=== PATIENT | female | born 1935 | race Caucasian/White ===

== ENCOUNTER 2016-02-24 13:27 | Inpatient (IN) | payer OTHER, MEDICARE ==
[~2016-02-24] VITALS: Ht 162.6 cm; Wt 91.6 kg
[~2016-02-24 13:27] MED LIST: METOPROLOL SUCC50 M1 PO; SIMVASTATIN20 MG PO
--- NOTE | 2016-02-24 13:32 | NUR ---
INFORMED WAITING PERFORMED. PT STATING IF I KNEW I HAD TO WAIT THIS LONG I WOULD HAVE NEVER CAME.
--- NOTE | 2016-02-24 13:33 | NUR ---
PT'S DAUGHTER STATING SHE WANTS IT WRITTEN DOWN THAT SHE IS ABLE TO BE NOTIFIED OF ALL HER MOTHER'S CONDITION.
--- NOTE | 2016-02-24 13:42 | NUR ---
PT C/O STOMACH, LEGS AND BREASTS "ARE HARD" PT C/O SORES ON LEGS. PT IS NOT A GOOD HISTORIAN.PT STATES SHE FEELS BLOATED AND DISTENDED
--- NOTE | 2016-02-24 15:13 | NUR ---
INFORMED WAITING PERFORMED.
--- NOTE | 2016-02-24 16:06 | ED GENERAL ADULT ---
History of Present Illness General Chief Complaint: General Adult Stated Complaint: SENT BY MD "LEGS,ABD,BREASTS HARD" SORES ON LEGS Source: patient Exam Limitations: no limitations Vital Signs & Intake/Output Vital Signs & Intake/Output Vital Signs Date Time Temp Pulse Resp B/P Pulse O2 O2 Flow FiO2 Ox Delivery Rate 02/23 1852 97.8 94 20 150/77 96 Room Air 02/23 1741 Room Air 02/23 1713 97.9 90 22 167/79 98 Room Air 02/23 1339 97.9 105 20 127/77 96 Room Air Allergies Coded Allergies: Penicillins (PER PT WAS A KID 02/24/16) alcohol (ANY KIND OF ALCOHOL MAKES LOOPY PER PT 02/24/16) ibuprofen (MD SAID DO NOT TAKE PER PT 02/24/16) Reconcile Medications Aspirin (Ecotrin*) 81 MG TABLET.DR 1 TAB PO DAILY HEART/BLOOD (Reported) Cholecalciferol (Vitamin D3) (Vitamin D) (Unknown Strength) CAPSULE (Unknown Dose) PO DAILY SUPPLEMENT (Reported) Metoprolol Tartrate 25 MG TABLET 1 TAB PO DAILY BP (Reported) Simvastatin (Simvastatin*) 20 MG TABLET 1 TAB PO QPM CHOLESTEROL (Reported) Triage Note: PT C/O STOMACH, LEGS AND BREASTS "ARE HARD" PT C/O SORES ON LEGS. PT IS NOT A GOOD HISTORIAN.PT STATES SHE FEELS BLOATED AND DISTENDED Triage Nurses Notes Reviewed? yes Onset: Gradual Duration: day(s): Timing: recent history HPI: 02/24/16 7 PM 80-year-old female who presents to the emergency department complaining of lower extremity edema and inability to walk. According to the patient and the family she has been unable to walk and now has redness and pustular lesions on the left lower extremity. The onset of the symptoms have been gradual, the duration has been days, the severity is significant; as her symptoms required her to come to the emergency department for care. She denies chest pain or shortness of breath. Past History Travel History Traveled to [place] past 21 day No Medical History Any Pertinent Medical History? see below for history Cardiovascular: hypertension, hyperlipidemia, irregular heart beat Surgical History Surgical History: PARTIAL HYSTERECTOMY Psychosocial History Who do you live with Daughter Services at Home None What is your primary language Polish Tobacco Use: Current Daily Use Daily Tobacco Use Amount/Type: => 5 Cigarettes daily ETOH Use: denies use Illicit Drug Use: denies illicit drug use Family History Hx Contributory? No Review of Systems Review of Systems Constitutional: Denies: fever. EENTM: Denies: visual changes. Respiratory: Reports: see HPI. Denies: short of breath. Cardiovascular: Denies: chest pain. GI: Reports: no symptoms, vomiting. Genitourinary: Reports: no symptoms. Musculoskeletal: Reports: see HPI. Skin: Reports: rash. Neurological/Psychological: Denies: headache. Hematologic/Endocrine: Denies: bruising, bleeding. Physical Exam Physical Exam General Appearance: alert, awake, anxious, moderate distress Head: atraumatic, normal appearance Eyes: Bilateral: normal appearance, PERRL, EOMI. Ears, Nose, Throat: normal pharynx, normal ENT inspection Neck: normal inspection, supple Respiratory: decreased breath sounds Cardiovascular: regular rate/rhythm Peripheral Pulses: 4+ radial (R), 4+ radial (L) Gastrointestinal: non-tender Back: decreased range of motion Extremities: pedal edema, swelling, tenderness Neurologic/Psych: no motor/sensory deficits, awake, alert, oriented x 3 Skin: rash Comments: She has massive lower extremity edema with pustular discharge from the left lower extremity Core Measures ACS in differential dx? No CVA/TIA Diagnosis: No Severe Sepsis Present: No Septic Shock Present: No Progress Differential Diagnoses I considered the following diagnoses in my evaluation of the patient: [CHF, DVT, cellulitis, deep tendon edema, Plan of Care: Orders Procedure Date/time Status Heart Healthy Diet 02/24 B Active EKG 02/23 2026 Active Patient Data 02/23 2022 Active Admit to inpatient 02/23 1950 Active Vital Signs 02/23 1950 Active Code Status 02/23 1950 Active TROPONIN LEVEL 02/23 1626 Complete COMPREHENSIVE METABOLIC PANEL 02/23 1626 Complete CBC WITHOUT DIFFERENTIAL 02/23 1626 Complete B-TYPE NATRIURETIC PEP (BNP) 02/23 1626 Complete EKG 02/23 162 Active Laboratory Tests 02/24/16 1715: Anion Gap 12, Estimated GFR > 60, BUN/Creatinine Ratio 28.3 H, Glucose 115 H, Calcium 9.4, Total Bilirubin 1.4 H, AST 25, ALT 44, Alkaline Phosphatase 101, Troponin I < 0.01, Eyh-D-Mvjojtadmww Pept 1380 H, Total Protein 6.6, Albumin 3.9, Globulin 2.7, Albumin/Globulin Ratio 1.4, CBC w Diff NO MAN DIFF REQ, RBC 4.90, MCV 83.4, MCH 26.5 L, RDW 17.6 H, MPV 8.4, Gran % 74.4, Lymphocytes % 14.5 L, Monocytes % 9.9 H, Eosinophils % 0.7, Basophils % 0.5, Absolute Granulocytes 8.4 H, Absolute Lymphocytes 1.6, Absolute Monocytes 1.1 H, Absolute Eosinophils 0.1, Absolute Basophils 0.1, PUBS MCHC 31.7 L Initial ED EKG: motion artifact , A. fib Prior EKG: changed Comments: 02/24/16 The patient is being upgraded to telemetry as her EKG shows atrial fibrillation. I spoke with her director of sports performance Dr. Nascimento' who does not recall a definitive diagnosis of prior A. fib. He will see the patient in consult in the a.m. Departure Departure Disposition: STILL A PATIENT Condition: Stable Clinical Impression Primary Impression: Anasarca Secondary Impressions: Afib, Right-sided heart failure Referrals: LOLIS PRICE MD (PCP/Family) Departure Forms: Customer Survey General Discharge Information Admission Note Spoke With: LOLIS PRICE MD Documentation of Exam: Documentation of any treatments & extenuating circumstances including Concerns Regarding Discharge (functional status, medication knowledge or non-compliance, living conditions, etc.) that warrant an admission rather than observation: [The patient needs admission for IV diuresis, IV antibiotics, PT consultation, consider short-term rehabilitation placement. The patient is unable to manage at home due to her massive anasarca] Critical Care Note Critical Care Note Critical Care Time: non-applicable
--- NOTE | 2016-02-24 16:15 | NUR ---
PT TO DERRELL Guy
--- NOTE | 2016-02-24 16:20 | NUR ---
DR SALAZAR EVALUATING
--- NOTE | 2016-02-24 16:30 | NUR ---
PT TO ULTRASOUND
--- NOTE | 2016-02-24 17:03 | NUR ---
PT RETURNED FROM ULTRASOUND
--- NOTE | 2016-02-24 17:19 | ULTRASOUND REPORT ---
EXAMINATION: US TRIPLEX LOWER EXTREMITY, BILATERAL CLINICAL INFORMATION: Bilateral lower extremity edema and swelling. COMPARISON: None. TECHNIQUE: Color-flow triplex imaging with spectral analysis and compression Doppler were performed on the bilateral lower extremities. FINDINGS: Respiratory variation, normal compression and augmented flow are noted throughout the bilateral lower extremities. The visualized common femoral vein, proximal greater saphenous vein, femoral vein, profunda femoral vein, popliteal vein and visualized mid calf venous segments show no evidence of deep venous thrombosis. There is no Lucio's cyst. IMPRESSION: Normal triplex scan without evidence of deep venous thrombosis involving the bilateral lower extremities.
[2016-02-24] MEDS ORDERED: ASPIRIN EC81 M1 PO (17:32)
[2016-02-24] MEDS ORDERED: VITAMIN D31000 UNI2 PO (17:32)
[2016-02-24 17:33] LABS: ABSOLUTE BASOPHIL COUNT 0.1 /CUMM (0.0-0.2); ABSOLUTE EOSINOPHIL COUNT 0.1 /CUMM (0.0-0.7); ABSOLUTE GRANULOCYTE CT 8.4 /CUMM (1.4-6.5); ABSOLUTE LYMPH COUNT 1.6 /CUMM (1.2-3.4); ABSOLUTE MONOCYTE COUNT 1.1 /CUMM (0.10-0.60); BASOPHIL % 0.5 % (0.0-2.0); EOSINOPHIL % 0.7 % (0-5); GRANULOCYTE % 74.4 % (42.2-75.2); HEMATOCRIT 40.9 % (37-47); MEAN CORPUSCULAR HGB 26.5 PG (27.0-31.0); MEAN CORPUSCULAR HGB CONC 31.7 G/DL (33.0-37.0); MEAN CORPUSCULAR VOLUME 83.4 FL (81.0-99.0); MEAN PLATELET VOLUME 8.4 FL (7.4-10.4); PLATELET COUNT 271 /CUMM (130-400); RBC DISTRIBUTION WIDTH 17.6 % (11.5-14.5); WHITE BLOOD CELL COUNT 11.3 /CUMM (4.8-10.8)
[2016-02-24] MEDS ORDERED: SIMVASTATIN20 M2 PO (17:35)
[2016-02-24] MEDS ORDERED: METOPROLOL TART25 M1 PO (17:35)
--- NOTE | 2016-02-24 17:40 | NUR ---
PT REFUSED ATORVASTATIN BECAUSE IT WAS NOT WHAT SHE TAKES AT HOME. THIS NURSE AND NELLI, PAY AGENT EDUCATED PT ON REPLACEMENT MED. PT STILL REFUSED MED
--- NOTE | 2016-02-24 18:38 | RADIOLOGY REPORT ---
EXAMINATION: XR PORTABLE CHEST CLINICAL INFORMATION: Edema. Evaluate for congestive heart failure. COMPARISON: Chest x-ray 08/11/2015. TECHNIQUE: Portable view of the chest was obtained. FINDINGS: The lungs are hypoinflated, but otherwise clear without focal airspace consolidation. No pleural effusions or pneumothoraces are identified. Cardiomediastinal contours are stable and there is stable prominence of the cardiac silhouette with mild central venous congestion. No overt pulmonary edema. Soft tissues are unremarkable. No acute osseous abnormality is identified. IMPRESSION: Stable prominence of the cardiac silhouette, without overt pulmonary edema. No findings indicative of congestive heart failure.
--- NOTE | 2016-02-24 20:25 | NUR ---
PT SITTING IN CHAIR WITH FAMILY PRESENT. ALERT AND ORIENTED.
--- NOTE | 2016-02-24 20:36 | Admission Certification ---
Admission Certification Certification Statement - As attending physician, I certify that at the time of - admission, based on clinical presentation, severity of - symptoms, need for further diagnostic testing and - therapeutic interventions, and risk of adverse outcomes - without in-hospital treatment, in my clinical assessment, - this patient requires an acute hospital stay for a minimum - of two nights or longer. I have also considered psychsocial - factors such as support system, advanced age, financial - issues, cognitive issues, and failed out-patient treatments, - past re-admission history, safety of patient, and lack of - compliance as applicable. Specific rationale supporting this admission is: ACUTE CORPULMONALE WITH ANASARCA
--- NOTE | 2016-02-24 20:50 | PN- Att Addend ---
See Addendum Attending Addendum Attending Brief Note 80-year-old female who presents to the emergency department complaining of lower extremity edema and inability to walk. According to the patient and the family she has been unable to walk and now has redness and pustular lesions on the left lower extremity. The onset of the symptoms have been gradual, the duration has been days, the severity is significant; as her symptoms required her to come to the emergency department for care. She denies chest pain or shortness of breath. In the emergency room she was noted to have significant anasarca with significant swelling in her leg. Patient also has had increasing abdominal distention and subcutaneous edema noted. She does have morbid obesity and she probably does have significant sleep apnea as well. Unfortunately she has not been compliant with her medications. Her past history significant for hypertension hyperlipidemia. She is also had a previous presyncopal episode, benign positional vertigo, recurrent bronchitis, previous ankle fracture, mobility dysfunction with morbid obesity hypertension hyperlipidemia. She does see Dr. Nascimento for cardiology follow-up but she has not been on any other medications other than her cholesterol medication and blood pressure medicines. In the recent past she has been little more depressed and she has been slowly increasing in her weight. Unfortunately she continues to smoke. She continues to smoke unfortunately. She has had partial hysterectomy. Past History Travel History Traveled to [place] past 21 day No Medical History Any Pertinent Medical History? see below for history Cardiovascular: hypertension, hyperlipidemia Surgical History Surgical History: PARTIAL HYSTERECTOMY Psychosocial History Who do you live with Daughter Services at Home None What is your primary language Ivorian Tobacco Use: Current Daily Use Daily Tobacco Use Amount/Type: => 5 Cigarettes daily ETOH Use: denies use Illicit Drug Use: denies illicit drug use Family History Hx Contributory? No Review of Systems Review of Systems Constitutional: Denies: fever. EENTM: Denies: visual changes. Respiratory: Reports: see HPI. Denies: short of breath. Cardiovascular: Denies: chest pain. GI: Reports: no symptoms, vomiting. Genitourinary: Reports: no symptoms. Musculoskeletal: Reports: see HPI. Skin: Reports: rash. Neurological/Psychological: Denies: headache. Hematologic/Endocrine: Denies: bruising, bleeding. Physical Exam Physical Exam General Appearance: alert, awake, anxious, moderate distress Head: atraumatic, normal appearance Eyes: Bilateral: normal appearance, PERRL, EOMI. Ears, Nose, Throat: normal pharynx, normal ENT inspection Neck: normal inspection, supple Respiratory: decreased breath sounds Cardiovascular: regular rate/rhythm Peripheral Pulses: 4+ radial (R), 4+ radial (L) Gastrointestinal: non-tender Back: decreased range of motion Extremities: pedal edema, swelling, tenderness Neurologic/Psych: no motor/sensory deficits, awake, alert, oriented x 3 Skin: rash SIGNIFICANT DATA Previous echocardiogram showed normal ejection fraction with tricuspid valve dysfunction and moderate aortic sclerosis with dilated dilatation of the proximal ascending aorta. Chest x-ray showed cardiomegaly no pulmonary edema Lower extremity Doppler showed normal DVT Blood work showed normal BUN and creatinine Baseline bicarbonate is 31 suggesting hypercarbia The bilirubin is slightly elevated at 1.4 ProBNP 1380 White count 11.3 hemoglobin 13 no significant left shift Urine analysis pending Previous echocardiogram had shown RV pressure of 32 IMPRESSION This is an 80-year-old lady with history of ongoing smoking, hypertension, hyperlipidemia, diastolic heart disease, previous aortic sclerosis, tricuspid valvular disease, morbid obesity with signs and symptoms suggestive of obstructive sleep apnea, chronic hypercarbic respiratory dysfunction with baseline high bicarbonate, now comes in with * Significant pedal edema generalized anasarca with increase in weight highly suggestive of acute on chronic cor pulmonale with right heart failure with fluid overload * Diastolic heart disease with no evidence of left ventricular failure * Morbid obesity with upper airway resistance syndrome versus obstructive sleep apnea * Glucose intolerance with hemoglobin A1c of 6.2 in the past * No clinical evidence suggestive of nephrotic syndrome but however proteinuria needs to be ruled out * No clinical evidence suggestive of hypothyroidism last TSH was normal this needs to be repeated * Probable worsening depression and anxiety * Significant chronic venostasis changes in the lower extremity with no evidence suggestive of active infection * Probable mild depression * Hypertension hyperlipidemia * Vitamin D deficiency RECOMMENDATION * Admitted to the hospital * Intravenous Lasix 40 mg every 12 * Potassium 40 mEq by mouth twice a day * Watch urine output and renal function * Send urine analysis and urine spot protein and if this is elevated she would need 24-hour urine to rule out nephrotic syndrome * Check TSH, hemoglobin A1c * Serial EKG * ABG to assess baseline hypercarbia if patient allows she is not too keen on it now * Echocardiogram * Please call Maulik Nascimento MD to see the patient tomorrow * Will consider low dose antidepressant in the future * Continue her outpatient medications which includes low-dose metoprolol and Zocor * When necessary nebulizer therapy for wheezing * We will get bedside spirometry tomorrow by respiratory therapist to see what her FEV1 is * Keep the leg elevated * Check hemoglobin A1c
--- NOTE | 2016-02-24 21:49 | History & Physical ---
[facility] 02/24/16 2789: General Information and HPI MD Statement: I have seen and personally examined DONNA CASTELLON and documented this H&P. The patient is a 80 year old F who presented with a patient stated chief complaint of [leg swelling]. Source of Information: patient Exam Limitations: pt agitated and irritable History of Present Illness: 80-year-old female with PMH of HTN, HLD, BPPV, morbid obesity, ROMERO?, chronic hypercarbic respiratory dysfunction, presented with increased leg and abdominal swelling, along with new sores on both lower extremities. The patient was irritable at the time of examination, and refused to turn down the TV, saying "hurry up with the questions, I have already answered everything and have been diagnosed, just look at what is written". She reported the swelling on both lower extremities have gotten worse over the past weeks. She also pointed to the new sores on the right lower extremity. During examination, she also has some wet areas on both her legs consistent with ruptured blisters, that she is not aware about, because she "cannot see down there". Her abdominal swelling has also worsened over the past few weeks. She denies orthopnea, and sleeps flat without any pillows without increased shortness of breath. She denies any pain anywhere. She denies fever, chills, increased weakness, visual changes, chest pain, palpitations, shortness of breath, cough, abdominal pain, nausea, vomiting, diarrhea, constipation, blood in stool. EKG showed atrial fibrillation, rate controlled. I did the stool guaiac and it was negative. Heparin started, as discussed with Dr. Nascimento. Pt is a long-time smoker, refused to quantify how much she smokes, and also reported smoking for about 70 years. She is allergic to penicillin and ibuprofen. Meds include metoprolol, simvastatin, vit d and baby aspirin. Allergies/Medications Allergies: Coded Allergies: Penicillins (PER PT WAS A KID 02/24/16) alcohol (ANY KIND OF ALCOHOL MAKES LOOPY PER PT 02/24/16) ibuprofen (MD SAID DO NOT TAKE PER PT 02/24/16) Home Med list Aspirin (Ecotrin*) 81 MG TABLET.DR 1 TAB PO DAILY HEART/BLOOD (Reported) Cholecalciferol (Vitamin D3) (Vitamin D) (Unknown Strength) CAPSULE (Unknown Dose) PO DAILY SUPPLEMENT (Reported) Metoprolol Tartrate 25 MG TABLET 1 TAB PO DAILY BP (Reported) Simvastatin (Simvastatin*) 20 MG TABLET 1 TAB PO QPM CHOLESTEROL (Reported) Past History Travel History Traveled to [place] past 21 day No Medical History Cardiovascular: hypertension, hyperlipidemia, irregular heart beat Surgical History Surgical History: PARTIAL HYSTERECTOMY Past Family/Social History Psychosocial History Where do you live? Home Who Do You Live With? child Services at Home: None Primary Language: Belarusian Smoking Status: Current Everyday Smoker ETOH Use: denies use Illicit Drug Use: denies illicit drug use Functional Ability Ambulation: walker Review of Systems Review of Systems Constitutional: Denies: chills, fever, malaise. EENTM: Denies: visual changes. Cardiovascular: Denies: chest pain, edema, palpitations. Respiratory: Denies: cough, short of breath. GI: Denies: abdominal pain, bloating, constipation, diarrhea, nausea, bloody stool, changes in stool, vomiting. Exam & Diagnostic Data Last 24 Hrs of Vital Signs/I&O Vital Signs Date Time Temp Pulse Resp B/P Pulse O2 O2 Flow FiO2 Ox Delivery Rate 02/23 2225 95 16 130/65 02/23 2104 98.0 90 18 149/79 96 Room Air 02/23 1852 97.8 94 20 150/77 96 Room Air 02/23 1741 Room Air 02/23 1713 97.9 90 22 167/79 98 Room Air 02/23 1339 97.9 105 20 127/77 96 Room Air Intake & Output 02/24 0800 02/24 0000 02/23 1600 Intake Total 250 Output Total 200 550 Balance -200 -300 Intake, Oral 250 Output, Urine 200 550 Physical Exam General Appearance Alert, Oriented X3, Cooperative, No Acute Distress, irritable Skin redness over the legs up to mid calf bilaterally, not warm to touch HEENT Atraumatic, PERRLA Cardiovascular Regular Rate, Normal S1, Normal S2, No Murmurs, Gallops, Rubs Lungs Clear to Auscultation, Normal Air Movement Abdomen Normal Bowel Sounds, Soft, No Tenderness Extremities noticable swelling of both lower extremities. non pitting edema bilaterally. some ruptured blisters on both legs. Vascular pulse on both lower extremities difficult to assess due to the edema Last 24 Hrs of Labs/Ehsan: Laboratory Tests 02/24/16 2343: Troponin I < 0.01, PT 12.5, INR 1.19, APTT 31 02/24/16 1715: Hemoglobin A1c Pending 02/24/16 1715: Anion Gap 12, Estimated GFR > 60, BUN/Creatinine Ratio 28.3 H, Glucose 115 H, Calcium 9.4, Total Bilirubin 1.4 H, Direct Bilirubin Pending, AST 25, ALT 44, Alkaline Phosphatase 101, Troponin I < 0.01, Obg-B-Niiryiibnsb Pept 1380 H, Total Protein 6.6, Albumin 3.9, Globulin 2.7, Albumin/Globulin Ratio 1.4, TSH 3.670, CBC w Diff NO MAN DIFF REQ, RBC 4.90, MCV 83.4, MCH 26.5 L, RDW 17.6 H, MPV 8.4, Gran % 74.4, Lymphocytes % 14.5 L, Monocytes % 9.9 H, Eosinophils % 0.7, Basophils % 0.5, Absolute Granulocytes 8.4 H, Absolute Lymphocytes 1.6, Absolute Monocytes 1.1 H, Absolute Eosinophils 0.1, Absolute Basophils 0.1, PUBS MCHC 31.7 L Assessment/Plan Assessment: 80-year-old female with PMH of HTN, HLD, BPPV, morbid obesity, ROMERO?, chronic hypercarbic respiratory dysfunction, presented with increased leg and abdominal swelling, along with new sores on both lower extremities. # New atrial fibrillation, rate controlled - Pt reports she was started on metoprolol a long time ago by Dr. Keane for abnormal heart rhythm * Admit to tele * IV heparin started (stool guaiac negative) * Cardio consult with Dr Nascimento * Echo * Lasix IV 40 bid * Kdur 40 bid * TSH, hba1c * Serial EKG and troponin * continue baby aspirin * Get recs from Dr. Keane regarding abnormal heart rhythm * Continue metoprolol # Bilateral lower extremity edema and abdominal swelling. LE does not look infected. - probnp 1380 * UA and spot protein # HTN * continue metoprolol # HLD * Continue statin # Anxiety, depression, irritability * Consider starting antidepressant # ROMERO? vs upper airway disease * Bedside spirometry to measure FEV1 * ABG # Nicotine dependence * Nicotine patch Diet: heart healthy DVT ppx: IV heparin FULL CODE As Ranked By This Provider Problem List: 1. Afib 2. Anasarca Core Measures/Miscellaneous Acute Coronary Syndrome ACS Diagnosis: No Cerebrovascular Accident CVA/TIA Diagnosis: No Congestive Heart Failure CHF Diagnosis: Yes Venous Thromboembolism VTE Risk Factors: Acute medical illness, Age > 40, Obesity, Smoking VTE Prophylaxis Ordered Inpt: Pharm- [facility]arin [facility] prophylaxis d/t: No contraindications No VTE Pharm Prophylaxis d/t: No contraindications VTE Diagnosis: No VTE Type: NONE VTE Confirmed by (Test): DUPLEX SCAN LOWER EXT Severe Sepsis Severe Sepsis Present: No Septic Shock Septic Shock Present: No Miscellaneous Documentation Attending Case Discussed With: LOLIS PRICE MD Primary Care Physician: LOLIS PRICE MD Patient sees these Specialists Dr Nascimento cardiology Level of Patient Care: Telemetry DOROTEO SOTOMAYOR 02/25/16 0403: Resident Review Statement Resident Statement: examined this patient, discussed with internet marketing strategist, agreed with internet marketing strategist, reviewed EMR data (avail), reviewed images, amended to note Other Findings: This is 80-year-old female with PMH of HTN, HLD, BPPV, morbid obesity, ROMERO?, chronic hypercarbic respiratory dysfunction, presented with increased leg and abdominal swelling, along with new sores on both lower extremities. Presented to the emergency department due to lower extremity swelling. she also has some wet areas on both her legs consistent with ruptured blister. She denies any pain anywhere. She denies fever, chills, increased weakness, visual changes, chest pain, palpitations, shortness of breath, cough, abdominal pain, nausea, vomiting , diarrhea, constipation, blood in stool. Patient stated that she was started on metoprolol by her primary care doctor controlled her heart rate, patient doesn't know if she had atrial fibrillation and what was the reason to not start her anticoagulation EKG showed atrial fibrillation, rate controlled. stool guaiac was negative, so heparin started, we discussed that with Dr. Nascimento the second time worker who will see the patient tomorrow morning. Physical examination, lab and imaging as above Problem list: -Lower extremity edema -Bilateral lower extremity lesion -Atrial fibrillation with controlled rate -Elevated bilirubin Plan: -Admit patient to telemetry floor -Vitals every shift, strict HARRY's -Start the patient on heparin drip -Start the patient on IV Lasix 40 mg twice a day -We'll hold off antibiotic for now. -ABG, TRC nebs as needed -Serial troponin and EKG -Echocardiogram, check TSH, hemoglobin A1c -Continue the patient metoprolol and statin -Cardiology consultation in a.m. -Physical therapy consultation -Wound care consultation -Heart healthy diet with 2 g sodium -Pain pathway -DVT prophylaxis on heparin drip -Full code
--- NOTE | 2016-02-24 22:00 | NUR ---
HOUSE STAFF AT BEDSIDE FOR EVAL
--- NOTE | 2016-02-24 22:30 | NUR ---
PT MEDICATED WITH K-DUR AND METOPROLOL PER APR.
--- NOTE | 2016-02-24 22:54 | NUR ---
PT MEDICATED WITH LASIX 40MG IV
[2016-02-25 00:10] LABS: PT 12.5 SEC (9.4-12.5); PTT 31 SEC (25-37)
--- NOTE | 2016-02-25 00:18 | NUR ---
HEPARIN BOLUS 4000 UNITS FOLLWOED BY HEPARI DRIP 25,000 UNITS IN 500 NL 0.45 N/S AT 26ML/HR
--- NOTE | 2016-02-25 00:19 | NUR ---
PT DIURESISING AFTER LASIX
[2016-02-25 02:42] VITALS: BP 134/78
--- NOTE | 2016-02-25 02:42 | NUR ---
RESPIRATORY THERAPY NOTE: PATIENT REFUSED ABG @ 6443
[2016-02-25 06:27] LABS: ABSOLUTE BASOPHIL COUNT 0.1 /CUMM (0.0-0.2); ABSOLUTE EOSINOPHIL COUNT 0.1 /CUMM (0.0-0.7); ABSOLUTE GRANULOCYTE CT 7.7 /CUMM (1.4-6.5); ABSOLUTE LYMPH COUNT 2.2 /CUMM (1.2-3.4); ABSOLUTE MONOCYTE COUNT 1.5 /CUMM (0.10-0.60); BASOPHIL % 0.6 % (0.0-2.0); EOSINOPHIL % 1.2 % (0-5); GRANULOCYTE % 66.3 % (42.2-75.2); HEMATOCRIT 38.3 % (37-47); MEAN CORPUSCULAR HGB CONC 32.5 G/DL (33.0-37.0); MEAN PLATELET VOLUME 8.4 FL (7.4-10.4); PLATELET COUNT 264 /CUMM (130-400); RBC DISTRIBUTION WIDTH 17.2 % (11.5-14.5); RED BLOOD CELL CT 4.62 /CUMM (4.20-5.40); WHITE BLOOD CELL COUNT 11.5 /CUMM (4.8-10.8)
[2016-02-25 07:00] LABS: PTT > 120 SEC (25-37)
[2016-02-25 08:29] VITALS: BP 138/81
--- NOTE | 2016-02-25 10:23 | PN- Pulmonary ---
Subjective HPI/Critical Care Issues: Ongoing diuresis Feels better Wants to go home Fatigued Objective Current Medications: Current Medications Sig/Neeraj Start time Last Medication Dose Route Stop Time Status Admin Acetaminophen 650 MG Q6P PRN 02/23 2229 AC PO Acetaminophen/ 1 TAB Q6P PRN 02/23 223 AC Hydrocodone Bitart PO Aspirin Buffered 81 MG DAILY 02/24 1000 AC 02/24 PO 0919 Atorvastatin Calcium 10 MG 1700 02/24 1700 AC PO Atorvastatin Calcium 20 MG ONCE ONE 02/23 1630 DC PO 02/23 163 Furosemide 40 MG 7:30 AM, & 4:30 PM 02/24 0730 AC 02/24 IV 0800 Furosemide 0 .STK-MED ONE 02/23 2145 DC IV Furosemide 40 MG ONCE ONE 02/23 2029 DC 02/23 IV PUSH 02/23 2030 225 Heparin Sodium 0 .STK-MED ONE 02/23 2345 DC (Porcine) .ROUTE Heparin Sodium 4,000 UNIT ONCE ONE 02/24 2244 DC 02/24 (Porcine) IV 02/23 2245 0015 Heparin Sodium 25,000 UNIT Q24H 02/24 2244 AC 02/24 (Porcine) IV 0015 Sodium Chloride 500 ML Metoprolol Tartrate 25 MG DAILY 02/24 1000 AC PO Metoprolol Tartrate 0 .STK-MED ONE 02/23 2145 DC PO Metoprolol Tartrate 25 MG ONCE ONE 02/23 2029 DC 02/23 PO 02/23 Nicotine 14 MG DAILY 02/24 1000 AC TOP Oxycodone/ 2 TAB Q6P PRN 02/23 2229 AC Acetaminophen PO Potassium Chloride 20 MEQ BID 02/23 2230 AC 02/24 PO 0919 Potassium Chloride 0 .STK-MED ONE 02/23 2145 DC PO Potassium Chloride 10 MEQ ONCE ONE 02/24 2044 DC 02/23 PO 02/23 2045 2225 Laboratory Tests 02/24 02/23 02/23 0615 2343 1715 Chemistry Sodium (137 - 145 mmol/L) 141 Potassium (3.5 - 5.1 mmol/L) 3.8 Chloride (98 - 107 mmol/L) 94 L Carbon Dioxide (22 - 30 mmol/L) 37 H Anion Gap (5 - 16) 11 BUN (7 - 17 mg/dL) 18 H Creatinine (0.5 - 1.0 mg/dL) 0.6 Estimated GFR (>60 ml/min) > 60 BUN/Creatinine Ratio (7 - 25 %) 30.0 H Hemoglobin A1c Pending Troponin I (< 0.11 ng/ml) < 0.01 Coagulation PT (9.4 - 12.5 SEC) 12.5 INR (0.90 - 1.19) 1.19 APTT (25 - 37 SEC) > 120 *H 31 Hematology CBC w Diff NO MAN DIFF REQ WBC (4.8 - 10.8 /CUMM) 11.5 H RBC (4.20 - 5.40 /CUMM) 4.62 Hgb (12.0 - 16.0 G/DL) 12.5 Hct (37 - 47 %) 38.3 MCV (81.0 - 99.0 FL) 83.0 MCH (27.0 - 31.0 PG) 27.0 RDW (11.5 - 14.5 %) 17.2 H Plt Count (130 - 400 /CUMM) 264 MPV (7.4 - 10.4 FL) 8.4 Gran % (42.2 - 75.2 %) 66.3 Lymphocytes % (20.5 - 51.1 %) 19.3 L Monocytes % (1.7 - 9.3 %) 12.6 H Eosinophils % (0 - 5 %) 1.2 Basophils % (0.0 - 2.0 %) 0.6 Absolute Granulocytes (1.4 - 6.5 /CUMM) 7.7 H Absolute Lymphocytes (1.2 - 3.4 /CUMM) 2.2 Absolute Monocytes (0.10 - 0.60 /CUMM) 1.5 H Absolute Eosinophils (0.0 - 0.7 /CUMM) 0.1 Absolute Basophils (0.0 - 0.2 /CUMM) 0.1 PUBS MCHC (33.0 - 37.0 G/DL) 32.5 L 02/23 1715 Chemistry Sodium (137 - 145 mmol/L) 139 Potassium (3.5 - 5.1 mmol/L) 3.9 Chloride (98 - 107 mmol/L) 96 L Carbon Dioxide (22 - 30 mmol/L) 31 H Anion Gap (5 - 16) 12 BUN (7 - 17 mg/dL) 17 Creatinine (0.5 - 1.0 mg/dL) 0.6 Estimated GFR (>60 ml/min) > 60 BUN/Creatinine Ratio (7 - 25 %) 28.3 H Glucose (65 - 99 mg/dL) 115 H Calcium (8.4 - 10.2 mg/dL) 9.4 Total Bilirubin (0.2 - 1.3 mg/dL) 1.4 H Direct Bilirubin (< 0.4 mg/dL) 0.5 H AST (14 - 36 U/L) 25 ALT (9 - 52 U/L) 44 Alkaline Phosphatase (<127 U/L) 101 Troponin I (< 0.11 ng/ml) < 0.01 Eac-K-Mzlthipyonf Pept (<125 pg/mL) 1380 H Total Protein (6.3 - 8.2 g/dL) 6.6 Albumin (3.5 - 5.0 g/dL) 3.9 Globulin (1.9 - 4.2 gm/dL) 2.7 Albumin/Globulin Ratio (1.1 - 2.2 %) 1.4 TSH (0.270 - 4.200 uIU/mL) 3.670 Hematology CBC w Diff NO MAN DIFF REQ WBC (4.8 - 10.8 /CUMM) 11.3 H RBC (4.20 - 5.40 /CUMM) 4.90 Hgb (12.0 - 16.0 G/DL) 13.0 Hct (37 - 47 %) 40.9 MCV (81.0 - 99.0 FL) 83.4 MCH (27.0 - 31.0 PG) 26.5 L RDW (11.5 - 14.5 %) 17.6 H Plt Count (130 - 400 /CUMM) 271 MPV (7.4 - 10.4 FL) 8.4 Gran % (42.2 - 75.2 %) 74.4 Lymphocytes % (20.5 - 51.1 %) 14.5 L Monocytes % (1.7 - 9.3 %) 9.9 H Eosinophils % (0 - 5 %) 0.7 Basophils % (0.0 - 2.0 %) 0.5 Absolute Granulocytes (1.4 - 6.5 /CUMM) 8.4 H Absolute Lymphocytes (1.2 - 3.4 /CUMM) 1.6 Absolute Monocytes (0.10 - 0.60 /CUMM) 1.1 H Absolute Eosinophils (0.0 - 0.7 /CUMM) 0.1 Absolute Basophils (0.0 - 0.2 /CUMM) 0.1 PUBS MCHC (33.0 - 37.0 G/DL) 31.7 L Vital Signs & I&O Last 24 Hrs of Vitals and I&O: Vital Signs Date Time Temp Pulse Resp B/P Pulse O2 O2 Flow FiO2 Ox Delivery Rate 02/24 0919 96.0 87 138/81 02/24 0829 96.0 87 20 138/81 95 Room Air 02/24 0303 Room Air 02/24 0242 97.9 78 26 134/78 98 Room Air 02/23 2225 95 16 130/65 02/23 2104 98.0 90 18 149/79 96 Room Air 02/23 1852 97.8 94 20 150/77 96 Room Air 02/23 1741 Room Air 02/23 1713 97.9 90 22 167/79 98 Room Air 02/23 1339 97.9 105 20 127/77 96 Room Air Intake & Output 02/24 1600 02/24 0800 02/24 0000 Intake Total 240 250 Output Total 550 550 Balance -310 -300 Intake, IV 0 Intake, Oral 240 250 Number 0 Bowel Movements Output, Urine 550 550 Patient 300 lb Weight Laboratory Tests 02/24 02/23 02/23 0615 2343 1715 Chemistry Sodium (137 - 145 mmol/L) 141 Potassium (3.5 - 5.1 mmol/L) 3.8 Chloride (98 - 107 mmol/L) 94 L Carbon Dioxide (22 - 30 mmol/L) 37 H Anion Gap (5 - 16) 11 BUN (7 - 17 mg/dL) 18 H Creatinine (0.5 - 1.0 mg/dL) 0.6 Estimated GFR (>60 ml/min) > 60 BUN/Creatinine Ratio (7 - 25 %) 30.0 H Hemoglobin A1c Pending Troponin I (< 0.11 ng/ml) < 0.01 Coagulation PT (9.4 - 12.5 SEC) 12.5 INR (0.90 - 1.19) 1.19 APTT (25 - 37 SEC) > 120 *H 31 Hematology CBC w Diff NO MAN DIFF REQ WBC (4.8 - 10.8 /CUMM) 11.5 H RBC (4.20 - 5.40 /CUMM) 4.62 Hgb (12.0 - 16.0 G/DL) 12.5 Hct (37 - 47 %) 38.3 MCV (81.0 - 99.0 FL) 83.0 MCH (27.0 - 31.0 PG) 27.0 RDW (11.5 - 14.5 %) 17.2 H Plt Count (130 - 400 /CUMM) 264 MPV (7.4 - 10.4 FL) 8.4 Gran % (42.2 - 75.2 %) 66.3 Lymphocytes % (20.5 - 51.1 %) 19.3 L Monocytes % (1.7 - 9.3 %) 12.6 H Eosinophils % (0 - 5 %) 1.2 Basophils % (0.0 - 2.0 %) 0.6 Absolute Granulocytes (1.4 - 6.5 /CUMM) 7.7 H Absolute Lymphocytes (1.2 - 3.4 /CUMM) 2.2 Absolute Monocytes (0.10 - 0.60 /CUMM) 1.5 H Absolute Eosinophils (0.0 - 0.7 /CUMM) 0.1 Absolute Basophils (0.0 - 0.2 /CUMM) 0.1 PUBS MCHC (33.0 - 37.0 G/DL) 32.5 L 02/23 1715 Chemistry Sodium (137 - 145 mmol/L) 139 Potassium (3.5 - 5.1 mmol/L) 3.9 Chloride (98 - 107 mmol/L) 96 L Carbon Dioxide (22 - 30 mmol/L) 31 H Anion Gap (5 - 16) 12 BUN (7 - 17 mg/dL) 17 Creatinine (0.5 - 1.0 mg/dL) 0.6 Estimated GFR (>60 ml/min) > 60 BUN/Creatinine Ratio (7 - 25 %) 28.3 H Glucose (65 - 99 mg/dL) 115 H Calcium (8.4 - 10.2 mg/dL) 9.4 Total Bilirubin (0.2 - 1.3 mg/dL) 1.4 H Direct Bilirubin (< 0.4 mg/dL) 0.5 H AST (14 - 36 U/L) 25 ALT (9 - 52 U/L) 44 Alkaline Phosphatase (<127 U/L) 101 Troponin I (< 0.11 ng/ml) < 0.01 Ylt-P-Nejobehncli Pept (<125 pg/mL) 1380 H Total Protein (6.3 - 8.2 g/dL) 6.6 Albumin (3.5 - 5.0 g/dL) 3.9 Globulin (1.9 - 4.2 gm/dL) 2.7 Albumin/Globulin Ratio (1.1 - 2.2 %) 1.4 TSH (0.270 - 4.200 uIU/mL) 3.670 Hematology CBC w Diff NO MAN DIFF REQ WBC (4.8 - 10.8 /CUMM) 11.3 H RBC (4.20 - 5.40 /CUMM) 4.90 Hgb (12.0 - 16.0 G/DL) 13.0 Hct (37 - 47 %) 40.9 MCV (81.0 - 99.0 FL) 83.4 MCH (27.0 - 31.0 PG) 26.5 L RDW (11.5 - 14.5 %) 17.6 H Plt Count (130 - 400 /CUMM) 271 MPV (7.4 - 10.4 FL) 8.4 Gran % (42.2 - 75.2 %) 74.4 Lymphocytes % (20.5 - 51.1 %) 14.5 L Monocytes % (1.7 - 9.3 %) 9.9 H Eosinophils % (0 - 5 %) 0.7 Basophils % (0.0 - 2.0 %) 0.5 Absolute Granulocytes (1.4 - 6.5 /CUMM) 8.4 H Absolute Lymphocytes (1.2 - 3.4 /CUMM) 1.6 Absolute Monocytes (0.10 - 0.60 /CUMM) 1.1 H Absolute Eosinophils (0.0 - 0.7 /CUMM) 0.1 Absolute Basophils (0.0 - 0.2 /CUMM) 0.1 PUBS MCHC (33.0 - 37.0 G/DL) 31.7 L IMPRESSION This is an 80-year-old lady with history of ongoing smoking, hypertension, hyperlipidemia, diastolic heart disease, previous aortic sclerosis, tricuspid valvular disease, morbid obesity with signs and symptoms suggestive of obstructive sleep apnea, chronic hypercarbic respiratory dysfunction with baseline high bicarbonate, now comes in with * Significant pedal edema generalized anasarca with increase in weight highly suggestive of acute on chronic cor pulmonale with right heart failure with fluid overload * Atrial fib prob chronic but new onset for her * Diastolic heart disease with no evidence of left ventricular failure * Morbid obesity with upper airway resistance syndrome versus obstructive sleep apnea * Glucose intolerance with hemoglobin A1c of 6.2 in the past * No clinical evidence suggestive of nephrotic syndrome but however proteinuria needs to be ruled out * No clinical evidence suggestive of hypothyroidism TSH is normal * Probable worsening depression and anxiety * Significant chronic venostasis changes in the lower extremity with no evidence suggestive of active infection and no dvt * Hypertension hyperlipidemia * Vitamin D deficiency RECOMMENDATION * Tele monitoring * Intravenous Lasix 40 mg every 12, give diamox 500 instead of lasix this pm * Potassium 40 mEq by mouth twice a day to keep potassium more than 4 * Watch urine output and renal function * Send urine analysis and urine spot protein and if this is elevated she would need 24-hour urine to rule out nephrotic syndrome * Check Hemoglobin A1c, and rpt lfts in am * Serial EKG * ABG to assess baseline hypercarbia if patient allows this pm * Echocardiogram * Please call Maulik Nascimento MD to see the patient * Will consider low dose antidepressant in the future * Continue her outpatient medications which includes low-dose metoprolol and Zocor * When necessary nebulizer therapy for wheezing * We will get bedside spirometry by respiratory therapist to see what her FEV1 is * Keep the leg elevated * Smoking cessation counsellin done Impression/Plan Impression/Plan Impression/Plan: Physical Exam General Appearance: alert, awake, anxious, moderate distress Head: atraumatic, normal appearance Eyes: Bilateral: normal appearance, PERRL, EOMI. Ears, Nose, Throat: normal pharynx, normal ENT inspection Neck: normal inspection, supple Respiratory: decreased breath sounds Cardiovascular: regular rate/rhythm Peripheral Pulses: 4+ radial (R), 4+ radial (L) Gastrointestinal: non-tender Back: decreased range of motion Extremities: pedal edema, swelling, tenderness Neurologic/Psych: no motor/sensory deficits, awake, alert, oriented x 3 Skin: rash with chronic venostasis changes
--- NOTE | 2016-02-25 12:21 | NUR ---
PHYSICAL THERAPY: Recieved consult orders, reviewed chart, and spoke to RN. Per RN, patient is completing stand pivot transfer chair<>commode w/supervision. Patient and family state that patient ambulates w/ RW at baseline. Patient is refusing P.T. evaluation at this time as she requests only to ambulate w/ shoes and refusing to ambulate w/ non-slip socks. Patient educated on the benefits of physical therapy and the role of PT and PT assessment. Patient continues to refuse;Family to bring in shoes tomorrow. P.T. to f/u as appropriate tomorrow.
--- NOTE | 2016-02-25 12:48 | NUR ---
PT SLEEPING AT THIS TIME, STATES SHE SLEEPS DURING THE DAY AND IS ANNOYED WITH STAFF FOR CONSTANTLY BOTHERING HER. PT GIVEN FOOD TRAY, NOTED TO ALREADY HAVE EATEN MCDONALDS AND DRINKING SODA. PT EXPRESSES IRRITATION THAT MORE SODA NOT PROVIDED AT THIS TIME. PT EDUCATED ON IMPORTANCE OF HEALTHY DIET COMPLIANCE REGARDING ADMITTING DIAGNOSIS
--- NOTE | 2016-02-25 15:57 | Cons- Cardiology ---
General Information and HPI Consulting Request Date of Consult: 02/25/16 Requested By: DEE GARCIA,LOLIS Hall Reason for Consult: new-onset atrial fibrillation Source of Information: patient, family, old records History of Present Illness: the patient is an 80-year-old female well-known to me. She has a past history of hypertension, hyperlipidemia, obesity, sleep apnea, chronic hypercapnic respiratory failure. The patient presents to the emergency room with increasing leg edema and abdominal girth. The symptoms worsened over the last several weeks. Lower extremity weeping is noted.some dyspnea also present. In the emergency room she was noted to be in atrial fibrillation unclear duration. She has no prior history of atrial fibrillation but does have known atrial and ventricular ectopy Allergies/Medications Allergies: Coded Allergies: Penicillins (PER PT WAS A KID 02/24/16) alcohol (ANY KIND OF ALCOHOL MAKES LOOPY PER PT 02/24/16) ibuprofen (MD SAID DO NOT TAKE PER PT 02/24/16) Home Med List: Aspirin (Ecotrin*) 81 MG TABLET.DR 1 TAB PO DAILY HEART/BLOOD (Reported) Cholecalciferol (Vitamin D3) (Vitamin D) (Unknown Strength) CAPSULE (Unknown Dose) PO DAILY SUPPLEMENT (Reported) Metoprolol Tartrate 25 MG TABLET 1 TAB PO DAILY BP (Reported) Simvastatin (Simvastatin*) 20 MG TABLET 1 TAB PO QPM CHOLESTEROL (Reported) Current Medications: Current Medications Sig/Neeraj Start time Last Medication Dose Route Stop Time Status Admin Acetaminophen 650 MG Q6P PRN 02/23 2230 AC PO Acetaminophen/ 1 TAB Q6P PRN 02/23 2230 AC Hydrocodone Bitart PO Acetazolamide 500 MG 16:30 02/24 1630 AC 02/24 PO 02/24 1631 1530 Albuterol Sulfate 3 ML Q4P PRN 02/24 1530 AC INH Aspirin Buffered 81 MG DAILY 02/24 1000 AC 02/24 PO 0919 Atorvastatin Calcium 10 MG 1700 02/24 1700 AC PO Atorvastatin Calcium 20 MG ONCE ONE 02/23 1630 DC PO 02/23 1631 Furosemide 40 MG 7:30 AM, & 4:30 PM 02/25 0730 AC IV Furosemide 40 MG 7:30 AM, & 4:30 PM 02/24 0730 DC 02/24 IV 0800 Furosemide 0 .STK-MED ONE 02/23 2146 DC IV Furosemide 40 MG ONCE ONE 02/23 2029 DC 02/23 IV PUSH 02/23 2030 225 Heparin Sodium 0 .STK-MED ONE 02/23 2346 DC (Porcine) .ROUTE Heparin Sodium 4,000 UNIT ONCE ONE 02/24 2244 DC 02/24 (Porcine) IV 02/23 Heparin Sodium 25,000 UNIT Q24H 02/24 2244 AC 02/24 (Porcine) IV 0015 Sodium Chloride 500 ML Metoprolol Tartrate 25 MG DAILY 02/24 1000 AC PO Metoprolol Tartrate 0 .STK-MED ONE 02/23 2145 DC PO Metoprolol Tartrate 25 MG ONCE ONE 02/23 2029 DC 02/23 PO 02/23 2030 222 Nicotine 14 MG DAILY 02/24 1000 AC TOP Oxycodone/ 2 TAB Q6P PRN 02/23 223 AC Acetaminophen PO Potassium Chloride 40 MEQ BID 02/24 1240 AC 02/24 PO 1530 Potassium Chloride 20 MEQ BID 02/23 223 DC 02/24 PO 0919 Potassium Chloride 0 .STK-MED ONE 02/23 2145 DC PO Potassium Chloride 10 MEQ ONCE ONE 02/24 2044 DC 02/23 PO 02/23 Past History Travel History Traveled to [place] past 21 day No Medical History Blood Transfusion Hx: No Neurological: NONE EENT: NONE Cardiovascular: hypertension, hyperlipidemia, irregular heart beat Respiratory: NONE Gastrointestinal: NONE Hepatic: NONE Renal: NONE Musculoskeletal: NONE Psychiatric: NONE Endocrine: NONE Blood Disorders: NONE Cancer(s): NONE TEMPLE MARKER/Reproductive: NONE Surgical History Surgical History: PARTIAL HYSTERECTOMY Psychosocial History Where Do You Live? Home Who Do You Live With? child Services at Home: None Primary Language: Emirati Smoking Status: Current Everyday Smoker ETOH Use: denies use Illicit Drug Use: denies illicit drug use Functional Ability Ambulation: walker Exam & Diagnostic Data Vital Signs and I&O Vital Signs Date Time Temp Pulse Resp B/P Pulse O2 O2 Flow FiO2 Ox Delivery Rate 02/24 1500 Room Air 02/24 1500 95 Room Air 02/24 1128 94 133/64 02/24 0919 96.0 87 138/81 02/24 0829 96.0 87 20 138/81 95 Room Air 02/24 0303 Room Air 02/24 0242 97.9 78 26 134/78 98 Room Air 02/23 2225 95 16 130/65 02/23 2104 98.0 90 18 149/79 96 Room Air 02/23 1852 97.8 94 20 150/77 96 Room Air 02/23 1741 Room Air 02/23 1713 97.9 90 22 167/79 98 Room Air Intake & Output 02/24 0800 02/24 0000 02/23 1600 02/23 0802/23 0000 Intake Total 240 250 Output Total 550 550 Balance -310 -300 Intake, IV 0 Intake, Oral 240 250 Number 0 Bowel Movements Output, Urine 550 550 Patient 300 lb Weight Physical Exam: General Appearance Alert, Oriented X3, Cooperative, No Acute Distress, irritable , obese Skin redness over the legs up to mid calf bilaterally, not warm to touch HEENT Atraumatic, PERRLA Cardiovascular irregular rate, Normal S1, Normal S2, 1 to 2/6 systolic murmur Lungs Clear to Auscultationand percussion bilaterally Abdomen Normal Bowel Sounds, Soft, No Tenderness Extremities noticable swelling 2+of both lower extremities. non pitting edema bilaterally. some ruptured blisters on both legs. Vascular pulse on both lower extremities difficult to assess due to the edema Labs/Ehsan Results: Laboratory Tests 02/24 02/24 1500 0615 Blood Gas pH (7.35 - 7.45 PH) 7.46 H pCO2 (35 - 45 TORR) 46 H pO2 (80 - 100 TORR) 76 L HCO3 (21 - 28 MEQ/L) 31 H ABG O2 Sat (Measured) (>96.0 %) 94.0 L Carboxyhemoglobin (1.5 - 5.0 %) 1.1 L O2 Concentration % RA Chemistry Sodium (137 - 145 mmol/L) 141 Potassium (3.5 - 5.1 mmol/L) 3.8 Chloride (98 - 107 mmol/L) 94 L Carbon Dioxide (22 - 30 mmol/L) 37 H Anion Gap (5 - 16) 11 BUN (7 - 17 mg/dL) 18 H Creatinine (0.5 - 1.0 mg/dL) 0.6 Estimated GFR (>60 ml/min) > 60 BUN/Creatinine Ratio (7 - 25 %) 30.0 H Coagulation APTT (25 - 37 SEC) > 120 *H Hematology CBC w Diff NO MAN DIFF REQ WBC (4.8 - 10.8 /CUMM) 11.5 H RBC (4.20 - 5.40 /CUMM) 4.62 Hgb (12.0 - 16.0 G/DL) 12.5 Hct (37 - 47 %) 38.3 MCV (81.0 - 99.0 FL) 83.0 MCH (27.0 - 31.0 PG) 27.0 RDW (11.5 - 14.5 %) 17.2 H Plt Count (130 - 400 /CUMM) 264 MPV (7.4 - 10.4 FL) 8.4 Gran % (42.2 - 75.2 %) 66.3 Lymphocytes % (20.5 - 51.1 %) 19.3 L Monocytes % (1.7 - 9.3 %) 12.6 H Eosinophils % (0 - 5 %) 1.2 Basophils % (0.0 - 2.0 %) 0.6 Absolute Granulocytes (1.4 - 6.5 /CUMM) 7.7 H Absolute Lymphocytes (1.2 - 3.4 /CUMM) 2.2 Absolute Monocytes (0.10 - 0.60 /CUMM) 1.5 H Absolute Eosinophils (0.0 - 0.7 /CUMM) 0.1 Absolute Basophils (0.0 - 0.2 /CUMM) 0.1 PUBS MCHC (33.0 - 37.0 G/DL) 32.5 L Miscellaneous Phlebotomy Draw Site LEFT RADIAL 02/24 02/23 02/23 02/23 0600 2343 6218 1717 Chemistry Hemoglobin A1c Cancelled Pending Troponin I (< 0.11 ng/ml) < 0.01 Coagulation PT (9.4 - 12.5 SEC) 12.5 INR (0.90 - 1.19) 1.19 APTT (25 - 37 SEC) 31 Urines Urine Color Cancelled Urine Clarity Cancelled Urine pH Cancelled Ur Specific [place] Cancelled Urine Protein Cancelled Urine Ketones Cancelled Urine Nitrite Cancelled Urine Bilirubin Cancelled Urine Urobilinogen Cancelled Ur Leukocyte Esterase Cancelled Ur Microscopic Cancelled Urine Hemoglobin Cancelled Urine Glucose Cancelled 02/23 1715 Chemistry Sodium (137 - 145 mmol/L) 139 Potassium (3.5 - 5.1 mmol/L) 3.9 Chloride (98 - 107 mmol/L) 96 L Carbon Dioxide (22 - 30 mmol/L) 31 H Anion Gap (5 - 16) 12 BUN (7 - 17 mg/dL) 17 Creatinine (0.5 - 1.0 mg/dL) 0.6 Estimated GFR (>60 ml/min) > 60 BUN/Creatinine Ratio (7 - 25 %) 28.3 H Glucose (65 - 99 mg/dL) 115 H Calcium (8.4 - 10.2 mg/dL) 9.4 Total Bilirubin (0.2 - 1.3 mg/dL) 1.4 H Direct Bilirubin (< 0.4 mg/dL) 0.5 H AST (14 - 36 U/L) 25 ALT (9 - 52 U/L) 44 Alkaline Phosphatase (<127 U/L) 101 Troponin I (< 0.11 ng/ml) < 0.01 Gly-H-Lkgllevbbmm Pept (<125 pg/mL) 1380 H Total Protein (6.3 - 8.2 g/dL) 6.6 Albumin (3.5 - 5.0 g/dL) 3.9 Globulin (1.9 - 4.2 gm/dL) 2.7 Albumin/Globulin Ratio (1.1 - 2.2 %) 1.4 TSH (0.270 - 4.200 uIU/mL) 3.670 Hematology CBC w Diff NO MAN DIFF REQ WBC (4.8 - 10.8 /CUMM) 11.3 H RBC (4.20 - 5.40 /CUMM) 4.90 Hgb (12.0 - 16.0 G/DL) 13.0 Hct (37 - 47 %) 40.9 MCV (81.0 - 99.0 FL) 83.4 MCH (27.0 - 31.0 PG) 26.5 L RDW (11.5 - 14.5 %) 17.6 H Plt Count (130 - 400 /CUMM) 271 MPV (7.4 - 10.4 FL) 8.4 Gran % (42.2 - 75.2 %) 74.4 Lymphocytes % (20.5 - 51.1 %) 14.5 L Monocytes % (1.7 - 9.3 %) 9.9 H Eosinophils % (0 - 5 %) 0.7 Basophils % (0.0 - 2.0 %) 0.5 Absolute Granulocytes (1.4 - 6.5 /CUMM) 8.4 H Absolute Lymphocytes (1.2 - 3.4 /CUMM) 1.6 Absolute Monocytes (0.10 - 0.60 /CUMM) 1.1 H Absolute Eosinophils (0.0 - 0.7 /CUMM) 0.1 Absolute Basophils (0.0 - 0.2 /CUMM) 0.1 PUBS MCHC (33.0 - 37.0 G/DL) 31.7 L Assessment/Plan Assessment/Plan Assessment: 1. Atrial fibrillation of unclear duration 2. Lower extremity edema with stasis changes 3. Hypertension 4. Hyperlipidemia 5. Obesity 6. Probable sleep apnea 7. Chronic hypercapnic respiratory failure 8. Elevated proBNP 9. Known ascending thoracic aortic aneurysm Recommendations: [facility] -Check serial troponins -Echocardiogram to reassess left ventricular function, right ventricular systolic pressure, size ascending aorta. -Depending on echo findings, consider follow-up CTA chest to better assess thoracic aortic anatomy -IV Lasix twice a day for lower extremity edema -Conservative management approach for leg edema with sodium restriction, leg elevation, eventual support stockings, etc. -follow-up labs in 24 hours -IV heparin for protection against cardioembolism and eventual transition to oral anticoagulation long-term for stroke prevention -further plans After the above Consult Acknowledgment - Thank you for your consult request.
--- NOTE | 2016-02-25 18:06 | NUR ---
PT WILL GO TO ROOM 189-2
--- NOTE | 2016-02-25 18:40 | NUR ---
NURSING NOTE PTT DRAWN; AWAITING RESULTS FOR HEP GTT. PT HAD ONE EPISODE OF URGE INCONTINENCE TODAY. PT COUGHED AND COULDNT HOLD HER URINE IN. SHE HAS VOIDED FINE INDEPENDANTLY TO THE BSC BESIDES THAT.
[2016-02-25 18:53] LABS: PTT 83 SEC (25-37)
--- NOTE | 2016-02-25 19:52 | NUR ---
PTT 83, RATE MAINTAINED PER PROTOCOL AND REPEAT PTT ORDERED FOR 0745 TOMORROW AM. PER DEPUTY PROSECUTING ATTORNEY ON TELE, ROOM IS READY.
--- NOTE | 2016-02-25 20:05 | NUR ---
TRANSPORT HERE FOR PT
--- NOTE | 2016-02-25 20:17 | NUR ---
PT TRANSPORTED TO FLOOR
[2016-02-25 22:00] VITALS: BP 108/72
--- NOTE | 2016-02-25 22:17 | NUR ---
PT ARRIVED TO THE FLOOR VIA STRETCHER APPROX 1999. ASSIST X2 OOB TO BSC. PT A/OX3. CLEAR SPEECH. CHILKOOT. LUNG SOUNDS DIMINISHED THROUGHOUT. EX SOB, TRIPOD POSITION WHILE SITTING IN RECLINER BUT NAD SAT 97% ON RA. ABD HARD/DISTENDED, GENERALIZED EDEMA +2. +BS. BLE +4 EDEMA, RED AND HARD. PT REFUSING TO ELEVATE LEGS IN RECLINER DESPITE EDUCATION. OPEN SORES NOTED TO BLE KACI, NO EXUDATE. AFIB 80S 0N THE MONITOR. BP 108/72. DENIES CP. HEPARIN GTT @ 18.8ML/HR. NEXT PTT DRAW DUE AT 0600. 24 HOUR URINE STARTED AT 2030 WITH FIRST URINE DUMPED IN TOILET AT THIS TIME. PT RESTING COMFORTABLY IN RECLINER. REFUSED 2200 DOSE OF POTASSIUM 20MEQ. STATES SHE WOULD RATHER EAT A POTATO SALAD INSTEAD. MD JALIL CLIFTON INFORMED. POTASSIUM FROM 0600 LABS 3.8 WILL CTM. CALL [place] WITHIN REACH.
--- NOTE | 2016-02-26 02:09 | Event Note ---
Event Note Event Note: Situation: * Bradycardia * Recurrent pauses * Desaturation Brief: * The patient was noted to have progressive bradycardia late into the night followed by multiple pauses on telemetry monitoring * Bradycardia: 30-41bpm around 0100hrs * Pauses: 3.5 sec @ 0104, 4.4 sec @ 0106hrs, 8 sec @ 0204hrs, 7.8 sec @ 0259hrs * Continuous pulse ox monitoring did show intermittent episodes of desaturation into the 80s on room air * Pt did receive metoprolol titrate 25 mg at approximately 6 PM but records indicate this is her normal home dosage Assessment and plan: * DDX: Bradycardia in the setting of possible undiagnosed ROMERO, medication side effects, or NSTEMI * Electrolytes WNL * Repeat EKG had no new changes * Metoprolol tartrate 25mg daily dose discontinued. Follow up with cardiology in the a.m. for recomendations on dosage decrease * Patient will likely benefit from sleep study to assess AHI * Continue with continuous pulse oximetry monitoring * Atropine, pacer pads at bedside * Patient's daughter has been notified * Dr Nascimento, Dr Laurent and Dr Van are aware of her current clinical condition * Pt will be kept NPO pending possible pacemaker implantation
[2016-02-26 02:15] VITALS: BP 140/69
[2016-02-26 02:52] LABS: ABSOLUTE BASOPHIL COUNT 0.1 /CUMM (0.0-0.2); ABSOLUTE EOSINOPHIL COUNT 0.2 /CUMM (0.0-0.7); ABSOLUTE GRANULOCYTE CT 6.4 /CUMM (1.4-6.5); ABSOLUTE LYMPH COUNT 2.2 /CUMM (1.2-3.4); ABSOLUTE MONOCYTE COUNT 1.3 /CUMM (0.10-0.60); BASOPHIL % 0.8 % (0.0-2.0); EOSINOPHIL % 1.6 % (0-5); GRANULOCYTE % 63.2 % (42.2-75.2); HEMATOCRIT 39.2 % (37-47); MEAN CORPUSCULAR HGB 26.5 PG (27.0-31.0); MEAN CORPUSCULAR HGB CONC 31.8 G/DL (33.0-37.0); MEAN CORPUSCULAR VOLUME 83.1 FL (81.0-99.0); MEAN PLATELET VOLUME 8.3 FL (7.4-10.4); PLATELET COUNT 267 /CUMM (130-400); RBC DISTRIBUTION WIDTH 17.5 % (11.5-14.5); RED BLOOD CELL CT 4.72 /CUMM (4.20-5.40); WHITE BLOOD CELL COUNT 10.1 /CUMM (4.8-10.8)
[2016-02-26 02:56] LABS: PT 13.4 SEC (9.4-12.5)
--- NOTE | 2016-02-26 03:19 | NUR ---
AT 0059, PT PURNIMA DOWN TO 40 AND IMMMEDIATELY RETURNED TO AFIB 90S. AT 0104, PT PURNIMA DOWN TO 30S WITH A 3.4 SEC PAUSE AND ANOTHER 4.4 SECOND PAUSE. VITALS STABLE. PARKING LOT CHAUFFEUR JALIL OLIVIAR IN TO SEE PATIENT. RESIDENT ABHINAV ZAYAS WAS INFORMED OF PT BRADYCARDIA AND FREQUENT PAUSES. ATROPINE AT BEDSIDE AND PACER PADS. AT 0204, TELE MONITOR SHOWED ASYSTOLE WITH 8 SECOND PAUSE, WHEN IN TO SEE PATIENT, SHE WAS AWAKE SCRATCHING HER HEAD. VITALS 140/69 AUTO CUFF, HR 93 AFIB WITH PVCS, 97.6 ORAL TEMP, RR 22 SAT 96% ON RA. LUNGS CLEAR. DENIES CP. BLOOD SUGAR 98. DR ZAYAS ORDERED STAT CBC, LYTES, INR AND TROPONIN WITH EKG. PT ANXIOUS AND IRRITATED AT STAFF FOR BOTHERING HER FROM SLEEPING. AT 0259, PT HAD ANOTHER EPISODE OF ASYSTOLE 7.[address] ZAYAS CALLING CARDIOLOGY ATTENDING SENSOR OPERATOR. AWAITING FURTHER ORDERS. PT PLACED ON CONTINUNOUS O2 MONITORING AT 0300. REMAINS ON RA. WILL CTM.
--- NOTE | 2016-02-26 03:56 | NUR ---
0341- 4.8 SECOND PAUSE 0342- 4.6 SECOND PAUSE 0347* 4.6 SECOND PAUSE, DESAT 88% REFUSING ABGS WITH RT WALTER 0356- DESAT 82-86% ON RA, AFIB 66 WITH PVCS. NO INTERVENTIONS ORDERED.
[2016-02-26 06:00] VITALS: BP 110/70
[2016-02-26 06:36] LABS: PTT 86 SEC (25-37)
--- NOTE | 2016-02-26 06:50 | NUR ---
AT 0400, ORDERS PLACED TO TRANSSFER PT TO [facility]. ATTEMPTED TO PLACE O2 NC ON PATIENT AND SHE REFUSED. SAT 86-92% ON O2 MONITOR. PT TRANSFERRED TO [facility] ROOM 102 AT ABOUT 0430. REPORT GIVEN TO LYDIA HER AT BEDSIDE. ONE BELONGINGS BAG TRANSFERRED WITH PT.
[2016-02-26 08:00] VITALS: BP 102/50
--- NOTE | 2016-02-26 08:26 | PN- Housestaff ---
Subjective Follow-up For: 1. Atrial fibrillation of unclear duration with episodes of prolonged pauses of up to 8.5 seconds 2. Lower extremity edema with stasis changes 3. Hypertension 4. Hyperlipidemia 5. Obesity 6. Probable sleep apnea 7. Chronic hypercapnic respiratory failure 8. Elevated proBNP 9. Known ascending thoracic aortic aneurysm; significantly increased in size on current echocardiogram (63 mm) Complaints: no complaints Tele-Events Since Last Visit: Atrial fibrillation with Signficant pauses - around 3 whole night. Each around 2sec, 3sec and then 7sec pause. transfered to ICU overnight as she is bradycardic at risk for cardiac arrest although remained asymptomatic. Subjective: I saw the patient today morning. She is lying comfortably on her recliner chair , don't want to talk to anyone. She is really frustrated to stay in the hospital. Want to go home. She is advised not to come to the hospital unless she feels that she needs some treatment. Review of Systems Constitutional: Reports: no symptoms, see HPI. EENTM: Reports: no symptoms, see HPI. Comments: ROS cannot be appreciated as per the patient's clinical situation. Objective Last 24 Hrs of Vital Signs/I&O Vital Signs Date Time Temp Pulse Resp B/P Pulse O2 O2 Flow FiO2 Ox Delivery Rate 02/25 1600 98.1 97 20 124/76 98 02/25 0600 98 Room Air 02/25 0600 96.4 88 16 110/70 98 Room Air 02/25 0215 97.6 93 22 140/69 96 Room Air 02/25 0000 93 Room Air 02/24 2200 97.6 84 22 108/72 96 Room Air 02/24 2058 96 Room Air 02/24 1817 96.0 87 138/81 Intake & Output 02/25 1600 06 0800 02/25 0000 Intake Total 350 516 Output Total 125 250 Balance 225 266 Intake, IV 150 36 Intake, Oral 200 480 Number 0 Bowel Movements Output, Urine 125 250 Physical Exam General Appearance: Alert, Oriented X3, Severe Distress, uncooperative Skin: venous stasis changes in both lower extremities HEENT: Atraumatic, PERRLA Neck: Supple, No JVD Cardiovascular: Normal S1, Normal S2 Extremities: No Clubbing, No Cyanosis, 4+ edema both extremities Current Medications: Current Medications Sig/Neeraj Start time Last Medication Dose Route Stop Time Status Admin Acetaminophen 650 MG Q6P PRN 02/23 2230 AC PO Acetaminophen/ 1 TAB Q6P PRN 02/23 2230 DC Hydrocodone Bitart PO Albuterol Sulfate 3 ML Q4P PRN 02/24 1530 AC INH Aspirin Buffered 81 MG DAILY 02/24 1000 AC 02/25 PO 1151 Atorvastatin Calcium 10 MG 1700 02/24 1700 AC 02/24 PO 1800 Atropine Sulfate 1 MG .STK-MED ONE 02/25 0113 DC IM 02/25 0114 Cefazolin Sodium 3 GM 0900 02/26 0900 UNir IV 02/27 0859 Cefazolin Sodium 3,000 MG ONCE ONE 02/25 1500 CAN Sodium Chloride 100 ML IV 02/25 1529 Furosemide 40 MG 7:30 AM, & 4:30 PM 02/25 0730 AC 02/25 IV 1037 Heparin Sodium 25,000 UNIT Q24H 02/23 2245 AC 02/25 (Porcine) IV 0228 Sodium Chloride 500 ML Metoprolol Tartrate 25 MG DAILY 02/24 1000 DC 02/24 PO 1817 Nicotine 14 MG DAILY 02/24 1000 AC TOP Oxycodone/ 2 TAB Q6P PRN 02/23 2230 DC Acetaminophen PO Potassium Chloride 40 MEQ BID 02/25 2200 CAN PO Potassium Chloride 40 MEQ .STK-MED ONE 02/25 0847 DC PO 02/25 0848 Potassium Chloride 40 MEQ ONCE ONE 02/25 0600 DC 02/25 PO 02/25 0601 0600 Potassium Chloride 40 MEQ BID 02/24 1240 AC 02/25 PO 1037 Last 24 Hrs of Lab/Ehsan Results Last 24 Hrs of Labs/Mics: Laboratory Tests 02/26/16 0900: Miscellaneous Test Cancelled, Ur Random Creatinine 87.3, U Random Total Protein 10.1, Protein/Creatinin Ratio 0.1 02/26/16 0745: APTT Cancelled 02/26/16 0635: CBC w Diff Cancelled, WBC Cancelled, RBC Cancelled, Hgb Cancelled, Hct Cancelled , MCV Cancelled, MCH Cancelled, RDW Cancelled, Plt Count Cancelled, MPV Cancelled, PUBS MCHC Cancelled 02/26/16 0605: APTT 86 H 02/26/16 0225: Troponin I Cancelled 02/26/16 0220: Anion Gap 11, Estimated GFR > 60, BUN/Creatinine Ratio 20.0, Phosphorus 3.8, Magnesium 2.1, Alkaline Phosphatase 95, Troponin I < 0.01, PT 13.4 H, INR 1.28 H, CBC w Diff NO MAN DIFF REQ, RBC 4.72, MCV 83.1, MCH 26.5 L, RDW 17.5 H, MPV 8.3, Gran % 63.2, Lymphocytes % 21.9, Monocytes % 12.5 H, Eosinophils % 1.6, Basophils % 0.8, Absolute Granulocytes 6.4, Absolute Lymphocytes 2.2, Absolute Monocytes 1.3 H, Absolute Eosinophils 0.2, Absolute Basophils 0.1, PUBS MCHC 31.8 L 02/26/16 0208: Hemoglobin A1c Pending 02/25/16 1820: APTT 83 H Orders ECHO Findings: CONCLUSIONS 1. This was a technically difficult examination. 2. Significant aneurysmal dilatation of the ascending aorta is present with a maximum dimension of 63 mm in the mid portion of the ascending aorta. The transverse arch and proximal descending aorta were not well visualized. 3. Mild to moderate aortic sclerosis is present with mild aortic insufficiency. 4. Mitral leaflet thickening is present with mild anular calcification and mild to moderate mitral insufficiency. 5. A small pericardial effusion is present. 6. The left ventricular chamber size is normal with mild concentric hypertrophy and a normal ejection fraction with no obvious resting wall motion abnormalities. 7. The right heart structures were not optimally assessed anatomically. Moderate tricuspid insufficiency is present with an stimated RV systolic pressure of at least 44 mmHg. Radiology Findings: Chest x-ray Stable prominence of the cardiac silhouette, without overt pulmonary edema. No findings indicative of congestive heart failure. Assessment/Plan Assessment: Patient is a 80-year-old female with significant history of HTN, HLD, obesity, ? ? ROMERO, chronic hypercarbic respiratory failure. She is known to have AAA in the past which appears to be dilated upto 6 cm now. She is admitted due to anasarca with chronic venous stasis changes in both her lower extremities. During this admission she was found to have new onset atrial fibrillation during this admission and was on a small dose of beta alli. Last night she was found to have significant pauses for around 3 times with the longest being 8 seconds. Most of these occurred during sleep. Plan New-onset atrial fibrillation with occasional pauses * Suspected secondary to obesity hypoventilation/sleep apnea/sick sinus syndrome. * Metoprolol (25 mg once daily) was held last night and kept nothing by mouth for pacemaker basement * However today the prosthesis cannot be scheduled and she is rescheduled for pacemaker placement in the morning tomorrow * IV heparin is on hold for the procedure and also 24-hour was postprocedure to avoid pocket hematoma * We will start metoprolol as soon as the procedure is done * She started regular diet now and kept nothing by mouth starting midnight * In view of her AAA, close monitoring is required. * Atropine and defibrillator at bedside with pads placed on her chest Right-sided heart failure with fluid overload * On aspirin 81 mg, atorvastatin 10 mg, furosemide 40 mg * Acute on chronic right-sided heart failure - in the light of atrial fibrillation and pauses * History of diastolic heart failure without any evidence of left ventricular failure * Diuresis with IV furosemide 40 mg twice a day * Potassium 40 mg twice a day Suspected cellulitis of lower extremities * Bilateral lower extremities had significant venous stasis changes in the skin * Upon examination there warm and mildly tender * She remained afebrile from admission, no significant changes in white count. * However as the procedure involves placement through the skin and infectious disease consult is placed * The recommended to give a 3 g of cefazolin IV/2 g of vancomycin prior to procedure. * We made a call to Dr. Church and found that her allergy to penicillin is not significant and insulin/cephalosporins are safe to administer. Glucose intolerance * HbA1c of 6.4 Chronic hypercarbic respiratory failure * Suspected secondary to smoking/obesity hypoventilation syndrome * TRC/nebs Depression/anxiety * Patient is very frustrated to stay in the hospital * Spiritual/psych consult DVT prophylaxis * On IV heparin drip CODE STATUS * Full code Problem List: 1. Afib 2. Right-sided heart failure 3. Anasarca 4. Dyslipidemia 5. Obesity 6. Benign paroxysmal positional vertigo Pain Ratin Pain Location: n/a Pain Goal: Remain pain free Pain Plan: Tylenol when necessary Tomorrow's Labs & Rationales: ICU bundle CBC
--- NOTE | 2016-02-26 08:50 | NUR ---
0450 ALERT, ORIENTED X3 DISGRUNTLED PATIENT RECEIVED FROM [facility] [place] [facility], PATIENT DECLINING TO RESPOND TO DIRECT QUESTIONS, REFUSING TO USE BED- WANTS TO GO HOME, REASONS FOR TRANSFER TO [facility] EXPLAINED, STEPS ARE BEING TAKEN TO PROTECT HER HEALTH, DR MARTE MADE AWARE OF PATIENT'S MANY REFUSALS- IN TO SPEAK WITH PATIENT 0500 PATIENT ALLOWED TO REMAIN IN [place] [facility] PER MD BUT HAS ALLOWED FOOT REST TO BE ELEVATED TO RAISE LEGS, BREATHE SOUNDS DIMINISHED AT BASES BUT NO AUDIBLE CRACKLES/WHEEZES, HEALTH INFORMATION TECH ATRIAL FIB WITH HEART RATE 80'S TO MID 90'S/MIN, INFREQUENT PVC'S NOTED, HEPARIN DRIP INFUSING AT 5.22 UNITS/KG/HR- NEXT PTT DUE AT 0600, BLE EDEMATOUS, REDDENED AND WARM TO TOUCH, VISIBLE BLISTERS AND OPEN BLISTERS NOTED AND WEEPING- WOUND CARE CONSULT HAS BEEN ORDERED
--- NOTE | 2016-02-26 09:01 | NUR ---
0545 VT X 3 BEATS NOTED- WITH ENCOURAGEMENT OF DR MARTE, PATIENT HAS TAKEN PO POTASSIUM DOSE ORDERED 0630 PATIENT NOW NPO PER ORDER, ONCE PATIENT STARTED FALLING ASLEEP HAS INTERMITTENTLY DECREASED O2 SAT TO MID-80'S FOR 5-10 SECONDS BEFORE RETURNING TO MID-90'S O2 SAT- ?ROMERO, NOW BEGINING TO HAVE MULTIPLE 2 TO 3+ SECOND CARDIAC PAUSES- SEE STRIPS- DR MARTE NOTIFIED AND PATIENT PLACED ON PACER PADS AND MONITOR 0700 PATIENT RESTING QUIETLY IN CHAIR, AWAITING AM MD ROUNDS
--- NOTE | 2016-02-26 10:23 | NUR ---
0700 LAST LABS DRAWN AT [address] CRUZ IF ANY ADDITIONAL BLOODS NEED TO BE DRAWN, NONE REPORTED NEEDED; PER DR. Gloria CRUZ HOLD LASIX UNTIL FURTHER NOTICE (DR VERBALLY REPORT TO ME OK TO ADM LASIX AT THIS TIME)
--- NOTE | 2016-02-26 10:31 | PN- Pulmonary ---
Subjective HPI/Critical Care Issues: Doing better today Events data reviewed afebrile vss Sig camilo noted Pt noted to have sig aneurysm by echo of the thorax Frustrated as she is not too keen on multiple interventions Objective Current Medications: Current Medications Sig/Neeraj Start time Last Medication Dose Route Stop Time Status Admin Acetaminophen 650 MG Q6P PRN 02/23 2230 AC PO Acetaminophen/ 1 TAB Q6P PRN 02/23 2230 DC Hydrocodone Bitart PO Acetazolamide 500 MG 16:30 02/24 1630 DC 02/24 PO 02/24 1631 1530 Albuterol Sulfate 3 ML Q4P PRN 02/24 1530 AC INH Aspirin Buffered 81 MG DAILY 02/24 1000 AC 02/24 PO 0919 Atorvastatin Calcium 10 MG 1700 02/24 1700 AC 02/24 PO 1800 Atropine Sulfate 1 MG .STK-MED ONE 02/25 0113 DC IM 02/25 0114 Furosemide 40 MG 7:30 AM, & 4:30 PM 02/25 0730 AC IV Furosemide 40 MG 7:30 AM, & 4:30 PM 02/24 0730 DC 02/24 IV 0800 Heparin Sodium 25,000 UNIT Q24H 02/23 2245 AC 02/25 (Porcine) IV 0228 Sodium Chloride 500 ML Metoprolol Tartrate 25 MG DAILY 02/24 1000 DC 02/24 PO 1817 Nicotine 14 MG DAILY 02/24 1000 AC TOP Oxycodone/ 2 TAB Q6P PRN 02/23 2230 DC Acetaminophen PO Potassium Chloride 40 MEQ .STK-MED ONE 02/25 0847 DC PO 02/25 0848 Potassium Chloride 40 MEQ ONCE ONE 02/25 06 DC 02/25 PO 02/25 0601 0600 Potassium Chloride 40 MEQ BID 02/24 1240 AC 02/24 PO 1530 Potassium Chloride 20 MEQ BID 02/23 2231 DC 02/24 PO 0919 Vital Signs & I&O Last 24 Hrs of Vitals and I&O: Vital Signs Date Time Temp Pulse Resp B/P Pulse O2 O2 Flow FiO2 Ox Delivery Rate 02/25 599 98 Room Air 02/25 599 96.4 88 16 110/70 98 Room Air 02/25 0215 97.6 93 22 140/69 96 Room Air 02/25 0000 93 Room Air 02/24 2199 97.6 84 22 108/72 96 Room Air 01/05 2058 96 Room Air 02/24 1817 96.0 87 138/81 02/24 1500 Room Air 02/24 1500 95 Room Air 02/24 1128 94 133/64 Intake & Output 02/25 1600 02/25 0800 02/25 0000 Intake Total 350 516 Output Total 125 250 Balance 225 266 Intake, IV 150 36 Intake, Oral 200 480 Number 0 Bowel Movements Output, Urine 125 250 Laboratory Tests 02/25 02/25 02/25 02/25 02/25 0900 0745 0635 0605 0225 Chemistry Troponin I Cancelled Coagulation APTT (25 - 37 SEC) Cancelled 86 H Hematology CBC w Diff Pending WBC Pending RBC Pending Hgb Pending Hct Pending MCV Pending MCH Pending RDW Pending Plt Count Pending MPV Pending PUBS MCHC Pending Miscellaneous Miscellaneous Test Cancelled Urines Ur Random Creatinine Pending U Random Total Protein Pending 02/25 02/24 02/24 0220 1820 1500 Blood Gas pH (7.35 - 7.45 PH) 7.46 H pCO2 (35 - 45 TORR) 46 H pO2 (80 - 100 TORR) 76 L HCO3 (21 - 28 MEQ/L) 31 H ABG O2 Sat (Measured) (>96.0 %) 94.0 L Carboxyhemoglobin (1.5 - 5.0 %) 1.1 L O2 Concentration % RA Chemistry Sodium (137 - 145 mmol/L) 139 Potassium (3.5 - 5.1 mmol/L) 3.7 Chloride (98 - 107 mmol/L) 94 L Carbon Dioxide (22 - 30 mmol/L) 34 H Anion Gap (5 - 16) 11 BUN (7 - 17 mg/dL) 14 Creatinine (0.5 - 1.0 mg/dL) 0.7 Estimated GFR (>60 ml/min) > 60 BUN/Creatinine Ratio (7 - 25 %) 20.0 Phosphorus (2.5 - 4.5 mg/dL) 3.8 Magnesium (1.6 - 2.3 mg/dL) 2.1 Alkaline Phosphatase (<127 U/L) 95 Troponin I (< 0.11 ng/ml) < 0.01 Coagulation PT (9.4 - 12.5 SEC) 13.4 H INR (0.90 - 1.19) 1.28 H APTT (25 - 37 SEC) 83 H Hematology CBC w Diff NO MAN DIFF REQ WBC (4.8 - 10.8 /CUMM) 10.1 RBC (4.20 - 5.40 /CUMM) 4.72 Hgb (12.0 - 16.0 G/DL) 12.5 Hct (37 - 47 %) 39.2 MCV (81.0 - 99.0 FL) 83.1 MCH (27.0 - 31.0 PG) 26.5 L RDW (11.5 - 14.5 %) 17.5 H Plt Count (130 - 400 /CUMM) 267 MPV (7.4 - 10.4 FL) 8.3 Gran % (42.2 - 75.2 %) 63.2 Lymphocytes % (20.5 - 51.1 %) 21.9 Monocytes % (1.7 - 9.3 %) 12.5 H Eosinophils % (0 - 5 %) 1.6 Basophils % (0.0 - 2.0 %) 0.8 Absolute Granulocytes (1.4 - 6.5 /CUMM) 6.4 Absolute Lymphocytes (1.2 - 3.4 /CUMM) 2.2 Absolute Monocytes (0.10 - 0.60 /CUMM) 1.3 H Absolute Eosinophils (0.0 - 0.7 /CUMM) 0.2 Absolute Basophils (0.0 - 0.2 /CUMM) 0.1 PUBS MCHC (33.0 - 37.0 G/DL) 31.8 L Miscellaneous Phlebotomy Draw Site LEFT RADIAL 02/24 02/24 02/24 1244 0900 0615 Chemistry Sodium (137 - 145 mmol/L) 141 Potassium (3.5 - 5.1 mmol/L) 3.8 Chloride (98 - 107 mmol/L) 94 L Carbon Dioxide (22 - 30 mmol/L) 37 H Anion Gap (5 - 16) 11 BUN (7 - 17 mg/dL) 18 H Creatinine (0.5 - 1.0 mg/dL) 0.6 Estimated GFR (>60 ml/min) > 60 BUN/Creatinine Ratio (7 - 25 %) 30.0 H Coagulation APTT (25 - 37 SEC) > 120 *H Hematology CBC w Diff NO MAN DIFF REQ WBC (4.8 - 10.8 /CUMM) 11.5 H RBC (4.20 - 5.40 /CUMM) 4.62 Hgb (12.0 - 16.0 G/DL) 12.5 Hct (37 - 47 %) 38.3 MCV (81.0 - 99.0 FL) 83.0 MCH (27.0 - 31.0 PG) 27.0 RDW (11.5 - 14.5 %) 17.2 H Plt Count (130 - 400 /CUMM) 264 MPV (7.4 - 10.4 FL) 8.4 Gran % (42.2 - 75.2 %) 66.3 Lymphocytes % (20.5 - 51.1 %) 19.3 L Monocytes % (1.7 - 9.3 %) 12.6 H Eosinophils % (0 - 5 %) 1.2 Basophils % (0.0 - 2.0 %) 0.6 Absolute Granulocytes (1.4 - 6.5 /CUMM) 7.7 H Absolute Lymphocytes (1.2 - 3.4 /CUMM) 2.2 Absolute Monocytes (0.10 - 0.60 /CUMM) 1.5 H Absolute Eosinophils (0.0 - 0.7 /CUMM) 0.1 Absolute Basophils (0.0 - 0.2 /CUMM) 0.1 PUBS MCHC (33.0 - 37.0 G/DL) 32.5 L Urines Ur Random Creatinine Cancelled U Random Total Protein Cancelled Urine Total Volume Cancelled Ur Total Protein 24 Hr Cancelled 02/24 02/23 02/23 02/23 02/23 0600 2343 2147 2147 1715 Chemistry Hemoglobin A1c (<5.7) Cancelled 6.4 H Troponin I (< 0.11 ng/ml) < 0.01 Coagulation PT (9.4 - 12.5 SEC) 12.5 INR (0.90 - 1.19) 1.19 APTT (25 - 37 SEC) 31 Urines Urine Color Cancelled Urine Clarity Cancelled Urine pH Cancelled Ur Specific Brandon Cancelled Urine Protein Cancelled Urine Ketones Cancelled Urine Nitrite Cancelled Urine Bilirubin Cancelled Urine Urobilinogen Cancelled Ur Leukocyte Esterase Cancelled Ur Microscopic Cancelled Urine Hemoglobin Cancelled Urine Total Volume Cancelled Ur Total Protein 24 Hr Cancelled Urine Glucose Cancelled 02/23 1715 Chemistry Sodium (137 - 145 mmol/L) 139 Potassium (3.5 - 5.1 mmol/L) 3.9 Chloride (98 - 107 mmol/L) 96 L Carbon Dioxide (22 - 30 mmol/L) 31 H Anion Gap (5 - 16) 12 BUN (7 - 17 mg/dL) 17 Creatinine (0.5 - 1.0 mg/dL) 0.6 Estimated GFR (>60 ml/min) > 60 BUN/Creatinine Ratio (7 - 25 %) 28.3 H Glucose (65 - 99 mg/dL) 115 H Calcium (8.4 - 10.2 mg/dL) 9.4 Total Bilirubin (0.2 - 1.3 mg/dL) 1.4 H Direct Bilirubin (< 0.4 mg/dL) 0.5 H AST (14 - 36 U/L) 25 ALT (9 - 52 U/L) 44 Alkaline Phosphatase (<127 U/L) 101 Troponin I (< 0.11 ng/ml) < 0.01 [id number] Pept (<125 pg/mL) 1380 H Total Protein (6.3 - 8.2 g/dL) 6.6 Albumin (3.5 - 5.0 g/dL) 3.9 Globulin (1.9 - 4.2 gm/dL) 2.7 Albumin/Globulin Ratio (1.1 - 2.2 %) 1.4 TSH (0.270 - 4.200 uIU/mL) 3.670 Hematology CBC w Diff NO MAN DIFF REQ WBC (4.8 - 10.8 /CUMM) 11.3 H RBC (4.20 - 5.40 /CUMM) 4.90 Hgb (12.0 - 16.0 G/DL) 13.0 Hct (37 - 47 %) 40.9 MCV (81.0 - 99.0 FL) 83.4 MCH (27.0 - 31.0 PG) 26.5 L RDW (11.5 - 14.5 %) 17.6 H Plt Count (130 - 400 /CUMM) 271 MPV (7.4 - 10.4 FL) 8.4 Gran % (42.2 - 75.2 %) 74.4 Lymphocytes % (20.5 - 51.1 %) 14.5 L Monocytes % (1.7 - 9.3 %) 9.9 H Eosinophils % (0 - 5 %) 0.7 Basophils % (0.0 - 2.0 %) 0.5 Absolute Granulocytes (1.4 - 6.5 /CUMM) 8.4 H Absolute Lymphocytes (1.2 - 3.4 /CUMM) 1.6 Absolute Monocytes (0.10 - 0.60 /CUMM) 1.1 H Absolute Eosinophils (0.0 - 0.7 /CUMM) 0.1 Absolute Basophils (0.0 - 0.2 /CUMM) 0.1 PUBS MCHC (33.0 - 37.0 G/DL) 31.7 L Impression/Plan Impression/Plan Impression/Plan: Physical Exam General Appearance: alert, awake, anxious, moderate distress Head: atraumatic, normal appearance Eyes: Bilateral: normal appearance, PERRL, EOMI. Ears, Nose, Throat: normal pharynx, normal ENT inspection Neck: normal inspection, supple Respiratory: decreased breath sounds Cardiovascular: regular rate/rhythm Peripheral Pulses: 4+ radial (R), 4+ radial (L) Gastrointestinal: non-tender Back: decreased range of motion Extremities: pedal edema, swelling, tenderness Neurologic/Psych: no motor/sensory deficits, awake, alert, oriented x 3 Skin: rash with chronic venostasis changes SIG Data ABG reviewed Pco2 46 IMPRESSION This is an 80-year-old lady with history of ongoing smoking, hypertension, hyperlipidemia, diastolic heart disease, previous aortic sclerosis, tricuspid valvular disease, morbid obesity with signs and symptoms suggestive of obstructive sleep apnea, chronic hypercarbic respiratory dysfunction with baseline high bicarbonate, now comes in with * Improving Significant pedal edema generalized anasarca with increase in weight highly suggestive of acute on chronic cor pulmonale with right heart failure with fluid overload * Atrial fib prob chronic but new onset for her and pt was noted to have sig pauses last night due to prob ohv with romero/central apnea with sick sinus syndrome * Sig aortic aneurysm by echo needs to be on beta blockers to reduce intra thoracic pressure and can be started if she gets a pacer * ROMERO/OHV with chronic hypercarbia clinically (tsh normal) * Diastolic heart disease with no evidence of left ventricular failure * Morbid obesity * Glucose intolerance with hemoglobin A1c of 6.2 in the past * No clinical evidence suggestive of nephrotic syndrome but however proteinuria needs to be ruled out * No clinical evidence suggestive of hypothyroidism TSH is normal * Probable worsening depression and anxiety * Significant chronic venostasis changes in the lower extremity with no evidence suggestive of active infection and no dvt but pt has sig pain and chronic edema and would need a pacer and rule out infection and ID consult will be asked * Hypertension hyperlipidemia * Vitamin D deficiency RECOMMENDATION * ICU monitoring and needs a pacer and cardio on board * Intravenous Lasix per cardio * Potassium 40 mEq by mouth twice a day to keep potassium more than 4 * Watch urine output and renal function * Rule out protenuria * Check Hemoglobin A1c * When necessary nebulizer therapy for wheezing * Keep the leg elevated * Smoking cessation counsellin done * ID jovita to rule out infection if she is going to have a pacer
--- NOTE | 2016-02-26 11:14 | NUR ---
3 EPISODES OF 6 PLUS SECONDS PAUSES ON TELE MONITOR FROM 0740 TO 0809 DURING ALL EVENTS PATIENT WAS SLEEPING UPON WAKING DENIES DIZZINES, CP, NO SOB, NO NAUSEA, ALERT & ORIENTED; DR. PRICE, DR. GIBSON, DR. ARAUJO AWARE OF THE EVENTS; PER DR. Stephanie ARAUJO STOP HEPARIN GTT AT 1200, TO OR FOR PACER MAKER PLACEMENT AFTER 1600 TODAY AFIB 80-105, BP 102/50;40 PO POT GIVEN AM K 3.7; RA EXP WHEEZING; REFUSING NICOTINE PATCH AT THIS TIME, WILL REASSESS NEEED; 24 HOUR URINE STARTED AT 0700, 40 IV LASIX GIVEN PER EMAR, VOIDS ON COMMODE ASSIST X2 W/ WALKER; ABD DIST OBESE POSITIVE B.S. DENIES NAUSEA/PAIN HEPARIN GTT INFUSING AT 18.8 MLS/HR OR 5.22 U/KG/HR VIA PATENT RH #[id number]; B/L LE SWELLING RED BLISTERS ( SEEN BY DR. MCCLELLAN TODAY) LE ELEVATED; PACER AT BEDSIDE ATTACHED TO PATIENT; WILL CONTINUE TO MONITOR
--- NOTE | 2016-02-26 11:56 | ECHOCARDIOGRAM REPORT ---
DONNA CASTELLON Age: 80 : 1935 Gender: F Exam Date: 02/25/2016 17:24 Exam Location: ER Ht (in): 64 Wt (lb): 300 BSA: 2.56 BP: 133 / 64 Ordering Physician: JAZMINE JAVIER MD Referring Physician: Maulik Nascimento MD Technologist: Isidra Jj [facility] Room Number: [id number] Indications: ARRHYTHMIAS Rhythm: Atrial fibrillation Technical Quality: Fair, Technically difficult study FINDINGS Left Ventricle Normal size left ventricle. No obvious regional wall motion abnormalities. Left ventricular wall thickness mildly increased. Normal left ventricular ejection fraction estimated at 55-60%. Right Ventricle Right ventricle not well visualized, grossly normal. Right Atrium Right atrium not well visualized, grossly normal. Left Atrium Left atrial size at the upper limits of normal. Mitral Valve Mitral valve thickened. Mild mitral annular calcification. Mild-to- moderate mitral regurgitation. Aortic Valve Trileaflet aortic valve. Diffuse thickening (sclerosis) of the aortic valve cusps without reduced excursion. No aortic stenosis. Mild aortic regurgitation. Tricuspid Valve Tricuspid valve not well visualized, grossly normal. Moderate tricuspid regurgitation. Pulmonic Valve Pulmonic valve not well visualized, grossly normal. Pericardium Small pericardial effusion. Great Vessels Ascending aorta aneurysm. Moderate aortic dilatation at the level of the sinotubular junction. Severely dilated proximal ascending aorta (tube). CONCLUSIONS 1. This was a technically difficult examination. 2. Significant aneurysmal dilatation of the ascending aorta is present with a maximum dimension of 63 mm in the mid portion of the ascending aorta. The transverse arch and proximal descending aorta were not well visualized. 3. Mild to moderate aortic sclerosis is present with mild aortic insufficiency. 4. Mitral leaflet thickening is present with mild anular calcification and mild to moderate mitral insufficiency. 5. A small pericardial effusion is present. 6. The left ventricular chamber size is normal with mild concentric hypertrophy and a normal ejection fraction with no obvious resting wall motion abnormalities. 7. The right heart structures were not optimally assessed anatomically. Moderate tricuspid insufficiency is present with an estimated RV systolic pressure of at least 44 mmHg. Maulik Nascimento M.D. (Electronically Signed) Final Date: 26 February 2016 11:56 MEASUREMENTS (Male / Female) Normal Values 2D ECHO LV Diastolic Diameter PLAX 3.4 cm 4.2 - 5.9 / 3.9 - 5.3 cm LV Systolic Diameter PLAX 2.2 cm 2.1 - 4.0 cm LV Fractional Shortening PLAX 35.3 % 25 - 46 % LV Ejection Fraction 2D Teich 65.8 % IVS Diastolic Thickness 1.3 cm LVPW Diastolic Thickness 1.4 cm LV Relative Wall Thickness 0.8 RV Internal Dim ED PLAX 2.9 cm 1.9 - 3.8 cm LVOT Diameter 2.0 cm Aortic Root Diameter 2.9 cm LA Systolic Diameter LX 3.4 cm 3.0 - 4.0 / 2.7 - 3.8 cm Ascending Aorta Diameter 6.3 cm DOPPLER AV Peak Velocity 123.0 cm/s AV Peak Gradient 6.1 mmHg AV Mean Velocity 69.6 cm/s AV Mean Gradient 3.0 mmHg AV Velocity Time Integral 20.6 cm LVOT Peak Velocity 96.1 cm/s LVOT Peak Gradient 3.7 mmHg LVOT Mean Velocity 65.8 cm/s LVOT Mean Gradient 2.0 mmHg LVOT Velocity Time Integral 18.4 cm LVOT Stroke Volume 57.8 cm AV Area Cont Eq vti 2.8 cm AV Area Cont Eq pk 2.5 cm MV Peak Velocity 119.0 cm/s MV Peak Gradient 5.7 mmHg MV Mean Velocity 54.7 cm/s MV Mean Gradient 2.0 mmHg Mitral E Point Velocity 118.0 cm/s MV PHT Velocity 124.0 cm/s MV Deceleration Esmeralda 801.0 cm/s MV Pressure Half Time 46.4 ms MV Area PHT 4.7 cm MV Deceleration Time 151.0 ms TR Peak Velocity 300.0 cm/s TR Peak Gradient 36.0 mmHg Right Atrial Pressure 5.0 mmHg Pulmonary Artery Systolic Pressu 41.0 mmHg Right Ventricular Systolic Press 41.0 mmHg PV Peak Velocity 86.9 cm/s PV Peak Gradient 3.0 mmHg PV Mean Velocity 57.0 cm/s PV Mean Gradient 2.0 mmHg PV Velocity Time Integral 15.2 cm LV E' Lateral Velocity 12.8 cm/s Mitral E to LV E' Lateral Ratio 9.2 LV E' Septal Velocity 7.0 cm/s Mitral E to LV E' Septal Ratio 17.0
--- NOTE | 2016-02-26 12:55 | Cons- Infect Disease ---
General Information and HPI Consulting Request Date of Consult: 02/26/16 Requested By: DEE GARCIA,LOLIS Hall Reason for Consult: Rule out cellulitis of the lower extremities Source of Information: patient History of Present Illness: This is an 80-year-old woman with a history of obesity, chronic hypercapnic respiratory failure and chronic lower extremity edema admitted on February 23 after presenting to the emergency room with increasing lower extremity and abdominal swelling and increasing erythema, with crusting lesions and pain of her lower extremities. On admission she was afebrile with evidence of atrial fibrillation. Laboratory data revealed a white blood cell count of 11,000, BUN/ creatinine 17 and 0.6, bilirubin 1.4, BNP 1380. Chest x-ray was negative. Dopplers of both lower extremities were negative. She was begun on Heparin and IV Lasix, with diuresis of about 2 L. Early this morning she was noted to have pauses up to 8 seconds, and she is scheduled for a pacemaker later today. She has been afebrile since admission and white blood cell count has been normal. She does report discomfort in both lower extremities. Allergies/Medications Allergies: Coded Allergies: Penicillins (PER PT WAS A KID 02/24/16) alcohol (ANY KIND OF ALCOHOL MAKES LOOPY PER PT 02/24/16) ibuprofen (MD SAID DO NOT TAKE PER PT 02/24/16) Home Med List: Aspirin (Ecotrin*) 81 MG TABLET.DR 1 TAB PO DAILY HEART/BLOOD (Reported) Cholecalciferol (Vitamin D3) (Vitamin D) (Unknown Strength) CAPSULE (Unknown Dose) PO DAILY SUPPLEMENT (Reported) Metoprolol Tartrate 25 MG TABLET 1 TAB PO DAILY BP (Reported) Simvastatin (Simvastatin*) 20 MG TABLET 1 TAB PO QPM CHOLESTEROL (Reported) Past History Travel History Traveled to [place] past 21 day No Medical History Blood Transfusion Hx: No Neurological: NONE EENT: benign positional vertigo Cardiovascular: hypertension, hyperlipidemia, irregular heart beat Respiratory: NONE Gastrointestinal: NONE Hepatic: NONE Renal: NONE Musculoskeletal: fracture (right ankle), left knee tendonitis Psychiatric: NONE Endocrine: NONE Blood Disorders: NONE Cancer(s): NONE 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 Home Who Do You Live With? child Services at Home: None Primary Language: Kosovan Smoking Status: Current Everyday Smoker ETOH Use: denies use Illicit Drug Use: denies illicit drug use Functional Ability Ambulation: walker Review of Systems Review of Systems All Other Systems: Reviewed and Negative Exam & Diagnostic Data Last 24 Hrs of Vital Signs/I&O Vital Signs Date Time Temp Pulse Resp B/P Pulse O2 O2 Flow FiO2 Ox Delivery Rate 02/25 599 98 Room Air 02/25 06 96.4 88 16 110/70 98 Room Air 02/25 0215 97.6 93 22 140/69 96 Room Air 02/25 0000 93 Room Air 02/24 2200 97.6 84 22 108/72 96 Room Air 02/24 2058 96 Room Air 02/24 1817 96.0 87 138/81 02/24 1500 Room Air 02/24 1500 95 Room Air Intake & Output 02/25 1600 02/25 0800 02/25 0000 Intake Total 350 516 Output Total 125 250 Balance 225 266 Intake, IV 150 36 Intake, Oral 200 480 Number 0 Bowel Movements Output, Urine 125 250 Physical Exam Other Physical Findings: She is awake and alert in no acute distress. She is afebrile. Skin reveals no rash. HEENT exam is negative. Neck is supple with no adenopathy. Lungs are clear. Heart irregular rhythm with no murmur appreciated. Abdomen is obese, distended, nontender with positive bowel sounds. Back no CVA tenderness. Extremities bilateral lower extremity edema, with erythema most pronounced below the knees but also involving the thighs, mildly tender to palpation, with venous stasis changes and crusted lesions, pulses decreased over both feet. Neuro is without focality. Last 24 Hours of Lab Results: Laboratory Tests 02/25 02/25 02/25 02/25 0900 0745 0635 0605 Coagulation APTT (25 - 37 SEC) Cancelled 86 H Hematology CBC w Diff Pending WBC Pending RBC Pending Hgb Pending Hct Pending MCV Pending MCH Pending RDW Pending Plt Count Pending MPV Pending PUBS MCHC Pending Miscellaneous Miscellaneous Test Cancelled Urines Ur Random Creatinine (mg/dL) 87.3 U Random Total Protein (0 - 12 mg/dL) 10.1 Protein/Creatinin Ratio (< 0.2) 0.1 02/25 02/25 02/25 0225 0220 0208 Chemistry Sodium (137 - 145 mmol/L) 139 Potassium (3.5 - 5.1 mmol/L) 3.7 Chloride (98 - 107 mmol/L) 94 L Carbon Dioxide (22 - 30 mmol/L) 34 H Anion Gap (5 - 16) 11 BUN (7 - 17 mg/dL) 14 Creatinine (0.5 - 1.0 mg/dL) 0.7 Estimated GFR (>60 ml/min) > 60 BUN/Creatinine Ratio (7 - 25 %) 20.0 Hemoglobin A1c Pending Phosphorus (2.5 - 4.5 mg/dL) 3.8 Magnesium (1.6 - 2.3 mg/dL) 2.1 Alkaline Phosphatase (<127 U/L) 95 Troponin I (< 0.11 ng/ml) Cancelled < 0.01 Coagulation PT (9.4 - 12.5 SEC) 13.4 H INR (0.90 - 1.19) 1.28 H Hematology CBC w Diff NO MAN DIFF REQ WBC (4.8 - 10.8 /CUMM) 10.1 RBC (4.20 - 5.40 /CUMM) 4.72 Hgb (12.0 - 16.0 G/DL) 12.5 Hct (37 - 47 %) 39.2 MCV (81.0 - 99.0 FL) 83.1 MCH (27.0 - 31.0 PG) 26.5 L RDW (11.5 - 14.5 %) 17.5 H Plt Count (130 - 400 /CUMM) 267 MPV (7.4 - 10.4 FL) 8.3 Gran % (42.2 - 75.2 %) 63.2 Lymphocytes % (20.5 - 51.1 %) 21.9 Monocytes % (1.7 - 9.3 %) 12.5 H Eosinophils % (0 - 5 %) 1.6 Basophils % (0.0 - 2.0 %) 0.8 Absolute Granulocytes (1.4 - 6.5 /CUMM) 6.4 Absolute Lymphocytes (1.2 - 3.4 /CUMM) 2.2 Absolute Monocytes (0.10 - 0.60 /CUMM) 1.3 H Absolute Eosinophils (0.0 - 0.7 /CUMM) 0.2 Absolute Basophils (0.0 - 0.2 /CUMM) 0.1 PUBS MCHC (33.0 - 37.0 G/DL) 31.8 L 02/24 02/24 02/24 1820 1500 1244 Blood Gas pH (7.35 - 7.45 PH) 7.46 H pCO2 (35 - 45 TORR) 46 H pO2 (80 - 100 TORR) 76 L HCO3 (21 - 28 MEQ/L) 31 H ABG O2 Sat (Measured) (>96.0 %) 94.0 L Carboxyhemoglobin (1.5 - 5.0 %) 1.1 L O2 Concentration % RA Coagulation APTT (25 - 37 SEC) 83 H Miscellaneous Phlebotomy Draw Site LEFT RADIAL Urines Ur Random Creatinine Cancelled U Random Total Protein Cancelled Last 24 Hours of Ehsan Results: No cultures obtained Diagnostic Data Recent Imaging Findings: Chest x-ray February 23 stable prominence of the cardiac silhouette with no overt pulmonary edema Dopplers of both lower extremities February 23 negative Assessment/Plan Assessment/Plan Impression: This is an 80-year-old woman with obesity, hypercarbic respiratory failure and chronic lower extremity edema admitted on February 23 with increasing lower extremity edema, with erythema and pain, and increasing abdominal girth, found to be in atrial fibrillation, with no fever or significant leukocytosis, found on telemetry to have significant pauses for which a pacemaker is to be placed later today. She does have bilateral lower extremity erythema, which is most likely secondary to the edema, which is presumably secondary to venous insufficiency, with evidence of venous stasis changes. She has remained afebrile with white blood cell count normal; therefore do not feel she has acute cellulitis and do not feel she requires antibiotics at this time. Suggestion: 1. Would weigh and follow daily weights with diuresis 2. Local wound care to both lower extremities 3. Elevation of both legs 4. Can proceed with pacemaker placement with 3 g of Cefazolin IV (if able to tolerate cephalosporins) or 2 grams of Vancomycin prior to the procedure Consult Acknowledgment - Thank you for your consult request.
--- NOTE | 2016-02-26 13:30 | PN- Cardiology ---
Subjective Subjective: The patient is doing somewhat better today. Respiratory status stable. Lower extremity edema improving. Erythema and stasis changes are present. Overnight, the patient was noted to remain in atrial fibrillation but had pauses of up to 8.5 seconds. Earlier today, while awake, the patient continued to have 4.5-5 second pauses. Objective Vital Signs and I&Os Vital Signs Date Time Temp Pulse Resp B/P Pulse O2 O2 Flow FiO2 Ox Delivery Rate 02/25 599 98 Room Air 02/25 06 96.4 88 16 110/70 98 Room Air 02/25 0215 97.6 93 22 140/69 96 Room Air 02/25 0000 93 Room Air 02/24 2200 97.6 84 22 108/72 96 Room Air 02/24 2058 96 Room Air 02/24 1817 96.0 87 138/81 02/24 1500 Room Air 02/24 1500 95 Room Air Intake & Output 02/25 1600 02/25 0800 02/25 0000 02/24 1600 02/24 0800 02/24 0000 Intake Total 350 516 960 240 250 Output Total 874 724 9057 550 550 Balance 225 266 -1440 -310 -300 Intake, IV 150 36 0 Intake, Oral 200 480 960 240 250 Number 0 0 0 Bowel Movements Output, Urine 526 421 8863 550 550 Patient 300 lb Weight Physical Exam: General Appearance Alert, Oriented X3, Cooperative, No Acute Distress, irritable , obese Skin redness over the legs up to mid calf bilaterally, not warm to touch HEENT Atraumatic, PERRLA Cardiovascular irregular rate, Normal S1, Normal S2, 1 to 2/6 systolic murmur Lungs Clear to Auscultationand percussion bilaterally Abdomen Normal Bowel Sounds, Soft, No Tenderness Extremities noticable swelling 2+of both lower extremities. non pitting edema bilaterally. some ruptured blisters on both legs. Vascular pulse on both lower extremities difficult to assess due to the edema Current Medications: Current Medications Sig/Neeraj Start time Last Medication Dose Route Stop Time Status Admin Acetaminophen 650 MG Q6P PRN 02/23 2229 AC PO Acetaminophen/ 1 TAB Q6P PRN 02/23 2229 DC Hydrocodone Bitart PO Acetazolamide 500 MG 16:30 02/24 1630 DC 02/24 PO 02/24 1631 1530 Albuterol Sulfate 3 ML Q4P PRN 02/24 1530 AC INH Aspirin Buffered 81 MG DAILY 02/24 1000 AC 02/25 PO 1151 Atorvastatin Calcium 10 MG 1700 02/24 1700 AC 02/24 PO 1800 Atropine Sulfate 1 MG .STK-MED ONE 02/25 0113 DC IM 02/25 0114 Furosemide 40 MG 7:30 AM, & 4:30 PM 02/25 0730 AC 02/25 IV 1037 Heparin Sodium 25,000 UNIT Q24H 02/23 2245 AC 02/25 (Porcine) IV 0228 Sodium Chloride 500 ML Metoprolol Tartrate 25 MG DAILY 02/24 1000 DC 02/24 PO 1817 Nicotine 14 MG DAILY 02/24 1000 AC TOP Oxycodone/ 2 TAB Q6P PRN 02/23 2230 DC Acetaminophen PO Potassium Chloride 40 MEQ BID 02/25 2200 CAN PO Potassium Chloride 40 MEQ .STK-MED ONE 02/25 0847 DC PO 02/25 0848 Potassium Chloride 40 MEQ ONCE ONE 02/25 0600 DC 02/25 PO 02/25 0601 0600 Potassium Chloride 40 MEQ BID 02/24 1240 AC 02/25 PO 1037 Potassium Chloride 20 MEQ BID 02/23 2231 DC 02/24 PO 0919 Results Last 48 Hrs of Labs/Mics: Laboratory Tests 02/26/16 0900: Miscellaneous Test Cancelled, Ur Random Creatinine 87.3, U Random Total Protein 10.1, Protein/Creatinin Ratio 0.1 02/26/16 0745: APTT Cancelled 02/26/16 0635: CBC w Diff Cancelled, WBC Cancelled, RBC Cancelled, Hgb Cancelled, Hct Cancelled , MCV Cancelled, MCH Cancelled, RDW Cancelled, Plt Count Cancelled, MPV Cancelled, PUBS MCHC Cancelled 02/26/16 0605: APTT 86 H 02/26/16 0225: Troponin I Cancelled 02/26/16 0220: Anion Gap 11, Estimated GFR > 60, BUN/Creatinine Ratio 20.0, Phosphorus 3.8, Magnesium 2.1, Alkaline Phosphatase 95, Troponin I < 0.01, PT 13.4 H, INR 1.28 H, CBC w Diff NO MAN DIFF REQ, RBC 4.72, MCV 83.1, MCH 26.5 L, RDW 17.5 H, MPV 8.3, Gran % 63.2, Lymphocytes % 21.9, Monocytes % 12.5 H, Eosinophils % 1.6, Basophils % 0.8, Absolute Granulocytes 6.4, Absolute Lymphocytes 2.2, Absolute Monocytes 1.3 H, Absolute Eosinophils 0.2, Absolute Basophils 0.1, PUBS MCHC 31.8 L 02/26/16 0208: Hemoglobin A1c Pending 02/25/16 1820: APTT 83 H 02/25/16 1500: pH 7.46 H, pCO2 46 H, pO2 76 L, HCO3 31 H, ABG O2 Sat (Measured) 94.0 L, Carboxyhemoglobin 1.1 L, O2 Concentration % RA, Phlebotomy Draw Site LEFT RADIAL 02/25/16 1244: Ur Random Creatinine Cancelled, U Random Total Protein Cancelled 02/25/16 0900: Urine Total Volume Cancelled, Ur Total Protein 24 Hr Cancelled 02/25/16 0615: Anion Gap 11, Estimated GFR > 60, BUN/Creatinine Ratio 30.0 H, APTT > 120 *H, CBC w Diff NO MAN DIFF REQ, RBC 4.62, MCV 83.0, MCH 27.0, RDW 17.2 H, MPV 8.4, Gran % 66.3, Lymphocytes % 19.3 L, Monocytes % 12.6 H, Eosinophils % 1.2, Basophils % 0.6, Absolute Granulocytes 7.7 H, Absolute Lymphocytes 2.2, Absolute Monocytes 1.5 H, Absolute Eosinophils 0.1, Absolute Basophils 0.1, PUBS MCHC 32.5 L 02/25/16 0600: Hemoglobin A1c Cancelled 02/24/16 2343: Troponin I < 0.01, PT 12.5, INR 1.19, APTT 31 02/24/16 2147: Urine Total Volume Cancelled, Ur Total Protein 24 Hr Cancelled 02/24/16 2147: Urine Color Cancelled, Urine Clarity Cancelled, Urine pH Cancelled, Ur Specific [place] Cancelled, Urine Protein Cancelled, Urine Ketones Cancelled, Urine Nitrite Cancelled, Urine Bilirubin Cancelled, Urine Urobilinogen Cancelled, Ur Leukocyte Esterase Cancelled, Ur Microscopic Cancelled, Urine Hemoglobin Cancelled, Urine Glucose Cancelled 02/24/16 1715: Hemoglobin A1c 6.4 H 02/24/16 1715: Anion Gap 12, Estimated GFR > 60, BUN/Creatinine Ratio 28.3 H, Glucose 115 H, Calcium 9.4, Total Bilirubin 1.4 H, Direct Bilirubin 0.5 H, AST 25, ALT 44, Alkaline Phosphatase 101, Troponin I < 0.01, Krz-N-Kyljxqyxmjz Pept 1380 H, Total Protein 6.6, Albumin 3.9, Globulin 2.7, Albumin/Globulin Ratio 1.4, TSH 3.670, CBC w Diff NO MAN DIFF REQ, RBC 4.90, MCV 83.4, MCH 26.5 L, RDW 17.6 H, MPV 8.4, Gran % 74.4, Lymphocytes % 14.5 L, Monocytes % 9.9 H, Eosinophils % 0.7, Basophils % 0.5, Absolute Granulocytes 8.4 H, Absolute Lymphocytes 1.6, Absolute Monocytes 1.1 H, Absolute Eosinophils 0.1, Absolute Basophils 0.1, PUBS MCHC 31.7 L Assessment/Plan Assessment/Plan Assessment: 1. Atrial fibrillation of unclear duration with episodes of prolonged pauses of up to 8.5 seconds 2. Lower extremity edema with stasis changes 3. Hypertension 4. Hyperlipidemia 5. Obesity 6. Probable sleep apnea 7. Chronic hypercapnic respiratory failure 8. Elevated proBNP 9. Known ascending thoracic aortic aneurysm; significantly increased in size on current echocardiogram (63 mm) Recommendations: -Continue to hold metoprolol pending pacemaker placement -As soon as permanent pacemaker is placed, restart metoprolol for heart rate control. -Continue Lasix as per present regimen -Baseline CTA of the chest to better assess the anatomy of the thoracic aorta -Continue pulmonary management as per Dr. Van. -IV heparin to be restarted post-permanent pacemaker when OK with Dr. Riggins. Continue telemetry? Yes
[2016-02-26 16:00] VITALS: BP 124/76
--- NOTE | 2016-02-26 16:32 | Cons- Cardiology ---
General Information and HPI Consulting Request Date of Consult: 02/26/16 Requested By: DEE GARCIA,LOLIS Hall Reason for Consult: Atrial fibrillation with bradycardia and long pauses, need for pacemaker backup. Source of Information: patient, old records Exam Limitations: no limitations History of Present Illness: Ms. Rooney is an 80-year-old female with history of hypertension, dyslipidemia , obesity, sleep apnea and chronic hypercapnic respiratory failure. She also has known ascending thoracic aortic aneurysm which is over 6 cm by echo at this time. She was admitted 2 days ago with increasing leg edema and abdominal girth and was found to have anasarca. She has chronic lower extremity edema, but has been seen by infectious disease who does not feel there is any infectious component and she is not currently being treated with antibiotics. She also was noted on current admission to have atrial fibrillation of unknown duration. She was on a small dose of beta alli. Last night and this morning she developed significant pauses of up to 8 seconds in duration. Some of these occurred while she was asleep but other episodes were while she was awake. She was not specifically symptomatic with these. Allergies/Medications Allergies: Coded Allergies: Penicillins (PER PT WAS A KID 02/24/16) alcohol (ANY KIND OF ALCOHOL MAKES LOOPY PER PT 02/24/16) ibuprofen (MD SAID DO NOT TAKE PER PT 02/24/16) Home Med List: Aspirin (Ecotrin*) 81 MG TABLET.DR 1 TAB PO DAILY HEART/BLOOD (Reported) Cholecalciferol (Vitamin D3) (Vitamin D) (Unknown Strength) CAPSULE (Unknown Dose) PO DAILY SUPPLEMENT (Reported) Metoprolol Tartrate 25 MG TABLET 1 TAB PO DAILY BP (Reported) Simvastatin (Simvastatin*) 20 MG TABLET 1 TAB PO QPM CHOLESTEROL (Reported) Review of Systems Review of Systems: She has chronic shortness of breath and increasing edema Past History Travel History Traveled to [place] past 21 day No Medical History Blood Transfusion Hx: No Neurological: NONE EENT: benign positional vertigo Cardiovascular: NONE (aortic aneurysm), hypertension, hyperlipidemia, irregular heart beat Respiratory: NONE Gastrointestinal: NONE Hepatic: NONE Renal: NONE Musculoskeletal: fracture (right ankle), left knee tendonitis Psychiatric: NONE Endocrine: NONE Blood Disorders: NONE Cancer(s): NONE CONDUCTOR ORCHESTRA/Reproductive: NONE Surgical History Surgical History: appendectomy, cholecystectomy, hysterectomy Psychosocial History Where Do You Live? Home Who Do You Live With? child Services at Home: None Primary Language: Lao Smoking Status: Current Everyday Smoker ETOH Use: denies use Illicit Drug Use: denies illicit drug use Functional Ability Ambulation: walker Exam & Diagnostic Data Vital Signs and I&O Vital Signs Date Time Temp Pulse Resp B/P Pulse O2 O2 Flow FiO2 Ox Delivery Rate 02/25 599 98 Room Air 02/25 599 96.4 88 16 110/70 98 Room Air 02/25 0215 97.6 93 22 140/69 96 Room Air 02/25 0000 93 Room Air 02/24 2200 97.6 84 22 108/72 96 Room Air 02/24 2057 96 Room Air 02/24 181 96.0 87 138/81 Intake & Output 02/25 0000 02/24 0000 Intake Total 350 516 960 240 250 Output Total 668 217 4772 550 550 Balance 225 266 -1440 -310 -300 Intake, IV 150 36 0 Intake, Oral 200 480 960 240 250 Number 0 0 0 Bowel Movements Output, Urine 718 110 4580 550 550 Patient 300 lb Weight Physical Exam: She is an obese female who is comfortable lying in bed. HEENT exam is normal Chest is clear to limited exam Heart reveals irregular rhythm and no murmurs Extremities reveal chronic edema and chronic venous stasis changes Labs/Ehsan Results: Laboratory Tests 02/25 02/25 02/25 02/25 0900 0745 0635 0605 Coagulation APTT (25 - 37 SEC) Cancelled 86 H Hematology CBC w Diff Cancelled WBC Cancelled RBC Cancelled Hgb Cancelled Hct Cancelled MCV Cancelled MCH Cancelled RDW Cancelled Plt Count Cancelled MPV Cancelled PUBS MCHC Cancelled Miscellaneous Miscellaneous Test Cancelled Urines Ur Random Creatinine (mg/dL) 87.3 U Random Total Protein (0 - 12 mg/dL) 10.1 Protein/Creatinin Ratio (< 0.2) 0.1 02/25 02/25 02/25 0225 0220 0208 Chemistry Sodium (137 - 145 mmol/L) 139 Potassium (3.5 - 5.1 mmol/L) 3.7 Chloride (98 - 107 mmol/L) 94 L Carbon Dioxide (22 - 30 mmol/L) 34 H Anion Gap (5 - 16) 11 BUN (7 - 17 mg/dL) 14 Creatinine (0.5 - 1.0 mg/dL) 0.7 Estimated GFR (>60 ml/min) > 60 BUN/Creatinine Ratio (7 - 25 %) 20.0 Hemoglobin A1c Pending Phosphorus (2.5 - 4.5 mg/dL) 3.8 Magnesium (1.6 - 2.3 mg/dL) 2.1 Alkaline Phosphatase (<127 U/L) 95 Troponin I (< 0.11 ng/ml) Cancelled < 0.01 Coagulation PT (9.4 - 12.5 SEC) 13.4 H INR (0.90 - 1.19) 1.28 H Hematology CBC w Diff NO MAN DIFF REQ WBC (4.8 - 10.8 /CUMM) 10.1 RBC (4.20 - 5.40 /CUMM) 4.72 Hgb (12.0 - 16.0 G/DL) 12.5 Hct (37 - 47 %) 39.2 MCV (81.0 - 99.0 FL) 83.1 MCH (27.0 - 31.0 PG) 26.5 L RDW (11.5 - 14.5 %) 17.5 H Plt Count (130 - 400 /CUMM) 267 MPV (7.4 - 10.4 FL) 8.3 Gran % (42.2 - 75.2 %) 63.2 Lymphocytes % (20.5 - 51.1 %) 21.9 Monocytes % (1.7 - 9.3 %) 12.5 H Eosinophils % (0 - 5 %) 1.6 Basophils % (0.0 - 2.0 %) 0.8 Absolute Granulocytes (1.4 - 6.5 /CUMM) 6.4 Absolute Lymphocytes (1.2 - 3.4 /CUMM) 2.2 Absolute Monocytes (0.10 - 0.60 /CUMM) 1.3 H Absolute Eosinophils (0.0 - 0.7 /CUMM) 0.2 Absolute Basophils (0.0 - 0.2 /CUMM) 0.1 PUBS MCHC (33.0 - 37.0 G/DL) 31.8 L 02/24 02/24 02/24 02/24 1820 1500 1244 0900 Blood Gas pH (7.35 - 7.45 PH) 7.46 H pCO2 (35 - 45 TORR) 46 H pO2 (80 - 100 TORR) 76 L HCO3 (21 - 28 MEQ/L) 31 H ABG O2 Sat (Measured) (>96.0 %) 94.0 L Carboxyhemoglobin (1.5 - 5.0 %) 1.1 L O2 Concentration % RA Coagulation APTT (25 - 37 SEC) 83 H Miscellaneous Phlebotomy Draw Site LEFT RADIAL Urines Ur Random Creatinine Cancelled U Random Total Protein Cancelled Urine Total Volume Cancelled Ur Total Protein 24 Hr Cancelled 02/24 02/24 02/23 0615 0600 2343 Chemistry Sodium (137 - 145 mmol/L) 141 Potassium (3.5 - 5.1 mmol/L) 3.8 Chloride (98 - 107 mmol/L) 94 L Carbon Dioxide (22 - 30 mmol/L) 37 H Anion Gap (5 - 16) 11 BUN (7 - 17 mg/dL) 18 H Creatinine (0.5 - 1.0 mg/dL) 0.6 Estimated GFR (>60 ml/min) > 60 BUN/Creatinine Ratio (7 - 25 %) 30.0 H Hemoglobin A1c Cancelled Troponin I (< 0.11 ng/ml) < 0.01 Coagulation PT (9.4 - 12.5 SEC) 12.5 INR (0.90 - 1.19) 1.19 APTT (25 - 37 SEC) > 120 *H 31 Hematology CBC w Diff NO MAN DIFF REQ WBC (4.8 - 10.8 /CUMM) 11.5 H RBC (4.20 - 5.40 /CUMM) 4.62 Hgb (12.0 - 16.0 G/DL) 12.5 Hct (37 - 47 %) 38.3 MCV (81.0 - 99.0 FL) 83.0 MCH (27.0 - 31.0 PG) 27.0 RDW (11.5 - 14.5 %) 17.2 H Plt Count (130 - 400 /CUMM) 264 MPV (7.4 - 10.4 FL) 8.4 Gran % (42.2 - 75.2 %) 66.3 Lymphocytes % (20.5 - 51.1 %) 19.3 L Monocytes % (1.7 - 9.3 %) 12.6 H Eosinophils % (0 - 5 %) 1.2 Basophils % (0.0 - 2.0 %) 0.6 Absolute Granulocytes (1.4 - 6.5 /CUMM) 7.7 H Absolute Lymphocytes (1.2 - 3.4 /CUMM) 2.2 Absolute Monocytes (0.10 - 0.60 /CUMM) 1.5 H Absolute Eosinophils (0.0 - 0.7 /CUMM) 0.1 Absolute Basophils (0.0 - 0.2 /CUMM) 0.1 PUBS MCHC (33.0 - 37.0 G/DL) 32.5 L 02/23 02/23 02/23 2147 2147 1715 Chemistry Hemoglobin A1c (<5.7) 6.4 H Urines Urine Color Cancelled Urine Clarity Cancelled Urine pH Cancelled Ur Specific [place] Cancelled Urine Protein Cancelled Urine Ketones Cancelled Urine Nitrite Cancelled Urine Bilirubin Cancelled Urine Urobilinogen Cancelled Ur Leukocyte Esterase Cancelled Ur Microscopic Cancelled Urine Hemoglobin Cancelled Urine Total Volume Cancelled Ur Total Protein 24 Hr Cancelled Urine Glucose Cancelled 02/23 1715 Chemistry Sodium (137 - 145 mmol/L) 139 Potassium (3.5 - 5.1 mmol/L) 3.9 Chloride (98 - 107 mmol/L) 96 L Carbon Dioxide (22 - 30 mmol/L) 31 H Anion Gap (5 - 16) 12 BUN (7 - 17 mg/dL) 17 Creatinine (0.5 - 1.0 mg/dL) 0.6 Estimated GFR (>60 ml/min) > 60 BUN/Creatinine Ratio (7 - 25 %) 28.3 H Glucose (65 - 99 mg/dL) 115 H Calcium (8.4 - 10.2 mg/dL) 9.4 Total Bilirubin (0.2 - 1.3 mg/dL) 1.4 H Direct Bilirubin (< 0.4 mg/dL) 0.5 H AST (14 - 36 U/L) 25 ALT (9 - 52 U/L) 44 Alkaline Phosphatase (<127 U/L) 101 Troponin I (< 0.11 ng/ml) < 0.01 Uct-J-Aqlzolrimtz Pept (<125 pg/mL) 1380 H Total Protein (6.3 - 8.2 g/dL) 6.6 Albumin (3.5 - 5.0 g/dL) 3.9 Globulin (1.9 - 4.2 gm/dL) 2.7 Albumin/Globulin Ratio (1.1 - 2.2 %) 1.4 TSH (0.270 - 4.200 uIU/mL) 3.670 Hematology CBC w Diff NO MAN DIFF REQ WBC (4.8 - 10.8 /CUMM) 11.3 H RBC (4.20 - 5.40 /CUMM) 4.90 Hgb (12.0 - 16.0 G/DL) 13.0 Hct (37 - 47 %) 40.9 MCV (81.0 - 99.0 FL) 83.4 MCH (27.0 - 31.0 PG) 26.5 L RDW (11.5 - 14.5 %) 17.6 H Plt Count (130 - 400 /CUMM) 271 MPV (7.4 - 10.4 FL) 8.4 Gran % (42.2 - 75.2 %) 74.4 Lymphocytes % (20.5 - 51.1 %) 14.5 L Monocytes % (1.7 - 9.3 %) 9.9 H Eosinophils % (0 - 5 %) 0.7 Basophils % (0.0 - 2.0 %) 0.5 Absolute Granulocytes (1.4 - 6.5 /CUMM) 8.4 H Absolute Lymphocytes (1.2 - 3.4 /CUMM) 1.6 Absolute Monocytes (0.10 - 0.60 /CUMM) 1.1 H Absolute Eosinophils (0.0 - 0.7 /CUMM) 0.1 Absolute Basophils (0.0 - 0.2 /CUMM) 0.1 PUBS MCHC (33.0 - 37.0 G/DL) 31.7 L Diagnostic Data EKG Results Multiple EKGs have shown atrial fibrillation with a normal average rate, diffuse low voltage, some PVCs seen. CXR Results PATIENT: DONNA ROONEY PRESENT AGE: 80 PATIENT ACCOUNT NO: [id number] : 34 LOCATION: [facility] ORDERING PHYSICIAN: RASHEED SALAZAR DO SERVICE DATE: 02/24/16 EXAM TYPE: RAD - XRY-PORTABLE CHEST XRAY EXAMINATION: XR PORTABLE CHEST CLINICAL INFORMATION: Edema. Evaluate for congestive heart failure. COMPARISON: Chest x-ray 08/11/2015. TECHNIQUE: Portable view of the chest was obtained. FINDINGS: The lungs are hypoinflated, but otherwise clear without focal airspace consolidation. No pleural effusions or pneumothoraces are identified. Cardiomediastinal contours are stable and there is stable prominence of the cardiac silhouette with mild central venous congestion. No overt pulmonary edema. Soft tissues are unremarkable. No acute osseous abnormality is identified. IMPRESSION: Stable prominence of the cardiac silhouette, without overt pulmonary edema. No findings indicative of congestive heart failure. DICTATED BY: ROBERT BECKWITH MD DATE/TIME DICTATED:02/24/161827 ENVIRONMENTAL TECHNICIAN:SUJEY DATE/TIME TRANSCRIBED:02/24/161827 CONFIDENTIAL, DO NOT COPY WITHOUT APPROPRIATE AUTHORIZATION. <Electronically signed in Other Vendor System> SIGNED BY: ROBERT BECKWITH MD 02/24/161837 Other Results CONCLUSIONS 1. This was a technically difficult examination. 2. Significant aneurysmal dilatation of the ascending aorta is present with a maximum dimension of 63 mm in the mid portion of the ascending aorta. The transverse arch and proximal descending aorta were not well visualized. 3. Mild to moderate aortic sclerosis is present with mild aortic insufficiency. 4. Mitral leaflet thickening is present with mild anular calcification and mild to moderate mitral insufficiency. 5. A small pericardial effusion is present. 6. The left ventricular chamber size is normal with mild concentric hypertrophy and a normal ejection fraction with no obvious resting wall motion abnormalities. 7. The right heart structures were not optimally assessed anatomically. Moderate tricuspid insufficiency is present with an estimated RV systolic pressure of at least 44 mmHg. Maulik Nascimento M.D. (Electronically Signed) Final Date: 26 February 2016 11:56 Assessment/Plan Assessment/Plan This patient presents with "new onset" atrial fibrillation associated with long pauses while at rest and also some noted while awake. She is on a small dose of beta alli which has been held. This is likely not totally responsible for the bradycardia and pauses. I agree that a backup ventricular pacemaker is indicated to prevent these pauses and also to allow the use of beta alli therapy to prevent tachycardia and also to help treat her ascending aortic aneurysm. I will arrange for the pacemaker as soon as practical. We will hold her IV heparin during the procedure. I would like to keep her off all anticoagulants for at least 24 hours postoperative to avoid pocket hematoma etc. We can possibly just start her on oral anticoagulants after that time. We will restart her beta blockers after the completion of the procedure. Copies To: MICHAEL GARCIA,BRIDGETTE Hall Consult Acknowledgment - Thank you for your consult request.
--- NOTE | 2016-02-26 18:45 | NUR ---
1600 PATIENT EXPERIENCED INCONTINET EPISODES, BURKS PLACED PER ORDER, 24 HOUR URINE RESTARTED AT 1700, PACER PLACEMENT CANCEL FOR TODAY WILL OCCUR 02/27/16 HEPARIN RESTARTED, DIET ORDERED, NPO MIDNIGHT FOR OR IN AM HEPARIN TO SHUT OFF AT 0600 0N 02/27/16
--- NOTE | 2016-02-26 20:53 | NUR ---
@1932 PT HAVING FREQUENT EPISODES OF BRADYCARDIA AND TACHYCARDIA, RATE DOWN LOW 32 AND HIGH 150'S. PT WAS SLEEPING DURING THESE EPISODES, AWAKENED PT AND NO COMPLAINTS AT THIS TIME. NOTIFIED MD DOLORES STYLES. PLAN REMAINS PACER IN AM. PACER PADS REMAIN IN PLACE. NO FURTHER INTERVENTIONS GIVEN AT THIS TIME.
[2016-02-26 23:12] LABS: PTT 37 SEC (25-37)
[2016-02-27] VITALS: BP 108/68
[2016-02-27 06:29] LABS: ABSOLUTE BASOPHIL COUNT 0.1 /CUMM (0.0-0.2); ABSOLUTE EOSINOPHIL COUNT 0.1 /CUMM (0.0-0.7); ABSOLUTE GRANULOCYTE CT 8.6 /CUMM (1.4-6.5); ABSOLUTE MONOCYTE COUNT 1.3 /CUMM (0.10-0.60); BASOPHIL % 0.4 % (0.0-2.0); EOSINOPHIL % 0.8 % (0-5); GRANULOCYTE % 71.6 % (42.2-75.2); MEAN CORPUSCULAR HGB 26.6 PG (27.0-31.0); MEAN CORPUSCULAR HGB CONC 32.2 G/DL (33.0-37.0); MEAN CORPUSCULAR VOLUME 82.8 FL (81.0-99.0); MEAN PLATELET VOLUME 8.7 FL (7.4-10.4); PLATELET COUNT 265 /CUMM (130-400); RBC DISTRIBUTION WIDTH 17.6 % (11.5-14.5); RED BLOOD CELL CT 4.72 /CUMM (4.20-5.40); WHITE BLOOD CELL COUNT 12.1 /CUMM (4.8-10.8)
--- NOTE | 2016-02-27 07:00 | PN- Att Addend ---
Attending Addendum Attending Brief Note Intake & Output 02/26 0802/26 0000 02/25 1600 Intake Total 216.9 504 149 Output Total 750 1700 1950 Balance -533.1 -1196 -1801 Intake, IV 216.9 194 99 Intake, Oral 0 310 50 Number 0 0 0 Bowel Movements Output, Urine 750 1700 1950 Current Medications Sig/Neeraj Start time Last Medication Dose Route Stop Time Status Admin Acetaminophen 650 MG Q6P PRN 02/23 2230 AC PO Albuterol Sulfate 3 ML Q4P PRN 02/24 1530 AC INH Aspirin Buffered 81 MG DAILY 02/24 1000 AC 02/25 PO 1151 Atorvastatin Calcium 10 MG 1700 02/24 1700 AC 02/25 PO 1728 Cefazolin Sodium 3,000 MG 0900 02/26 0900 AC IV 02/27 0859 Cefazolin Sodium 3,000 MG ONCE ONE 02/25 1500 CAN Sodium Chloride 100 ML IV 02/25 1529 Furosemide 40 MG 7:30 AM, & 4:30 PM 02/25 0730 AC 02/25 IV 1728 Heparin Sodium 5,000 UNIT ONCE ONE 02/25 2345 DC 02/25 (Porcine) IV 02/25 2346 2359 Heparin Sodium 25,000 UNIT Q24H 02/23 2245 DC 02/25 (Porcine) IV 02/26 0600 0228 Sodium Chloride 500 ML Nicotine 14 MG DAILY 02/24 1000 AC TOP Potassium Chloride 40 MEQ BID 02/25 2200 CAN PO Potassium Chloride 40 MEQ .STK-MED ONE 02/25 0847 DC PO 02/25 0848 Potassium Chloride 40 MEQ BID 02/24 1240 AC 02/25 PO 2200 Laboratory Tests 02/26 02/25 02/25 0513 2255 1800 Chemistry Sodium Pending Potassium Pending Chloride Pending Carbon Dioxide Pending Anion Gap Pending BUN Pending Creatinine Pending Glucose Pending Calcium Pending Phosphorus Pending Magnesium Pending Total Bilirubin Pending AST Pending ALT Pending Albumin Pending Coagulation APTT (25 - 37 SEC) Pending 37 Cancelled Hematology CBC w Diff NO MAN DIFF REQ WBC (4.8 - 10.8 /CUMM) 12.1 H RBC (4.20 - 5.40 /CUMM) 4.72 Hgb (12.0 - 16.0 G/DL) 12.6 Hct (37 - 47 %) 39.0 MCV (81.0 - 99.0 FL) 82.8 MCH (27.0 - 31.0 PG) 26.6 L RDW (11.5 - 14.5 %) 17.6 H Plt Count (130 - 400 /CUMM) 265 MPV (7.4 - 10.4 FL) 8.7 Gran % (42.2 - 75.2 %) 71.6 Lymphocytes % (20.5 - 51.1 %) 16.3 L Monocytes % (1.7 - 9.3 %) 10.9 H Eosinophils % (0 - 5 %) 0.8 Basophils % (0.0 - 2.0 %) 0.4 Absolute Granulocytes (1.4 - 6.5 /CUMM) 8.6 H Absolute Lymphocytes (1.2 - 3.4 /CUMM) 2.0 Absolute Monocytes (0.10 - 0.60 /CUMM) 1.3 H Absolute Eosinophils (0.0 - 0.7 /CUMM) 0.1 Absolute Basophils (0.0 - 0.2 /CUMM) 0.1 PUBS MCHC (33.0 - 37.0 G/DL) 32.2 L 02/25 02/25 0900 0745 Coagulation APTT Cancelled Miscellaneous Miscellaneous Test Cancelled Urines Ur Random Creatinine (mg/dL) 87.3 U Random Total Protein (0 - 12 mg/dL) 10.1 Protein/Creatinin Ratio (< 0.2) 0.1 Vital Signs Date Time Temp Pulse Resp B/P Pulse O2 O2 Flow FiO2 Ox Delivery Rate 02/26 0400 94 Room Air 02/26 0000 95 Room Air 02/26 0000 97.3 106 19 108/68 95 Room Air 02/25 2000 96 Room Air 02/25 1600 96 Room Air 02/25 1600 98.1 97 20 124/76 98 02/25 1200 98 Room Air 02/25 0800 96.0 80 25 102/50 97 Room Air 02/25 0800 97 Room Air Intake & Output 02/26 0000 02/25 1600 Intake Total 216.9 504 149 Output Total 750 1700 1950 Balance -533.1 -1196 -1801 Intake, IV 216.9 194 99 Intake, Oral 0 310 50 Number 0 0 0 Bowel Movements Output, Urine 750 1700 1950 Covering attending note. Patient is comfortable sitting out of bed to chair with the legs elevated without oxygen. Denies any complaints. I and O's negative balance of 533. Room air oxygen is 94 heart rate is in the 80s S1-S2 is normal Lungs shows diminished breath sounds both bases Abdomen is soft distended bowel sounds are present extremities bipedal edema with the chronic skin changes present. Assessment Atrial fibrillation with the associated sick sinus syndrome patient is scheduled to have a pacemaker today. Number to diastolic heart disease with chronic diastolic heart failure with less worsening of the edema of the legs.
[2016-02-27 07:04] LABS: PTT > 120 SEC (25-37)
[2016-02-27 08:00] VITALS: BP 130/76
--- NOTE | 2016-02-27 08:21 | NUR ---
PT'S HEART RATE 150'S DR ARAU[place]
--- NOTE | 2016-02-27 08:23 | PN- Resident CRCU ---
Subjective HPI/CRCU Issues: Patient is a 80 YO F with PMH significant for HTN, HLD, obesity, ?? ROMERO, chronic hypercarbic respiratory failure. She is known to have AAA in the past which appears to be dilated upto 6 cm now. She is admitted due to anasarca with chronic venous stasis changes in both her lower extremities. During this admission she was found to have new onset atrial fibrillation during this admission and was on a small dose of beta alli. 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 Most of these occurred during sleep. Yesterday she is planned to have pacemaker placement and metoprolol is on hold, unfortunately not done. Today she is scheduled for it at noon (NPO). She is tachycardic today morning, so received a single dose of metoprolol 25mg in the morning. Current CRCU issues 1. Intermitent Asystole - Scheduled for pacemaker placement today. 2. Atrial fibrillation of unclear duration - IV heparin on hold due to the procedure 3. Sleep apnea/OHS 4. Chronic venous stasis of lower extremities - IV furosemide 40mg bid 5. Throacic aortic aneurysm - CTA on monday 6. Glucose intolerance - HbA1C of 6.4 24 Hour Events: I saw the patient today morning. she is lying on the recliner, still angry. Objective Vital Signs & I&O Last 8 Hrs of Vitals and I&O: VS She remained afebrile HR in the am is in 140's BP - 120-130/50-70mmHg On room air. Exam General Appearance: alert, awake, comfortable, obese Head: atraumatic, normal appearance Ears, Nose, Throat: normal pharynx, normal ENT inspection, hearing grossly normal Neck: normal inspection Respiratory: normal breath sounds, chest non-tender, no respiratory distress Cardiovascular: regular rate/rhythm, edema, tachycardia Gastrointestinal: normal bowel sounds, soft, non-tender Extremities: normal capillary refill, limited range of motion, pedal edema, swelling, tenderness Cranial Nerves: normal hearing, normal speech, PERRL Skin: intact, chronic venous stasis changes on both the feet. Nutrition Nutrition: NPO Current Medications: Current Medications Sig/Neeraj Start time Last Medication Dose Route Stop Time Status Admin Acetaminophen 650 MG Q6P PRN 02/23 2230 AC PO Albuterol Sulfate 3 ML Q4P PRN 02/24 1530 AC INH Aspirin Buffered 81 MG DAILY 02/24 1000 AC 02/25 PO 1151 Atorvastatin Calcium 10 MG 1700 02/24 1700 AC 02/25 PO 1728 Cefazolin Sodium 3,000 MG 0900 02/26 0900 AC 02/26 IV 02/27 0859 0845 Cefazolin Sodium 3,000 MG ONCE ONE 02/25 1500 CAN Sodium Chloride 100 ML IV 02/25 1529 Furosemide 40 MG 7:30 AM, & 4:30 PM 02/25 0730 AC 02/26 IV 0733 Heparin Sodium 5,000 UNIT .STK-MED ONE 02/25 2349 DC (Porcine) IV 02/25 2350 Heparin Sodium 5,000 UNIT ONCE ONE 02/25 2345 DC 02/25 (Porcine) IV 02/25 2346 2359 Heparin Sodium 25,000 UNIT Q24H 02/23 2245 DC 02/25 (Porcine) IV 02/26 0600 0228 Sodium Chloride 500 ML Metoprolol Tartrate 25 MG ONCE ONE 02/26 0830 DC 02/26 PO 02/26 0831 0846 Nicotine 14 MG DAILY 02/24 1000 AC TOP Potassium Chloride 40 MEQ BID 02/25 2200 CAN PO Potassium Chloride 40 MEQ .STK-MED ONE 02/25 0847 DC PO 02/25 0848 Potassium Chloride 40 MEQ BID 02/24 1240 AC 02/26 PO 0845 Impression/Plan Impression/Problem List Impression: Patient is a 80-year-old female with significant history of HTN, HLD, obesity, ? ? ROMERO, chronic hypercarbic respiratory failure. She is known to have AAA in the past which appears to be dilated upto 6 cm now. She is admitted due to anasarca with chronic venous stasis changes in both her lower extremities. During this admission she was found to have new onset atrial fibrillation during this admission and was on a small dose of beta alli. Last night she was found to have significant pauses for around 3 times with the longest being 8 seconds. Most of these occurred during sleep. Problem List: 1. Benign essential hypertension 2. Benign paroxysmal positional vertigo 3. Dyslipidemia 4. Anasarca 5. Right-sided heart failure 6. Afib Pain Ratin Tomorrow's Labs & Rationales: ICU bundle cbc PT/PTT Plan Respiratory: Chronic hypercarbic respiratory failure * Suspected secondary to smoking/obesity hypoventilation syndrome * TRC/nebs Infectious Diseases: Suspected cellulitis of lower extremities * Bilateral lower extremities had significant venous stasis changes in the skin * Upon examination there warm and mildly tender * She remained afebrile from admission,White count today is 12.1. * However as the pacemaker procedure involves placement through the skin and infectious disease consult is placed * Received 3gm of cefazolin single dose yesterday. OF NOTE: We made a call to Dr. Church and found that her allergy to penicillin is not significant and pencillin/cephalosporins are safe to administer Cardiovascular: New-onset atrial fibrillation with occasional pauses * Suspected secondary to obesity hypoventilation/sleep apnea/sick sinus syndrome. * Metoprolol (25 mg once daily) was held last night and kept nothing by mouth for pacemaker basement * Underwent pacemaker placement today. * IV heparin is on hold for the procedure and also 24-hour was postprocedure to avoid pocket hematoma * We will start metoprolol as soon as the procedure is done * She started regular diet now and kept nothing by mouth starting midnight * In view of her thoracic arotic aneurysm, close monitoring is required. * Atropine and defibrillator at bedside with pads placed on her chest Right-sided heart failure with fluid overload * On aspirin 81 mg, atorvastatin 10 mg, furosemide 40 mg IV BID * Acute on chronic right-sided heart failure - in the light of atrial fibrillation and pauses * History of diastolic heart failure without any evidence of left ventricular failure * Diuresis with IV furosemide 40 mg twice a day * Potassium 40 mg twice a day Thoracic aortic aneurysm: * 6cm dilated with significant increse in size compared to prior size on ECHO. * Awaiting CT angio of chest for better assessment. * Need to be on bete blockers (on metoprolol) - will start soon after pacemaker placement. Hematology: white count elevated to 12.1 today. We will watch off antibiotics for now. Metabolic: stable Glucose intolerance * HbA1c of 6.4 Alimentary: NPO pending procedure Neurological: Depression/anxiety * Patient is very frustrated to stay in the hospital DVT/Prophylaxis: pharmacological, heparin drip Code Status: Full Code Metabolic: stable Alimentary: NPO pending procedure Neurological: Depression/anxiety * Patient is very frustrated to stay in the hospital DVT/Prophylaxis: pharmacological, heparin drip Code Status: Full Code
--- NOTE | 2016-02-27 08:36 | PN- Cardiology ---
Subjective Subjective: The patient has not had any more pauses. In fact this morning she is rather tachycardic with heart rates up into the 130s and 140s, still atrial fibrillation. She is sitting in bed and asymptomatic. She states she wants to go home. Heparin was continued overnight but now has been discontinued in anticipation of pacemaker implantation later today Objective Vital Signs and I&Os Vital Signs Date Time Temp Pulse Resp B/P Pulse O2 O2 Flow FiO2 Ox Delivery Rate 02/26 0400 94 Room Air 02/26 0000 95 Room Air 02/26 0000 97.3 106 19 108/68 95 Room Air 02/25 2000 96 Room Air 02/25 1600 96 Room Air 02/25 1600 98.1 97 20 124/76 98 02/25 1200 98 Room Air Intake & Output 02/26 1600 02/26 0802/26 0000 02/25 1600 02/25 0800 02/25 0000 Intake Total 216.9 504 149 350 516 Output Total 750 1700 1950 125 250 Balance -533.1 -1196 -1801 225 266 Intake, IV 216.9 194 99 150 36 Intake, Oral 0 310 50 200 480 Number 0 0 0 0 Bowel Movements Output, Urine 750 1700 1950 125 250 Physical Exam: She is in no distress but is tachycardic on the monitor Chest is clear Heart reveals irregular rhythm and no murmurs, tachycardia Extremities reveal similar chronic venous stasis changes as before Current Medications: Current Medications Sig/Neeraj Start time Last Medication Dose Route Stop Time Status Admin Acetaminophen 650 MG Q6P PRN 02/23 2230 AC PO Albuterol Sulfate 3 ML Q4P PRN 02/24 1530 AC INH Aspirin Buffered 81 MG DAILY 02/24 1000 AC 02/25 PO 1151 Atorvastatin Calcium 10 MG 1700 02/24 1700 AC 02/25 PO 1728 Cefazolin Sodium 3,000 MG 0900 02/26 0900 AC IV 02/27 0859 Cefazolin Sodium 3,000 MG ONCE ONE 02/25 1500 CAN Sodium Chloride 100 ML IV 02/25 1529 Furosemide 40 MG 7:30 AM, & 4:30 PM 02/25 0730 AC 02/26 IV 0733 Heparin Sodium 5,000 UNIT .STK-MED ONE 02/25 2349 DC (Porcine) IV 02/25 2350 Heparin Sodium 5,000 UNIT ONCE ONE 02/25 2345 DC 02/25 (Porcine) IV 02/25 2346 2359 Heparin Sodium 25,000 UNIT Q24H 02/23 2245 DC 02/25 (Porcine) IV 02/26 06 0228 Sodium Chloride 500 ML Metoprolol Tartrate 25 MG ONCE ONE 02/26 08 UNVr PO 02/26 08 Nicotine 14 MG DAILY 02/24 1000 AC TOP Potassium Chloride 40 MEQ BID 02/25 2200 CAN PO Potassium Chloride 40 MEQ .STK-MED ONE 02/25 0847 DC PO 02/25 0848 Potassium Chloride 40 MEQ BID 02/24 1240 AC 02/25 PO 2200 Results Last 48 Hrs of Labs/Mics: Laboratory Tests 02/27/16 0513: Anion Gap 13, Estimated GFR > 60, Glucose 101 H, Calcium 9.1, Phosphorus 3.2, Magnesium 2.2, Total Bilirubin 2.4 H, AST 22, ALT 37, Albumin 3.6, APTT > 120 * H, CBC w Diff NO MAN DIFF REQ, RBC 4.72, MCV 82.8, MCH 26.6 L, RDW 17.6 H, MPV 8.7, Gran % 71.6, Lymphocytes % 16.3 L, Monocytes % 10.9 H, Eosinophils % 0.8, Basophils % 0.4, Absolute Granulocytes 8.6 H, Absolute Lymphocytes 2.0, Absolute Monocytes 1.3 H, Absolute Eosinophils 0.1, Absolute Basophils 0.1, PUBS MCHC 32.2 L 02/26/16 2255: APTT 37 02/26/16 1800: APTT Cancelled 02/26/16 0900: Miscellaneous Test Cancelled, Ur Random Creatinine 87.3, U Random Total Protein 10.1, Protein/Creatinin Ratio 0.1 02/26/16 0745: APTT Cancelled 02/26/16 0635: CBC w Diff Cancelled, WBC Cancelled, RBC Cancelled, Hgb Cancelled, Hct Cancelled , MCV Cancelled, MCH Cancelled, RDW Cancelled, Plt Count Cancelled, MPV Cancelled, PUBS MCHC Cancelled 02/26/16 0605: APTT 86 H 02/26/16 0225: Troponin I Cancelled 02/26/16 0220: Anion Gap 11, Estimated GFR > 60, BUN/Creatinine Ratio 20.0, Phosphorus 3.8, Magnesium 2.1, Alkaline Phosphatase 95, Troponin I < 0.01, PT 13.4 H, INR 1.28 H, CBC w Diff NO MAN DIFF REQ, RBC 4.72, MCV 83.1, MCH 26.5 L, RDW 17.5 H, MPV 8.3, Gran % 63.2, Lymphocytes % 21.9, Monocytes % 12.5 H, Eosinophils % 1.6, Basophils % 0.8, Absolute Granulocytes 6.4, Absolute Lymphocytes 2.2, Absolute Monocytes 1.3 H, Absolute Eosinophils 0.2, Absolute Basophils 0.1, PUBS MCHC 31.8 L 02/26/16 0208: Hemoglobin A1c 6.4 H 02/25/16 1820: APTT 83 H 02/25/16 1500: pH 7.46 H, pCO2 46 H, pO2 76 L, HCO3 31 H, ABG O2 Sat (Measured) 94.0 L, Carboxyhemoglobin 1.1 L, O2 Concentration % RA, Phlebotomy Draw Site LEFT RADIAL 02/25/16 1244: Ur Random Creatinine Cancelled, U Random Total Protein Cancelled 02/25/16 0900: Urine Total Volume Cancelled, Ur Total Protein 24 Hr Cancelled Assessment/Plan Assessment/Plan The patient is now tachycardic. We'll give her a small dose of beta alli to try and control her rate. We will still plan to put in a pacemaker to prevent bradycardia and then add larger doses of beta blockers. Continue telemetry? Yes
--- NOTE | 2016-02-27 09:44 | PN- CRCU ---
Subjective HPI/Critical Care Issues: Pt seen and examined. tachycardic overnight no further bradycardia episodes seen by cardiology plan for pacemaker today small dose of bblocker given npo for pacer no dyspnea comfortable Objective Current Medications: Current Medications Sig/Neeraj Start time Last Medication Dose Route Stop Time Status Admin Acetaminophen 650 MG Q6P PRN 02/23 2230 AC PO Albuterol Sulfate 3 ML Q4P PRN 02/24 1530 AC INH Aspirin Buffered 81 MG DAILY 02/24 1000 AC 02/25 PO 1151 Atorvastatin Calcium 10 MG 1700 02/24 1700 AC 02/25 PO 1728 Cefazolin Sodium 3,000 MG 0900 02/26 0900 AC 02/26 IV 02/27 0859 0845 Cefazolin Sodium 3,000 MG ONCE ONE 02/25 1500 CAN Sodium Chloride 100 ML IV 02/25 1529 Furosemide 40 MG 7:30 AM, & 4:30 PM 02/25 0730 AC 02/26 IV 0733 Heparin Sodium 5,000 UNIT .STK-MED ONE 02/25 2349 DC (Porcine) IV 02/25 2350 Heparin Sodium 5,000 UNIT ONCE ONE 02/25 2345 DC 02/25 (Porcine) IV 02/25 2346 2359 Heparin Sodium 25,000 UNIT Q24H 02/23 2245 DC 02/25 (Porcine) IV 02/26 06 0228 Sodium Chloride 500 ML Metoprolol Tartrate 25 MG ONCE ONE 02/26 0830 DC 02/26 PO 02/26 0831 0846 Nicotine 14 MG DAILY 02/24 1000 AC TOP Potassium Chloride 40 MEQ BID 02/25 2200 CAN PO Potassium Chloride 40 MEQ BID 02/24 1240 AC 02/26 PO 0845 Potassium Phosphate 15 mMol ONE ONE 02/26 0900 AC Dextrose/Water 250 ML IV 02/26 1303 Vital Signs & I&O Last 24 Hrs of Vitals and I&O: Vital Signs Date Time Temp Pulse Resp B/P Pulse O2 O2 Flow FiO2 Ox Delivery Rate 02/26 0846 145 128/71 02/26 0800 Room Air 02/26 0800 97.9 157 22 130/76 95 Room Air 02/26 0400 94 Room Air 02/26 0000 95 Room Air 02/26 0000 97.3 106 19 108/68 95 Room Air 02/25 2000 96 Room Air 02/25 1600 96 Room Air 02/25 1600 98.1 97 20 124/76 98 02/25 1200 98 Room Air Intake & Output 02/26 1600 02/26 0800 02/26 0000 Intake Total 216.9 504 Output Total 750 1700 Balance -533.1 -1196 Intake, IV 216.9 194 Intake, Oral 0 310 Number 0 0 Bowel Movements Output, Urine 750 1700 Exam Other Physical Findings: gen - awake and alert heent - ncat cvs - s1, s2, tachycardic lungs - anterior chest clear abd - obese ext - chronic venous stasis Results Last 24 Hrs of Lab Results: Laboratory Tests 02/27/16 0513: Anion Gap 13, Estimated GFR > 60, Glucose 101 H, Calcium 9.1, Phosphorus 3.2, Magnesium 2.2, Total Bilirubin 2.4 H, AST 22, ALT 37, Albumin 3.6, APTT > 120 * H, CBC w Diff NO MAN DIFF REQ, RBC 4.72, MCV 82.8, MCH 26.6 L, RDW 17.6 H, MPV 8.7, Gran % 71.6, Lymphocytes % 16.3 L, Monocytes % 10.9 H, Eosinophils % 0.8, Basophils % 0.4, Absolute Granulocytes 8.6 H, Absolute Lymphocytes 2.0, Absolute Monocytes 1.3 H, Absolute Eosinophils 0.1, Absolute Basophils 0.1, PUBS MCHC 32.2 L 02/26/16 2255: APTT 37 02/26/16 1800: APTT Cancelled Impression/Plan Impression/Plan Impression/Plan: Impression 80 year old woman * Bradycardia, now tachycardic - likely sick sinus syndrome * possible ROMERO/OHS * , TV disease, obesity * Significant aneurysmal dilatation of the ascending aorta is present with a maximum dimension of 63 mm in the mid portion of the ascending aorta * A.fib on heparin for now anticipating procedure * Mildly elevated t.bili - isolated Plan * NPO for pacemaker today * beta blockade can be adjusted after pm insertion * CTA consideration per cardiology when necessary to evaluate aneurysm * continue heparin * can follow with Dr. Van as outpatient to evaluate for possible ROMERO * abx perioperatively per ID * repeat LFTs in am * smoking cessation counseling * TRC/Nebs as needed * Nicotine replacement * Aspirin * Diuresis/ins/outs DVT prophylaxis at all times - heparin gtt TTS 40 min
--- NOTE | 2016-02-27 12:44 | NUR ---
PT TO O.R AT THIS TIME.
--- NOTE | 2016-02-27 13:09 | NUR ---
Physical therapy: Patient NANCY for procedure. PT will follow up with patient as appropriate. Thank you.
--- NOTE | 2016-02-27 15:40 | RADIOLOGY REPORT ---
EXAMINATION: XR PORTABLE CHEST CLINICAL INFORMATION: Postop pacemaker COMPARISON: Chest x-ray 02/24/2016 TECHNIQUE: AP portable upright chest x-ray FINDINGS: There is cardiomegaly. There is a right subclavian pacemaker with lead tip at the right ventricular apex. No pneumothorax is seen. There is some probable subsegmental atelectasis at the left base. No dense consolidation is identified. No pulmonary edema is identified. IMPRESSION: Pacemaker tip is in the region of the right ventricular apex. No pneumothorax.
--- NOTE | 2016-02-27 15:49 | NUR ---
PT BACK FROM PACU AT THIS TIME. VSS. DRESSING INTACT TO [facility]W. VSS.
--- NOTE | 2016-02-27 15:58 | RADIOLOGY REPORT ---
EXAMINATION:\H\ \N\XR CHEST CLINICAL INFORMATION: Right pacemaker COMPARISON: 02/24/2016 TECHNIQUE: Single AP 70 degrees upright view of the chest was obtained. FINDINGS: New right unipolar pacemaker with lead terminating over right ventricle. No gross pneumothorax on lordotic portable radiograph. Lungs clear. Heart and mediastinum midline and stable. IMPRESSION: Right unipolar pacemaker placement.
[2016-02-27 16:00] VITALS: BP 124/76
--- NOTE | 2016-02-27 17:28 | NUR ---
24 HOUR URINE SENT DOWN AT THIS TIME. VSS. RCW DRESSING INTACT.
[2016-02-28] VITALS: BP 116/78
[2016-02-28 06:07] LABS: ABSOLUTE BASOPHIL COUNT 0 /CUMM (0.0-0.2); ABSOLUTE EOSINOPHIL COUNT 0 /CUMM (0.0-0.7); ABSOLUTE GRANULOCYTE CT 15.2 /CUMM (1.4-6.5); ABSOLUTE LYMPH COUNT 1.3 /CUMM (1.2-3.4); ABSOLUTE MONOCYTE COUNT 2.1 /CUMM (0.10-0.60); BASOPHIL % 0 % (0.0-2.0); EOSINOPHIL % 0 % (0-5); GRANULOCYTE % 81.8 % (42.2-75.2); HEMATOCRIT 40.4 % (37-47); MEAN CORPUSCULAR HGB 26.7 PG (27.0-31.0); MEAN CORPUSCULAR HGB CONC 32.2 G/DL (33.0-37.0); MEAN CORPUSCULAR VOLUME 82.8 FL (81.0-99.0); MEAN PLATELET VOLUME 8.6 FL (7.4-10.4); PLATELET COUNT 231 /CUMM (130-400); RED BLOOD CELL CT 4.88 /CUMM (4.20-5.40)
[2016-02-28 06:11] LABS: PT 13.9 SEC (9.4-12.5); PTT 29 SEC (25-37)
[2016-02-28 06:16] LABS: WHITE BLOOD CELL COUNT 18.6 /CUMM (4.8-10.8)
--- NOTE | 2016-02-28 07:33 | PN- Att Addend ---
Attending Addendum Attending Brief Note Covering attending. Status post pacemaker insertion patient is comfortable in bed no complaints. Heart rate is 120s Intake & Output 02/27 0800 02/27 0000 02/26 1600 Intake Total 50 960 420 Output Total 300 1200 1500 Balance -250 -240 -1080 Intake, IV 0 0 300 Intake, Oral 50 960 120 Number 0 1 0 Bowel Movements Output, Urine 300 1200 1500 Patient 300 lb Weight Current Medications Sig/Neeraj Start time Last Medication Dose Route Stop Time Status Admin Acetaminophen 650 MG Q6P PRN 02/23 2230 AC PO Albuterol Sulfate 3 ML Q4P PRN 02/24 1530 AC INH Aspirin Buffered 81 MG DAILY 02/24 1000 AC 02/25 PO 1151 Atorvastatin Calcium 10 MG 1700 02/24 1700 AC 02/26 PO 1613 Cefazolin Sodium 3,000 MG 0900 02/26 0900 DC 02/26 IV 02/27 0859 0845 Fentanyl Citrate 100 MCG .STK-MED ONE 02/26 1202 DC IM 02/26 1203 Furosemide 40 MG 7:30 AM, & 4:30 PM 02/25 0730 AC 02/26 IV 1614 Metoprolol Tartrate 50 MG BID 02/26 2200 AC 02/26 PO 2201 Metoprolol Tartrate 25 MG ONCE ONE 02/26 1430 DC 02/26 PO 02/26 1431 1615 Metoprolol Tartrate 25 MG ONCE ONE 02/26 0830 DC 02/26 PO 02/26 0831 0846 Nicotine 14 MG DAILY 02/24 1000 AC TOP Patient Medication 1 UNIT ONE NR 02/26 1745 DC 02/26 Teaching ED 02/26 1800 2202 Potassium Chloride 40 MEQ BID 02/24 1240 AC 02/26 PO 2201 Potassium Phosphate 15 mMol ONE ONE 02/26 0900 DC 02/26 Dextrose/Water 250 ML IV 02/26 1303 1026 Laboratory Tests 02/27 0441 Chemistry Sodium (137 - 145 mmol/L) 136 L Potassium (3.5 - 5.1 mmol/L) 4.3 Chloride (98 - 107 mmol/L) 90 L Carbon Dioxide (22 - 30 mmol/L) 32 H Anion Gap (5 - 16) 14 BUN (7 - 17 mg/dL) 24 H Creatinine (0.5 - 1.0 mg/dL) 0.8 Estimated GFR (>60 ml/min) > 60 Glucose (65 - 99 mg/dL) 115 H Calcium (8.4 - 10.2 mg/dL) 8.5 Phosphorus (2.5 - 4.5 mg/dL) 4.2 Magnesium (1.6 - 2.3 mg/dL) 2.0 Total Bilirubin (0.2 - 1.3 mg/dL) 3.1 H Direct Bilirubin (< 0.4 mg/dL) 1.0 H AST (14 - 36 U/L) 26 ALT (9 - 52 U/L) 36 Alkaline Phosphatase (<127 U/L) 107 Total Protein (6.3 - 8.2 g/dL) 6.1 L Albumin (3.5 - 5.0 g/dL) 3.6 Coagulation PT (9.4 - 12.5 SEC) 13.9 H INR (0.90 - 1.19) 1.33 H APTT (25 - 37 SEC) 29 Hematology CBC w Diff NO MAN DIFF REQ WBC (4.8 - 10.8 /CUMM) 18.6 H RBC (4.20 - 5.40 /CUMM) 4.88 Hgb (12.0 - 16.0 G/DL) 13.0 Hct (37 - 47 %) 40.4 MCV (81.0 - 99.0 FL) 82.8 MCH (27.0 - 31.0 PG) 26.7 L RDW (11.5 - 14.5 %) 17.0 H Plt Count (130 - 400 /CUMM) 231 MPV (7.4 - 10.4 FL) 8.6 Gran % (42.2 - 75.2 %) 81.8 H Lymphocytes % (20.5 - 51.1 %) 6.7 L Monocytes % (1.7 - 9.3 %) 11.5 H Eosinophils % (0 - 5 %) 0 Basophils % (0.0 - 2.0 %) 0 L Absolute Granulocytes (1.4 - 6.5 /CUMM) 15.2 H Absolute Lymphocytes (1.2 - 3.4 /CUMM) 1.3 Absolute Monocytes (0.10 - 0.60 /CUMM) 2.1 H Absolute Eosinophils (0.0 - 0.7 /CUMM) 0 Absolute Basophils (0.0 - 0.2 /CUMM) 0 PUBS MCHC (33.0 - 37.0 G/DL) 32.2 L Vital Signs Date Time Temp Pulse Resp B/P Pulse O2 O2 Flow FiO2 Ox Delivery Rate 02/27 0400 95 Nasal 1.0L Cannula 02/27 97.2 102 19 116/78 97 Nasal 1.0L Cannula 02/27 0000 97 Nasal 1.0L Cannula 02/26 2201 116 115/73 02/26 2000 96 Nasal 1.0L Cannula 02/26 1600 Nasal 3.0L Cannula 02/26 1600 98.3 108 20 124/76 100 Nasal 3.0L Cannula 02/26 1200 Room Air 02/26 0846 145 128/71 02/26 0800 Room Air 02/26 799 97.9 157 22 130/76 95 Room Air Intake & Output 02/27 0800 02/27 0000 02/26 1600 Intake Total 50 960 420 Output Total 300 1200 1500 Balance -250 -240 -1080 Intake, IV 0 0 300 Intake, Oral 50 960 120 Number 0 1 0 Bowel Movements Output, Urine 300 1200 1500 Patient 300 lb Weight Assessment 6 sinus syndrome status post pacemaker insertion on beta alli for tachycardia. Otherwise patient is stable Out of bed to chair physical therapy for ambulation. Continue management per cardiology.
[2016-02-28 08:00] VITALS: BP 120/74
--- NOTE | 2016-02-28 09:08 | PN- Infect Dx ---
Subjective Subjective: Afebrile without complaints Objective Last 24 Hrs of Vital Signs/I&O Vital Signs Date Time Temp Pulse Resp B/P Pulse O2 O2 Flow FiO2 Ox Delivery Rate 02/27 847 92 Nasal 1.0L Cannula 02/27 040 95 Nasal 1.0L Cannula 02/27 0000 97.2 102 19 116/78 97 Nasal 1.0L Cannula 02/27 0000 97 Nasal 1.0L Cannula 02/26 2201 116 115/73 02/26 2000 96 Nasal 1.0L Cannula 02/26 1599 Nasal 3.0L Cannula 02/26 1600 98.3 108 20 124/76 100 Nasal 3.0L Cannula 02/26 1200 Room Air Intake & Output 02/27 1600 02/27 0800 02/27 0000 Intake Total 50 960 Output Total 300 1200 Balance -250 -240 Intake, IV 0 0 Intake, Oral 50 960 Number 0 1 Bowel Movements Output, Urine 300 1200 Physical Exam Other Physical Findings: She appears comfortable in no acute distress Chest pacemaker in the right upper chest with dressing intact Lungs are clear Heart irregular rhythm with a 1/6 systolic ejection murmur Abdomen is obese, soft, nontender with positive bowel sounds Extremities bilateral lower extremity edema, decreased from previous exam, with mild erythema, minimally tender to palpation Hagen catheter remains in place Results Last 24 Hours of Lab Results: Laboratory Tests 02/28 440 Chemistry Sodium (137 - 145 mmol/L) 136 L Potassium (3.5 - 5.1 mmol/L) 4.3 Chloride (98 - 107 mmol/L) 90 L Carbon Dioxide (22 - 30 mmol/L) 32 H Anion Gap (5 - 16) 14 BUN (7 - 17 mg/dL) 24 H Creatinine (0.5 - 1.0 mg/dL) 0.8 Estimated GFR (>60 ml/min) > 60 Glucose (65 - 99 mg/dL) 115 H Calcium (8.4 - 10.2 mg/dL) 8.5 Phosphorus (2.5 - 4.5 mg/dL) 4.2 Magnesium (1.6 - 2.3 mg/dL) 2.0 Total Bilirubin (0.2 - 1.3 mg/dL) 3.1 H Direct Bilirubin (< 0.4 mg/dL) 1.0 H AST (14 - 36 U/L) 26 ALT (9 - 52 U/L) 36 Alkaline Phosphatase (<127 U/L) 107 Total Protein (6.3 - 8.2 g/dL) 6.1 L Albumin (3.5 - 5.0 g/dL) 3.6 Coagulation PT (9.4 - 12.5 SEC) 13.9 H INR (0.90 - 1.19) 1.33 H APTT (25 - 37 SEC) 29 Hematology CBC w Diff NO MAN DIFF REQ WBC (4.8 - 10.8 /CUMM) 18.6 H RBC (4.20 - 5.40 /CUMM) 4.88 Hgb (12.0 - 16.0 G/DL) 13.0 Hct (37 - 47 %) 40.4 MCV (81.0 - 99.0 FL) 82.8 MCH (27.0 - 31.0 PG) 26.7 L RDW (11.5 - 14.5 %) 17.0 H Plt Count (130 - 400 /CUMM) 231 MPV (7.4 - 10.4 FL) 8.6 Gran % (42.2 - 75.2 %) 81.8 H Lymphocytes % (20.5 - 51.1 %) 6.7 L Monocytes % (1.7 - 9.3 %) 11.5 H Eosinophils % (0 - 5 %) 0 Basophils % (0.0 - 2.0 %) 0 L Absolute Granulocytes (1.4 - 6.5 /CUMM) 15.2 H Absolute Lymphocytes (1.2 - 3.4 /CUMM) 1.3 Absolute Monocytes (0.10 - 0.60 /CUMM) 2.1 H Absolute Eosinophils (0.0 - 0.7 /CUMM) 0 Absolute Basophils (0.0 - 0.2 /CUMM) 0 PUBS MCHC (33.0 - 37.0 G/DL) 32.2 L Last 24 Hours of Ehsan Results: No recent cultures Recent Imaging Studies: Chest x-ray February 26, personally reviewed, reveals probable subsegmental atelectasis at the left base Assessment/Plan Impression: Clinically stable status post placement of pacemaker yesterday, but with marked leukocytosis today, of unclear significance, with temperatures remaining normal. She does have bilateral lower extremity erythema, but suspect this is chronic and it is not suggestive of an acute cellulitis. Her respiratory status is stable and recent chest x-ray is negative for pneumonia. She does have a Hagen catheter; therefore need to rule out a urinary tract infection. Suggestion: 1. Obtain blood cultures 2 2. Obtain urine culture 3. Remove Hagen catheter 4. Would weigh and follow daily weights with diuresis 5. Local wound care to both lower extremities 6. Elevation of both legs 7. Continue to follow off antibiotic pending above
--- NOTE | 2016-02-28 09:16 | PN- CRCU ---
Subjective HPI/Critical Care Issues: Patient seen and examined this morning. She is afebrile in no new complaints. She status post pacemaker placement. White blood cell count noted to be 18.6. Leg swelling remains and is chronic. No nausea no vomiting no diarrhea no constipation or headaches. Dyspnea is at baseline and comfortable at rest. Objective Current Medications: Current Medications Sig/Neeraj Start time Last Medication Dose Route Stop Time Status Admin Acetaminophen 650 MG Q6P PRN 02/23 2230 AC PO Albuterol Sulfate 3 ML Q4P PRN 02/24 1530 AC INH Aspirin Buffered 81 MG DAILY 02/24 1000 AC 02/25 PO 1151 Atorvastatin Calcium 10 MG 1700 02/24 1700 AC 02/26 PO 1613 Cefazolin Sodium 3,000 MG 0902/26 0900 DC 02/26 IV 02/27 0859 0845 Fentanyl Citrate 100 MCG .STK-MED ONE 02/26 1202 DC IM 02/26 1203 Furosemide 40 MG 7:30 AM, & 4:30 PM 02/25 0730 AC 02/27 IV 0804 Metoprolol Tartrate 50 MG BID 02/26 2200 AC 02/26 PO 2201 Metoprolol Tartrate 25 MG ONCE ONE 02/26 1430 DC 02/26 PO 02/26 1431 1615 Nicotine 14 MG DAILY 02/24 1000 AC TOP Patient Medication 1 UNIT ONE NR 02/26 1745 DC 02/26 Teaching ED 02/26 1800 2202 Potassium Chloride 40 MEQ BID 02/24 1240 AC 02/26 PO 2201 Potassium Phosphate 15 mMol ONE ONE 02/26 0900 DC 02/26 Dextrose/Water 250 ML IV 02/26 1303 1026 Vital Signs & I&O Last 24 Hrs of Vitals and I&O: Vital Signs Date Time Temp Pulse Resp B/P Pulse O2 O2 Flow FiO2 Ox Delivery Rate 02/27 0848 92 Nasal 1.0L Cannula 02/27 0400 95 Nasal 1.0L Cannula 02/27 0000 97.2 102 19 116/78 97 Nasal 1.0L Cannula 02/27 0000 97 Nasal 1.0L Cannula 02/26 2201 116 115/73 02/26 2000 96 Nasal 1.0L Cannula 02/26 1600 Nasal 3.0L Cannula 02/26 1600 98.3 108 20 124/76 100 Nasal 3.0L Cannula 02/26 1200 Room Air Intake & Output 02/27 1600 02/27 0800 01/08 0000 Intake Total 50 960 Output Total 300 1200 Balance -250 -240 Intake, IV 0 0 Intake, Oral 50 960 Number 0 1 Bowel Movements Output, Urine 300 1200 Exam Other Physical Findings: gen - awake and alert heent - ncat cvs - s1, s2, tachycardic, pacemaker lungs - anterior chest clear abd - obese ext - chronic venous stasis Results Last 24 Hrs of Lab Results: Laboratory Tests 02/28/16 0441: Anion Gap 14, Estimated GFR > 60, Glucose 115 H, Calcium 8.5, Phosphorus 4.2, Magnesium 2.0, Total Bilirubin 3.1 H, Direct Bilirubin 1.0 H, AST 26, ALT 36, Alkaline Phosphatase 107, Total Protein 6.1 L, Albumin 3.6, PT 13.9 H, INR 1.33 H, APTT 29, CBC w Diff NO MAN DIFF REQ, RBC 4.88, MCV 82.8, MCH 26.7 L, RDW 17.0 H, MPV 8.6, Gran % 81.8 H, Lymphocytes % 6.7 L, Monocytes % 11.5 H, Eosinophils % 0, Basophils % 0 L, Absolute Granulocytes 15.2 H, Absolute Lymphocytes 1.3, Absolute Monocytes 2.1 H, Absolute Eosinophils 0, Absolute Basophils 0, PUBS MCHC 32.2 L Impression/Plan Impression/Plan Impression/Plan: Impression 80 year old woman * sick sinus syndrome * possible ROMERO/OHS * , TV disease, obesity * Significant aneurysmal dilatation of the ascending aorta is present with a maximum dimension of 63 mm in the mid portion of the ascending aorta * A.fib on heparin for now anticipating procedure * Mildly elevated bilirubin Plan * Status post pacemaker * beta blockade per cardiology * CTA consideration per cardiology when necessary to evaluate aneurysm * continue heparin * can follow with Dr. Van as outpatient to evaluate for possible ROMERO * cultures per ID * Consider abdominal ultrasound imaging for evaluation of bilirubin elevation * smoking cessation counseling * TRC/Nebs as needed * Nicotine replacement * Aspirin * Diuresis/ins/outs DVT prophylaxis at all times - heparin gtt TTS 35 min Code Status: Full Code
--- NOTE | 2016-02-28 09:19 | NUR ---
PT HAD A 6 BEAT RUN OF MD JENSEN NEVAREZ AND ESTUARDO GUZMÁN.
--- NOTE | 2016-02-28 10:25 | Operative Report ---
Operative/Inv Procedure Report Surgery Date: 02/27/16 Name of Procedure: Implantation of single-chamber pacemaker and ventricular lead. Pre-Operative Diagnosis: Atrial fibrillation with long pauses Post-Operative Diagnosis: Atrial fibrillation with long pauses Estimated Blood Loss: scant Surgeon/Lofter: Ildefonso Riggins M.D. Anesthesia: local monitored anesthesi Implants: Medtronic Advisa pacemaker SR MRI [id number] serial number [id number] Medtronic right ventricular lead #[id number] serial number [id number] Complications: None Operative/Procedure Note Note: The patient is an 80-year-old female who presented with anasarca and atrial fibrillation. On 02/25/2015 she was noted to have long pauses up to 10 seconds in duration which were recurrent. Some of these were during sleep and some were while she was awake. She had previously been on low dose beta alli which was held. Subsequently she became somewhat tachycardic. However it was felt necessary to implant a backup pacemaker to prevent bradycardia. The patient agreed with this plan. The patient was brought to the operating suite in the fasting state. 1 Gm of Kefzol was given IV prior to the procedure. Timeout was taken and all agreed with the patient, procedure, equipment, and personnel. The patient was prepped and draped in the usual manner. Local anesthesia was instilled in the right subclavian area and an incision made in this area and carried down to the pre- muscular fascia, which was very deep. A suitable vein was not found. Therefore a needle was placed in the subclavian vein with no difficulty and a wire passed through the needle into central circulation. Over the wire a 7.5 Romansh introducer was passed. Through the introducer the ventricular lead was passed and manipulated into a region near the apex of the right ventricle and screwed into place. The lead is a active fixation screw-in lead. Threshold and impedance measurements were satisfactory and the introducer was then removed and the lead sewn into place to the pre-muscular fascia using the sleeve device around the lead. Next a suitable pocket was made in the inferior part of the incision and stuffed with a Kefzol soaked sponge. The pacemaker was attached to the lead and placed in the pocket after the sponge was removed and sewn into place using a nonabsorbable suture through the suture hole of the pacemaker. Next the wound was inspected for hemostasis and found to be dry. The wound was then closed with 3 layers of absorbable suture material including a final layer of subcuticular sutures with buried knots. The patient tolerated the procedure well. There were no complications. Postoperative EKG and chest x-ray documented good electrical and anatomic position and function of the system. Sponge, needle and instrument counts were correct at the end of the procedure. The patient was removed to the recovery room awake and alert. Discharge Disposition: PACU CC: ARTHUR GARCIA,Kun MITTAL; MICHAEL GARCIA,BRIDGETTE Hall
--- NOTE | 2016-02-28 10:26 | PN- Cardiology ---
Subjective Subjective: The patient is feeling well. She is eager to be discharged. She continues to diurese. She tolerated the pacemaker implantation well. She remains in atrial fibrillation. Her rate is about 100 at this time. She is on Lopressor 50 mg twice daily. Her anticoagulant has been held because of the pacemaker procedure. Objective Vital Signs and I&Os Vital Signs Date Time Temp Pulse Resp B/P Pulse O2 O2 Flow FiO2 Ox Delivery Rate 02/28 928 Nasal 1.0L Cannula 02/27 925 109 112/65 02/27 0748 92 Nasal 1.0L Cannula 02/27 0400 95 Nasal 1.0L Cannula 02/27 0000 97.2 102 19 116/78 97 Nasal 1.0L Cannula 02/27 0000 97 Nasal 1.0L Cannula 02/26 2201 116 115/73 02/26 2000 96 Nasal 1.0L Cannula 02/26 1600 Nasal 3.0L Cannula 02/26 1600 98.3 108 20 124/76 100 Nasal 3.0L Cannula 02/26 1200 Room Air Intake & Output 02/27 1600 02/27 0802/27 0000 02/26 1600 02/26 0800 02/26 0000 Intake Total 50 960 420 216.9 504 Output Total 300 1200 6537 341 1383 Balance -250 -240 -1080 -533.1 -1196 Intake, IV 0 0 300 216.9 194 Intake, Oral 50 960 120 0 310 Number 0 1 0 0 0 Bowel Movements Output, Urine 300 1200 5741 340 8809 Patient 300 lb Weight Physical Exam: She is in no distress HEENT exam is normal Chest is clear Heart reveals irregular rhythm and no murmurs. The pacemaker site is clean and dry and there is no hematoma. Extremities reveal chronic edema and chronic venous stasis changes Current Medications: Current Medications Sig/Neeraj Start time Last Medication Dose Route Stop Time Status Admin Acetaminophen 650 MG Q6P PRN 02/23 2230 AC PO Albuterol Sulfate 3 ML Q4P PRN 02/24 1530 AC INH Aspirin Buffered 81 MG DAILY 02/24 1000 AC 02/27 PO 0925 Atorvastatin Calcium 10 MG 1700 02/24 1700 AC 02/26 PO 1613 Cefazolin Sodium 3,000 MG 0902/26 09 DC 02/26 IV 02/27 08 0845 Fentanyl Citrate 100 MCG .STK-MED ONE 02/26 1202 DC IM 02/26 1203 Furosemide 40 MG 7:30 AM, & 4:30 PM 02/25 729 AC 02/27 IV 0804 Metoprolol Tartrate 50 MG BID 02/26 2199 AC 02/27 PO 09 Metoprolol Tartrate 25 MG ONCE ONE 02/26 1430 DC 02/26 PO 02/26 1431 1615 Nicotine 14 MG DAILY 02/24 1000 AC TOP Patient Medication 1 UNIT ONE NR 02/26 1745 DC 02/26 Teaching ED 02/26 1800 2202 Potassium Chloride 40 MEQ BID 02/24 1240 AC 02/27 PO 0925 Potassium Phosphate 15 mMol ONE ONE 02/26 0900 DC 02/26 Dextrose/Water 250 ML IV 02/26 1303 1026 Results Last 48 Hrs of Labs/Mics: Laboratory Tests 02/28/16 0441: Anion Gap 14, Estimated GFR > 60, Glucose 115 H, Calcium 8.5, Phosphorus 4.2, Magnesium 2.0, Total Bilirubin 3.1 H, Direct Bilirubin 1.0 H, AST 26, ALT 36, Alkaline Phosphatase 107, Total Protein 6.1 L, Albumin 3.6, PT 13.9 H, INR 1.33 H, APTT 29, CBC w Diff NO MAN DIFF REQ, RBC 4.88, MCV 82.8, MCH 26.7 L, RDW 17.0 H, MPV 8.6, Gran % 81.8 H, Lymphocytes % 6.7 L, Monocytes % 11.5 H, Eosinophils % 0, Basophils % 0 L, Absolute Granulocytes 15.2 H, Absolute Lymphocytes 1.3, Absolute Monocytes 2.1 H, Absolute Eosinophils 0, Absolute Basophils 0, PUBS MCHC 32.2 L 02/27/16 0513: Anion Gap 13, Estimated GFR > 60, Glucose 101 H, Calcium 9.1, Phosphorus 3.2, Magnesium 2.2, Total Bilirubin 2.4 H, AST 22, ALT 37, Albumin 3.6, APTT > 120 * H, CBC w Diff NO MAN DIFF REQ, RBC 4.72, MCV 82.8, MCH 26.6 L, RDW 17.6 H, MPV 8.7, Gran % 71.6, Lymphocytes % 16.3 L, Monocytes % 10.9 H, Eosinophils % 0.8, Basophils % 0.4, Absolute Granulocytes 8.6 H, Absolute Lymphocytes 2.0, Absolute Monocytes 1.3 H, Absolute Eosinophils 0.1, Absolute Basophils 0.1, PUBS MCHC 32.2 L 02/26/16 2255: APTT 37 02/26/16 1800: APTT Cancelled 02/26/16 1721: Ur Random Creatinine 19.3, Urine Total Volume 4600 H, Urine Creatinine 0.9 Recent Imaging Studies: PATIENT: DONNA CASTELLON PRESENT AGE: 80 PATIENT ACCOUNT NO: [id number] : 34 LOCATION: [place] ORDERING PHYSICIAN: LOLIS PRICE MD SERVICE DATE: 02/27/16 EXAM TYPE: RAD - XRY-PORTABLE CHEST XRAY EXAMINATION: XR PORTABLE CHEST CLINICAL INFORMATION: Postop pacemaker COMPARISON: Chest x-ray 02/24/2016 TECHNIQUE: AP portable upright chest x-ray FINDINGS: There is cardiomegaly. There is a right subclavian pacemaker with lead tip at the right ventricular apex. No pneumothorax is seen. There is some probable subsegmental atelectasis at the left base. No dense consolidation is identified. No pulmonary edema is identified. IMPRESSION: Pacemaker tip is in the region of the right ventricular apex. No pneumothorax. DICTATED BY: MIK CRENSHAW MD DATE/TIME DICTATED:02/27/161457 MINER:SUJEY DATE/TIME TRANSCRIBED:02/27/161457 CONFIDENTIAL, DO NOT COPY WITHOUT APPROPRIATE AUTHORIZATION. <Electronically signed in Other Vendor System> SIGNED BY: MIK CRENSHAW MD 02/26 1540 Assessment/Plan Assessment/Plan The patient's pacemaker implantation was uncomplicated. She is in atrial fibrillation with a rate around 100 on beta blockers. She continues to diurese. I recommend continuing to withhold anticoagulation for another 24 hours and then start her on oral anticoagulation. If her rate continues to be on the high side we can increase the beta blockers and she will be protected by the pacemaker. Continue telemetry? Yes
--- NOTE | 2016-02-28 11:06 | NUR ---
BLOOD CULTURES DRAWN BY [facility]. WILL REMOVE BURKS. URINE CULTURE TO BE SENT ONCE PT VOIDS ON HER OWN.
--- NOTE | 2016-02-28 11:15 | PN- Resident CRCU ---
Subjective HPI/CRCU Issues: Patient seen and examined. She is seen sitting upright in her chair at bedside. She appears to be in no acute distress. She reports minimal pain in her right shoulder with movement that she attributes to her recent pacemaker placement. Otherwise she feels fine and has no complaints. Additionally she denies any headache, fever, chills, chest pain other than stated above, palpitations, shortness of breath, cough, nausea, vomiting, diarrhea. No overnight events reported. Objective Vital Signs & I&O Last 8 Hrs of Vitals and I&O: Vitals: - Temperature: 97.2-97.4 - Heart Rate: 102-112 - Respiratory Rate: 16-20 - Systolic Blood pressure: 104-125 - Diastolic Blood pressure: 60-82 - Oxygen Saturation: 95-100% via nasal cannula at 1.0 L Exam General Appearance: well developed/nourished, no apparent distress, alert, awake , anxious, obese Other Physical Findings: General -well-developed, well-nourished obese anxious female in no acute distress HEENT - NCAT, PERRL, EOMI, anicteric sclera Cardio/chest - S1, S2 w/o murmurs/gallops/rubs, normal appearing surgical site without any obvious drainage Resp - CTA bilaterally w/o wheezing/rhochi/crackles, nasal cannula in place GI -soft, obese, nontender, nondistended, bowel sounds present Neuro - Awake and alert, CN II - XII grossly intact Current Medications: Current Medications Sig/Neeraj Start time Last Medication Dose Route Stop Time Status Admin Acetaminophen 650 MG Q6P PRN 02/23 2230 AC PO Albuterol Sulfate 3 ML Q4P PRN 02/24 1530 AC INH Aspirin Buffered 81 MG DAILY 02/24 1000 AC 02/27 PO 0925 Atorvastatin Calcium 10 MG 1700 02/24 1700 AC 02/26 PO 1613 Cefazolin Sodium 3,000 MG 0902/26 0900 DC 02/26 IV 02/27 0859 0845 Fentanyl Citrate 100 MCG .STK-MED ONE 02/26 1202 DC IM 02/26 1203 Furosemide 40 MG 7:30 AM, & 4:30 PM 02/25 0730 AC 02/27 IV 0804 Metoprolol Tartrate 50 MG BID 02/26 2200 AC 02/27 PO 09 Metoprolol Tartrate 25 MG ONCE ONE 02/26 1430 DC 02/26 PO 02/26 1431 1615 Nicotine 14 MG DAILY 02/24 1000 AC TOP Patient Medication 1 UNIT ONE NR 02/26 1745 DC 02/26 Teaching ED 02/26 1800 2202 Potassium Chloride 40 MEQ BID 02/24 1240 AC 02/27 PO 0925 Potassium Phosphate 15 mMol ONE ONE 02/26 0900 DC 02/26 Dextrose/Water 250 ML IV 02/26 1303 1026 Impression/Plan Impression/Problem List Impression: Patient appears to be recovering well from her pacemaker placement yesterday and reports only minimal pain in the ipsilateral shoulder that she attributes to the surgery. Per cardiology she is to be held off coagulation for another 24 hours before being started on oral anticoagulants with instruction to increase beta alli as needed should she remained tachycardic. Blood/urine cultures were obtained today and Hagen was discontinued. Problem list: -Tachycardia/bradycardia syndrome, status post pacemaker placement -New Onset Atrial fibrillation -Ascending thoracic aortic aneurysm -Chronic hypercapnic respiratory failure Cardiovascular: Patient an extensive cardiac history or to the ICU for findings of multiple reactive pauses on telemetry. Large thoracic aortic aneurysm as demonstrated by echocardiogram. - Maintain telemetry - S/P Pacemaker - Hold anticoagulation for 24 hours, restart oral anticoagulants tomorrow - Continue Metoprolol 50mg PO BID, increase as needed for persistent tachycardia - Continue Lasix, Atorvastatin, Aspirin - Possible CTA per cardiology Respiratory: Patient with history of chronic hypercarbic respiratory failure, obesity hypoventilation syndrome, smoking, and probable ROMERO. - Maintain supplemental oxygen as needed, goal pO2 > 92% - TRC nebs PRN - Continue Albuterol Infectious Disease: Physical examination demonstrates bilateral lower extremity erthema, edema, and tenderness. - TMAX: 98.1, WBC 18.6 - Lasix 40mg IV BID - Cefazolin discontinued, follow off antibiotics - ID consult following - F/U Blood/Urine cultures (02/28/16) Diet - heart healthy diet, NPO overnight for CTA monday morning DVT PPx - subcutaneous heparin Code Status - FULL CODE Problem List: 1. Afib Pain Ratin Tomorrow's Labs & Rationales: CBC ICU Bundle INR Plan DVT/Prophylaxis: pharmacological Code Status: Full Code Glucose intolerance HbA1c of 6.4 Alimentary: NPO pending procedure Neurological: Depression/anxiety Patient is very frustrated to stay in the hospital DVT/Prophylaxis: pharmacological, heparin drip Code Status: Full Code Plan DVT/Prophylaxis: pharmacological, heparin drip Code Status: Full Code
[2016-02-28 16:00] VITALS: BP 128/70
[2016-02-29] VITALS: BP 111/60
--- NOTE | 2016-02-29 07:38 | PN- Housestaff ---
Subjective Follow-up For: 1. Atrial fibrillation of unclear duration with episodes of prolonged pauses of up to 8.5 seconds 2. Lower extremity edema with stasis changes 3. Known ascending thoracic aortic aneurysm; significantly increased in size on current echocardiogram (63 mm) 4. ROMERO/OHV Complaints: no complaints Tele-Events Since Last Visit: HR 100-114 bpm without any significant events. Subjective: I saw the patient today morning. She is doing well. Denies any acute events during night. No chest pain. No palpitations. No diaphoresis. No nausea or vomiting. She continues to have lower extremity edema. Review of Systems Constitutional: Reports: no symptoms, see HPI. EENTM: Reports: no symptoms. Cardiovascular: Reports: no symptoms. Respiratory: Reports: no symptoms. Gastrointestinal: Reports: no symptoms. Comments: urinary incontinence present for which she is placed on baer catheter. Objective Last 24 Hrs of Vital Signs/I&O Vital Signs Date Time Temp Pulse Resp B/P Pulse O2 O2 Flow FiO2 Ox Delivery Rate 02/28 1300 92 Room Air Room Air 02/28 1132 109 96/60 02/28 0000 93 Room Air 02/28 0000 97.3 106 19 111/60 93 Room Air 02/27 2246 107 111/60 02/27 1644 93 Nasal 1.0L Cannula 02/27 1600 Nasal 1.0L Cannula 02/27 1600 99.8 99 30 128/70 93 Nasal 1.0L Cannula Intake & Output 02/28 1600 02/28 0800 02/28 0000 Intake Total 360 240 Output Total 200 1270 Balance 160 -1030 Intake, IV 0 Intake, Oral 360 240 Number 0 0 Bowel Movements Output, Urine 200 1270 Physical Exam General Appearance: Alert, Oriented X3, Cooperative, No Acute Distress Skin: No Rashes, No Breakdown HEENT: Atraumatic, PERRLA, EOMI Neck: Supple, No JVD Cardiovascular: Normal S1, Normal S2, on atrial fibrillation Lungs: Clear to Auscultation, Normal Air Movement Abdomen: Normal Bowel Sounds, Soft, No Tenderness Neurological: Normal Speech, Strength at 5/5 X4 Ext, Normal Tone Extremities: No Clubbing, No Cyanosis, 4+ pitting edema over both the feet. Vascular: Normal Pulses, Pulses Symmetrical Current Medications: Current Medications Sig/Neeraj Start time Last Medication Dose Route Stop Time Status Admin Acetaminophen 650 MG Q6P PRN 02/23 2230 AC PO Albuterol Sulfate 3 ML Q4P PRN 02/24 1530 AC INH Apixaban 5 MG BID 02/28 1034 AC 02/28 PO 1126 Aspirin Buffered 81 MG DAILY 02/24 1000 DC 02/27 PO 0925 Atorvastatin Calcium 10 MG 1700 02/24 1700 AC 02/27 PO 1724 Furosemide 40 MG 7:30 AM, & 4:30 PM 03/01 0730 AC IV Furosemide 40 MG 7:30 AM, & 4:30 PM 02/25 0730 DC 02/28 IV 0725 Heparin Sodium 5,000 UNIT Q8 02/27 1400 DC 02/28 (Porcine) SC 0700 Metoprolol Tartrate 50 MG BID 02/26 2200 AC 02/28 PO 1132 Nicotine 14 MG DAILY 02/24 1000 AC TOP Potassium Chloride 40 MEQ BID 02/24 1240 AC 02/28 PO 1132 Last 24 Hrs of Lab/Ehsan Results Last 24 Hrs of Labs/Mics: Laboratory Tests 02/29/16 0925: PT 14.3 H, INR 1.37 H, CBC w Diff NO MAN DIFF REQ, RBC 4.91, MCV 82.6, MCH 26.7 L, RDW 17.0 H, MPV 8.7, Gran % 71.2, Lymphocytes % 12.2 L, Monocytes % 14.8 H, Eosinophils % 1.6, Basophils % 0.2, Absolute Granulocytes 11.0 H, Absolute Lymphocytes 1.9, Absolute Monocytes 2.3 H, Absolute Eosinophils 0.2, Absolute Basophils 0, PUBS MCHC 32.4 L 02/29/16 0500: Hemoglobin A1c Pending 02/29/16 0420: Anion Gap 12, Estimated GFR > 60, Glucose 130 H, Calcium 8.6, Phosphorus 3.0, Magnesium 2.0, Total Bilirubin 2.3 H, AST 32, ALT 24, Albumin 3.4 L Microbiology 02/28 0345 URINE ROUT: Urine Culture - RECD Lines/Diet/Fluids Lines: peripheral lines Assessment/Plan Assessment: Patient is a 80-year-old female with significant history of HTN, HLD, obesity, ? ? ROMERO, chronic hypercarbic respiratory failure. She is known to have AAA in the past which appears to be dilated upto 6 cm now. She is admitted due to anasarca with chronic venous stasis changes in both her lower extremities. During this admission she was found to have new onset atrial fibrillation during this admission and was on a small dose of beta alli. Intially placed in telemetry where she was found to have significant pauses for around 3 times with the longest being 8 seconds. Most of these occurred during sleep. She was moved to ICU with pacer pads at bedside for closer monitoring. Plan New-onset atrial fibrillation with occasional pauses * Intially on IV heparin, however on 02/27/16 pacemaker is placed * She was placed on metoprolol 50mg BID (still tachycardic) and IV heparin is on hold. * Today started on apixaban BID after discontinuation of aspirin. * Still tachycardic but ok to monitor on floor. Right-sided heart failure with fluid overload * On atorvastatin 10 mg, furosemide 40 mg * Acute on chronic right-sided heart failure - in the light of atrial fibrillation and pauses * History of diastolic heart failure without any evidence of left ventricular failure * Diuresis with IV furosemide 40 mg twice a day - discontinued PM dose today after the CTA * Potassium 40 mg twice a day Suspected cellulitis of lower extremities * Bilateral lower extremities had significant venous stasis changes in the skin * Upon examination theya are warm and mildly tender * She remained afebrile from admission. * However her white count trended up with 12-->18, today it is 14 * After receiving a single dose of cefazoline IV before the procedure, she is off antibiotics. * We made a call to Dr. Church and found that her allergy to penicillin is not significant and insulin/cephalosporins are safe to administer. Glucose intolerance * HbA1c of 6.4 Chronic hypercarbic respiratory failure * Suspected secondary to smoking/obesity hypoventilation syndrome * Monitoring with Nocturnal pulse oximetry tonight to check her saturations. * TRC/nebs. Depression/anxiety * Patient is very frustrated to stay in the hospital * Eager to go home. DVT prophylaxis * On Apixaban BID CODE STATUS * Full code Problem List: 1. Dyslipidemia 2. Anasarca 3. Afib 4. Right-sided heart failure 5. Benign paroxysmal positional vertigo Pain Ratin Pain Location: n/a Pain Goal: Pain 4 or less Pain Plan: Tylenol pRN Tomorrow's Labs & Rationales: ICU bundle cbc
[2016-02-29 08:00] VITALS: BP 98/60
[2016-02-29 09:48] LABS: PT 14.3 SEC (9.4-12.5)
[2016-02-29 09:50] LABS: ABSOLUTE BASOPHIL COUNT 0 /CUMM (0.0-0.2); ABSOLUTE EOSINOPHIL COUNT 0.2 /CUMM (0.0-0.7); ABSOLUTE LYMPH COUNT 1.9 /CUMM (1.2-3.4); ABSOLUTE MONOCYTE COUNT 2.3 /CUMM (0.10-0.60); BASOPHIL % 0.2 % (0.0-2.0); EOSINOPHIL % 1.6 % (0-5); GRANULOCYTE % 71.2 % (42.2-75.2); HEMATOCRIT 40.5 % (37-47); MEAN CORPUSCULAR HGB 26.7 PG (27.0-31.0); MEAN CORPUSCULAR HGB CONC 32.4 G/DL (33.0-37.0); MEAN CORPUSCULAR VOLUME 82.6 FL (81.0-99.0); MEAN PLATELET VOLUME 8.7 FL (7.4-10.4); PLATELET COUNT 235 /CUMM (130-400); RED BLOOD CELL CT 4.91 /CUMM (4.20-5.40); WHITE BLOOD CELL COUNT 15.4 /CUMM (4.8-10.8)
--- NOTE | 2016-02-29 09:54 | PN- Pulmonary ---
Subjective HPI/Critical Care Issues: Doing well afebrile S/p pacer Will be getting ultrasound of the abd and cta today Objective Current Medications: Current Medications Sig/Neeraj Start time Last Medication Dose Route Stop Time Status Admin Acetaminophen 650 MG Q6P PRN 02/23 2230 AC PO Albuterol Sulfate 3 ML Q4P PRN 02/24 1530 AC INH Aspirin Buffered 81 MG DAILY 02/24 1000 AC 02/27 PO 0925 Atorvastatin Calcium 10 MG 1700 02/24 1700 AC 02/27 PO 1724 Furosemide 40 MG 7:30 AM, & 4:30 PM 02/25 0730 AC 02/28 IV 0725 Heparin Sodium 5,000 UNIT Q8 02/27 1400 AC 02/28 (Porcine) SC 0700 Metoprolol Tartrate 50 MG BID 02/26 2200 AC 02/27 PO 2246 Nicotine 14 MG DAILY 02/24 1000 AC TOP Potassium Chloride 40 MEQ BID 02/24 1240 AC 02/27 PO 2246 Laboratory Tests 02/28 02/28 02/27 0925 0420 0441 Chemistry Sodium (137 - 145 mmol/L) 135 L 136 L Potassium (3.5 - 5.1 mmol/L) 4.3 4.3 Chloride (98 - 107 mmol/L) 91 L 90 L Carbon Dioxide (22 - 30 mmol/L) 32 H 32 H Anion Gap (5 - 16) 12 14 BUN (7 - 17 mg/dL) 27 H 24 H Creatinine (0.5 - 1.0 mg/dL) 0.7 0.8 Estimated GFR (>60 ml/min) > 60 > 60 Glucose (65 - 99 mg/dL) 130 H 115 H Calcium (8.4 - 10.2 mg/dL) 8.6 8.5 Phosphorus (2.5 - 4.5 mg/dL) 3.0 4.2 Magnesium (1.6 - 2.3 mg/dL) 2.0 2.0 Total Bilirubin (0.2 - 1.3 mg/dL) 2.3 H 3.1 H Direct Bilirubin (< 0.4 mg/dL) 1.0 H AST (14 - 36 U/L) 32 26 ALT (9 - 52 U/L) 24 36 Alkaline Phosphatase (<127 U/L) 107 Total Protein (6.3 - 8.2 g/dL) 6.1 L Albumin (3.5 - 5.0 g/dL) 3.4 L 3.6 Coagulation PT (9.4 - 12.5 SEC) 14.3 H 13.9 H INR (0.90 - 1.19) 1.37 H 1.33 H APTT (25 - 37 SEC) 29 Hematology CBC w Diff Pending NO MAN DIFF REQ WBC (4.8 - 10.8 /CUMM) Pending 18.6 H RBC (4.20 - 5.40 /CUMM) Pending 4.88 Hgb (12.0 - 16.0 G/DL) Pending 13.0 Hct (37 - 47 %) Pending 40.4 MCV (81.0 - 99.0 FL) Pending 82.8 MCH (27.0 - 31.0 PG) Pending 26.7 L RDW (11.5 - 14.5 %) Pending 17.0 H Plt Count (130 - 400 /CUMM) Pending 231 MPV (7.4 - 10.4 FL) Pending 8.6 Gran % (42.2 - 75.2 %) 81.8 H Lymphocytes % (20.5 - 51.1 %) 6.7 L Monocytes % (1.7 - 9.3 %) 11.5 H Eosinophils % (0 - 5 %) 0 Basophils % (0.0 - 2.0 %) 0 L Absolute Granulocytes (1.4 - 6.5 /CUMM) 15.2 H Absolute Lymphocytes (1.2 - 3.4 /CUMM) 1.3 Absolute Monocytes (0.10 - 0.60 /CUMM) 2.1 H Absolute Eosinophils (0.0 - 0.7 /CUMM) 0 Absolute Basophils (0.0 - 0.2 /CUMM) 0 PUBS MCHC (33.0 - 37.0 G/DL) Pending 32.2 L Microbiology Date/Time Procedure - Status Source Growth 02/28 0345 Urine Culture - RECD URINE ROUT 02/27 1040 Blood Culture - RECD BLOOD 02/27 1025 Blood Culture - RECD BLOOD Vital Signs & I&O Last 24 Hrs of Vitals and I&O: Vital Signs Date Time Temp Pulse Resp B/P Pulse O2 O2 Flow FiO2 Ox Delivery Rate 02/28 0000 93 Room Air 02/28 0000 97.3 106 19 111/60 93 Room Air 02/27 2246 107 111/60 02/27 1644 93 Nasal 1.0L Cannula 02/27 1600 Nasal 1.0L Cannula 02/27 1600 99.8 99 30 128/70 93 Nasal 1.0L Cannula 02/27 1200 Nasal 1.0L Cannula Intake & Output 02/28 1600 02/28 0800 02/28 0000 Intake Total 360 240 Output Total 200 1270 Balance 160 -1030 Intake, IV 0 Intake, Oral 360 240 Number 0 0 Bowel Movements Output, Urine 200 1270 Impression/Plan Impression/Plan Impression/Plan: Physical Exam General Appearance: alert, awake, anxious, moderate distress Head: atraumatic, normal appearance Eyes: Bilateral: normal appearance, PERRL, EOMI. Ears, Nose, Throat: normal pharynx, normal ENT inspection Neck: normal inspection, supple Pacer pocket ok Respiratory: decreased breath sounds Cardiovascular: regular rate/rhythm Peripheral Pulses: 4+ radial (R), 4+ radial (L) Gastrointestinal: non-tender Back: decreased range of motion Extremities: pedal edema, swelling, tenderness Neurologic/Psych: no motor/sensory deficits, awake, alert, oriented x 3 Skin: rash with chronic venostasis changes SIG Data ABG reviewed Pco2 46 IMPRESSION This is an 80-year-old lady with history of ongoing smoking, hypertension, hyperlipidemia, diastolic heart disease, previous aortic sclerosis, tricuspid valvular disease, morbid obesity with signs and symptoms suggestive of obstructive sleep apnea, chronic hypercarbic respiratory dysfunction with baseline high bicarbonate, now comes in with * Improving Significant pedal edema generalized anasarca with increase in weight highly suggestive of acute on chronic cor pulmonale with right heart failure with fluid overload * Atrial fib prob chronic but new onset for her and pt was noted to have sig pauses to prob ohv with romero/central apnea with sick sinus syndrome, S/p S/p Pacer Now on beta alli with mildly elevated hr * Sig aortic aneurysm by echo on beta blockers to reduce intra thoracic pressure * ROMERO/OHV with chronic hypercarbia clinically (tsh normal) * Diastolic heart disease with no evidence of left ventricular failure * Morbid obesity * Glucose intolerance * No clinical evidence suggestive of nephrotic syndrome but however proteinuria needs to be ruled out * No clinical evidence suggestive of hypothyroidism TSH is normal * Probable worsening depression and anxiety * Significant chronic venostasis changes in the lower extremity * Hypertension hyperlipidemia * Vitamin D deficiency RECOMMENDATION * Can go to tele * Do not increase beta alli past 100 mg * Hold lasix this pm after cta * Keep k more than 4 * Check Hemoglobin A1c, add to this ams lab * When necessary nebulizer therapy for wheezing * Keep the leg elevated * Smoking cessation counselling done * Please ask resp to do nocturnal oxymetry tonight to assess nocturnal oxygen * needs to go to str in am if stable * Anticoag per Cardio when it is safe
--- NOTE | 2016-02-29 10:26 | PN- Cardiology ---
Subjective Subjective: The patient is doing well status post permanent pacemaker placement. She remains in atrial fibrillation. color television console monitor shows atrial fibrillation with particular rate mostly controlled. No chest pain. No palpitations. No diaphoresis. No nausea or vomiting. She continues to have lower extremity edema. She has chronic HFpEF which is stable, with persistent lower extremity edema. No further pauses are noted now that the pacemaker is in place. Hypertension is under control on her current medications. No lightheadedness or dizziness. No chest pain. No palpitations. No diaphoresis. No syncope. Objective Vital Signs and I&Os Vital Signs Date Time Temp Pulse Resp B/P Pulse O2 O2 Flow FiO2 Ox Delivery Rate 02/28 0000 93 Room Air 02/28 0000 97.3 106 19 111/60 93 Room Air 02/27 2246 107 111/60 02/27 1644 93 Nasal 1.0L Cannula 02/27 1600 Nasal 1.0L Cannula 02/27 1600 99.8 99 30 128/70 93 Nasal 1.0L Cannula 02/27 1200 Nasal 1.0L Cannula Intake & Output 02/28 1600 02/28 0800 02/28 0000 02/27 1600 02/27 0800 02/27 0000 Intake Total 524 919 9684 50 960 Output Total 200 1270 0487 943 4775 Balance 160 -1030 114 -250 -240 Intake, IV 0 14 0 0 Intake, Oral 324 621 3757 50 960 Number 0 0 0 0 1 Bowel Movements Output, Urine 200 1270 0287 482 5262 Physical Exam: Gen: The patient is in no acute distress HEENT: Normal nose, ears, and oropharynx. Pupils equal bilaterally. Conjunctiva normal. Neck: Supple with no JVD, no masses, and no thyromegaly Lungs: Clear to auscultation with normal respiratory effort Heart: Irregularly irregular, S1-S2, 1/6 systolic murmur. 2+ peripheral edema, 1+ pulses in the lower extremities bilaterally Abdomen: Soft, nontender, no masses. No hepatomegaly. No splenomegaly Extremities: No clubbing or cyanosis. Normal muscle strength in the upper and lower extremities Skin: Normal skin turgor with chronic venous stasis changes in the lower extremities Neuro: Cranial nerves intact. Sensation intact Psych: Alert and oriented 3 with appropriate affect Current Medications: Current Medications Sig/Neeraj Start time Last Medication Dose Route Stop Time Status Admin Acetaminophen 650 MG Q6P PRN 02/23 2230 AC PO Albuterol Sulfate 3 ML Q4P PRN 02/24 1530 AC INH Aspirin Buffered 81 MG DAILY 02/24 1000 AC 02/27 PO 0925 Atorvastatin Calcium 10 MG 1700 02/24 1700 AC 02/27 PO 1724 Furosemide 40 MG 7:30 AM, & 4:30 PM 02/25 0730 AC 02/28 IV 0725 Heparin Sodium 5,000 UNIT Q8 02/27 1400 AC 02/28 (Porcine) SC 0700 Metoprolol Tartrate 50 MG BID 02/26 2200 AC 02/27 PO 224 Nicotine 14 MG DAILY 02/24 1000 AC TOP Potassium Chloride 40 MEQ BID 02/24 1240 AC 02/27 PO 2246 Results Last 48 Hrs of Labs/Mics: Laboratory Tests 02/29/16 0925: PT 14.3 H, INR 1.37 H, CBC w Diff NO MAN DIFF REQ, RBC 4.91, MCV 82.6, MCH 26.7 L, RDW 17.0 H, MPV 8.7, Gran % 71.2, Lymphocytes % 12.2 L, Monocytes % 14.8 H, Eosinophils % 1.6, Basophils % 0.2, Absolute Granulocytes 11.0 H, Absolute Lymphocytes 1.9, Absolute Monocytes 2.3 H, Absolute Eosinophils 0.2, Absolute Basophils 0, PUBS MCHC 32.4 L 02/29/16 0420: Anion Gap 12, Estimated GFR > 60, Glucose 130 H, Calcium 8.6, Phosphorus 3.0, Magnesium 2.0, Total Bilirubin 2.3 H, AST 32, ALT 24, Albumin 3.4 L 02/28/16 0441: Anion Gap 14, Estimated GFR > 60, Glucose 115 H, Calcium 8.5, Phosphorus 4.2, Magnesium 2.0, Total Bilirubin 3.1 H, Direct Bilirubin 1.0 H, AST 26, ALT 36, Alkaline Phosphatase 107, Total Protein 6.1 L, Albumin 3.6, PT 13.9 H, INR 1.33 H, APTT 29, CBC w Diff NO MAN DIFF REQ, RBC 4.88, MCV 82.8, MCH 26.7 L, RDW 17.0 H, MPV 8.6, Gran % 81.8 H, Lymphocytes % 6.7 L, Monocytes % 11.5 H, Eosinophils % 0, Basophils % 0 L, Absolute Granulocytes 15.2 H, Absolute Lymphocytes 1.3, Absolute Monocytes 2.1 H, Absolute Eosinophils 0, Absolute Basophils 0, PUBS MCHC 32.2 L Recent Imaging Studies: Echocardiogram: 1. This was a technically difficult examination. 2. Significant aneurysmal dilatation of the ascending aorta is present with a maximum dimension of 63 mm in the mid portion of the ascending aorta. The transverse arch and proximal descending aorta were not well visualized. 3. Mild to moderate aortic sclerosis is present with mild aortic insufficiency. 4. Mitral leaflet thickening is present with mild anular calcification and mild to moderate mitral insufficiency. 5. A small pericardial effusion is present. 6. The left ventricular chamber size is normal with mild concentric hypertrophy and a normal ejection fraction with no obvious resting wall motion abnormalities. 7. The right heart structures were not optimally assessed anatomically. Moderate tricuspid insufficiency is present with an estimated RV systolic pressure of at least 44 mmHg. Chest x-ray: Pacemaker tip is in the region of the right ventricular apex. No pneumothorax. EKG tracing is independently reviewed, and reveals atrial fibrillation with response of 112, left axis deviation, low voltage, nonspecific T-wave abnormality, cannot rule out anterior infarct age undetermined Assessment/Plan Assessment/Plan Assessment: 1. History of fibrillation, ventricular rate MRSA controlled 2. Prolonged pauses, status post permanent pacemaker placement 3. Ascending thoracic aortic aneurysm, stable 4. Hypertension, controlled 5. Acute on chronic HFpEF, with lower extremity edema Plan: * Continue current dose of metoprolol for aortic aneurysm, and rate control * Continue IV furosemide * Monitor input and output with daily weights * Check basic metabolic profile daily * Start Eliquis 5 mg by mouth twice a day for stroke prevention given atrial fibrillation. * Discontinue subcutaneous heparin * Would discontinue aspirin when starting Eliquis to avoid the increased bleeding worse. Continue telemetry? Yes
--- NOTE | 2016-02-29 11:55 | ULTRASOUND REPORT ---
EXAMINATION: US ABDOMEN COMPLETE CLINICAL INFORMATION: Source of infection/bilirubin elevation. Status post cholecystectomy at age 17. Patient denies pain. COMPARISON: CTA of the chest dated 02/29/2016. TECHNIQUE: Real-time imaging of the abdominal viscera. FINDINGS: PANCREAS: The pancreatic body, head and portions of the tail were visualized with the remainder of the pancreas obscured by overlying bowel gas. ABDOMINAL AORTA: The proximal segment is normal in caliber. INFERIOR VENA CAVA: Visualized portions are normal. LIVER: Diffusely increased parenchymal echogenicity is seen, consistent with hepatic steatosis. The liver demonstrates normal size and contour. No focal lesion or intrahepatic biliary duct dilatation. GALLBLADDER: The patient is status post cholecystectomy. COMMON BILE DUCT: Normal in caliber measuring 0.3 cm in diameter. RIGHT KIDNEY: Normal. No hydronephrosis. No renal calculi or focal parenchymal lesions. The kidney measures 11.1 cm in maximum dimension. LEFT KIDNEY: Normal. No hydronephrosis. No renal calculi or focal parenchymal lesions. The kidney measures 11.3 cm in maximum dimension. SPLEEN: Normal. The spleen measures 11.1 cm in maximum dimension. FREE FLUID: None. IMPRESSION: 1. Incomplete view of the pancreatic tail. Visualized portions of pancreas unremarkable. 2. Diffusely increased echogenicity of the liver is seen, consistent with hepatic steatosis. 3. Status post cholecystectomy. No evidence of abnormal fluid collection in the gallbladder fossa or biliary obstruction.
--- NOTE | 2016-02-29 14:09 | CT SCAN REPORT ---
EXAMINATION: CT ANGIOGRAPHY OF THE CHEST CLINICAL INFORMATION: Enlarging thoracic aortic aneurysm. Rule out dissection. COMPARISON: Prior chest radiographs. TECHNIQUE: Pre and postcontrast CT of the chest was performed. The contrast-enhanced portion of the exam was performed during administration of 95 mL Optiray 320. Additional 2-D coronal and sagittal reformatted images and axial 3-D maximum intensity projection MIP images are generated on the CT workstation. In addition, images were also evaluated on an independent dedicated 3-D workstation and 3-D images were reconstructed with concurrent radiologist supervision and subsequently interpreted. Measurements of the aorta perpendicular to the center line were performed. DLP: 1407.18 mGy-cm FINDINGS: Vascular: There is aneurysmal dilatation of the ascending aorta with a maximal diameter perpendicular to the center line of 6.4 cm. No aortic dissection is seen. The descending thoracic aorta demonstrates some mild atherosclerotic changes. No aortic dissection is seen. There is a normal 3-vessel arch present and the great vessels are patent. The visualized pulmonary arteries are unremarkable. The pulmonary veins are unremarkable. A right-sided pacemaker is present with tips in the right ventricle. The SVC cannot be evaluated due to the density of the contrast media and the pacer wires. The IVC is not opacified. The small visualized portion of the abdominal aorta demonstrates atherosclerotic changes but no aneurysm. Nonvascular: No suspicious lung masses are seen. In the left mid lung posteriorly there is some pleural-based opacity seen, which could represent tiny area of scarring or infiltrate. There is some minimal nodular thickening on the major fissure on the left. There is a small area of patchy groundglass infiltrate at the right lung base that measures 1.2 cm (see CT series #5 slice 247). No pleural effusions are seen. No mediastinal or hilar masses are present. Visualization of the upper abdomen shows no abnormality in the visualized liver or spleen. The visualized pancreas is unremarkable. Nodular thickening of the left adrenal gland, which is nonspecific. 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 The origin of the SMA is patent. The renal arteries are not well visualized, but I suspect there may be disease on the right. IMPRESSION: 1. Ascending aortic aneurysm with maximal diameter of 6.6 cm. Dissection is not present. 2. Other incidental findings described above. This critical result was discussed with Dr. Duyen Fox at 1:45 PM on the day of the exam and it was ascertained that the content and urgency of the report was understood at the time of direct communication.
[2016-02-29 16:00] VITALS: BP 100/66
[2016-03-01] VITALS: BP 131/77
[2016-03-01 05:26] LABS: ABSOLUTE BASOPHIL COUNT 0 /CUMM (0.0-0.2); ABSOLUTE EOSINOPHIL COUNT 0.1 /CUMM (0.0-0.7); ABSOLUTE GRANULOCYTE CT 8.8 /CUMM (1.4-6.5); ABSOLUTE LYMPH COUNT 1.9 /CUMM (1.2-3.4); ABSOLUTE MONOCYTE COUNT 1.5 /CUMM (0.10-0.60); BASOPHIL % 0.4 % (0.0-2.0); GRANULOCYTE % 70.9 % (42.2-75.2); HEMATOCRIT 38.9 % (37-47); MEAN CORPUSCULAR HGB 26.8 PG (27.0-31.0); MEAN CORPUSCULAR HGB CONC 32.5 G/DL (33.0-37.0); MEAN CORPUSCULAR VOLUME 82.5 FL (81.0-99.0); MEAN PLATELET VOLUME 8.7 FL (7.4-10.4); PLATELET COUNT 250 /CUMM (130-400); RED BLOOD CELL CT 4.72 /CUMM (4.20-5.40); WHITE BLOOD CELL COUNT 12.4 /CUMM (4.8-10.8)
[2016-03-01 05:33] LABS: PT 17.5 SEC (9.4-12.5); PTT 29 SEC (25-37)
[2016-03-01 08:00] VITALS: BP 86/50
--- NOTE | 2016-03-01 10:12 | PN- Housestaff ---
Subjective Follow-up For: 1.Pauses S/P pacemaker placement 2.Lower extremity edema with stasis changes 3. Known ascending thoracic aortic aneurysm; significantly increased in size on current echocardiogram (63 mm) 4. ROMERO/OHV Complaints: wants to go home Tele-Events Since Last Visit: Atrial fibrillation, HR in 90-100. Subjective: I saw and examined the patient today morning. She is lying on the recliner, unable to sleep through out the night. Denies any shortness of breath, chest pain, pressure. Persistently asking for date of discharge. Review of Systems Constitutional: Reports: no symptoms, see HPI. EENTM: Reports: no symptoms. Cardiovascular: Reports: no symptoms. Respiratory: Reports: no symptoms. Gastrointestinal: Reports: no symptoms. Genitourinary: Reports: no symptoms. Musculoskeletal: Reports: no symptoms. Skin: Reports: no symptoms. Comments: ROS negative except the above. Objective Last 24 Hrs of Vital Signs/I&O Vital Signs Date Time Temp Pulse Resp B/P Pulse O2 O2 Flow FiO2 Ox Delivery Rate 03/01 1104 108 86/50 03/01 0800 Room Air 03/01 0800 97.1 101 26 86/50 96 Room Air 03/01 0000 95 Room Air 03/01 0000 96.7 98 27 131/77 95 Room Air 02/28 2309 97 131/77 02/28 1600 97.6 98 20 100/66 93 Room Air Intake & Output 03/01 1600 03/01 0800 03/01 0000 Intake Total 640 240 720 Output Total Balance 640 240 720 Intake, Oral 640 240 720 Number 0 0 Bowel Movements Physical Exam General Appearance: Alert, Oriented X3, Cooperative, Moderate Distress Skin: Signficant and chronic venous stasis changes present on bothe the legs. HEENT: Atraumatic, PERRLA, EOMI Neck: Supple, No JVD Cardiovascular: Normal S1, Normal S2 Lungs: Clear to Auscultation, Normal Air Movement Abdomen: Normal Bowel Sounds, Soft, No Tenderness Neurological: Normal Speech, Strength at 5/5 X4 Ext, Normal Tone Extremities: No Clubbing, No Cyanosis, 3+ pitting edema over both the feet. Vascular: Pulses Symmetrical Lines/Diet/Fluids Lines: peripheral lines Assessment/Plan Assessment: Patient is a 80-year-old female with significant history of HTN, HLD, obesity, ? ? ROMERO, chronic hypercarbic respiratory failure. She is known to have AAA in the past which appears to be dilated upto 6 cm now. She is admitted due to anasarca with chronic venous stasis changes in both her lower extremities. During this admission she was found to have new onset atrial fibrillation during this admission and was on a small dose of beta alli. Intially placed in telemetry where she was found to have significant pauses for around 3 times with the longest being 8 seconds. Most of these occurred during sleep. She was moved to ICU with pacer pads at bedside for closer monitoring. Today she is feeling much better after the pacemaker placement. Plan New-onset atrial fibrillation with occasional pauses * Intially on IV heparin, however on 02/27/16 pacemaker is placed because of asystole (several episodes of pauses max 8sec) * She was placed on metoprolol 50mg BID (still tachycardic). * On apixaban BID * Tachycardic with low blood pressure, so may decrease her metoprolol dose depending on her BP today. Right-sided heart failure with fluid overload * On atorvastatin 10 mg, furosemide 40 mg oral daily * Acute on chronic right-sided heart failure * History of diastolic heart failure without any evidence of left ventricular failure * Diuresis with oral furosemide 40 mg a day * Potassium 20 mg a day Suspected cellulitis of lower extremities * Bilateral lower extremities had significant venous stasis changes in the skin * Upon examination they are warm and mildly tender * She remained afebrile from admission. * Elevated white count after the pacemaker - gradually getting better. So porbably reactive at this point. * After receiving a single dose of cefazoline IV before the procedure, she is off antibiotics. Glucose intolerance * HbA1c of 6.4 Chronic hypercarbic respiratory failure * Suspected secondary to smoking/obesity hypoventilation syndrome * Monitoring with Nocturnal pulse oximetry yesterday - unfortunately she didnt sleep. * Discontinued Nicotine patch. * TRC/nebs. Depression/anxiety * Patient is very frustrated to stay in the hospital. * Started on lexapro 5mg at bedtime. * Eager to go home. DVT prophylaxis * On Apixaban BID CODE STATUS * Full code Problem List: 1. Benign essential hypertension 2. Benign paroxysmal positional vertigo 3. Dyslipidemia 4. Right-sided heart failure 5. Afib 6. Pacemaker Pain Ratin Pain Location: n/a Pain Goal: Pain 4 or less Pain Plan: Tylenol 650mg Q6 PRN Tomorrow's Labs & Rationales: ICU bundle and cbc DVT/Prophylaxis: pharmacological, on apixaban Pain Goal: Pain 4 or less Pain Plan: Tylenol 650mg Q6 PRN Tomorrow's Labs & Rationales: ICU bundle and cbc DVT/Prophylaxis: pharmacological, on apixaban
--- NOTE | 2016-03-01 10:45 | PN- Infect Dx ---
Subjective Subjective: Afebrile without complaints Objective Last 24 Hrs of Vital Signs/I&O Vital Signs Date Time Temp Pulse Resp B/P Pulse O2 O2 Flow FiO2 Ox Delivery Rate 03/01 0808 108 86/50 03/01 0800 97.1 101 26 86/50 96 Room Air 03/01 0000 95 Room Air 03/01 0000 96.7 98 27 131/77 95 Room Air 02/28 2309 97 131/77 02/28 1600 97.6 98 20 100/66 93 Room Air 02/28 1300 92 Room Air Room Air 02/28 1132 109 96/60 Intake & Output 03/01 1600 03/01 0800 03/01 0000 Intake Total 400 240 720 Output Total Balance 400 240 720 Intake, Oral 400 240 720 Number 0 0 Bowel Movements Physical Exam Other Physical Findings: She appears comfortable in no acute distress Chest pacemaker site in the right upper chest with no inflammation at the site Lungs are clear Heart irregular rhythm with no murmur Extremities decreased edema and erythema both lower extremities, with minimal tenderness on palpation on the left; chronic changes persist Results Last 24 Hours of Lab Results: Laboratory Tests 03/01 045 Chemistry Sodium (137 - 145 mmol/L) 135 L Potassium (3.5 - 5.1 mmol/L) 3.8 Chloride (98 - 107 mmol/L) 87 L Carbon Dioxide (22 - 30 mmol/L) 37 H Anion Gap (5 - 16) 10 BUN (7 - 17 mg/dL) 23 H Creatinine (0.5 - 1.0 mg/dL) 0.7 Estimated GFR (>60 ml/min) > 60 Glucose (65 - 99 mg/dL) 137 H Calcium (8.4 - 10.2 mg/dL) 8.9 Phosphorus (2.5 - 4.5 mg/dL) 2.6 Magnesium (1.6 - 2.3 mg/dL) 2.1 Total Bilirubin (0.2 - 1.3 mg/dL) 1.9 H AST (14 - 36 U/L) 24 ALT (9 - 52 U/L) 32 Albumin (3.5 - 5.0 g/dL) 3.2 L Coagulation PT (9.4 - 12.5 SEC) 17.5 H INR (0.90 - 1.19) 1.68 H APTT (25 - 37 SEC) 29 Hematology CBC w Diff NO MAN DIFF REQ WBC (4.8 - 10.8 /CUMM) 12.4 H RBC (4.20 - 5.40 /CUMM) 4.72 Hgb (12.0 - 16.0 G/DL) 12.6 Hct (37 - 47 %) 38.9 MCV (81.0 - 99.0 FL) 82.5 MCH (27.0 - 31.0 PG) 26.8 L RDW (11.5 - 14.5 %) 17.0 H Plt Count (130 - 400 /CUMM) 250 MPV (7.4 - 10.4 FL) 8.7 Gran % (42.2 - 75.2 %) 70.9 Lymphocytes % (20.5 - 51.1 %) 15.4 L Monocytes % (1.7 - 9.3 %) 12.3 H Eosinophils % (0 - 5 %) 1.0 Basophils % (0.0 - 2.0 %) 0.4 Absolute Granulocytes (1.4 - 6.5 /CUMM) 8.8 H Absolute Lymphocytes (1.2 - 3.4 /CUMM) 1.9 Absolute Monocytes (0.10 - 0.60 /CUMM) 1.5 H Absolute Eosinophils (0.0 - 0.7 /CUMM) 0.1 Absolute Basophils (0.0 - 0.2 /CUMM) 0 PUBS MCHC (33.0 - 37.0 G/DL) 32.5 L Last 24 Hours of Ehsan Results: Blood cultures 2 February 27 negative Urine culture February 27 negative Recent Imaging Studies: Abdominal ultrasound February 28 no acute process CTA of the chest February 28 ascending aortic aneurysm with maximal diameter of 6.6 cm, with no evidence of dissection Assessment/Plan Impression: Clinically stable status post placement of pacemaker 3 days ago, with white blood cell count normalizing and with temperatures remaining normal. The etiology of her recent leukocytosis is unclear, with cultures negative. Her lower extremity cellulitis appears to be chronic and should not require antibiotics. Her bilirubin was mildly elevated on admission, increased after several days and is now decreasing, all of unclear significance. Suggestion: 1. Local wound care to both lower extremities 2. Elevation of both legs 3. Continue to follow off antibiotics
--- NOTE | 2016-03-01 11:26 | PN- Pulmonary ---
Subjective HPI/Critical Care Issues: Doing better Did not sleep well Afebrile sat well at 98 percent Difficulty ambulating Objective Current Medications: Current Medications Sig/Neeraj Start time Last Medication Dose Route Stop Time Status Admin Acetaminophen 650 MG Q6P PRN 02/23 2230 AC PO Albuterol Sulfate 3 ML Q4P PRN 02/24 1530 AC INH Apixaban 5 MG BID 02/28 1034 AC 03/01 PO 0809 Atorvastatin Calcium 10 MG 1700 02/24 1700 AC 02/28 PO 1730 Furosemide 40 MG 7:30 AM, & 4:30 PM 03/01 07 AC IV Furosemide 40 MG 7:30 AM, & 4:30 PM 02/25 07 DC 02/28 IV 0725 Metoprolol Tartrate 50 MG BID 02/26 2200 AC 03/01 PO 1104 Nicotine 14 MG DAILY 02/24 1000 AC TOP Phosphate 250 MG ONCE ONE 03/01 729 DC PO 03/01 0731 Potassium Chloride 40 MEQ ONCE ONE 03/01 729 DC PO 03/01 0731 Potassium Chloride 40 MEQ BID 02/24 1240 AC 03/01 PO 0809 Vital Signs & I&O Last 24 Hrs of Vitals and I&O: Vital Signs Date Time Temp Pulse Resp B/P Pulse O2 O2 Flow FiO2 Ox Delivery Rate 03/01 1104 108 86/50 03/01 0800 Room Air 03/01 08 97.1 101 26 86/50 96 Room Air 03/01 0000 95 Room Air 03/01 0000 96.7 98 27 131/77 95 Room Air 02/28 2309 97 131/77 02/28 1600 97.6 98 20 100/66 93 Room Air 02/28 1300 92 Room Air Room Air 02/28 1132 109 96/60 Intake & Output 03/01 1600 03/01 0800 03/01 0000 Intake Total 400 240 720 Output Total Balance 400 240 720 Intake, Oral 400 240 720 Number 0 0 Bowel Movements Impression/Plan Impression/Plan Impression/Plan: Physical Exam General Appearance: alert, awake, anxious, moderate distress Head: atraumatic, normal appearance Eyes: Bilateral: normal appearance, PERRL, EOMI. Ears, Nose, Throat: normal pharynx, normal ENT inspection Neck: normal inspection, supple Pacer pocket ok Respiratory: decreased breath sounds Cardiovascular: regular rate/rhythm Peripheral Pulses: 4+ radial (R), 4+ radial (L) Gastrointestinal: non-tender Back: decreased range of motion Extremities: pedal edema, swelling, tenderness Neurologic/Psych: no motor/sensory deficits, awake, alert, oriented x 3 Skin: rash with chronic venostasis changes SIG Data ABG reviewed Pco2 46 CT Chest IMPRESSION: 1. Ascending aortic aneurysm with maximal diameter of 6.6 cm. Dissection is not present. 2. Other incidental findings described above. This critical result was discussed with Dr. Duyen Fox at 1:45 PM on the day of the exam and it was ascertained that the content and urgency of the report was understood at the time of direct communication. Ultrasound abd fatty liver IMPRESSION This is an 80-year-old lady with history of ongoing smoking, hypertension, hyperlipidemia, diastolic heart disease, previous aortic sclerosis, tricuspid valvular disease, morbid obesity with signs and symptoms suggestive of obstructive sleep apnea, chronic hypercarbic respiratory dysfunction with baseline high bicarbonate, now comes in with * Improving Significant pedal edema generalized anasarca with increase in weight highly suggestive of acute on chronic cor pulmonale with right heart failure with fluid overload * Atrial fib prob chronic but new onset for her and pt was noted to have sig pauses to prob ohv with romero/central apnea with sick sinus syndrome, S/p S/p Pacer Now on beta alli with mildly elevated hr * Sig aortic aneurysm by CT abd echo on beta blockers to reduce intraAortic pressure and for rate control * ROMERO/OHV with chronic hypercarbia clinically (tsh normal) * Diastolic heart disease with no evidence of left ventricular failure * Morbid obesity * Fatty liver * Glucose intolerance * NO sig proteinura * TSH is normal * Probable worsening depression and anxiety * Significant chronic venostasis changes in the lower extremity * Hypertension hyperlipidemia * Vitamin D deficiency RECOMMENDATION * Can go to tele or the floor if ok with cardio * Change to po lasix 40 qd and po kcl 20 daily * Reduce beta alli if the bp is low * When necessary nebulizer therapy for wheezing * Keep the leg elevated * Smoking cessation counselling done, dc nicotine patch * needs to go to str today or in am and stable * Start lexapro 5 mg qd at hs * Anticoag per Cardio and pt to confirm her insurance status to see if this is covered Cardio to eval for lasix dose and zaira anticoag DC pt to str in am and discussed with the daughter
--- NOTE | 2016-03-01 14:59 | NUR ---
Physical Therapy. PT rx deferred 2/2 hypotension. PT will f/u as appropriate.
--- NOTE | 2016-03-01 15:18 | PN- Cardiology ---
Subjective Subjective: As of breath is improving. Difficulty ambulating. She had difficulty sleeping. No chest pain. No palpitations. Objective Vital Signs and I&Os Vital Signs Date Time Temp Pulse Resp B/P Pulse O2 O2 Flow FiO2 Ox Delivery Rate 03/01 1104 108 86/50 03/01 0800 Room Air 03/01 0800 97.1 101 26 86/50 96 Room Air 03/01 0000 95 Room Air 03/01 0000 96.7 98 27 131/77 95 Room Air 02/28 2309 97 131/77 02/28 1600 97.6 98 20 100/66 93 Room Air Intake & Output 03/01 1600 03/01 0800 03/01 0000 02/28 1600 02/28 0800 02/28 0000 Intake Total 640 240 720 800 360 240 Output Total 665 055 6738 Balance 640 240 720 100 160 -1030 Intake, IV 0 Intake, Oral 640 240 720 800 360 240 Number 0 0 0 0 0 Bowel Movements Output, Urine [phone] Physical Exam: Gen: The patient is in no acute distress HEENT: Normal nose, ears, and oropharynx. Pupils equal bilaterally. Conjunctiva normal. Neck: Supple with no JVD, no masses, and no thyromegaly Lungs: Clear to auscultation with normal respiratory effort Heart: Irregularly irregular, S1-S2, 1/6 systolic murmur. 2+ peripheral edema, 1+ pulses in the lower extremities bilaterally Abdomen: Soft, nontender, no masses. No hepatomegaly. No splenomegaly Extremities: No clubbing or cyanosis. Normal muscle strength in the upper and lower extremities Skin: Normal skin turgor with chronic venous stasis changes in the lower extremities Current Medications: Current Medications Sig/Neeraj Start time Last Medication Dose Route Stop Time Status Admin Acetaminophen 650 MG Q6P PRN 02/23 2230 AC PO Albuterol Sulfate 3 ML Q4P PRN 02/24 1530 AC INH Apixaban 5 MG BID 02/28 1034 AC 03/01 PO 0809 Atorvastatin Calcium 10 MG 1700 02/24 1700 AC 02/28 PO 1730 Escitalopram Oxalate 5 MG AT BEDTIME 03/01 2199 AC PO Furosemide 40 MG DAILY 03/02 1000 AC PO Furosemide 40 MG 7:30 AM, & 4:30 PM 03/01 0730 DC IV Metoprolol Tartrate 50 MG BID 02/26 2199 AC 01/10 PO 1104 Nicotine 14 MG DAILY 02/24 1000 DC TOP Phosphate 250 MG ONCE ONE 03/01 0730 DC PO 03/01 0731 Potassium Chloride 20 MEQ DAILY 03/02 1000 AC PO Potassium Chloride 40 MEQ .[ONCE A DAY] 03/01 1145 DC PO Potassium Chloride 40 MEQ ONCE ONE 03/01 0730 DC PO 03/01 0731 Potassium Chloride 40 MEQ BID 02/24 1240 DC 03/01 PO 0809 Results Last 48 Hrs of Labs/Mics: Laboratory Tests 03/01/16 1448: Pulse Ox Probe Site RIF, ABG O2 Sat Calc/Alton 95.0, O2 Concentration % RA, O2 Delivery Method RA 03/01/16 0450: Anion Gap 10, Estimated GFR > 60, Glucose 137 H, Calcium 8.9, Phosphorus 2.6, Magnesium 2.1, Total Bilirubin 1.9 H, AST 24, ALT 32, Albumin 3.2 L, PT 17.5 H, INR 1.68 H, APTT 29, CBC w Diff NO MAN DIFF REQ, RBC 4.72, MCV 82.5, MCH 26.8 L, RDW 17.0 H, MPV 8.7, Gran % 70.9, Lymphocytes % 15.4 L, Monocytes % 12.3 H, Eosinophils % 1.0, Basophils % 0.4, Absolute Granulocytes 8.8 H, Absolute Lymphocytes 1.9, Absolute Monocytes 1.5 H, Absolute Eosinophils 0.1, Absolute Basophils 0, PUBS MCHC 32.5 L 02/29/16 0925: PT 14.3 H, INR 1.37 H, CBC w Diff NO MAN DIFF REQ, RBC 4.91, MCV 82.6, MCH 26.7 L, RDW 17.0 H, MPV 8.7, Gran % 71.2, Lymphocytes % 12.2 L, Monocytes % 14.8 H, Eosinophils % 1.6, Basophils % 0.2, Absolute Granulocytes 11.0 H, Absolute Lymphocytes 1.9, Absolute Monocytes 2.3 H, Absolute Eosinophils 0.2, Absolute Basophils 0, PUBS MCHC 32.4 L 02/29/16 0500: Hemoglobin A1c 6.4 H 02/29/16 0420: Anion Gap 12, Estimated GFR > 60, Glucose 130 H, Calcium 8.6, Phosphorus 3.0, Magnesium 2.0, Total Bilirubin 2.3 H, AST 32, ALT 24, Albumin 3.4 L Recent Imaging Studies: CTA chest: 1. Ascending aortic aneurysm with maximal diameter of 6.6 cm. Dissection is not present. 2. Other incidental findings described above. Assessment/Plan Assessment/Plan Assessment: 1. History of fibrillation, ventricular rate MRSA controlled 2. Prolonged pauses, status post permanent pacemaker placement 3. Ascending thoracic aortic aneurysm, stable 4. Hypertension, controlled 5. Acute on chronic HFpEF, with lower extremity edema Plan: * Continue current of metoprolol for aortic aneurysm, and rate control * Continue Eliquis for stroke prevention * Continue PO furosemide Continue telemetry? Yes
[2016-03-01 16:30] VITALS: BP 81/61
[2016-03-01 16:54] VITALS: BP 100/64
[2016-03-01 17:00] VITALS: BP 109/51
--- NOTE | 2016-03-01 22:08 | NUR ---
IN [place] [facility]AIR STOOD FOR [employer] [facility] AMT URINE, PT CLAIMS SHE DID NOT TAKE HER DINNER PILL, SEEN BY DAY NURSE TO CONFIRM MEDICATION GIVEN. SKIN INTACT TRANSFERED BY [place] [employer]ORE MANAGER. 10PM MEDS GIVEN.
[2016-03-01 22:12] VITALS: BP 106/64
[2016-03-02 08:04] VITALS: BP 112/58
[2016-03-02 08:09] LABS: ABSOLUTE BASOPHIL COUNT 0 /CUMM (0.0-0.2); ABSOLUTE EOSINOPHIL COUNT 0.2 /CUMM (0.0-0.7); ABSOLUTE GRANULOCYTE CT 7.7 /CUMM (1.4-6.5); ABSOLUTE MONOCYTE COUNT 1.2 /CUMM (0.10-0.60); BASOPHIL % 0.4 % (0.0-2.0); EOSINOPHIL % 1.4 % (0-5); GRANULOCYTE % 69.3 % (42.2-75.2); HEMATOCRIT 39.4 % (37-47); MEAN CORPUSCULAR HGB 26.6 PG (27.0-31.0); MEAN CORPUSCULAR HGB CONC 32.4 G/DL (33.0-37.0); MEAN CORPUSCULAR VOLUME 81.9 FL (81.0-99.0); MEAN PLATELET VOLUME 8.5 FL (7.4-10.4); PLATELET COUNT 256 /CUMM (130-400); RBC DISTRIBUTION WIDTH 17.2 % (11.5-14.5); RED BLOOD CELL CT 4.81 /CUMM (4.20-5.40); WHITE BLOOD CELL COUNT 11.1 /CUMM (4.8-10.8)
--- NOTE | 2016-03-02 08:24 | Transfer of Care Summary ---
Hospital Course Course Hospital Course: Patient is a 80-year-old female with significant history of HTN, HLD, obesity, ? ? ROMERO, chronic hypercarbic respiratory failure. She is known to have AAA in the past which appears to be dilated upto 6 cm now. She is admitted due to anasarca with chronic venous stasis changes in both her lower extremities. Vital signs at admission T -97.9, Pulse of 105, RR 20, BP 127/77mmHg, pulse ox of 96. EKG - A.fibrillation - rate controlled of uncertain duration. Intially placed in telemetry where she was found to have significant pauses for around 3 times with the longest being 8 seconds. Most of these occurred during sleep. She was moved to ICU with pacer pads at bedside for closer monitoring. Course in ICU: atrial fibrillation with occasional pauses of unclear duration: She was intially placed on IV heparin for her Atrial fibrillation. Metoprolol is on hold after developing pauses. Once transfered to ICU - She was placed on pacemaker on 02/27/16 after holding heparin. After pacemaker placement she was started on metoprolol 50mg BID and off the drip for 2 days to prevent pocket hematoma. Subsequently started on apixaban BID for discontinuation of aspirin. She is hemodynamically stable and moved to floor for further management. Right-sided heart failure with fluid overload She is on atorvastatin 10 mg. Her Atriall fibrillation aggrevated the condition as pumping is effected further. Had a history of diastolic heart failure without any evidence of left ventricular failure. Diuresis with IV furosemide 40 mg twice a day was done and eventually converted to 40 once a day (home dose) Persistent hypokalemia: She received 40mg BID which was eventually converted to 20mg once a day scheduled. Throacic Aortic aneurysm: She had a history of Thoracic aortic aneurysm which was found to be increasing in size compared to past. ECHO showed a dilatation of 6.3cm. Further assessed with CT angio of chest which shows 6.6cm dilation but stable. Must continue metoprolol for this. Suspected cellulitis of lower extremities She was found to have Bilateral lower extremities had significant venous stasis changes in the skin. Upon examination theya are warm and mildly tender. She remained afebrile from admission. However her white count trended up with 12-->18, today it is 14. fter receiving a single dose of cefazoline IV before the procedure, she is off antibiotics. We made a call to Dr. Church and found that her allergy to penicillin is not significant and insulin/cephalosporins are safe to administer. Glucose intolerance * HbA1c of 6.4 Chronic hypercarbic respiratory failure Suspected secondary to smoking/obesity hypoventilation syndrome. Monitoredwith Nocturnal pulse oximetry tonight to check her saturations. TRC/nebs on board through out her hospital course. Depression/anxiety Patient is very frustrated to stay in the hospital. Always Eager to go home. started on lexapro 5mg at bedtime. Complications: Developed pauses in the telemetry for which she got transfered to ICU Significant Procedures: Pacemaker placement Surgery Date: 02/27/16 Name of Procedure: Implantation of single-chamber pacemaker and ventricular lead. Pre-Operative Diagnosis: Atrial fibrillation with long pauses Post-Operative Diagnosis: Atrial fibrillation with long pauses Estimated Blood Loss: scant Surgeon/Corporate Intern: Ildefonso Riggins M.D. CTangio - for better assessment of thoracic aortic aneurysm 1. Ascending aortic aneurysm with maximal diameter of 6.6 cm. Dissection is not present. 2. Other incidental findings described above. This critical result was discussed with Dr. Duyen Fox at 1:45 PM on the day of the exam and it was ascertained that the content and urgency of the report was understood at the time of direct communication. ECHO CONCLUSIONS 1. This was a technically difficult examination. 2. Significant aneurysmal dilatation of the ascending aorta is present with a maximum dimension of 63 mm in the mid portion of the ascending aorta. The transverse arch and proximal descending aorta were not well visualized. 3. Mild to moderate aortic sclerosis is present with mild aortic insufficiency. 4. Mitral leaflet thickening is present with mild anular calcification and mild to moderate mitral insufficiency. 5. A small pericardial effusion is present. 6. The left ventricular chamber size is normal with mild concentric hypertrophy and a normal ejection fraction with no obvious resting wall motion abnormalities. 7. The right heart structures were not optimally assessed anatomically. Moderate tricuspid insufficiency is present with an estimated RV systolic pressure of at least 44 mmHg. Pertinent Lab Results: Asymptomatic leukocytosis which trended down. Assessment/Plan: as above
--- NOTE | 2016-03-02 10:42 | PN- Pulmonary ---
Subjective HPI/Critical Care Issues: DOing well afebrile Says is back to baseline Objective Current Medications: Current Medications Sig/Neeraj Start time Last Medication Dose Route Stop Time Status Admin Acetaminophen 650 MG Q6P PRN 02/23 2230 AC PO Albuterol Sulfate 3 ML Q4P PRN 02/24 1530 AC INH Apixaban 5 MG BID 02/28 1034 AC 03/02 PO 0950 Atorvastatin Calcium 10 MG 1700 02/24 1700 AC 03/01 PO 1646 Bisacodyl 5 MG DAILY PRN 03/02 0930 AC PO Bisacodyl 10 MG DAILY PRN 03/02 0930 AC SD Escitalopram Oxalate 5 MG AT BEDTIME 03/01 2200 AC 03/01 PO 2150 Furosemide 40 MG DAILY 03/02 1000 AC 03/02 PO 0949 Furosemide 40 MG 7:30 AM, & 4:30 PM 03/01 729 DC IV Metoprolol Tartrate 50 MG BID 02/26 2200 AC 03/02 PO 0950 Nicotine 14 MG DAILY 02/24 1000 DC TOP Potassium Chloride 20 MEQ DAILY 03/02 1000 AC 03/02 PO 0950 Potassium Chloride 40 MEQ .[ONCE A DAY] 03/01 1145 DC PO Potassium Chloride 40 MEQ BID 02/24 1240 DC 03/01 PO 0809 Senna 187 MG AT BEDTIME PRN 03/02 929 AC PO Vital Signs & I&O Last 24 Hrs of Vitals and I&O: Vital Signs Date Time Temp Pulse Resp B/P Pulse O2 O2 Flow FiO2 Ox Delivery Rate 03/02 0950 89 120/66 03/02 0804 98.1 94 20 112/58 94 Room Air 03/02 0000 Room Air 03/01 2212 98.3 90 20 106/64 93 Room Air 03/01 2150 88 136/70 03/01 2016 93 Room Air Room Air 03/01 1700 90 109/51 03/01 1654 87 18 100/64 95 Room Air 03/01 1630 97.9 98 20 81/61 97 Room Air 03/01 1600 Room Air 03/01 1104 108 86/50 Intake & Output 03/02 1600 03/02 0800 03/02 0000 Intake Total 460 Output Total Balance 460 Intake, Oral 460 Patient 181 lb Weight Laboratory Tests 03/02 03/01 0640 1448 Blood Gas Pulse Ox Probe Site RIF ABG O2 Sat Calc/[place] (92.0 - 96.0 %) 95.0 O2 Concentration % RA O2 Delivery Method RA Chemistry Sodium (137 - 145 mmol/L) 134 L Potassium (3.5 - 5.1 mmol/L) 4.2 Chloride (98 - 107 mmol/L) 90 L Carbon Dioxide (22 - 30 mmol/L) 34 H Anion Gap (5 - 16) 10 BUN (7 - 17 mg/dL) 24 H Creatinine (0.5 - 1.0 mg/dL) 0.7 Estimated GFR (>60 ml/min) > 60 Glucose (65 - 99 mg/dL) 102 H Calcium (8.4 - 10.2 mg/dL) 9.0 Phosphorus (2.5 - 4.5 mg/dL) 3.0 Magnesium (1.6 - 2.3 mg/dL) 2.1 Total Bilirubin (0.2 - 1.3 mg/dL) 1.9 H AST (14 - 36 U/L) 27 ALT (9 - 52 U/L) 44 Albumin (3.5 - 5.0 g/dL) 3.3 L Hematology CBC w Diff NO MAN DIFF REQ WBC (4.8 - 10.8 /CUMM) 11.1 H RBC (4.20 - 5.40 /CUMM) 4.81 Hgb (12.0 - 16.0 G/DL) 12.8 Hct (37 - 47 %) 39.4 MCV (81.0 - 99.0 FL) 81.9 MCH (27.0 - 31.0 PG) 26.6 L RDW (11.5 - 14.5 %) 17.2 H Plt Count (130 - 400 /CUMM) 256 MPV (7.4 - 10.4 FL) 8.5 Gran % (42.2 - 75.2 %) 69.3 Lymphocytes % (20.5 - 51.1 %) 17.9 L Monocytes % (1.7 - 9.3 %) 11.0 H Eosinophils % (0 - 5 %) 1.4 Basophils % (0.0 - 2.0 %) 0.4 Absolute Granulocytes (1.4 - 6.5 /CUMM) 7.7 H Absolute Lymphocytes (1.2 - 3.4 /CUMM) 2.0 Absolute Monocytes (0.10 - 0.60 /CUMM) 1.2 H Absolute Eosinophils (0.0 - 0.7 /CUMM) 0.2 Absolute Basophils (0.0 - 0.2 /CUMM) 0 PUBS MCHC (33.0 - 37.0 G/DL) 32.4 L 03/01 0450 Chemistry Sodium (137 - 145 mmol/L) 135 L Potassium (3.5 - 5.1 mmol/L) 3.8 Chloride (98 - 107 mmol/L) 87 L Carbon Dioxide (22 - 30 mmol/L) 37 H Anion Gap (5 - 16) 10 BUN (7 - 17 mg/dL) 23 H Creatinine (0.5 - 1.0 mg/dL) 0.7 Estimated GFR (>60 ml/min) > 60 Glucose (65 - 99 mg/dL) 137 H Calcium (8.4 - 10.2 mg/dL) 8.9 Phosphorus (2.5 - 4.5 mg/dL) 2.6 Magnesium (1.6 - 2.3 mg/dL) 2.1 Total Bilirubin (0.2 - 1.3 mg/dL) 1.9 H AST (14 - 36 U/L) 24 ALT (9 - 52 U/L) 32 Albumin (3.5 - 5.0 g/dL) 3.2 L Coagulation PT (9.4 - 12.5 SEC) 17.5 H INR (0.90 - 1.19) 1.68 H APTT (25 - 37 SEC) 29 Hematology CBC w Diff NO MAN DIFF REQ WBC (4.8 - 10.8 /CUMM) 12.4 H RBC (4.20 - 5.40 /CUMM) 4.72 Hgb (12.0 - 16.0 G/DL) 12.6 Hct (37 - 47 %) 38.9 MCV (81.0 - 99.0 FL) 82.5 MCH (27.0 - 31.0 PG) 26.8 L RDW (11.5 - 14.5 %) 17.0 H Plt Count (130 - 400 /CUMM) 250 MPV (7.4 - 10.4 FL) 8.7 Gran % (42.2 - 75.2 %) 70.9 Lymphocytes % (20.5 - 51.1 %) 15.4 L Monocytes % (1.7 - 9.3 %) 12.3 H Eosinophils % (0 - 5 %) 1.0 Basophils % (0.0 - 2.0 %) 0.4 Absolute Granulocytes (1.4 - 6.5 /CUMM) 8.8 H Absolute Lymphocytes (1.2 - 3.4 /CUMM) 1.9 Absolute Monocytes (0.10 - 0.60 /CUMM) 1.5 H Absolute Eosinophils (0.0 - 0.7 /CUMM) 0.1 Absolute Basophils (0.0 - 0.2 /CUMM) 0 PUBS MCHC (33.0 - 37.0 G/DL) 32.5 L Microbiology Date/Time Procedure - Status Source Growth 02/28 0345 Urine Culture - RES URINE ROUT 02/27 1040 Blood Culture - RES BLOOD Impression/Plan Impression/Plan Impression/Plan: Physical Exam General Appearance: alert, awake, anxious, moderate distress Head: atraumatic, normal appearance Eyes: Bilateral: normal appearance, PERRL, EOMI. Ears, Nose, Throat: normal pharynx, normal ENT inspection Neck: normal inspection, supple Pacer pocket ok Respiratory: decreased breath sounds Cardiovascular: regular rate/rhythm Peripheral Pulses: 4+ radial (R), 4+ radial (L) Gastrointestinal: non-tender Back: decreased range of motion Extremities: pedal edema, swelling, tenderness Neurologic/Psych: no motor/sensory deficits, awake, alert, oriented x 3 Skin: rash with chronic venostasis changes SIG Data ABG reviewed Pco2 46 CT Chest IMPRESSION: 1. Ascending aortic aneurysm with maximal diameter of 6.6 cm. Dissection is not present. 2. Other incidental findings described above. This critical result was discussed with Dr. Duyen Fox at 1:45 PM on the day of the exam and it was ascertained that the content and urgency of the report was understood at the time of direct communication. Ultrasound abd fatty liver IMPRESSION This is an 80-year-old lady with history of ongoing smoking, hypertension, hyperlipidemia, diastolic heart disease, previous aortic sclerosis, tricuspid valvular disease, morbid obesity with signs and symptoms suggestive of obstructive sleep apnea, chronic hypercarbic respiratory dysfunction with baseline high bicarbonate, now comes in with * Improving Significant pedal edema generalized anasarca with increase in weight highly suggestive of acute on chronic cor pulmonale with right heart failure with fluid overload * Atrial fib prob chronic but new onset for her and pt was noted to have sig pauses to prob ohv with romero/central apnea with sick sinus syndrome, S/p S/p Pacer Now on beta alli with mildly elevated hr * Sig aortic aneurysm by CT abd echo on beta blockers to reduce intraAortic pressure and for rate control * ROMERO/OHV with chronic hypercarbia clinically (tsh normal) * Diastolic heart disease with no evidence of left ventricular failure * Morbid obesity * Fatty liver * Glucose intolerance * NO sig proteinura * TSH is normal * Probable worsening depression and anxiety * Significant chronic venostasis changes in the lower extremity * Hypertension hyperlipidemia * Vitamin D deficiency RECOMMENDATION * Can go to STR today * po lasix 40 qd and po kcl 20 daily * Reduce beta alli to 37.5 bid as bp is consistantly running low * When necessary nebulizer therapy for wheezing * Keep the leg elevated * Smoking cessation counselling done, dc nicotine patch * Lexapro 5 mg qd at hs * Anticoag per Cardio DC pt to str
--- NOTE | 2016-03-02 13:34 | PN- Cardiology ---
Subjective Subjective: Clinically the patient appears to be doing better. Stable since pacemaker insertion. Awaiting transfer to rehab. Objective Vital Signs and I&Os Vital Signs Date Time Temp Pulse Resp B/P Pulse O2 O2 Flow FiO2 Ox Delivery Rate 03/02 1152 Nasal 1.0L Cannula 03/02 0950 89 120/66 03/02 0804 98.1 94 20 112/58 94 Room Air 03/02 0000 Room Air 03/01 2212 98.3 90 20 106/64 93 Room Air 03/01 2150 88 136/70 03/01 2017 93 Room Air Room Air 03/01 1700 90 109/51 03/01 1654 87 18 100/64 95 Room Air 03/01 1630 97.9 98 20 81/61 97 Room Air 03/01 1600 Room Air Intake & Output 03/02 1600 03/02 0800 03/02 0000 03/01 1600 03/01 0800 03/01 0000 Intake Total 460 640 240 720 Output Total Balance 460 640 240 720 Intake, Oral 460 640 240 720 Number 0 0 Bowel Movements Patient 181 lb Weight Physical Exam: Physical Exam: General Appearance Alert, Oriented X3, Cooperative, No Acute Distress, obese Skin redness over the legs up to mid calf bilaterally, not warm to touch HEENT Atraumatic, PERRLA Cardiovascular irregular rate, Normal S1, Normal S2, 1 to 2/6 systolic murmur Lungs Clear to Auscultation and percussion bilaterally Abdomen Normal Bowel Sounds, Soft, No Tenderness Extremities noticable swelling 2+of both lower extremities. non pitting edema bilaterally. some ruptured blisters on both legs with scattered excoriatons. Vascular pulse on both lower extremities difficult to assess due to the edema Current Medications: Current Medications Sig/Neeraj Start time Last Medication Dose Route Stop Time Status Admin Acetaminophen 650 MG Q6P PRN 02/23 2230 AC PO Albuterol Sulfate 3 ML Q4P PRN 02/24 1530 AC INH Apixaban 5 MG BID 02/28 1034 AC 03/02 PO 0950 Atorvastatin Calcium 10 MG 1700 02/24 1700 AC 03/01 PO 1646 Bisacodyl 5 MG DAILY PRN 03/02 0930 AC PO Bisacodyl 10 MG DAILY PRN 03/02 0930 AC MO Escitalopram Oxalate 5 MG AT BEDTIME 03/01 2200 AC 03/01 PO 2150 Furosemide 40 MG DAILY 03/02 1000 AC 03/02 PO 0949 Metoprolol Tartrate 50 MG BID 02/260 AC 03/02 PO 0950 Potassium Chloride 20 MEQ DAILY 03/02 1000 AC 03/02 PO 0950 Senna 187 MG AT BEDTIME PRN 03/02 0930 AC PO Results Last 48 Hrs of Labs/Mics: Laboratory Tests 03/02/16 0640: Anion Gap 10, Estimated GFR > 60, Glucose 102 H, Calcium 9.0, Phosphorus 3.0, Magnesium 2.1, Total Bilirubin 1.9 H, AST 27, ALT 44, Albumin 3.3 L, CBC w Diff NO MAN DIFF REQ, RBC 4.81, MCV 81.9, MCH 26.6 L, RDW 17.2 H, MPV 8.5, Gran % 69.3, Lymphocytes % 17.9 L, Monocytes % 11.0 H, Eosinophils % 1.4, Basophils % 0.4, Absolute Granulocytes 7.7 H, Absolute Lymphocytes 2.0, Absolute Monocytes 1.2 H, Absolute Eosinophils 0.2, Absolute Basophils 0, PUBS MCHC 32.4 L 03/01/16 1448: Pulse Ox Probe Site RIF, ABG O2 Sat Calc/[place] 95.0, O2 Concentration % RA, O2 Delivery Method RA 03/01/16 0450: Anion Gap 10, Estimated GFR > 60, Glucose 137 H, Calcium 8.9, Phosphorus 2.6, Magnesium 2.1, Total Bilirubin 1.9 H, AST 24, ALT 32, Albumin 3.2 L, PT 17.5 H, INR 1.68 H, APTT 29, CBC w Diff NO MAN DIFF REQ, RBC 4.72, MCV 82.5, MCH 26.8 L, RDW 17.0 H, MPV 8.7, Gran % 70.9, Lymphocytes % 15.4 L, Monocytes % 12.3 H, Eosinophils % 1.0, Basophils % 0.4, Absolute Granulocytes 8.8 H, Absolute Lymphocytes 1.9, Absolute Monocytes 1.5 H, Absolute Eosinophils 0.1, Absolute Basophils 0, PUBS MCHC 32.5 L Assessment/Plan Assessment/Plan Assessment: 1. Atrial fibrillation of unclear duration with episodes of prolonged pauses of up to 8.5 seconds; status post single lead ventricular permanent pacemaker 2. Lower extremity edema with stasis changes 3. Hypertension 4. Hyperlipidemia 5. Obesity 6. Probable sleep apnea 7. Chronic hypercapnic respiratory failure 8. Elevated proBNP 9. Known ascending thoracic aortic aneurysm; significantly increased in size on current echocardiogram (63 mm) Recommendations: - Continue current medications. - Transfer to rehab pending - The patient will followup with me in the office in 3-4 weeks. Continue telemetry? Yes
--- NOTE | 2016-03-02 15:48 | PN- Housestaff ---
Subjective Follow-up For: A.fib w/ pause s/p pacemaker placement Chronic respiratory failure Nicotine dependance Complaints: no complaints Tele-Events Since Last Visit: pacing no event 70's no event Review of Systems Constitutional: Denies: chills, diaphoresis, fever, malaise, weakness, unexplained weight loss. EENTM: Denies: blurred vision, double vision, visual changes, eye pain, eye drainage, eye tearing, icterus, ear discharge, ear pain, ear redness, hearing changes, nasal congestion, epistaxis, nasal pain, throat pain, throat swelling, mouth pain, tooth pain. Cardiovascular: Denies: chest pain, edema, orthopena, palpitations, peripheral edema, syncope. Respiratory: Denies: cough, hemoptysis, orthopnea, short of breath, sputum production, stridor, wheezing. Gastrointestinal: Reports: constipation. Denies: abdominal pain, bloating, diarrhea, distention, bowel incontinence, melena, nausea, bloody stool, changes in stool, vomiting, steatorrhea. Musculoskeletal: Denies: back pain, gout, joint pain, joint swelling, muscle pain, muscle stiffness, neck pain. Neurological/Psychological: Denies: anxiety, ataxia, cognitive dysfunction, confusion, depressed, dementia, emotional problems, headache, numbness, paresthesia, pre-existing deficit, petit mal seizures, tingling, tremors, tonic-clonic seizures, unable to move lower ext , unable to move upper ext, weakness, other. Objective Last 24 Hrs of Vital Signs/I&O Vital Signs Date Time Temp Pulse Resp B/P Pulse O2 O2 Flow FiO2 Ox Delivery Rate 03/02 1152 Nasal 1.0L Cannula 03/02 0950 89 120/66 03/02 0804 98.1 94 20 112/58 94 Room Air 03/02 0000 Room Air 03/01 2212 98.3 90 20 106/64 93 Room Air 03/01 2150 88 136/70 03/01 2017 93 Room Air Room Air 03/01 1700 90 109/51 03/01 1654 87 18 100/64 95 Room Air 03/01 1630 97.9 98 20 81/61 97 Room Air 03/01 1600 Room Air Intake & Output 03/02 1600 03/02 0800 03/02 0000 Intake Total 400 460 Output Total 500 Balance -100 460 Intake, Oral 400 460 Output, Urine 500 Patient 181 lb Weight Physical Exam General Appearance: Alert, Oriented X3, Cooperative, No Acute Distress Skin: No Rashes, No Breakdown, No Significant Lesion HEENT: Atraumatic, PERRLA, EOMI, Mucous Membr. moist/pink Neck: Supple, No JVD, No thryomegaly, +2 Carotid Pulse wo Bruit, No LAD Cardiovascular: Normal S1, Normal S2, No Murmurs Lungs: Clear to Auscultation, Normal Air Movement Neurological: Normal Speech, Strength at 5/5 X4 Ext Current Medications: Current Medications Sig/Neeraj Start time Last Medication Dose Route Stop Time Status Admin Acetaminophen 650 MG Q6P PRN 02/23 2230 AC PO Albuterol Sulfate 3 ML Q4P PRN 02/24 1530 AC INH Apixaban 5 MG BID 02/28 1034 AC 03/02 PO 0950 Atorvastatin Calcium 10 MG 1700 02/24 1700 AC 03/01 PO 1646 Bisacodyl 5 MG DAILY PRN 03/02 0930 AC PO Bisacodyl 10 MG DAILY PRN 03/02 0930 AC LA Escitalopram Oxalate 5 MG AT BEDTIME 03/01 2200 AC 03/01 PO 2150 Furosemide 40 MG DAILY 03/02 1000 AC 03/02 PO 0949 Metoprolol Tartrate 37.5 MG BID 03/02 2200 AC PO Metoprolol Tartrate 50 MG BID 02/26 2200 DC 03/02 PO 0950 Potassium Chloride 20 MEQ DAILY 03/02 1000 AC 03/02 PO 0950 Senna 187 MG AT BEDTIME PRN 03/02 0930 AC PO Last 24 Hrs of Lab/Ehsan Results Last 24 Hrs of Labs/Mics: Laboratory Tests 03/02/16 0640: Anion Gap 10, Estimated GFR > 60, Glucose 102 H, Calcium 9.0, Phosphorus 3.0, Magnesium 2.1, Total Bilirubin 1.9 H, AST 27, ALT 44, Albumin 3.3 L, CBC w Diff NO MAN DIFF REQ, RBC 4.81, MCV 81.9, MCH 26.6 L, RDW 17.2 H, MPV 8.5, Gran % 69.3, Lymphocytes % 17.9 L, Monocytes % 11.0 H, Eosinophils % 1.4, Basophils % 0.4, Absolute Granulocytes 7.7 H, Absolute Lymphocytes 2.0, Absolute Monocytes 1.2 H, Absolute Eosinophils 0.2, Absolute Basophils 0, PUBS MCHC 32.4 L Assessment/Plan Assessment: Patient is a 80-year-old female with significant history of HTN, HLD, obesity, ?? ROMERO, chronic hypercarbic respiratory failure. She is known to have AAA in the past which appears to be dilated upto 6 cm now. She is admitted due to anasarca with chronic venous stasis changes in both her lower extremities. During this admission she was found to have new onset atrial fibrillation during this admission and was on a small dose of beta alli. Intially placed in telemetry where she was found to have significant pauses for around 3 times with the longest being 8 seconds. Most of these occurred during sleep. She was moved to ICU with pacer pads at bedside for closer monitoring. Today she is feeling much better after the pacemaker placement. Plan New-onset atrial fibrillation w/ >5 sec pause ; S/P pace-maker placement * On apixaban BID; needs to get pre-autorization from her insurance for Xarelto * Persistent hypotension; Metoprolol was decreased to 37.5 mg BID * Cardiology note to be signed Right-sided heart failure with fluid overload * On atorvastatin 10 mg, * furosemide 40 mg oral daily * Potassium 20 mg a day Suspected cellulitis of lower extremities * off antibiotics * no fever, no leukocytosis Glucose intolerance * HbA1c of 6.4 Chronic hypercarbic respiratory failure * TRC/nebs. Depression/anxiety * Patient is very frustrated to stay in the hospital. * Started on lexapro 5mg at bedtime. * Eager to go home. DVT prophylaxis * On Apixaban BID CODE STATUS * Full code Problem List: 1. Pacemaker 2. Afib 3. Anasarca 4. Right-sided heart failure 5. Obesity 6. Benign essential hypertension Pain Ratin Pain Location: Lower back Pain Goal: Pain 4 or less Pain Plan: Tylenol Tomorrow's Labs & Rationales: No labs Discharge Plan Discharge Disposition: STR/NH Stable for Discharge? Yes Anticipated Discharge (Day): tomorrow If Discharged Today/In 24 Hrs: W-10/discharge paper done, CMR done
[2016-03-02] MEDS ORDERED: METOPROLOL SUCC25 M1 PO (15:52)
[2016-03-02 16:19] VITALS: BP 106/76
[2016-03-02 22:00] VITALS: BP 110/70
--- NOTE | 2016-03-03 07:26 | PN- Housestaff ---
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 Atrial fibrillation, no pace, rates 90s to 101, no events Subjective: Patient was visited and interviewed this morning. She is complaining of symptoms of upper respiratory tract infection but no other major complaints. Patient denies any chest pain, palpitation, lightheadedness, dizziness. Vital signs were reviewed. Patient's blood pressure and heart rate has not changed over the past 48 hours. Review of Systems Constitutional: Reports: see HPI. Denies: chills, diaphoresis, fever, malaise, weakness, unexplained weight loss. EENTM: Denies: blurred vision, double vision, visual changes, eye pain, eye drainage, eye tearing, icterus, ear discharge, ear pain, ear redness, hearing changes, nasal congestion, epistaxis, nasal pain, throat pain, throat swelling, mouth pain, tooth pain. Cardiovascular: Reports: peripheral edema. Denies: chest pain, edema, orthopena, palpitations, syncope. Respiratory: Reports: short of breath. Denies: cough, hemoptysis, orthopnea, sputum production, stridor, wheezing. Gastrointestinal: Reports: constipation. Denies: abdominal pain, bloating, diarrhea, distention, bowel incontinence, melena, nausea, bloody stool, changes in stool, vomiting, steatorrhea. Genitourinary: Denies: discharge, dysuria, frequency, hematuria, hesitation, nocturia, pain, urgency. Musculoskeletal: Denies: back pain, gout, joint pain, joint swelling, muscle pain, muscle stiffness, neck pain. Skin: Denies: cysts, change in skin color, change in hair/nails, dryness, erythema, jaundice, lesions, lymphangitis, lumps, moles, rash. Neurological/Psychological: Denies: anxiety, ataxia, cognitive dysfunction, confusion, depressed, dementia, emotional problems, headache, numbness, paresthesia, pre-existing deficit, petit mal seizures, tingling, tremors, tonic-clonic seizures, unable to move lower ext , unable to move upper ext, weakness, other. Objective Last 24 Hrs of Vital Signs/I&O Vital Signs Date Time Temp Pulse Resp B/P Pulse O2 O2 Flow FiO2 Ox Delivery Rate 03/02 2199 97.6 98 20 110/70 95 03/02 211 98 110/70 03/02 1619 97.6 92 15 106/76 96 Room Air 03/02 1152 Nasal 1.0L Cannula 03/02 0950 89 120/66 Intake & Output 03/03 1600 03/03 0800 03/03 0000 Intake Total 200 100 Output Total Balance 200 100 Intake, Oral 200 100 Patient 202 lb Weight Physical Exam General Appearance: Alert, Oriented X3, Cooperative, No Acute Distress Skin: No Rashes, No Breakdown, No Significant Lesion HEENT: Atraumatic, PERRLA, EOMI, Mucous Membr. moist/pink Neck: No JVD, No thryomegaly, +2 Carotid Pulse wo Bruit Lymphatic: Axillary nl, Cervical nl Cardiovascular: No Murmurs, regular Lungs: Clear to Auscultation, Normal Air Movement Abdomen: Soft, No Tenderness Neurological: Normal Speech, Normal Tone Extremities: bilateral 2+ pitting edema of lower extremities Vascular: Normal Pulses, Pulses Symmetrical Current Medications: Current Medications Sig/Neeraj Start time Last Medication Dose Route Stop Time Status Admin Acetaminophen 650 MG Q6P PRN 02/23 2230 AC PO Albuterol Sulfate 3 ML Q4P PRN 02/24 1530 AC INH Apixaban 5 MG BID 02/28 1034 AC 03/02 PO 211 Atorvastatin Calcium 10 MG 1700 02/24 1700 AC 03/02 PO 1648 Bisacodyl 5 MG DAILY PRN 03/02 0930 AC PO Bisacodyl 10 MG DAILY PRN 03/02 0930 AC AK Escitalopram Oxalate 5 MG AT BEDTIME 03/01 2199 AC 03/02 PO 2118 Furosemide 40 MG DAILY 03/02 1000 AC 03/02 PO 0949 Metoprolol Tartrate 37.5 MG BID 03/02 2199 AC 03/02 PO 2118 Metoprolol Tartrate 50 MG BID 02/26 2200 DC 03/02 PO 0950 Potassium Chloride 20 MEQ DAILY 03/02 1000 AC 03/02 PO 0950 Senna 187 MG AT BEDTIME PRN 03/02 0930 AC PO Assessment/Plan Assessment: Patient is a 80-year-old female with significant history of HTN, HLD, obesity, ?? ROMERO, chronic hypercarbic respiratory failure. She is known to have AAA in the past which appears to be dilated upto 6 cm now. She is admitted due to anasarca with chronic venous stasis changes in both her lower extremities. During this admission she was found to have new onset atrial fibrillation during this admission and was on a small dose of beta alli. Intially placed in telemetry where she was found to have significant pauses for around 3 times with the longest being 8 seconds. Most of these occurred during sleep. She was moved to ICU with pacer pads at bedside for closer monitoring. Today she is feeling much better after the pacemaker placement. Plan New-onset atrial fibrillation w/ >5 sec pause ; S/P pace-maker placement * On apixaban BID; needs to get pre-autorization from her insurance for Xarelto * Persistent hypotension; Metoprolol was decreased to 37.5 mg BID Right-sided heart failure with fluid overload * On atorvastatin 10 mg, * furosemide 40 mg oral daily * Potassium 20 mg a day * Maintain negative fluid balance Dilated AAA of more than 6 cm * Patient is a high risk for surgical repair of aortic aneurysm; management for now restricts blood pressure control with beta-blockers Suspected cellulitis of lower extremities * off antibiotics * no fever, no leukocytosis Chronic hypercarbic respiratory failure * TRC/nebs. Depression/anxiety * Patient is very frustrated to stay in the hospital. * Started on lexapro 5mg at bedtime. * Eager to go home. DVT prophylaxis * On Apixaban BID CODE STATUS * Full code Problem List: 1. Afib 2. Pacemaker 3. Right-sided heart failure 4. Obesity Pain Ratin Pain Location: loer extremities Pain Goal: Pain 4 or less Pain Plan: tylenol Tomorrow's Labs & Rationales: none DVT/Prophylaxis: pharmacological Discharge Plan Discharge Disposition: STR/NH Stable for Discharge? Yes
[2016-03-03 08:00] VITALS: BP 120/80
--- NOTE | 2016-03-03 08:31 | Discharge Summary ---
See Addendum Visit Information Visit Dates Admission Date: 02/24/16 Discharge Date: 03/03/16 Hospital Course Course Attending Physician: LOLIS PRICE MD Primary Care Physician: LOLIS PRICE MD Hospital Course: Patient is a 80-year-old female with significant history of HTN, HLD, obesity, ? ? ROMERO, chronic hypercarbic respiratory failure. She is known to have AAA in the past which appears to be dilated upto 6 cm now. She is admitted due to anasarca with chronic venous stasis changes in both her lower extremities. Intially placed in telemetry where she was found to have significant pauses for around 3 times with the longest being 8 seconds. Most of these occurred during sleep. She was moved to ICU with pacer pads at bedside for closer monitoring. Course in ICU: atrial fibrillation with occasional pauses of unclear duration: She was intially placed on IV heparin for her Atrial fibrillation. Metoprolol is on hold after developing pauses. Once transfered to ICU - She was placed on pacemaker on 02/27/16 after holding heparin. After pacemaker placement she was started on metoprolol 50mg BID and off the drip for 2 days to prevent pocket hematoma. Subsequently started on apixaban BID for discontinuation of aspirin. She is hemodynamically stable and moved to floor for further management. During two nights of stay in call center rn unit patient remained mainly in A. Fib with reasonable rate and no further pause or finding of significant concern. According to cardiologiost and Attending, she was atble to be discharged to [facility]. The only change was decrease of the dose of her Metoprolol to 37.5 mg/day due to concern about her hypotension. Right-sided heart failure with fluid overload She is on atorvastatin 10 mg. Her Atriall fibrillation aggrevated the condition as pumping is effected further. Had a history of diastolic heart failure without any evidence of left ventricular failure. Diuresis with IV furosemide 40 mg twice a day was done and eventually converted to 40 once a day (home dose). Patient was discharged to STR on po lasix. Persistent hypokalemia: She received 40mg BID which was eventually converted to 20mg once a day scheduled. Throacic Aortic aneurysm: She had a history of Thoracic aortic aneurysm which was found to be increasing in size compared to past. ECHO showed a dilatation of 6.3cm. Further assessed with CT angio of chest which shows 6.6cm dilation but stable. Must continue metoprolol for this. Suspected cellulitis of lower extremities She was found to have Bilateral lower extremities had significant venous stasis changes in the skin. She was observed off Abx and remained afebrile. Glucose intolerance HbA1c of 6.4-Stable Chronic hypercarbic respiratory failure Suspected secondary to smoking/obesity hypoventilation syndrome. Monitoredwith Nocturnal pulse oximetry tonight to check her saturations. TRC/nebs on board through out her hospital course. Depression/anxiety Patient is very frustrated to stay in the hospital. Always Eager to go home. started on lexapro 5mg at bedtime. Complications: Bradycardia w/ pauses Allergies: Coded Allergies: Penicillins (PER PT WAS A KID 02/24/16) alcohol (ANY KIND OF ALCOHOL MAKES LOOPY PER PT 02/24/16) ibuprofen (MD SAID DO NOT TAKE PER PT 02/24/16) Significant Procedures: pacemaker placement Disposition Summary Disposition Principal Diagnosis: A.Fib and bradycardia w/ frequent pauses s/p pacemaker placement Additional Diagnosis: Right sided heart failure Discharge Disposition: SNF Discharge Instructions General Discharge Information Code Status: Full Code Patient's Diet: heart haelthy Patient's Activity: as tolerated Follow-Up Instructions/Appts: follow up with dr. Price Follow up with Dr. Nascimento Medications at Discharge Discharge Medications: Continue taking these medications: Aspirin (Ecotrin*) 81 MG TABLET. 1 Tablet ORAL DAILY Comments: PER PT Cholecalciferol (Vitamin D3) (Vitamin D) (Unknown Strength) CAPSULE Unknown Dose ORAL DAILY Comments: PER PT Simvastatin (Simvastatin*) 20 MG TABLET 1 Tablet ORAL Every night Qty = 90 Comments: PER PT Start taking the following new medications: Albuterol Sulfate (Albuterol Sulfate) 2.5 MG/3 ML (0.083 %) VIAL.NEB 3 Milliliters Inhale through mouth EVERY 4 HOURS NEEDED as needed for WHEEZING Days = 30 Refills = 1 Apixaban (Eliquis) 5 MG TABLET 1 Tablet ORAL TWICE DAILY Days = 28 Refills = 1 Metoprolol Succinate (Metoprolol Succinate) 25 MG TAB 37.5 Milligram ORAL DAILY Qty = 30 Refills = 1 Copies To: DEE GARCIA,LOLIS Hall Attending MD Review Statement Documenting Attending: LOLIS PRICE MD
--- NOTE | 2016-03-03 08:40 | PN- Cardiology ---
Subjective Subjective: Clinically, the patient remains about the same. She denies any cardiovascular symptoms. Rate controlled. Pacemaker function normal. Apparently there are issues with the patient's oral anticoagulation being covered by her insurance. I will discuss this further with continuing care. Objective Vital Signs and I&Os Vital Signs Date Time Temp Pulse Resp B/P Pulse O2 O2 Flow FiO2 Ox Delivery Rate 03/02 2199 97.6 98 20 110/70 95 03/02 211 98 110/70 03/02 1619 97.6 92 15 106/76 96 Room Air 03/02 1152 Nasal 1.0L Cannula 03/02 0950 89 120/66 Intake & Output 03/03 1600 03/03 0800 03/03 0000 03/02 1600 03/02 0800 03/02 0000 Intake Total 200 100 400 460 Output Total 500 Balance 200 100 -100 460 Intake, Oral 200 100 400 460 Output, Urine 500 Patient 202 lb 181 lb Weight Current Medications: Current Medications Sig/Neeraj Start time Last Medication Dose Route Stop Time Status Admin Acetaminophen 650 MG .STK-MED ONE 03/03 0025 DC PO 03/03 0026 Acetaminophen 650 MG Q6P PRN 02/23 2230 AC PO Albuterol Sulfate 3 ML Q4P PRN 02/24 1530 AC INH Apixaban 5 MG BID 02/28 1034 AC 03/02 PO 2118 Atorvastatin Calcium 10 MG 1700 02/24 1700 AC 03/02 PO 1648 Bisacodyl 5 MG DAILY PRN 03/02 0930 AC PO Bisacodyl 10 MG DAILY PRN 03/02 0930 AC CA Escitalopram Oxalate 5 MG AT BEDTIME 03/01 2199 AC 03/02 PO 2118 Furosemide 40 MG DAILY 03/02 1000 AC 03/02 PO 0949 Metoprolol Tartrate 37.5 MG BID 03/02 2199 AC 03/02 PO 2118 Metoprolol Tartrate 50 MG BID 02/26 2200 DC 03/02 PO 0950 Potassium Chloride 20 MEQ DAILY 03/02 1000 AC 03/02 PO 0950 Senna 187 MG AT BEDTIME PRN 03/02 0930 AC PO Results Last 48 Hrs of Labs/Mics: Laboratory Tests 03/02/16 0640: Anion Gap 10, Estimated GFR > 60, Glucose 102 H, Calcium 9.0, Phosphorus 3.0, Magnesium 2.1, Total Bilirubin 1.9 H, AST 27, ALT 44, Albumin 3.3 L, CBC w Diff NO MAN DIFF REQ, RBC 4.81, MCV 81.9, MCH 26.6 L, RDW 17.2 H, MPV 8.5, Gran % 69.3, Lymphocytes % 17.9 L, Monocytes % 11.0 H, Eosinophils % 1.4, Basophils % 0.4, Absolute Granulocytes 7.7 H, Absolute Lymphocytes 2.0, Absolute Monocytes 1.2 H, Absolute Eosinophils 0.2, Absolute Basophils 0, PUBS MCHC 32.4 L 03/01/16 1448: Pulse Ox Probe Site RIF, ABG O2 Sat Calc/[place] 95.0, O2 Concentration % RA, O2 Delivery Method RA Assessment/Plan Assessment/Plan Assessment: 1. Atrial fibrillation of unclear duration with episodes of prolonged pauses of up to 8.5 seconds; status post single lead ventricular permanent pacemaker 2. Lower extremity edema with stasis changes 3. Hypertension 4. Hyperlipidemia 5. Obesity 6. Probable sleep apnea 7. Chronic hypercapnic respiratory failure 8. Elevated proBNP 9. Known ascending thoracic aortic aneurysm; significantly increased in size on current echocardiogram (63 mm) Recommendations: Continue telemetry? No
--- NOTE | 2016-03-03 09:32 | NUR ---
Physical Therapy. Pt received sitting at EOB and refused to work with PT. Current plan is for STR today. PT will f/u as appropriate.
--- NOTE | 2016-03-03 09:49 | Patient Discharge Instructions ---
Discharge Instructions General Discharge Information You were seen/treated for: 1) A.Fib with bradycardia and pause, S/P pacemaker placement. You had these procedures: pacemaker placement Special Instructions: 1) Follow up with Dr. Van within one week 2) follow up with your health service coordinator within one week Diet Continue normal diet: No Recommended Diet: Heart Healthy Acute Coronary Syndrome Inclusion Criteria At DC or during hospital stay patient has or had the following: ACS DIAGNOSIS No Discharge Core Measures Meds if any: Prescribed or Continued at Discharge Meds if any: NOT Prescribed or Continued at Discharge Congestive Heart Failure Inclusion Criteria At DC or during hospital stay patient has or had the following: CHF DIAGNOSIS No Discharge Core Measures Meds if any: Prescribed or Continued at Discharge Meds if any: NOT Prescribed or Continued at Discharge Cerebrovascular accident Inclusion Criteria At DC or during hospital stay patient has or had the following: CVA/TIA Diagnosis No Discharge Core Measures Meds if any: Prescribed or Continued at Discharge Meds if any: NOT Prescribed or Continued at Discharge Venous thromboembolism Inclusion Criteria VTE Diagnosis No VTE Type NONE VTE Confirmed by (Test) NONE Discharge Core Measures - Per Current guidelines, there needs to be overlap - treatment for the first 5 days of Warfarin therapy. - If discharged on Warfarin prior to 5 days of - overlap therapy, the patient will need to be - assessed for post discharge needs including - *Post discharge parental anticoagulation - *Warfarin and/or parental anticoagulation education - *Follow up date to check INR post discharge At least 5 days overlap therapy as Inpatient No Meds if any: Prescribed or Continued at Discharge Note: Overlap Therapy is Warfarin and Anticoagulant Meds if any: NOT Prescribed or Continued at Discharge
--- NOTE | 2016-03-03 13:15 | PN- Pulmonary ---
Subjective HPI/Critical Care Issues: Patient was visited and interviewed this morning. She is complaining of symptoms of upper respiratory tract infection but no other major complaints. Patient denies any chest pain, palpitation, lightheadedness, dizziness. Vital signs were reviewed. Patient's blood pressure and heart rate has not changed over the past 48 hours. Review of Systems Constitutional: Reports: see HPI. Denies: chills, diaphoresis, fever, malaise, weakness, unexplained weight loss. EENTM: Denies: blurred vision, double vision, visual changes, eye pain, eye drainage, eye tearing, icterus, ear discharge, ear pain, ear redness, hearing changes, nasal congestion, epistaxis, nasal pain, throat pain, throat swelling, mouth pain, tooth pain. Cardiovascular: Reports: peripheral edema. Denies: chest pain, edema, orthopena, palpitations, syncope. Respiratory: Reports: short of breath. Denies: cough, hemoptysis, orthopnea, sputum production, stridor, wheezing. Gastrointestinal: Reports: constipation. Denies: abdominal pain, bloating, diarrhea, distention, bowel incontinence, melena, nausea, bloody stool, changes in stool, vomiting, steatorrhea. Genitourinary: Denies: discharge, dysuria, frequency, hematuria, hesitation, nocturia, pain, urgency. Musculoskeletal: Denies: back pain, gout, joint pain, joint swelling, muscle pain, muscle stiffness, neck pain. Skin: Denies: cysts, change in skin color, change in hair/nails, dryness, erythema, jaundice, lesions, lymphangitis, lumps, moles, rash. Neurological/Psychological: Denies: anxiety, ataxia, cognitive dysfunction, confusion, depressed, dementia, emotional problems, headache, numbness, paresthesia, pre-existing deficit, petit mal seizures, tingling, tremors, tonic-clonic seizures, unable to move lower ext , unable to move upper ext, weakness, other. Objective Current Medications: Current Medications Sig/Neeraj Start time Last Medication Dose Route Stop Time Status Admin Acetaminophen 650 MG .STK-MED ONE 03/03 0025 DC PO 03/03 0026 Acetaminophen 650 MG Q6P PRN 02/23 2230 AC PO Albuterol Sulfate 3 ML Q4P PRN 02/24 1530 AC INH Apixaban 5 MG BID 02/28 1034 AC 03/03 PO 0943 Atorvastatin Calcium 10 MG 1700 02/24 1700 AC 03/02 PO 1648 Bisacodyl 5 MG DAILY PRN 03/02 929 AC PO Bisacodyl 10 MG DAILY PRN 03/02 929 AC MN Escitalopram Oxalate 5 MG AT BEDTIME 03/01 2199 AC 03/02 PO 2119 Furosemide 40 MG DAILY 03/02 1000 AC 03/03 PO 0943 Metoprolol Tartrate 37.5 MG BID 03/02 2199 AC 03/03 PO 0948 Metoprolol Tartrate 50 MG BID 02/26 2200 DC 03/02 PO 0950 Potassium Chloride 20 MEQ DAILY 03/02 1000 AC 03/03 PO 0943 Senna 187 MG AT BEDTIME PRN 03/02 929 AC PO Vital Signs & I&O Last 24 Hrs of Vitals and I&O: Vital Signs Date Time Temp Pulse Resp B/P Pulse O2 O2 Flow FiO2 Ox Delivery Rate 03/03 947 75 124/56 03/03 08 98.0 95 20 120/80 96 03/02 2199 97.6 98 20 110/70 95 03/02 2118 98 110/70 03/02 1619 97.6 92 15 106/76 96 Room Air Intake & Output 03/03 1600 03/03 0800 03/03 0000 Intake Total 200 100 Output Total Balance 200 100 Intake, Oral 200 100 Patient 202 lb Weight Impression/Plan Impression/Plan Impression/Plan: Physical Exam General Appearance: alert, awake, anxious, moderate distress Head: atraumatic, normal appearance Eyes: Bilateral: normal appearance, PERRL, EOMI. Ears, Nose, Throat: normal pharynx, normal ENT inspection Neck: normal inspection, supple Pacer pocket ok Respiratory: decreased breath sounds Cardiovascular: regular rate/rhythm Peripheral Pulses: 4+ radial (R), 4+ radial (L) Gastrointestinal: non-tender Back: decreased range of motion Extremities: pedal edema, swelling, tenderness Neurologic/Psych: no motor/sensory deficits, awake, alert, oriented x 3 Skin: rash with chronic venostasis changes SIG Data ABG reviewed Pco2 46 CT Chest IMPRESSION: 1. Ascending aortic aneurysm with maximal diameter of 6.6 cm. Dissection is not present. 2. Other incidental findings described above. This critical result was discussed with Dr. Duyen Fox at 1:45 PM on the day of the exam and it was ascertained that the content and urgency of the report was understood at the time of direct communication. Ultrasound abd fatty liver IMPRESSION This is an 80-year-old lady with history of ongoing smoking, hypertension, hyperlipidemia, diastolic heart disease, previous aortic sclerosis, tricuspid valvular disease, morbid obesity with signs and symptoms suggestive of obstructive sleep apnea, chronic hypercarbic respiratory dysfunction with baseline high bicarbonate, now comes in with * Improving Significant pedal edema generalized anasarca with increase in weight highly suggestive of acute on chronic cor pulmonale with right heart failure with fluid overload * Atrial fib prob chronic but new onset for her and pt was noted to have sig pauses to prob ohv with romero/central apnea with sick sinus syndrome, S/p S/p Pacer Now on beta alli with mildly elevated hr * Sig aortic aneurysm by CT abd echo on beta blockers to reduce intraAortic pressure and for rate control * ROMERO/OHV with chronic hypercarbia clinically (tsh normal) * Diastolic heart disease with no evidence of left ventricular failure * Morbid obesity * Fatty liver * Glucose intolerance * NO sig proteinura * TSH is normal * Probable worsening depression and anxiety * Significant chronic venostasis changes in the lower extremity * Hypertension hyperlipidemia * Vitamin D deficiency * Mild urti RECOMMENDATION * Can go to STR today * po lasix 40 qd and po kcl 20 daily * Beta alli to 37.5 bid as bp is consistantly running low * When necessary nebulizer therapy for wheezing * Keep the leg elevated * Smoking cessation counselling done, dc nicotine patch * Lexapro 5 mg qd at hs and can increase to 10 mg * Anticoag per Cardio DC pt to str
[2016-03-03 13:34] VITALS: BP 124/56
[2016-03-03] MEDS ORDERED: ALBUTEROL2.5 MG/3 M INH (13:54)
[2016-03-03] MEDS ORDERED: ELIQUIS5 M1 PO (13:55)
== END 2016-03-03 14:57 | DRG 242 ==
LOC: ERH 13:27 → ENPENDDIS 19:51 → 1NO 19:51 → ERHI 19:51 → 1NO 02-25 20:17 → CRI 02-26 04:57 → 1NO 03-01 22:34
PROVIDERS: Emergency Medicine; Internal Medicine; Internal Medicine Hematology & Oncology; Internal Medicine Infectious Disease; Internal Medicine Interventional Cardiology; ADMIT Internal Medicine Pulmonary Disease
PROC: 0JH604Z Insertion of Pacemaker, Single Chamber into Chest Subcutaneous Tissue and Fascia, Open Approach (ICD-10-PCS; principal; 2016-02-27)
PROC: 02HK3JZ Insertion of Pacemaker Lead into Right Ventricle, Percutaneous Approach (ICD-10-PCS; 2016-02-27)
DX: I27.81 Cor pulmonale (chronic) (principal); I50.33 Acute on chronic diastolic (congestive) heart failure; J96.12 Chronic respiratory failure with hypercapnia; I49.5 Sick sinus syndrome; Z68.43 Body mass index [BMI] 50.0-59.9, adult; I48.91 Unspecified atrial fibrillation; R60.1 Generalized edema; E66.01 Morbid (severe) obesity due to excess calories; F17.200 Nicotine dependence, unspecified, uncomplicated; I11.0 Hypertensive heart disease with heart failure; Z79.01 Long term (current) use of anticoagulants; I71.2 Thoracic aortic aneurysm, without rupture; E78.5 Hyperlipidemia, unspecified
CPT/HCPCS: 1NSP; CCU; ERO; 36415; 82436; 82570; 87040; 87086; 93005; 93010; 93306; 93970; 96374; 96375; 97110-GO; 97116-GO; 97530-GO; C1786; C1898; J0461; J0690; J1644; J1940; J7060

== ENCOUNTER 2016-05-20 11:49 | Inpatient (IN) | payer OTHER, MEDICARE ==
[~2016-05-20] VITALS: Ht 162.6 cm; Wt 116.1 kg
[~2016-05-20 11:49] MED LIST changes: +ALBUTEROL2.5 MG/3 M INH; +ASPIRIN EC81 M1 PO; +ELIQUIS5 M1 PO; +METOPROLOL SUCC25 M1 PO; +METOPROLOL TART25 M1 PO; +SIMVASTATIN20 M2 PO; +VITAMIN D31000 UNI2 PO
--- NOTE | 2016-05-20 12:01 | NUR ---
PT STATES THAT SHE HAS HAD BLE EDEMA AND REDNESS FOR OVER A YEAR OFF AND ON AND THAT HER VISITING NURSE CAME OUT TO HER HOUSE TODAY AND CALLED DR PRICE DUE TO SHE FELT THEY WERE REDDER THAN NORMAL. DR PRICE TOLD PT TO TO COME ER FOR EVALUATION , AND TO BE SEEN BY WOUND DR. PT STATES THAT SHE ALWAYS HAS FLUID LEAKING FROM LEGS
--- NOTE | 2016-05-20 12:19 | NUR ---
TAKEN TO ULTRASOUND FROM EKG ALCOVE (BLOOD DRAW)
[2016-05-20 12:28] LABS: ABSOLUTE BASOPHIL COUNT 0 /CUMM (0.0-0.2); ABSOLUTE EOSINOPHIL COUNT 0.1 /CUMM (0.0-0.7); ABSOLUTE LYMPH COUNT 1.3 /CUMM (1.2-3.4); ABSOLUTE MONOCYTE COUNT 0.7 /CUMM (0.10-0.60); BASOPHIL % 0.5 % (0.0-2.0); EOSINOPHIL % 0.7 % (0-5); GRANULOCYTE % 79.5 % (42.2-75.2); HEMATOCRIT 29.8 % (37-47); MEAN CORPUSCULAR HGB 22.4 PG (27.0-31.0); MEAN CORPUSCULAR HGB CONC 31.1 G/DL (33.0-37.0); MEAN CORPUSCULAR VOLUME 71.9 FL (81.0-99.0); MEAN PLATELET VOLUME 7.4 FL (7.4-10.4); PLATELET COUNT 451 /CUMM (130-400); RBC DISTRIBUTION WIDTH 18.6 % (11.5-14.5); RED BLOOD CELL CT 4.14 /CUMM (4.20-5.40)
--- NOTE | 2016-05-20 12:38 | NUR ---
LABS DRAWN AND SENT, LAV,SST,BLUE,MORRIS, FIRST SET OF CULTURES
--- NOTE | 2016-05-20 12:48 | NUR ---
CRITICAL TEST RESULTS [id number] DONNA CASTELLON 80 F TESTS AND RESULTS: LATIC ACID 2.8 Results received and read back by: BENY HENDERSON Results received date and time: 05/20/16 1248 The following provider was notified of the results, and read the results back: DR PETERSON Notified date and time: 05/20/16 at 1248
--- NOTE | 2016-05-20 12:57 | ED UPPER/LOWER EXTREMITY COMPL ---
History of Present Illness General Chief Complaint: Lower Extremity Problems Stated Complaint: LEG SWELLING Source: patient Exam Limitations: no limitations Vital Signs & Intake/Output Vital Signs & Intake/Output Vital Signs Date Time Temp Pulse Resp B/P Pulse O2 O2 Flow FiO2 Ox Delivery Rate 05/23 1055 130/78 05/23 0720 97.8 90 20 116/74 97 05/22 2236 97.6 105 20 110/58 96 05/22 1428 97.4 74 20 120/66 94 Room Air ED Intake and Output 05/23 0000 05/22 1200 Intake Total 1000 624 Output Total 800 450 Balance 200 174 Intake, IV 24 Intake, Oral 1000 600 Number 0 Bowel Movements Output, Urine 800 450 Patient 270 lb Weight Allergies Coded Allergies: Penicillins (PER PT WAS A KID 02/24/16) alcohol (ANY KIND OF ALCOHOL MAKES LOOPY PER PT 02/24/16) ibuprofen (MD SAID DO NOT TAKE PER PT 02/24/16) Triage Note: PT STATES THAT SHE HAS HAD BLE EDEMA AND REDNESS FOR OVER A YEAR OFF AND ON AND THAT HER VISITING NURSE CAME OUT TO HER HOUSE TODAY AND CALLED DR PRICE DUE TO SHE FELT THEY WERE REDDER THAN NORMAL. DR PRICE TOLD PT TO TO COME ER FOR EVALUATION , AND TO BE SEEN BY WOUND DR. PT STATES THAT SHE ALWAYS HAS FLUID LEAKING FROM LEGS Triage Nurses Notes Reviewed? yes HPI: This patient is an 80-year-old female with past medical history including CHF who presented to the emergency department today accompanied by her family members for evaluation of lower extremity edema. The patient reported that she has had lower extremities swelling over the last year. However, over the last month swelling has gotten worse and her visiting nurse this morning said that it looks worse than usual and suggested that she come to the emergency department. The patient is on Lasix. Her dose areas from 40 mg to 80 mg. Her primary care physician, Dr. Price, manages this. Her credit counselor is Dr. Nascimento. Dr. Riggins was the one who placed her pacemaker. The patient reported that her legs have been, "wet." She also reported that she has some pain behind her right knee which is worse with movement. The patient denied any chest pain, difficult breathing, fevers, chills, abdominal pain, nausea, vomiting, or any other associated symptoms. (NAS QUINN,KATE) Reconcile Medications Albuterol Sulfate 2.5 MG/3 ML (0.083 %) VIAL.NEB 3 ML INH Q4P PRN WHEEZING Apixaban (Eliquis) 5 MG TABLET 1 TAB PO BID Atrial fibrillation Aspirin (Ecotrin*) 81 MG TABLET.DR 1 TAB PO DAILY HEART/BLOOD (Reported) Cholecalciferol (Vitamin D3) 1,000 UNIT TABLET 1 TAB PO 1700 SUPPLEMENT ( Reported) Furosemide 40 MG TABLET 1 TAB PO DAILY WATER PILL (Reported) Reason to Stop at ADM: change to IV Metoprolol Succinate 25 MG TAB 37.5 MG PO DAILY Heart Health Potassium Chloride 20 MEQ TAB.ER.PRT 1 TAB PO DAILY supplement (Reported) Simvastatin (Simvastatin*) 20 MG TABLET 1 TAB PO 1700 CHOLESTEROL (Reported) (KRISTEN GARCIA,SUMIT) Past History Travel History Traveled to [place] past 21 day No Medical History Any Pertinent Medical History? see below for history Neurological: NONE EENT: benign positional vertigo Cardiovascular: aortic aneurysm, hypertension, hyperlipidemia, irregular heart beat Respiratory: NONE Gastrointestinal: NONE Hepatic: NONE Renal: NONE Musculoskeletal: fracture (right ankle), left knee tendonitis Psychiatric: NONE Endocrine: NONE Blood Disorders: NONE Cancer(s): NONE RN MANAGED CARE/Reproductive: NONE History of MRSA: No History of VRE: No History of CDIFF: No Surgical History Surgical History: appendectomy, cholecystectomy, hysterectomy Psychosocial History Who do you live with Daughter Services at Home None What is your primary language Occitan Tobacco Use: Never used ETOH Use: denies use Illicit Drug Use: denies illicit drug use Family History Hx Contributory? No (KATE LOVELL PA-C) Review of Systems Review of Systems Constitutional: Reports: no symptoms. EENTM: Reports: no symptoms. Respiratory: Reports: no symptoms. Cardiovascular: Reports: see HPI. Gastrointestinal/Abdominal: Reports: no symptoms. Genitourinary: Reports: no symptoms. Musculoskeletal: Reports: no symptoms. Skin: Reports: see HPI. Neurological/Psychological: Reports: no symptoms. All Other Systems: Reviewed and Negative (KATE LOVELL PA-C) Physical Exam Physical Exam General Appearance: well developed/nourished, no apparent distress, alert, awake Comments: Well-developed well-nourished person in no acute distress HEENT: Normal EENT exam, head normocephalic/atraumatic, moist mucous membranes PERRLA bilaterally Neck: Supple, no lymphadenopathy Back: Normal inspection Cardiovascular: Regular rate and rhythm with no murmurs, rubs, or gallops. No JVD or carotid bruits Respiratory: No respiratory distress. Breath sounds clear to auscultation bilaterally with no wheezes, rales, rhonchi Extremity: Bilateral lower extremity 2+ pitting edema with overlying erythema and weeping. Tenderness to palpation over the lower extremities bilaterally. Dorsalis pedis and posterior tibialis pulses 2+ and strong bilaterally. Skin breakdown posteriorly over the calves bilaterally Neuro: Alert oriented x3, cranial nerves II through XII grossly intact. Skin: No appreciable rash on exposed skin, skin is warm and dry. Psych: Mood and affect is normal, memory and judgment is normal. (NAS QUINN,KATE) Progress Differential Diagnosis: arterial insufficiency, cellulitis, DVT, chf Plan of Care: Orders Procedure Date/time Status BASIC ELECTROLYTES PLUS BUN&CR 05/23 0600 Complete PHYSICIAN CONSULT 05/23 UNK Active URINALYSIS 05/22 204 Complete SERUM OSMOLALITY 05/22 0700 Complete Lab Add-on Test 05/22 UNK Active Current Medications Sig/Neeraj Start time Last Medication Dose Stop Time Status Admin Albuterol Sulfate 3 ML Q4P PRN 05/20 1715 AC (Proventil) Tramadol HCl 25 MG Q6 PRN 05/20 1715 AC (Ultram) Acetaminophen 1,000 MG Q6P PRN 05/20 1630 AC (Ofirmev) Laboratory Tests 05/23/16 0657: Anion Gap 6, Estimated GFR > 60, BUN/Creatinine Ratio 31.4 H 05/22/162: Urine Color YEL, Urine Clarity CLEAR, Urine pH 7.0, Ur Specific [place] 1.010, Urine Protein NEG, Urine Ketones NEG, Urine Nitrite NEG, Urine Bilirubin NEG, Urine Urobilinogen 0.2, Ur Leukocyte Esterase NEG, Ur Microscopic EXAM NOT REQUIRED, Urine Hemoglobin NEG, Urine Glucose NEG Diagnostic Imaging: Viewed by Me: Radiology Read, Ultrasound. Discussed w/RAD: Radiology Read, Ultrasound. Radiology Impression: PATIENT: DONNA CASTELLON PRESENT AGE: 80 PATIENT ACCOUNT NO: [id number] : 34 LOCATION: [facility] ORDERING PHYSICIAN: DUSTY TYLER SERVICE DATE: 05/20/16-1204 EXAM TYPE: US - US-EXT BILAT VENOUS DOPPLER EXAMINATION: US TRIPLEX LOWER EXTREMITY, BILATERAL CLINICAL INFORMATION: Bilateral lower extremity swelling COMPARISON: None TECHNIQUE: Color-flow triplex imaging with spectral analysis and compression Doppler were performed on the bilateral lower extremities. FINDINGS: Respiratory variation, normal compression and augmented flow are noted throughout the bilateral lower extremities. The visualized common femoral vein, superficial femoral vein, profunda femoral vein, popliteal vein and midcalf peroneal and posterior tibial venous segments show no evidence of deep venous thrombosis. No left-sided Lucio's cyst. There is a right Lucio's cyst measuring 4.6 x 0.9 x 1.5 cm. There is also edema seen in the right calf. IMPRESSION: Normal triplex scan without evidence of deep venous thrombosis involving the bilateral lower extremities. Right Lucio's cyst. There is also right calf edema. This raises the possibility of a partial rupture. DICTATED BY: DEBBIE TURNER MD DATE/TIME DICTATED:05/20/161250 TELEVISION HOST:FAUST DATE/TIME TRANSCRIBED:05/20/161250 CONFIDENTIAL, DO NOT COPY WITHOUT APPROPRIATE AUTHORIZATION. <Electronically signed in Other Vendor System> SIGNED BY: DEBBIE TURNER MD 05/20/161254 CXR Impression: PATIENT: DONNA CASTELLON PRESENT AGE : 80 PATIENT ACCOUNT NO: [id number] : 34 LOCATION: [facility] ORDERING PHYSICIAN: DUSTY TYLER SERVICE DATE: 05/20/16 EXAM TYPE: RAD - XRY -PORTABLE CHEST XRAY EXAMINATION: XR PORTABLE CHEST CLINICAL INFORMATION: Leg swelling. Evaluate for effusion/CHF. COMPARISON: CT 02/29/2016 TECHNIQUE: Portable AP view of the chest was obtained. FINDINGS: Right chest wall single- lead pacer is unchanged. Mild elevation of the right hemidiaphragm. No consolidation, edema, or effusion. No pneumothorax. The cardiac mediastinal silhouette is unchanged. No acute osseous abnormality. IMPRESSION: Elevated right hemidiaphragm. Clear lungs. DICTATED BY: DEBBIE TURNER MD DATE/TIME DICTATED:05/20/161253 TELEVISION HOST:FAUST DATE/TIME TRANSCRIBED:1253 CONFIDENTIAL, DO NOT COPY WITHOUT APPROPRIATE AUTHORIZATION. < Electronically signed in Other Vendor System> SIGNED BY: DEBBIE TURNER MD 05/20/16 1259 Initial ED EKG: AFIB, no ST T wave changes, 96 BPM Comments: 05/20/2016 1:51:22 PM: Dr. Francois is currently at the patient's bedside for face- to-face evaluation. (KATE LOVELL PA-C) Departure Departure Disposition: STILL A PATIENT Condition: Stable Clinical Impression Primary Impression: Lower extremity edema Qualifiers: Laterality: bilateral Qualified Code: R60.0 - Localized edema Secondary Impressions: Cellulitis Qualifiers: Site of cellulitis: extremity Site of cellulitis of extremity: lower extremity Laterality: unspecified laterality Qualified Code: L03.119 - Cellulitis of unspecified part of limb Hypokalemia Referrals: LOLIS PRICE MD (PCP/Family) Departure Forms: Customer Survey General Discharge Information Admission Note Spoke With: LOLIS PRICE MD Documentation of Exam: Documentation of any treatments & extenuating circumstances including Concerns Regarding Discharge (functional status, medication knowledge or non-compliance, living conditions, etc.) that warrant an admission rather than observation: [ This patient is an 80-year-old female with past medical history including CHF who presented to the emergency department today for evaluation of lower extremity edema and erythema. Bilateral lower extremity erythema and edema with weeping. Skin breakdown. This patient has a potassium level of 3.0 despite being on potassium supplementation at home. This patient will need to be admitted to the hospital for potassium repletion, trend labs, cardiology consultation, diuresis, wound care consultation, and close monitoring. Premature discharge could prove medically harmful.] (KATE LOVELL PA-C) PA/ENVIRONMENTAL SPECIALIST Co-Sign Statement Statement: ED Attending supervision documentation- [X] I saw and evaluated the patient. I have also reviewed all the pertinent lab results and diagnostic results. I agree with the findings and the plan of care as documented in the PA's/ENVIRONMENTAL SPECIALIST's documentation. [X] I have reviewed the ED Record and agree with the PA's/ENVIRONMENTAL SPECIALIST's documentation. [] Additions or exceptions (if any) to the PAs/ENVIRONMENTAL SPECIALIST's note and plan are summarized below: [] (KRISTEN GARCIA,SUMIT) BILATERAL CLINICAL INFORMATION: Bilateral lower extremity swelling COMPARISON: None TECHNIQUE: Color-flow triplex imaging with spectral analysis and compression Doppler were performed on the bilateral lower extremities. FINDINGS: Respiratory variation, normal compression and augmented flow are noted throughout the bilateral lower extremities. The visualized common femoral vein, superficial femoral vein, profunda femoral vein, popliteal vein and midcalf peroneal and posterior tibial venous segments show no evidence of deep venous thrombosis. No left-sided Lucio's cyst. There is a right Lucio's cyst measuring 4.6 x 0.9 x 1.5 cm. There is also edema seen in the right calf. IMPRESSION: Normal triplex scan without evidence of deep venous thrombosis involving the bilateral lower extremities. Right Lucio's cyst. There is also right calf edema. This raises the possibility of a partial rupture. DICTATED BY: DEBBIE TURNER MD DATE/TIME DICTATED:05/20/161250 TELEVISION HOST:SUJEY DATE/TIME TRANSCRIBED:05/20/161250 CONFIDENTIAL, DO NOT COPY WITHOUT APPROPRIATE AUTHORIZATION. <Electronically signed in Other Vendor System> SIGNED BY: DEBBIE TURNER MD 05/20/161254 CXR Impression: PATIENT: DONNA CASTELLON PRESENT AGE : 80 PATIENT ACCOUNT NO: [id number] : 34 LOCATION: [facility] ORDERING PHYSICIAN: DUSTY TYLER SERVICE DATE: 05/20/16 EXAM TYPE: RAD - XRY -PORTABLE CHEST XRAY EXAMINATION: XR PORTABLE CHEST CLINICAL INFORMATION: Leg swelling. Evaluate for effusion/CHF. COMPARISON: CT 02/29/2016 TECHNIQUE: Portable AP view of the chest was obtained. FINDINGS: Right chest wall single- lead pacer is unchanged. Mild elevation of the right hemidiaphragm. No consolidation, edema, or effusion. No pneumothorax. The cardiac mediastinal silhouette is unchanged. No acute osseous abnormality. IMPRESSION: Elevated right hemidiaphragm. Clear lungs. DICTATED BY: DEBBIE TURNER MD DATE/TIME DICTATED:05/20/161253 TELEVISION HOST:SUJEY DATE/TIME TRANSCRIBED:1253 CONFIDENTIAL, DO NOT COPY WITHOUT APPROPRIATE AUTHORIZATION. < Electronically signed in Other Vendor System> SIGNED BY: DEBBIE TURNER MD 05/20/161258 Initial ED EKG: AFIB, no ST T wave changes, 96 BPM Comments: 05/20/2016 1:51:22 PM: Dr. Francois is currently at the patient's bedside for face- to-face evaluation. Departure Departure Disposition: STILL A PATIENT Condition: Stable Clinical Impression Primary Impression: Lower extremity edema Qualifiers: Laterality: bilateral Qualified Code: R60.0 - Localized edema Secondary Impressions: Cellulitis Qualifiers: Site of cellulitis: extremity Site of cellulitis of extremity: lower extremity Laterality: unspecified laterality Qualified Code: L03.119 - Cellulitis of unspecified part of limb Hypokalemia Referrals: LOLIS PRICE MD (PCP/Family) Departure Forms: Customer Survey General Discharge Information Admission Note Spoke With: LOLIS PRICE MD Documentation of Exam: Documentation of any treatments & extenuating circumstances including Concerns Regarding Discharge (functional status, medication knowledge or non-compliance, living conditions, etc.) that warrant an admission rather than observation: [ This patient is an 80-year-old female with past medical history including CHF who presented to the emergency department today for evaluation of lower extremity edema and erythema. Bilateral lower extremity erythema and edema with weeping. Skin breakdown. This patient has a potassium level of 3.0 despite being on potassium supplementation at home. This patient will need to be admitted to the hospital for potassium repletion, trend labs, cardiology consultation, diuresis, wound care consultation, and close monitoring. Premature discharge could prove medically harmful.]
--- NOTE | 2016-05-20 12:58 | NUR ---
PT TO ROOM22 BY WHEELCHAIR. AWAITING PROVIDER EVAL.
--- NOTE | 2016-05-20 13:36 | NUR ---
NAYELI LOVE TO BEDSIDE FOR PT EVAL.
--- NOTE | 2016-05-20 13:50 | NUR ---
EKG IN PROGRESS.
--- NOTE | 2016-05-20 13:51 | NUR ---
MD KRISTEN TO BEDSIDE FOR PT EVAL.
[2016-05-20] MEDS ORDERED: ALBUTEROL2.5 MG/3 M INH/SOL (14:17)
[2016-05-20] MEDS ORDERED: FUROSEMIDE40 M1 PO (14:17)
--- NOTE | 2016-05-20 15:00 | NUR ---
2ND BC AND MORRIS TUBE DRAWN AND SENT TO LAB. IV EST, KCL INFUSING PER EMAR.
--- NOTE | 2016-05-20 15:43 | NUR ---
FOOD ORDERED. HOUSE STAFF AT BEDSIDE FOR PT EVAL.
--- NOTE | 2016-05-20 16:30 | History & Physical ---
DOTTIE GARCIA,[facility] 05/20/16 5087: General Information and HPI MD Statement: I have seen and personally examined DONNA ROONEY and documented this H&P. The patient is a 80 year old F who presented with a patient stated chief complaint of [worsening lower extremity edema and weeping]. Source of Information: patient, family, old records Exam Limitations: poor historian History of Present Illness: Ms. Rooney is 80 year old female with past medical history significant for atrial fibrillation status post pacemaker 2017 on eliquis, HFPEF, hypertension, hyperlipidemia, chronic hypokalemia, AAA 6.3 cm echo 2017, bilateral venous insufficiency with skin changes for a year, chronic hypercapnic respiratory failure, depression and anxiety, was recently discharged February 2016 after new diagnosis of atrial fibrillation and suspected lower extremity cellulitis was maintained off antibiotic. Patient presented to ED with chief complaint of worsening lower extremity edema and weeping. Patient reported that for the last 3 months she has been noticing swelling and pain in her bilateral lower extremities, she reported worsening of her pain that 's on and off spasmodic pain, patient doesn't to take any pain medication for it because she doesn't like to use pain medication, reported pins and needles sensation and sometimes numbness. Patient denied shortness of breath, palpitation, chest pain, headache, altered sensation or weakness. She is walker and independent in ADL. Patient has visiting nurse once weekly, noticed worsening of her lower extremity edema and asked her to present to ED for evaluation Allergies/Medications Allergies: Coded Allergies: Penicillins (PER PT WAS A KID 02/24/16) alcohol (ANY KIND OF ALCOHOL MAKES LOOPY PER PT 02/24/16) ibuprofen (MD SAID DO NOT TAKE PER PT 02/24/16) Home Med list Albuterol Sulfate 2.5 MG/3 ML (0.083 %) VIAL.NEB 3 ML INH Q4P PRN WHEEZING Apixaban (Eliquis) 5 MG TABLET 1 TAB PO BID Atrial fibrillation Aspirin (Ecotrin*) 81 MG TABLET.DR 1 TAB PO DAILY HEART/BLOOD (Reported) Cholecalciferol (Vitamin D3) 1,000 UNIT TABLET 1 TAB PO 1700 SUPPLEMENT ( Reported) Furosemide 40 MG TABLET 1 TAB PO DAILY WATER PILL (Reported) Reason to Stop at ADM: change to IV Metoprolol Succinate 25 MG TAB 37.5 MG PO DAILY Heart Health Simvastatin (Simvastatin*) 20 MG TABLET 1 TAB PO 1700 CHOLESTEROL (Reported) Past History Travel History Traveled to [place] past 21 day No Medical History Neurological: NONE EENT: benign positional vertigo Cardiovascular: aortic aneurysm, hypertension, hyperlipidemia, irregular heart beat Respiratory: NONE Gastrointestinal: NONE Hepatic: NONE Renal: NONE Musculoskeletal: fracture (right ankle), left knee tendonitis Psychiatric: NONE Endocrine: NONE Blood Disorders: NONE Cancer(s): NONE CURRICULUM DIRECTOR/Reproductive: NONE History of MRSA: No History of VRE: No History of CDIFF: No Surgical History Surgical History: appendectomy, cholecystectomy, hysterectomy Past Family/Social History Psychosocial History Who Do You Live With? child Services at Home: None Primary Language: Haitian ETOH Use: denies use Illicit Drug Use: denies illicit drug use Functional Ability Ambulation: walker Review of Systems Review of Systems Constitutional: Denies: chills, fever. EENTM: Denies: blurred vision, nasal congestion. Cardiovascular: Denies: chest pain, palpitations. Respiratory: Denies: cough, short of breath. GI: Denies: abdominal pain, constipation, bloody stool, vomiting. Genitourinary: Denies: dysuria, hematuria. Musculoskeletal: Denies: back pain. Exam & Diagnostic Data Last 24 Hrs of Vital Signs/I&O Vital Signs Date Time Temp Pulse Resp B/P Pulse O2 O2 Flow FiO2 Ox Delivery Rate 05/20 1838 98 Room Air 05/20 1838 97.9 107 20 118/76 98 Room Air 05/20 1756 97.8 91 18 117/72 98 Room Air 05/20 1523 97.5 98 20 105/63 98 Room Air 05/20 1157 97.1 88 18 126/60 96 Room Air Intake & Output 05/20 1600 05/20 0800 05/20 0000 Intake Total Output Total Balance Patient 122.47 kg Weight Physical Exam General Appearance Alert, Oriented X3, Cooperative, No Acute Distress Skin bilateral lower extremity nonpitting edema with chronic skin changes, posteriorly skin peeling with weeping of clear fluid HEENT Atraumatic, PERRLA, EOMI, Mucous Membr. moist/pink Neck Supple, No JVD Cardiovascular Normal S1, Normal S2, No Murmurs, iirregularly irregular Lungs Clear to Auscultation, Normal Air Movement Abdomen Normal Bowel Sounds, Soft, No Tenderness Neurological Normal Speech, Strength at 5/5 X4 Ext, Normal Tone, Sensation Intact, Cranial Nerves 3-12 NL, Reflexes 2+ Extremities No Clubbing, No Cyanosis, Normal Pulses Assessment/Plan Assessment: Ms. Rooney is 80 year old female with past medical history significant for atrial fibrillation status post pacemaker 2017 on eliquis, HFPEF, hypertension, hyperlipidemia, chronic hypokalemia, AAA 6.3 cm echo 2017, bilateral venous insufficiency with skin changes for a year, chronic hypercapnic respiratory failure, depression and anxiety, was recently discharged February 2016 after new diagnosis of atrial fibrillation and suspected lower extremity cellulitis was maintained off antibiotic. Patient presented to ED with chief complaint of worsening lower extremity edema and weeping. On admission Vital signs temperature 97.5, pulse 98, blood pressure 105/63, respiratory rate 20 with saturation 98% room air Labs WBC 10, H&H 9.2/29.8, sodium 134, potassium 3, chloride 87, bicarbonate 35, BUN 19/creatinine 0.7, lactic acid 2.8 proBNP 990 Venous Doppler ultrasound 05/20 Normal triplex scan without evidence of deep venous thrombosis involving the bilateral lower extremities. Right Lucio's cyst. There is also right calf edema. This raises the possibility of a partial rupture. Chest x-ray 05/20 FINDINGS: Right chest wall single-lead pacer is unchanged. Mild elevation of the right hemidiaphragm. No consolidation, edema, or effusion. No pneumothorax. The cardiac mediastinal silhouette is unchanged. No acute osseous abnormality. IMPRESSION: Elevated right hemidiaphragm. Clear lungs. Problem list #Worsening bilateral lower extremity edema with possible cellulitis #Electrolyte imbalance #Anemia #Atrial fibrillation #Hypertension and hyperlipidemia #Worsening bilateral lower extremity edema with possible cellulitis -Admit to general medical floor -No history of fever, WBC within normal -Lactic acid of 2.9, will trend down -Wound care evaluation -IV Lasix -We will hold off systemic antibiotic, consider topical antibiotic -Patient reported severe bilateral lower extremity on and off spasmodic pain, she wants to avoid narcotics, will order Celebrex and acetaminophen and tramadol -Repeat CBC tomorrow morning #Electrolyte imbalance -Sodium 134, acute, will continue to monitor -History of chronic hypokalemia, replete with potassium chloride IV 10 mcq and 2 doses #Anemia -Iron study -Lactic dehydrogenase, haptoglobin pain given elevated bilirubin -Hold off aspirin #Atrial fibrillation -Continue metoprolol 37.5 daily -Continue Elequis 5 mg twice a day #Hypertension and hyperlipidemia -Continue atorvastatin 10 mg daily DVT prophylaxis Elequis for atrial fibrillation Diet heart healthy Code full As Ranked By This Provider Problem List: 1. Lower extremity edema Qualifiers Laterality: bilateral Qualified Code: R60.0 - Localized edema 2. Afib 3. Pacemaker 4. Hypokalemia 5. Dyslipidemia Core Measures/Miscellaneous Acute Coronary Syndrome ACS Diagnosis: No Cerebrovascular Accident CVA/TIA Diagnosis: No Congestive Heart Failure CHF Diagnosis: No Venous Thromboembolism VTE Risk Factors: Age > 40 [facility] prophylaxis d/t: No contraindications No VTE Pharm Prophylaxis d/t: No contraindications VTE Diagnosis: No VTE Type: NONE VTE Confirmed by (Test): EXT BILATERAL VENOUS DOPP Severe Sepsis Severe Sepsis Present: No Septic Shock Septic Shock Present: No Miscellaneous Documentation Attending Case Discussed With: LOLIS PRICE MD Primary Care Physician: LOLIS PRICE MD Patient sees these Specialists Cardiology Level of Patient Care: General Medicine IHEMILIE Woods MD 05/20/16 1706: Resident Review Statement Resident Statement: examined this patient, discussed with engineer internship, agreed with engineer internship, discussed with family, reviewed EMR data (avail), discussed with nursing , reviewed images, amended to note Other Findings: 80 yo female with pmh of A.fib on eliquis s/p PM, HTN, HLD, HFpEF (55-60%), morbid obesity (BMI 46.3), chronic hypercarbic respiratory failure, AAA, chronic hypokalemia, chronic venous stasis presented with worsening bilateral LE edema, pain. She was recently admitted in [facility] 02/24[facility]16[facility]03[facility]03[facility]16 for a.fib with occaisional pauses s/p PM, and Rt. sided heart failure with fluid overload. She got IV lasix 40mg bid during admission then discharged STR with po lasix 40mg daily. She has had chronic LE edema / pain for 3 months, but her visiting nurse noted her legs getting more swollen with woozing. She c/o squeezing pain, intermittent, 10/10 bilateral pain especially on post. calf side with skin lacerations. She has orthpnea sleeping in a recliner. She was seen by Dr. Riggins recently for a pacemaker, and it was fine. She denies any fever/chills, cough/sputum, chest pain, abdominal pain, n/v, dysuria, changes in bowel movement. V/S: 97.1F IN 88 RR 18 BP 126/60 96% on RA On exam, alert, oriented x 3, in mod-severe distress, anxious, EOM intact, moist mucosa, obese neck, irreguarly irregular rhythm, systolic murmurs, clear lungs, soft, non-tender abdomen, significant pedal edema below knees with bilateral post. calf skin abrasion, bilateral LE erythema/tenderness without warmness, normal pulses, motor 5/5 moving all 4 extremities, cranial nerves grossly intact. Labs: WBC 10, Hb/Hct 9.2/29.8 (baseline 12.8/39.4 in Feb), MCV 71.9, K 3.0, Mg 1.8, BUN/Cr 19/0.7, lactic acid 2.8, total bilirubin 1.7, AST/ALT 23/35, trop< 0.01, proBNP 990 CXR: Elevated right hemidiaphragm. Clear lungs. LE US: Normal triplex scan without evidence of deep venous thrombosis involving the bilateral lower extremities.Right Lucio's cyst. There is also right calf edema. This raises the possibility of a partial rupture. 1. Chronic LE edema secondary to volume overload/Rt. sided heart failure: Recent echo on 02/25/16 showed EF 55-60% with TR/elevated RVSP 44mmHg. HFpEF with Rt. heart failure. Will give IV lasix 40mg bid after repleting K. I/Os, weight, wound dressing, elevate legs. Pt is afebrile with normal WBC. She has lactic acidosis but it could be from CHF. Will monitor pt without antibiotics. 2. A.fib s/p PM: continue rate control with po metoprolol 37.5mg bid & anticoagulation with eliquis. 3. HTN: c/w b-alli and aspirin 4. Hypokalemia: 3.0, replete K before giving IV lasix. Mg 1.8, will replete Mg as well. 5. Acute microcytic anemia: She had decreased Hb/Hct compared to . No signs of active bleeding. She's on aspirin & eliquis. Guiac stool. Avoid NSAIDs. follow CBC in am. 6. HLD: c/w lipitor 7. Osteoarthritis: give low dose celebrex 100mg bid, and tyrenol/tramadol prn per pain pathway. DVT ppx: po eliquis, full code, pain pathway DEE GARCIA,[facility] 05/20/16 1730: Exam & Diagnostic Data Last 24 Hrs of Vital Signs/I&O Vital Signs Date Time Temp Pulse Resp B/P Pulse O2 O2 Flow FiO2 Ox Delivery Rate 05/20 1523 97.5 98 20 105/63 98 Room Air 05/20 1157 97.1 88 18 126/60 96 Room Air Intake & Output 05/20 1600 05/20 0800 05/20 0000 Intake Total Output Total Balance Patient 270 lb Weight Attending MD Review Statement Attending Statement Attending MD Statement: examined this patient, discuss w/resident/PA/MAKEUP INSTRUCTOR, agreed w/resident/PA/MAKEUP INSTRUCTOR, discussed with family, reviewed EMR data (avail), discussed with nursing, discussed with case mgmt, reviewed images, amended to note Attending Assessment/Plan: This is an 80-year-old lady with history of ongoing smoking, hypertension, hyperlipidemia, diastolic heart disease, previous aortic sclerosis, tricuspid valvular disease, morbid obesity with signs and symptoms suggestive of obstructive sleep apnea, chronic hypercarbic respiratory dysfunction with baseline high bicarbonate, S/P PACER now comes in with * Significant pedal edema generalized anasarca with increase in weight highly suggestive of acute on chronic cor pulmonale with right heart failure with fluid overload * Sig hypokalemia with weakness * New onset anemia on anticoag rule out slow gi bleed * Atrial fib on anticoag * Prob sig romero/central apnea * Sig aortic aneurysm by CT abd echo on beta blockers to reduce intraAortic pressure and for rate control * ROMERO/OHV with chronic hypercarbia clinically (tsh normal) * Diastolic heart disease with no evidence of left ventricular failure * Morbid obesity * Fatty liver * Glucose intolerance * mild depression and anxiety * Significant chronic venostasis changes in the lower extremity, with wound in the foot on wound care at home * Hypertension hyperlipidemia * Vitamin D deficiency REC Admit Agg Potassium replacement IV lasix only after potassium replacement Stool for heme HOld further antibiotics Check free t4 , ferritin and iron etc WIll consider low dose celexa Wound care to the foot Will follow closely Check hemoglobin and hematocrit
--- NOTE | 2016-05-20 17:13 | NUR ---
REPORT CALLED TO TAINA GALLEGOS TO [facility]. ROOM IS NOT CLEAN YET, RN WILL CALL WHEN ROOM WILL BE READY.
--- NOTE | 2016-05-20 17:55 | NUR ---
ROOM 209-1 IS CLEAN, [facility] CALLED FOR TRANSPORT.
--- NOTE | 2016-05-20 18:10 | NUR ---
PT REQUESTED A WHEELCHAIR TO GO TO [facility], REFUSED STRETCHER.
[2016-05-20 18:38] VITALS: BP 118/76
--- NOTE | 2016-05-20 19:58 | NUR ---
STOOL WAS GUAIC POSITIVE. DR JALIL CLIFTON NOTIFIED
--- NOTE | 2016-05-20 22:05 | NUR ---
LATE ENTRY: PATIENT ARRIVED TO FLOOR FROM ED AT 1835, DX BLE EDEMA, QUESTIONING CELLULITIS VS 97.9 107 20 118/76 98% ROOM AIR A&OX3, LUNGS CLEAR, ASSIST X1 TO BSC OR TOILET, BM GUAIC POSITIVE BLE +3 EDEMA, RED, WEEPING HX OF AFIB, RCW PACER. IV #20 TO RH-2 KCL BOLUSES ORDERED, 1ST ONE CURRENTLY RUNNING PATIENT MORE COMFORTABLE SITTING IN CHAIR, REFUSING TO ELEVATE LEGS AT THIS TIME, EDUCATED ON IMPORTANCE. ORIENTED TO ROOM AND CALL DENTON. CONTINUE TO MONITOR.
[2016-05-20 22:52] VITALS: BP 108/68
[2016-05-21 06:33] VITALS: BP 112/58
[2016-05-21 08:16] LABS: ABSOLUTE BASOPHIL COUNT 0.1 /CUMM (0.0-0.2); ABSOLUTE EOSINOPHIL COUNT 0.2 /CUMM (0.0-0.7); ABSOLUTE GRANULOCYTE CT 6.2 /CUMM (1.4-6.5); ABSOLUTE MONOCYTE COUNT 0.9 /CUMM (0.10-0.60); BASOPHIL % 0.7 % (0.0-2.0); EOSINOPHIL % 1.9 % (0-5); GRANULOCYTE % 66.1 % (42.2-75.2); HEMATOCRIT 27.7 % (37-47); MEAN CORPUSCULAR HGB 22.1 PG (27.0-31.0); MEAN CORPUSCULAR HGB CONC 30.5 G/DL (33.0-37.0); MEAN CORPUSCULAR VOLUME 72.5 FL (81.0-99.0); MEAN PLATELET VOLUME 7.8 FL (7.4-10.4); PLATELET COUNT 422 /CUMM (130-400); RBC DISTRIBUTION WIDTH 19.4 % (11.5-14.5); RED BLOOD CELL CT 3.82 /CUMM (4.20-5.40); WHITE BLOOD CELL COUNT 9.3 /CUMM (4.8-10.8)
--- NOTE | 2016-05-21 09:04 | PN- Housestaff ---
Subjective Follow-up For: Lower extremity swelling Subjective: Patient is seen and examined while seated in recliner and was sleeping. Patient does not endorse any acute complaints including increased lower extremities pain , fever, chills, shortness of breath, chest pain, palpitation or abdominal pain. No acute overnight event reported by nursing staff. Review of Systems Constitutional: Reports: no symptoms. Objective Last 24 Hrs of Vital Signs/I&O Vital Signs Date Time Temp Pulse Resp B/P Pulse O2 O2 Flow FiO2 Ox Delivery Rate 05/21 1440 98.0 90 20 126/78 98 Room Air 05/21 0933 82 156/76 05/21 0633 97.9 98 20 112/58 99 05/20 2252 97.9 100 20 108/68 97 Room Air 05/20 1838 98 Room Air 05/20 1838 97.9 107 20 118/76 98 Room Air 05/20 1756 97.8 91 18 117/72 98 Room Air Intake & Output 05/21 1600 05/21 0800 05/21 0000 Intake Total 720 490 480 Output Total 951 350 300 Balance -231 140 180 Intake, IV 250 Intake, Oral 720 240 480 Number 2 1 Bowel Movements Output, Stool 1 Output, Urine 950 350 300 Patient 124.483 kg 122.47 kg Weight Physical Exam General Appearance: Alert, Oriented X3, Cooperative Assessment/Plan Assessment: This is a 80 year old female with past medical history significant for atrial fibrillation status post pacemaker 2017 on eliquis, HFPEF, hypertension, hyperlipidemia, chronic hypokalemia, AAA 6.3 cm echo 2017, bilateral venous insufficiency with skin changes for a year, chronic hypercapnic respiratory failure, depression and anxiety, was recently discharged February 2016 after new diagnosis of atrial fibrillation and suspected lower extremity cellulitis was maintained off antibiotic. Patient presented to ED with chief complaint of worsening lower extremity edema and weeping. On admission Vital signs temperature 97.5, pulse 98, blood pressure 105/63, respiratory rate 20 with saturation 98% room air Labs WBC 10, H&H 9.2/29.8, sodium 134, potassium 3, chloride 87, bicarbonate 35, BUN 19/creatinine 0.7, lactic acid 2.8 proBNP 990 Venous Doppler ultrasound 05/20 Normal triplex scan without evidence of deep venous thrombosis involving the bilateral lower extremities. Right Lucio's cyst. There is also right calf edema. This raises the possibility of a partial rupture. Chest x-ray 3/31 FINDINGS: Right chest wall single-lead pacer is unchanged. Mild elevation of the right hemidiaphragm. No consolidation, edema, or effusion. No pneumothorax. The cardiac mediastinal silhouette is unchanged. No acute osseous abnormality. IMPRESSION: Elevated right hemidiaphragm. Clear lungs. Problem list #Worsening bilateral lower extremity edema with possible cellulitis #Electrolyte imbalance #Anemia #Atrial fibrillation #Hypertension and hyperlipidemia #Worsening bilateral lower extremity edema with possible cellulitis -Admit to general medical floor -No history of fever, WBC within normal -Lactic acid of 2.9, will trend down -Wound care evaluation -IV Lasix -We will hold off systemic antibiotic, consider topical antibiotic -Patient reported severe bilateral lower extremity on and off spasmodic pain, she wants to avoid narcotics, will order Celebrex and acetaminophen and tramadol -Repeat CBC tomorrow morning #Electrolyte imbalance -Sodium resolved today. will continue to monitor -History of chronic hypokalemia, 2.7 today. Already has scheduled 20 mEq. #Anemia -Microcytic picture. Ferritin and TIBC normal. -Holding off aspirin #Atrial fibrillation -Continue metoprolol 37.5 daily -Continue Elequis 5 mg twice a day #Hypertension and hyperlipidemia -Continue atorvastatin 10 mg daily DVT prophylaxis Elequis for atrial fibrillation Problem List: 1. Anasarca 2. Lower extremity edema Pain Ratin Pain Location: NONE Pain Goal: Remain pain free Pain Plan: Pain PaTH Tomorrow's Labs & Rationales: CBC bep
[2016-05-21] MEDS ORDERED: POTASSIUM CHLO20 ME2 PO (09:46)
[2016-05-21 14:40] VITALS: BP 126/78
--- NOTE | 2016-05-21 18:18 | PN- Att Addend ---
Attending Addendum Attending Brief Note Covering attending note Patient is sitting in the chair in no distress she states her legs are little smaller still edematous. Vital signs are stable. No no changes on physical will continue gentle diuresis monitor her blood work especially checking her potassium. Follow-up the labs. 24 TOTALS 05/21 0000 05/20 0000 Intake Total 480 Output Total 300 Balance 180 Intake, Oral 480 Number 1 Bowel Movements Output, Urine 300 Patient 270 lb Weight Current Medications Sig/Neeraj Start time Last Medication Dose Route Stop Time Status Admin Acetaminophen 650 MG Q6P PRN 05/20 1630 AC 05/20 PO 2152 Acetaminophen 1,000 MG Q6P PRN 05/20 1630 AC IV Albuterol Sulfate 3 ML Q4P PRN 05/20 171 AC INH Apixaban 5 MG BID 05/20 220 AC 05/21 PO 0930 Aspirin Buffered 81 MG DAILY 05/21 1000 CAN PO Atorvastatin Calcium 10 MG 1700 05/20 1715 AC 05/21 PO 1759 Celecoxib 100 MG BID 05/20 2200 AC 05/21 PO 0934 Cholecalciferol 1,000 IU 1700 05/21 1700 AC 05/21 PO 1759 Citalopram 10 MG BID 05/20 2200 CAN Hydrobromide PO Furosemide 40 MG 7:30 AM, & 4:30 PM 05/21 0730 AC 05/21 IV 1759 Furosemide 40 MG BID 05/20 2200 DC IV Magnesium Oxide 400 MG BID 05/20 2200 AC 05/21 PO 0934 Metoprolol Tartrate 37.5 MG DAILY 05/21 1000 AC 05/21 PO 0933 Potassium Chloride 20 MEQ DAILY 05/21 1000 AC 05/21 PO 1130 Potassium Chloride 10 MEQ Q1H 05/20 1800 DC 05/21 IV 05/20 1901 0042 Tramadol HCl 25 MG Q6 PRN 05/20 171 AC PO Laboratory Tests 05/21/16 0620: Anion Gap 11, Estimated GFR > 60, BUN/Creatinine Ratio 28.3 H, Total Bilirubin 1.5 H, Direct Bilirubin 0.4, AST 24, ALT 35, Alkaline Phosphatase 102, Total Protein 6.3, Albumin 3.3 L, CBC w Diff NO MAN DIFF REQ, RBC 3.82 L, MCV 72.5 L, MCH 22.1 L, RDW 19.4 H, MPV 7.8, Gran % 66.1, Lymphocytes % 21.4, Monocytes % 9.9 H, Eosinophils % 1.9, Basophils % 0.7, Absolute Granulocytes 6.2, Absolute Lymphocytes 2.0, Absolute Monocytes 0.9 H, Absolute Eosinophils 0.2, Absolute Basophils 0.1, PUBS MCHC 30.5 L 05/20/16 1910: Urinalysis LIGHT H, Urine Color YEL, Urine Clarity HAZY H, Urine pH 6.0, Ur Specific [place] 1.020, Urine Protein NEG, Urine Ketones NEG, Urine Nitrite NEG, Urine Bilirubin NEG, Urine Urobilinogen 2.0 H, Ur Leukocyte Esterase SMALL H, Ur Microscopic SEDIMENT EXAMINED, Urine WBC 5-10 H, Ur Epithelial Cells MOD H, Urine Bacteria PACKD H, Urine Mucus FEW, Urine Hemoglobin NEG, Urine Glucose NEG 05/20/16 1845: Lactic Acid 2.1 05/20/16 1500: Lactic Acid 2.2 H 05/20/16 1215: Anion Gap 11, Estimated GFR > 60, BUN/Creatinine Ratio 27.1 H, Glucose 191 H, Hemoglobin A1c 6.3 H, Lactic Acid 2.8 H, Calcium 9.3, Magnesium 1.8, TIBC 464, Ferritin 11.6, Total Bilirubin 1.7 H, AST 23, ALT 35, Alkaline Phosphatase 107, Troponin I < 0.01, [id number] Pept 990 H, Total Protein 6.6, Albumin 3.7 , Globulin 2.9, Albumin/Globulin Ratio 1.3, 25-OH Vitamin D Total 36.0, TSH 3.160, Free T4 1.84, CBC w Diff NO MAN DIFF REQ, RBC 4.14 L, MCV 71.9 L, MCH 22.4 L, RDW 18.6 H, MPV 7.4, Gran % 79.5 H, Lymphocytes % 12.5 L, Monocytes % 6.8, Eosinophils % 0.7, Basophils % 0.5, Absolute Granulocytes 8.0 H, Absolute Lymphocytes 1.3, Absolute Monocytes 0.7 H, Absolute Eosinophils 0.1, Absolute Basophils 0, PUBS MCHC 31.1 L
[2016-05-21 23:03] VITALS: BP 110/54
[2016-05-22 06:00] VITALS: BP 118/62
--- NOTE | 2016-05-22 13:25 | PN- Att Addend ---
Attending Addendum Attending Brief Note Covering attending: Patient sitting in the chair in no respiratory distress vital signs are stable no fever adequate oxygen saturations. No major changes on physical continue present treatment reevaluation by Dr. Van in the morning. Intake & Output 05/22 1600 05/22 0800 05/22 0000 05/21 1600 05/21 0800 05/21 0000 Intake Total 624 550 720 490 980 Output Total 450 675 951 350 300 Balance 174 -125 -231 140 680 Intake, IV 24 250 500 Intake, Oral 600 550 720 240 480 Number 2 1 Bowel Movements Output, Stool 1 Output, Urine 450 675 950 350 300 Patient 270 lb 274 lb 270 lb Weight Current Medications Sig/Neeraj Start time Last Medication Dose Route Stop Time Status Admin Acetaminophen 650 MG .STK-MED ONE 05/21 2106 DC PO 05/22 2107 Acetaminophen 650 MG Q6P PRN 05/20 1630 AC 05/22 PO 0644 Acetaminophen 1,000 MG Q6P PRN 05/20 1630 AC IV Albuterol Sulfate 3 ML Q4P PRN 05/20 171 AC INH Apixaban 5 MG BID 05/20 2200 AC 05/22 PO 0924 Atorvastatin Calcium 10 MG 1700 05/20 1715 AC 05/21 PO 1759 Celecoxib 100 MG BID 05/20 2200 AC 05/22 PO 0923 Cholecalciferol 1,000 IU 1700 05/21 1700 AC 05/21 PO 1759 Furosemide 40 MG 7:30 AM, & 4:30 PM 05/21 0730 AC 05/22 IV 0648 Magnesium Oxide 400 MG BID 05/20 2200 AC 05/22 PO 0926 Metoprolol Tartrate 37.5 MG DAILY 05/21 1000 AC 05/22 PO 0926 Potassium Chloride 20 MEQ DAILY 05/21 1000 AC 05/22 PO 0924 Silver Sulfadiazine 1 CIPRIANO ONE TIME ONE 05/22 043 DC 05/22 TOP 05/22 043 0541 Tramadol HCl 25 MG Q6 PRN 05/20 1715 AC PO Laboratory Tests 05/22/16 0700: Anion Gap 8, Estimated GFR > 60, BUN/Creatinine Ratio 32.9 H, Total Bilirubin 1.5 H, Direct Bilirubin 0.3, AST 26, ALT 30, Alkaline Phosphatase 107, Total Protein 6.6, Albumin 3.7 Vital Signs Date Time Temp Pulse Resp B/P Pulse O2 O2 Flow FiO2 Ox Delivery Rate 05/22 925 18 118/62 05/22 0600 97.6 99 18 118/62 99 Room Air
[2016-05-22 14:28] VITALS: BP 120/66
--- NOTE | 2016-05-22 19:09 | PN- Housestaff ---
Subjective Follow-up For: Lower extremity swelling Complaints: no complaints Subjective: Patient is seen and examined while seated in recliner and resting. Denies any acute complaints including lower extremities pain, fever, chills, shortness of breath, chest pain, palpitation or abdominal pain. No acute overnight event reported by nursing staff. Review of Systems Constitutional: Reports: see HPI. Objective Last 24 Hrs of Vital Signs/I&O Vital Signs Date Time Temp Pulse Resp B/P Pulse O2 O2 Flow FiO2 Ox Delivery Rate 05/22 1428 97.4 74 20 120/66 94 Room Air 05/22 0926 18 118/62 05/22 0600 97.6 99 18 118/62 99 Room Air 05/21 2303 98.6 98 20 110/54 97 Intake & Output 05/22 1600 05/22 0800 05/22 0000 Intake Total 520 624 550 Output Total 450 675 Balance 520 174 -125 Intake, IV 24 Intake, Oral 520 600 550 Number 0 Bowel Movements Output, Urine 450 675 Patient 122.668 kg Weight Physical Exam General Appearance: Alert, Oriented X3, Cooperative, No Acute Distress Skin: bilateral lower extremity nonpitting edema with chronic skin changes, seeping of clear fluids HEENT: Atraumatic, PERRLA, EOMI Neck: No JVD Lymphatic: Cervical nl Cardiovascular: Normal S1, Normal S2, No Murmurs, irregularly irregular heart rate Lungs: Clear to Auscultation, Normal Air Movement Abdomen: Normal Bowel Sounds, Soft, No Tenderness Neurological: Normal Speech, Normal Tone Extremities: bilateral lower extremity edema 2+ with chronic weeping wounds Current Medications: Current Medications Sig/Neeraj Start time Last Medication Dose Route Stop Time Status Admin Acetaminophen 650 MG .STK-MED ONE 05/22 0641 DC PO 05/22 0642 Acetaminophen 650 MG .STK-MED ONE 05/21 2107 DC PO 05/21 210 Acetaminophen 650 MG Q6P PRN 05/20 1630 AC 05/22 PO 0644 Acetaminophen 1,000 MG Q6P PRN 05/20 1630 AC IV Albuterol Sulfate 3 ML Q4P PRN 05/20 1715 AC INH Apixaban 5 MG BID 05/20 2200 AC 05/22 PO 0924 Atorvastatin Calcium 10 MG 1700 05/20 1715 AC 05/22 PO 1718 Celecoxib 100 MG BID 05/20 2199 AC 05/22 PO 0923 Cholecalciferol 1,000 IU 1700 05/21 1700 AC 05/22 PO 1717 Furosemide 40 MG 7:30 AM, & 4:30 PM 05/21 0730 AC 05/22 IV 1717 Magnesium Oxide 400 MG BID 05/20 2200 AC 05/22 PO 0926 Metoprolol Tartrate 37.5 MG DAILY 05/21 1000 AC 05/22 PO 0926 Potassium Chloride 20 MEQ DAILY 05/21 1000 AC 05/22 PO 0924 Silver Sulfadiazine 1 CIPRIANO ONE TIME ONE 05/22 0430 DC 05/22 TOP 05/22 0431 0541 Tramadol HCl 25 MG Q6 PRN 05/20 1715 AC PO Last 24 Hrs of Lab/Ehsan Results Last 24 Hrs of Labs/Mics: Laboratory Tests 05/22/16 0700: Anion Gap 8, Estimated GFR > 60, BUN/Creatinine Ratio 32.9 H, Total Bilirubin 1.5 H, Direct Bilirubin 0.3, AST 26, ALT 30, Alkaline Phosphatase 107, Total Protein 6.6, Albumin 3.7 Assessment/Plan Assessment: This is a 80 year old female with past medical history significant for atrial fibrillation status post pacemaker 2017 on eliquis, HFPEF, hypertension, hyperlipidemia, chronic hypokalemia, AAA 6.3 cm echo 2017, bilateral venous insufficiency with skin changes for a year, chronic hypercapnic respiratory failure, depression and anxiety, was recently discharged February 2016 after new diagnosis of atrial fibrillation and suspected lower extremity cellulitis was maintained off antibiotic. Patient presented to ED with chief complaint of worsening lower extremity edema and weeping. On admission Vital signs temperature 97.5, pulse 98, blood pressure 105/63, respiratory rate 20 with saturation 98% room air Labs WBC 10, H&H 9.2/29.8, sodium 134, potassium 3, chloride 87, bicarbonate 35, BUN 19/creatinine 0.7, lactic acid 2.8 proBNP 990 Venous Doppler ultrasound 05/20 Normal triplex scan without evidence of deep venous thrombosis involving the bilateral lower extremities. Right Lucio's cyst. There is also right calf edema. This raises the possibility of a partial rupture. Chest x-ray 05/20 FINDINGS: Right chest wall single-lead pacer is unchanged. Mild elevation of the right hemidiaphragm. No consolidation, edema, or effusion. No pneumothorax. The cardiac mediastinal silhouette is unchanged. No acute osseous abnormality. IMPRESSION: Elevated right hemidiaphragm. Clear lungs. Problem list #Worsening bilateral lower extremity edema with possible cellulitis #Electrolyte imbalance #Anemia #Atrial fibrillation #Hypertension and hyperlipidemia #Worsening bilateral lower extremity edema with possible cellulitis -Ultrasound negative for DVT -Afebrile overnight no white count- -Wound care evaluation in a.m. -Continue IV Lasix twice a day -Watch off antibiotics -Patient reported severe bilateral lower extremity on and off spasmodic pain, she wants to avoid narcotics, continue Celebrex, acetaminophen and tramadol #Electrolyte imbalance -Worsening hyponatremia to 132 this morning -Check BP in a.m. -Spot lites, serum and urine osmolarity ordered -Potassium repleted as needed #Anemia -Microcytic picture. Ferritin and TIBC normal. -Holding off aspirin #Atrial fibrillation -Continue metoprolol 37.5 daily -Continue Elequis 5 mg twice a day #Hypertension and hyperlipidemia -Continue atorvastatin 10 mg daily DVT prophylaxis Elequis for atrial fibrillation Problem List: 1. Afib 2. Pacemaker Pain Ratin Pain Location: Lower extremity Pain Goal: Pain 4 or less Pain Plan: Tramadol and Tylenol Tomorrow's Labs & Rationales: none
[2016-05-22 22:36] VITALS: BP 110/58
--- NOTE | 2016-05-23 07:11 | PN- Housestaff ---
Subjective Follow-up For: Worsening bilateral lower extremity edema Atrial fibrillation Subjective: Patient was seen and examined this morning, vital signs are stable, remained afebrile, no overnight events reported by the patient or the nurse. Patient is very upset because severe pain of lower extremities, she doesn't want to take any narcotics and only taking Tylenol on for the severe pain. Will have wound care consultation today. Review of Systems Constitutional: Reports: see HPI. Objective Last 24 Hrs of Vital Signs/I&O Vital Signs Date Time Temp Pulse Resp B/P Pulse O2 O2 Flow FiO2 Ox Delivery Rate 05/23 1448 100/50 05/23 1433 97.9 95 20 82/50 98 Room Air 05/23 1055 130/78 05/23 0720 97.8 90 20 116/74 97 / 2236 97.6 105 20 110/58 96 Intake & Output 05/23 1600 05/23 0800 05/23 0000 Intake Total 400 480 Output Total 800 Balance 400 -320 Intake, Oral 400 480 Output, Urine 800 Patient 122.924 kg Weight Physical Exam General Appearance: Alert, Oriented X3, No Acute Distress Skin: No Rashes, No Breakdown HEENT: Atraumatic, PERRLA, EOMI, Mucous Membr. moist/pink Neck: Supple Cardiovascular: Normal S1, Normal S2, No Murmurs, regular rhythm Lungs: Clear to Auscultation, Normal Air Movement Abdomen: Normal Bowel Sounds, Soft, No Tenderness Neurological: Normal Speech, Strength at 5/5 X4 Ext, Normal Tone, Sensation Intact, Cranial Nerves 3-12 NL, Reflexes 2+ Extremities: No Clubbing, No Cyanosis, Normal Pulses, bilateral lower extremity edema with skin changes, no discharge or active bleeding. Multiple white dry casts Assessment/Plan Assessment: This is a 80 year old female with past medical history significant for atrial fibrillation status post pacemaker 2017 on eliquis, HFPEF, hypertension, hyperlipidemia, chronic hypokalemia, AAA 6.3 cm echo 2017, bilateral venous insufficiency with skin changes for a year, chronic hypercapnic respiratory failure, depression and anxiety, was recently discharged February 2016 after new diagnosis of atrial fibrillation and suspected lower extremity cellulitis was maintained off antibiotic. Patient presented to ED with chief complaint of worsening lower extremity edema and weeping. Venous Doppler ultrasound 05/20 Normal triplex scan without evidence of deep venous thrombosis involving the bilateral lower extremities. Right Lucio's cyst. There is also right calf edema. This raises the possibility of a partial rupture. Chest x-ray 05/20 FINDINGS: Right chest wall single-lead pacer is unchanged. Mild elevation of the right hemidiaphragm. No consolidation, edema, or effusion. No pneumothorax. The cardiac mediastinal silhouette is unchanged. No acute osseous abnormality. IMPRESSION: Elevated right hemidiaphragm. Clear lungs. Problem list #Worsening bilateral lower extremity edema with possible cellulitis #Electrolyte imbalance #Anemia #Atrial fibrillation #Hypertension and hyperlipidemia #Worsening bilateral lower extremity edema with possible cellulitis -Ultrasound negative for DVT -Obtain bilateral arterial ultrasound -Wound care evaluation was obtained, thanks for recommendation -Continue IV Lasix 40 mg twice a day -Watch off antibiotics -Patient reported severe bilateral lower extremity on and off spasmodic pain, she wants to avoid narcotics, continue acetaminophen and tramadol -Discontinue Celebrex -Start Lexapro 10 mg at bedtime #Electrolyte imbalance -Replete potassium with 40 mEq oral twice a day for 2 days in addition to 20 scheduled dose -Spot lites, serum and urine osmolarity pending -We'll repeat BMP daily and repeat accordingly #Anemia -Microcytic picture. Ferritin and TIBC normal. -Holding off aspirin -Repeat CBC -Hemoccult #Atrial fibrillation -Continue metoprolol 37.5 daily -Continue Elequis 5 mg twice a day #Hypertension and hyperlipidemia -Continue atorvastatin 10 mg daily DVT prophylaxis Elequis for atrial fibrillation Code full Diet heart healthy Consultation wound care Problem List: 1. Hypokalemia 2. Lower extremity edema Pain Ratin Pain Location: Bilateral lower extremity pain Pain Goal: Pain 4 or less Pain Plan: Tramadol and acetaminophen Tomorrow's Labs & Rationales: CBC, BMP
[2016-05-23 07:20] VITALS: BP 116/74
--- NOTE | 2016-05-23 10:18 | PN- Pulmonary ---
Subjective HPI/Critical Care Issues: Pedal edema persist unfortunately patient is unable to keep the foot up Has pain on and off no fever no chills Still has on and off pain At times patient is upset due to her pain but does not want to take any narcotics. Review of Systems: Eyes no blurred or double vision Ears no deafness or ringing Nose and throat no recurrent sinusitis Lungs per history of present illness Heart per history of present illness Abdomen no nausea vomiting Musculoskeletal occasional muscle and joint pains Psych mild anxiety and depression Neuro without recurrent headache or seizures Endocrine no heat or cold intolerance SIGNIFICANT DATA Chest x-ray showed elevated hemidiaphragm Lower extremity ultrasound no DVT Potassium still low at 3.3 bicarbonate 37 Hemoglobin is still low MCV is at 72 Patient continues to be on Xeralto other blood work reviewed total bilirubin high consistent with Gilbert's disease initial ferritin was low TIBC was normal Objective Current Medications: Current Medications Sig/Neeraj Start time Last Medication Dose Route Stop Time Status Admin Acetaminophen 650 MG .STK-MED ONE 05/23 0115 DC PO 05/23 0116 Acetaminophen 650 MG Q6P PRN 05/20 1630 AC 05/23 PO 0748 Acetaminophen 1,000 MG Q6P PRN 05/20 1630 AC IV Albuterol Sulfate 3 ML Q4P PRN 05/20 171 AC INH Apixaban 5 MG BID 05/20 2199 AC 05/22 PO 211 Atorvastatin Calcium 10 MG 17005/20 1715 AC 05/22 PO 1718 Celecoxib 100 MG BID 05/20 220 AC 05/22 PO 211 Cholecalciferol 1,000 IU 1700 05/21 1700 AC 05/22 PO 171 Furosemide 40 MG 7:30 AM, & 4:30 PM 05/21 0730 AC 05/22 IV 1717 Magnesium Oxide 400 MG BID 05/20 220 AC 05/22 PO 211 Metoprolol Tartrate 37.5 MG DAILY 05/21 1000 AC 05/22 PO 09 Potassium Chloride 20 MEQ DAILY 05/21 1000 AC 05/22 PO 0924 Tramadol HCl 25 MG Q6 PRN 05/20 1715 AC PO Vital Signs & I&O Last 24 Hrs of Vitals and I&O: Vital Signs Date Time Temp Pulse Resp B/P Pulse O2 O2 Flow FiO2 Ox Delivery Rate 05/24 719 97.8 90 20 116/74 97 04/02 2236 97.6 105 20 110/58 96 05/22 1428 97.4 74 20 120/66 94 Room Air Intake & Output 05/23 1600 05/23 0800 05/23 0000 Intake Total 400 480 Output Total 800 Balance 400 -320 Intake, Oral 400 480 Output, Urine 800 Patient 271 lb Weight Impression/Plan Impression/Plan Impression/Plan: This is an 80-year-old lady with history of ongoing smoking, hypertension, hyperlipidemia, diastolic heart disease, previous aortic sclerosis, tricuspid valvular disease, morbid obesity with signs and symptoms suggestive of obstructive sleep apnea, chronic hypercarbic respiratory dysfunction with baseline high bicarbonate, S/P PACER now comes in with * Significant pedal edema generalized anasarca with increase in weight highly suggestive of acute on chronic cor pulmonale with right heart failure with fluid overload * Sig hypokalemia with weakness improving * New onset anemia on anticoag rule out slow gi bleed * Atrial fib on anticoag * Prob sig romero/central apnea * Sig aortic aneurysm by CT abd echo on beta blockers to reduce intraAortic pressure and for rate control * ROMERO/OHV with chronic hypercarbia clinically (tsh normal) * Diastolic heart disease with no evidence of left ventricular failure * Morbid obesity * Fatty liver * Glucose intolerance * mild depression and anxiety * Significant chronic venostasis changes in the lower extremity, with wound in the foot on wound care at home * Hypertension hyperlipidemia * Vitamin D deficiency REC IV lasix bid give second dost at around 4 pm Agg Potassium replacement, 40 meq tid today and bid from am Dc celebrex Stool for heme HOld further antibiotics Start lexapro 10 mg at hs Wound care COnsult Check hemoglobin and hematocrit
--- NOTE | 2016-05-23 11:31 | Cons- Wound Care ---
General Information and HPI Consulting Request Date of Consult: 05/23/16 Requested By: DEE GARCIA,LOLIS Hall Reason for Consult: Bilateral lower extremity ulcers present on admission History of Present Illness: This is an 80-year-old with history of morbid obesity obstructive sleep apnea pulmonary hypertension admitted with progressive leg edema bilateral weeping lower extremity ulcers of 3 months duration. Patient is sedentary and sleeps with her legs dependent. She has no knowledge of complicating peripheral vascular disease. Allergies/Medications Allergies: Coded Allergies: Penicillins (PER PT WAS A KID 02/24/16) alcohol (ANY KIND OF ALCOHOL MAKES LOOPY PER PT 02/24/16) ibuprofen (MD SAID DO NOT TAKE PER PT 02/24/16) Home Med List: Albuterol Sulfate 2.5 MG/3 ML (0.083 %) VIAL.NEB 3 ML INH Q4P PRN WHEEZING Apixaban (Eliquis) 5 MG TABLET 1 TAB PO BID Atrial fibrillation Aspirin (Ecotrin*) 81 MG TABLET.DR 1 TAB PO DAILY HEART/BLOOD (Reported) Cholecalciferol (Vitamin D3) 1,000 UNIT TABLET 1 TAB PO 1700 SUPPLEMENT ( Reported) Furosemide 40 MG TABLET 1 TAB PO DAILY WATER PILL (Reported) Reason to Stop at ADM: change to IV Metoprolol Succinate 25 MG TAB 37.5 MG PO DAILY Heart Health Potassium Chloride 20 MEQ TAB.ER.PRT 1 TAB PO DAILY supplement (Reported) Simvastatin (Simvastatin*) 20 MG TABLET 1 TAB PO 1700 CHOLESTEROL (Reported) Review of Systems Review of Systems: She denies claudication Past History Travel History Traveled to [place] past 21 day No Medical History Blood Transfusion Hx: No Neurological: NONE EENT: benign positional vertigo Cardiovascular: aortic aneurysm, AFIB, CHF, hypertension, hyperlipidemia, irregular heart beat Respiratory: NONE Gastrointestinal: NONE Hepatic: NONE Renal: NONE Musculoskeletal: fracture (right ankle), left knee tendonitis Psychiatric: NONE Endocrine: NONE Blood Disorders: NONE Cancer(s): NONE BDR/Reproductive: NONE Surgical History Surgical History: appendectomy, cholecystectomy, hysterectomy Psychosocial History Where Do You Live? Home Who Do You Live With? child Services at Home: None Primary Language: Estonian Smoking Status: Former Smoker ETOH Use: denies use Illicit Drug Use: denies illicit drug use Functional Ability Ambulation: walker Exam & Diagnostic Data Vital Signs and I&O Vital Signs Result Date Time B/P 130/78 05/23 1055 Pulse Ox 97 05/23 0720 Temp 97.8 05/23 0720 Pulse 90 05/23 0720 Resp 20 05/23 0720 O2 Delivery Room Air 05/22 1428 Intake & Output 05/23 0000 05/22 1600 05/22 0800 Intake Total 480 520 624 Output Total 800 450 Balance -320 520 174 Intake, IV 24 Intake, Oral 480 520 600 Number 0 Bowel Movements Output, Urine 800 450 Patient 270 lb Weight There is significant bilateral pitting edema to the knees there is venous stasis changes bilaterally distal pulses are unable to palpated over both legs are extensive areas of venous ulceration with yellow slough measuring actually 15 cm long and 5-6 cm wide there is no evidence of soft tissue skin infection. Assessment/Plan Impression/Plan: 80-year-old with multiple reasons for chronic lower extremity edema including morbid obesity obstructive sleep apnea pulmonary hypertension sedentary status and failure to elevate her legs admitted with increasing edema. To date she's not been effectively diuresed. She reports pain to be limiting factor in elevating her legs as her wounds are posterior. Recommend use of Xylocaine jelly initially for topical analgesia followed by wound cleansing to remove slough. Then ulcerated areas can be covered with Adaptic AVD pads and Pravin wraps for edema reduction. Patient should have bilateral lower extremity arterial ultrasound. If this is unrevealing use of multilayer compression dressing if tolerated would be recommended Consult Acknowledgment - Thank you for your consult request.
--- NOTE | 2016-05-23 14:03 | NUR ---
JOSE ROBERTO LUCIO REPORTED BP 84/56, RETAKEN MANUALLY FOR 86/60. PT ASYMPTOMATIC WITH NO COMPLAINTS AT THIS TIME. MD IGNACIO SINCLAIR NOTIFIED, REASSESS VITALS IN 30 MIN. WILL CONTINUE TO MONITOR.
[2016-05-23 14:33] VITALS: BP 82/50
[2016-05-23 14:48] VITALS: BP 100/50
[2016-05-23 22:21] VITALS: BP 110/60
[2016-05-24 06:16] VITALS: BP 115/70
[2016-05-24 07:06] VITALS: BP 122/76
--- NOTE | 2016-05-24 08:02 | PN- Housestaff ---
Subjective Follow-up For: Worsening bilateral lower extremity edema Atrial fibrillation Subjective: Patient was seen and examined this morning, she was sitting comfortably on the recliner, pleasantly answered all of my questions. She reported lower extremity pain 4/10, denied any shortness of breath, chest pain, dizziness, abdominal pain. Blood pressure is in the lower side, this morning 90/55, pulse 91, continued to be afebrile. No overnight events reported by the nurse of the patient. Review of Systems Constitutional: Reports: see HPI. Objective Last 24 Hrs of Vital Signs/I&O Vital Signs Date Time Temp Pulse Resp B/P Pulse O2 O2 Flow FiO2 Ox Delivery Rate 05/24 1010 90/55 05/24 0706 91 122/76 96 05/24 0616 97.9 108 20 115/70 96 Room Air 05/23 2221 97.2 97 20 110/60 96 05/23 1448 100/50 05/23 1433 97.9 95 20 82/50 98 Room Air Intake & Output 05/24 1600 05/24 0800 05/24 0000 Intake Total 120 240 Output Total 200 300 300 Balance -200 -180 -60 Intake, Oral 120 240 Number 0 Bowel Movements Output, Urine 200 300 300 Patient 118.076 kg Weight Physical Exam General Appearance: Alert, Oriented X3, Cooperative, No Acute Distress Skin: No Rashes, No Breakdown, No Significant Lesion HEENT: Atraumatic, PERRLA, EOMI, Mucous Membr. moist/pink Neck: Supple, No JVD Cardiovascular: Normal S1, Normal S2, No Murmurs, irregular irregular Lungs: Clear to Auscultation, Normal Air Movement Abdomen: Normal Bowel Sounds, Soft, No Tenderness Neurological: Normal Gait, Normal Speech, Strength at 5/5 X4 Ext, Normal Tone, Sensation Intact, Cranial Nerves 3-12 NL, Reflexes 2+ Extremities: No Clubbing, No Cyanosis, Normal Pulses, bilateral lower extremity nonpitting edema, wrapped in adaptive that Assessment/Plan Assessment: This is a 80 year old female with past medical history significant for atrial fibrillation status post pacemaker 2017 on eliquis, HFPEF, hypertension, hyperlipidemia, chronic hypokalemia, AAA 6.3 cm echo 2017, bilateral venous insufficiency with skin changes for a year, chronic hypercapnic respiratory failure, depression and anxiety, was recently discharged February 2016 after new diagnosis of atrial fibrillation and suspected lower extremity cellulitis was maintained off antibiotic. Patient presented to ED with chief complaint of worsening lower extremity edema and weeping. Venous Doppler ultrasound 05/20 Normal triplex scan without evidence of deep venous thrombosis involving the bilateral lower extremities. Right Lucio's cyst. There is also right calf edema. This raises the possibility of a partial rupture. Chest x-ray 05/20 FINDINGS: Right chest wall single-lead pacer is unchanged. Mild elevation of the right hemidiaphragm. No consolidation, edema, or effusion. No pneumothorax. The cardiac mediastinal silhouette is unchanged. No acute osseous abnormality. IMPRESSION: Elevated right hemidiaphragm. Clear lungs. Arterial Doppler lower extremity 05/23/16 Monophasic flow throughout suggestive of inflow disease. In addition, the right anterior tibial has no flow and on the left the posterior tibial and anterior tibial have no flow suggesting distal disease as well. If further definition is needed, CT angiography of the abdomen pelvis and bilateral lower extremities is recommended for further evaluation. Problem list #Worsening bilateral lower extremity edema with possible cellulitis #Electrolyte imbalance #Anemia #Atrial fibrillation #Hypertension and hyperlipidemia #Worsening bilateral lower extremity edema with possible cellulitis -Ultrasound negative for DVT -Arterial ultrasound revealed abnormal peripheral vasculature, no flow in right anterior tibial and left anterior and posterior tibial arteries -Vascular surgery consultation was placed -Wound care evaluation was obtained, thanks for recommendation -Continue IV Lasix 40 mg twice a day -Watch off antibiotics--patient is afebrile and no leukocytosis-- -Pain management with acetaminophen (patient refused any narcotics) and topical Xylocaine jelly -Discontinue Celebrex -Continue Lexapro 10 mg at bedtime #Electrolyte imbalance -Potassium with 40 mEq oral twice daily -BMP daily #Anemia -Hemiglobin, hematocrit 8.9/28.9, MCV 71.9 microcytic anemia -Ferritin and TIBC normal -Hemoccult positive -Holding off aspirin #Atrial fibrillation -Continue metoprolol 37.5 daily -Continue Elequis 5 mg twice a day #Hypertension and hyperlipidemia -Continue atorvastatin 10 mg daily DVT prophylaxis Elequis for atrial fibrillation Code full Diet heart healthy Consultation wound care, vascular Problem List: 1. Hypokalemia 2. Lower extremity edema Pain Ratin Pain Location: Bilateral lower extremity Pain Goal: Pain 4 or less Pain Plan: Acetaminophen and Xylocaine jelly Tomorrow's Labs & Rationales: None
[2016-05-24 08:11] LABS: ABSOLUTE BASOPHIL COUNT 0.1 /CUMM (0.0-0.2); ABSOLUTE EOSINOPHIL COUNT 0.2 /CUMM (0.0-0.7); ABSOLUTE LYMPH COUNT 1.7 /CUMM (1.2-3.4); ABSOLUTE MONOCYTE COUNT 0.9 /CUMM (0.10-0.60); BASOPHIL % 1.1 % (0.0-2.0); EOSINOPHIL % 2.6 % (0-5); GRANULOCYTE % 66.5 % (42.2-75.2); HEMATOCRIT 28.9 % (37-47); MEAN CORPUSCULAR HGB 22.3 PG (27.0-31.0); MEAN CORPUSCULAR VOLUME 71.9 FL (81.0-99.0); MEAN PLATELET VOLUME 7.7 FL (7.4-10.4); PLATELET COUNT 438 /CUMM (130-400); RBC DISTRIBUTION WIDTH 19.2 % (11.5-14.5); RED BLOOD CELL CT 4.02 /CUMM (4.20-5.40)
--- NOTE | 2016-05-24 09:32 | ULTRASOUND REPORT ---
EXAMINATION: NONINVASIVE ASSESSMENT OF THE ARTERIES OF BOTH LOWER EXTREMITIES INTERPRETING VASCULAR \T\ INTERVENTIONAL RADIOLOGIST: Ranulfo Rodríguez MD CLINICAL INFORMATION: Peripheral vascular disease with bilateral lower extremity wounds, numbness and severe pain TECHNIQUE: Bilateral lower extremity duplex ultrasound was performed with velocity measurements and waveform analysis in the common femoral arteries, profunda femoris arteries, proximal mid and distal superficial femoral arteries, popliteal arteries and tibial vessels. This study was performed only at rest. COMPARISON: None FINDINGS: velocities in cm/sec and phasicity as well as the presence of plaque are reported below Scattered areas of mild plaque are noted. RIGHT LEG: common femoral: 81, monophasic profunda femoris: 111, monophasic proximal SFA: 105, monophasic mid SFA: 21, monophasic distal SFA: 30, monophasic popliteal: 92, monophasic Posterior tibial: 42, monophasic Anterior tibial: Not seen Dorsalis pedis: 12, monophasic LEFT LEG: common femoral: 178, monophasic profunda femoris: 79, monophasic proximal SFA: 138, monophasic mid SFA: 102, monophasic distal SFA: 54, monophasic popliteal: 62, monophasic Posterior tibial: Not seen Anterior tibial: Not seen Dorsalis pedis: 47, monophasic IMPRESSION: Monophasic flow throughout suggestive of inflow disease. In addition, the right AT has no flow and on the left the PT and AT have no flow suggesting distal disease as well. If further definition is needed, CT angiography of the abdomen pelvis and bilateral lower extremities is recommended for further evaluation.
--- NOTE | 2016-05-24 10:03 | PN- Pulmonary ---
Subjective HPI/Critical Care Issues: Doing better overall improving Significant diuresis ongoing Afebrile Venous Doppler reviewed No pain BUN is slightly increased after aggressive diuresis Potassium is 3.8 White count is stable Hemoglobin and hematocrit has stable she remains anemic Cultures are unremarkable Lower extremity arterial ultrasound showed distal disease. Objective Current Medications: Current Medications Sig/Neeraj Start time Last Medication Dose Route Stop Time Status Admin Acetaminophen 650 MG .STK-MED ONE 05/24 2035 DC PO 05/23 203 Acetaminophen 650 MG Q6P PRN 05/20 1630 AC 05/23 PO 204 Acetaminophen 1,000 MG Q6P PRN 05/20 1630 AC IV Albuterol Sulfate 3 ML Q4P PRN 05/20 1715 AC INH Apixaban 5 MG BID 05/20 2200 AC 05/23 PO 2118 Atorvastatin Calcium 10 MG 1700 05/20 1715 AC 05/23 PO 1713 Celecoxib 100 MG BID 05/20 2200 DC 05/23 PO 1046 Cholecalciferol 1,000 IU 1700 05/21 1700 AC 05/23 PO 1713 Escitalopram Oxalate 10 MG QPM 05/23 2200 AC PO Furosemide 40 MG 7:30 AM, & 4:30 PM 05/21 0730 AC 05/24 IV 0635 Magnesium Oxide 400 MG BID 05/20 2200 AC 05/23 PO 2118 Metoprolol Tartrate 37.5 MG DAILY 05/21 1000 AC 05/23 PO 1055 Patient Medication 1 ED .STK-MED ONE 05/23 1350 DC Teaching ED 05/23 1351 Potassium Chloride 40 MEQ BID 05/23 1445 AC 05/23 PO 05/24 2300 1713 Potassium Chloride 20 MEQ DAILY 05/21 1000 AC 05/23 PO 1046 Tramadol HCl 25 MG Q6 PRN 05/20 1715 AC 05/24 PO 0023 Vital Signs & I&O Last 24 Hrs of Vitals and I&O: Vital Signs Date Time Temp Pulse Resp B/P Pulse O2 O2 Flow FiO2 Ox Delivery Rate 05/24 0706 91 122/76 96 05/24 0616 97.9 108 20 115/70 96 Room Air 05/23 2221 97.2 97 20 110/60 96 / 1448 100/50 / 1433 97.9 95 20 82/50 98 Room Air / 1055 130/78 Intake & Output 05/24 1600 05/24 0800 05/24 0000 Intake Total 120 240 Output Total 200 300 300 Balance -200 -180 -60 Intake, Oral 120 240 Number 0 Bowel Movements Output, Urine 200 300 300 Patient 260 lb Weight Impression/Plan Impression/Plan Impression/Plan: This is an 80-year-old lady with history of ongoing smoking, hypertension, hyperlipidemia, diastolic heart disease, previous aortic sclerosis, tricuspid valvular disease, morbid obesity with signs and symptoms suggestive of obstructive sleep apnea, chronic hypercarbic respiratory dysfunction with baseline high bicarbonate, S/P PACER now comes in with * Significant pedal edema generalized anasarca with increase in weight highly suggestive of acute on chronic cor pulmonale with right heart failure with fluid overload * Significant aortic aneurysm and peripheral vascular disease * Sig hypokalemia with weakness improving * New onset anemia on anticoag rule out slow gi bleed * Atrial fib on anticoag * Prob sig romeor/central apnea * Sig aortic aneurysm by CT abd echo on beta blockers to reduce intraAortic pressure and for rate control * ROMERO/OHV with chronic hypercarbia clinically (tsh normal) * Diastolic heart disease with no evidence of left ventricular failure * Morbid obesity * Fatty liver * Glucose intolerance * mild depression and anxiety * Significant chronic venostasis changes in the lower extremity, with wound in the foot on wound care at home * Hypertension hyperlipidemia * Vitamin D deficiency REC IV lasix bid Agg Potassium replacement, 40 meq twice a day Please call vascular consult Dr. Ronald Mcfarland for heme HOld further antibiotics follow wound care rec
[2016-05-24 13:57] VITALS: BP 110/70
[2016-05-24 21:59] VITALS: BP 128/60
[2016-05-25 06:26] VITALS: BP 130/70
--- NOTE | 2016-05-25 07:19 | PN- Housestaff ---
Subjective Follow-up For: Worsening bilateral lower extremity edema Atrial fibrillation Subjective: Patient was seen and examined this morning, she was sitting comfortably on recliner, reported having minimal pain and lower extremity. Patient denied any fever, chills, chest pain, palpitation, shortness of breath. Vital signs are stable, no overnight events reported by the nurse or the patient. Vascular consultation was obtained today with recommendation for CTA, I went and explained to the patient the recommendation and the procedure, she was crying and mentioned that "nobody care". I tried to reach patient's daughter Ms. Bryan at [phone], left a voice message that I'm calling to update her. Nurse was made aware Review of Systems Constitutional: Reports: see HPI. Objective Last 24 Hrs of Vital Signs/I&O Vital Signs Date Time Temp Pulse Resp B/P Pulse O2 O2 Flow FiO2 Ox Delivery Rate 05/25 1600 Room Air 05/25 1435 98.4 102 18 102/54 96 / 0943 110 110/60 04/ 0626 97.7 95 20 130/70 95 Room Air 05/24 2159 98.2 109 20 128/60 97 Intake & Output / 1600 /05 0800 04/05 0000 Intake Total 150 300 Output Total 300 1101 Balance -150 -801 Intake, Oral 150 300 Number 0 Bowel Movements Output, Stool 1 Output, Urine 300 1100 Patient 114.305 kg 114.305 kg Weight Physical Exam General Appearance: Alert, Oriented X3, Cooperative, No Acute Distress Skin: No Rashes HEENT: Atraumatic, PERRLA, EOMI, Mucous Membr. moist/pink Neck: Supple, No JVD Cardiovascular: Regular Rate, Normal S1, Normal S2, No Murmurs Lungs: Clear to Auscultation, Normal Air Movement Abdomen: Normal Bowel Sounds, Soft, No Tenderness Neurological: Normal Gait, Normal Speech, Strength at 5/5 X4 Ext, Normal Tone, Sensation Intact, Cranial Nerves 3-12 NL, Reflexes 2+ Extremities: No Clubbing, No Cyanosis, Normal Pulses, bilateral lower extremity nonpitting edema, skin changes wrapped with bandages Assessment/Plan Assessment: This is a 80 year old female with past medical history significant for atrial fibrillation status post pacemaker 2017 on eliquis, HFPEF, hypertension, hyperlipidemia, chronic hypokalemia, AAA 6.3 cm echo 2017, bilateral venous insufficiency with skin changes for a year, chronic hypercapnic respiratory failure, depression and anxiety, was recently discharged February 2016 after new diagnosis of atrial fibrillation and suspected lower extremity cellulitis was maintained off antibiotic. Patient presented to ED with chief complaint of worsening lower extremity edema and weeping. Venous Doppler ultrasound 05/20 Normal triplex scan without evidence of deep venous thrombosis involving the bilateral lower extremities. Right Lucio's cyst. There is also right calf edema. This raises the possibility of a partial rupture. Chest x-ray 05/20 FINDINGS: Right chest wall single-lead pacer is unchanged. Mild elevation of the right hemidiaphragm. No consolidation, edema, or effusion. No pneumothorax. The cardiac mediastinal silhouette is unchanged. No acute osseous abnormality. IMPRESSION: Elevated right hemidiaphragm. Clear lungs. Arterial Doppler lower extremity 05/23/16 Monophasic flow throughout suggestive of inflow disease. In addition, the right anterior tibial has no flow and on the left the posterior tibial and anterior tibial have no flow suggesting distal disease as well. If further definition is needed, CT angiography of the abdomen pelvis and bilateral lower extremities is recommended for further evaluation. Problem list #Worsening bilateral lower extremity edema with possible cellulitis #Electrolyte imbalance #Anemia #Atrial fibrillation #Hypertension and hyperlipidemia #Worsening bilateral lower extremity edema with possible cellulitis -Ultrasound negative for DVT -Arterial ultrasound revealed abnormal peripheral vasculature, no flow in right anterior tibial and left anterior and posterior tibial arteries -Vascular surgery consultation was obtained, thanks for recommendation, recommendation for CTA -Wound care evaluation was obtained, thanks for recommendation -Continue IV Lasix 40 mg twice a day -Watch off antibiotics--patient is afebrile and no leukocytosis-- -Pain management with acetaminophen (patient refused any narcotics) and topical Xylocaine jelly -Discontinue Celebrex -Continue Lexapro 10 mg at bedtime #Electrolyte imbalance -Potassium with 40 mEq oral twice daily -BMP daily #Anemia -Hemiglobin, hematocrit 8.9/28.9, MCV 71.9 microcytic anemia -Ferritin and TIBC normal -Hemoccult positive -Holding off aspirin #Atrial fibrillation -Continue metoprolol 37.5 daily -Continue Elequis 5 mg twice a day #Hypertension and hyperlipidemia -Continue atorvastatin 10 mg daily DVT prophylaxis Elequis for atrial fibrillation Code full Diet heart healthy Consultation wound care, vascular Problem List: 1. Lower extremity edema Pain Ratin Pain Location: Bilateral lower extremity Pain Goal: Pain 4 or less Pain Plan: Acetaminophen Tomorrow's Labs & Rationales: BMP
[2016-05-25] MEDS ORDERED: VITAMIN D31000 UNI2 PO (08:44)
[2016-05-25] MEDS ORDERED: MAGNESIUM OXID400 M1 PO (08:44)
[2016-05-25] MEDS ORDERED: KLOR-CON M2020 ME1 PO (08:44)
--- NOTE | 2016-05-25 08:48 | Patient Discharge Instructions ---
See Addendum Discharge Instructions General Discharge Information You were seen/treated for: BILATERAL LOWER EXTREMITY EDEMA Special Instructions: 1. PLEASE ELEVATE YOUR LEGS. 2. Xylocaine jelly initially for topical analgesia followed by wound cleansing to remove slough. Then ulcerated areas can be covered with Adaptic AVD pads and Pravin wraps for edema reduction. 2. PLEASE FOLLOW UP WITH YOUR PCP IN 2 WEEKS. Acute Coronary Syndrome Inclusion Criteria At DC or during hospital stay patient has or had the following: ACS DIAGNOSIS No Discharge Core Measures Meds if any: Prescribed or Continued at Discharge Meds if any: NOT Prescribed or Continued at Discharge Congestive Heart Failure Inclusion Criteria At DC or during hospital stay patient has or had the following: CHF DIAGNOSIS No Discharge Core Measures Meds if any: Prescribed or Continued at Discharge Meds if any: NOT Prescribed or Continued at Discharge Cerebrovascular accident Inclusion Criteria At DC or during hospital stay patient has or had the following: CVA/TIA Diagnosis No Discharge Core Measures Meds if any: Prescribed or Continued at Discharge Meds if any: NOT Prescribed or Continued at Discharge Venous thromboembolism Inclusion Criteria VTE Diagnosis No VTE Type NONE VTE Confirmed by (Test) NONE Discharge Core Measures - Per Current guidelines, there needs to be overlap - treatment for the first 5 days of Warfarin therapy. - If discharged on Warfarin prior to 5 days of - overlap therapy, the patient will need to be - assessed for post discharge needs including - *Post discharge parental anticoagulation - *Warfarin and/or parental anticoagulation education - *Follow up date to check INR post discharge At least 5 days overlap therapy as Inpatient No Meds if any: Prescribed or Continued at Discharge Note: Overlap Therapy is Warfarin and Anticoagulant Meds if any: NOT Prescribed or Continued at Discharge
--- NOTE | 2016-05-25 09:58 | PN- Pulmonary ---
Subjective HPI/Critical Care Issues: Doing better leg looks better vascular surg to see soon afebrile still unable to elevate the leg Laboratory Tests 05/24 0640 Chemistry Sodium (137 - 145 mmol/L) 134 L Potassium (3.5 - 5.1 mmol/L) 3.8 Chloride (98 - 107 mmol/L) 91 L Carbon Dioxide (22 - 30 mmol/L) 35 H Anion Gap (5 - 16) 8 BUN (7 - 17 mg/dL) 23 H Creatinine (0.5 - 1.0 mg/dL) 0.7 Estimated GFR (>60 ml/min) > 60 BUN/Creatinine Ratio (7 - 25 %) 32.9 H Hematology CBC w Diff NO MAN DIFF REQ WBC (4.8 - 10.8 /CUMM) 9.0 RBC (4.20 - 5.40 /CUMM) 4.02 L Hgb (12.0 - 16.0 G/DL) 8.9 L Hct (37 - 47 %) 28.9 L MCV (81.0 - 99.0 FL) 71.9 L MCH (27.0 - 31.0 PG) 22.3 L RDW (11.5 - 14.5 %) 19.2 H Plt Count (130 - 400 /CUMM) 438 H MPV (7.4 - 10.4 FL) 7.7 Gran % (42.2 - 75.2 %) 66.5 Lymphocytes % (20.5 - 51.1 %) 19.3 L Monocytes % (1.7 - 9.3 %) 10.5 H Eosinophils % (0 - 5 %) 2.6 Basophils % (0.0 - 2.0 %) 1.1 Absolute Granulocytes (1.4 - 6.5 /CUMM) 6.0 Absolute Lymphocytes (1.2 - 3.4 /CUMM) 1.7 Absolute Monocytes (0.10 - 0.60 /CUMM) 0.9 H Absolute Eosinophils (0.0 - 0.7 /CUMM) 0.2 Absolute Basophils (0.0 - 0.2 /CUMM) 0.1 PUBS MCHC (33.0 - 37.0 G/DL) 31.0 L Objective Current Medications: Current Medications Sig/Neeraj Start time Last Medication Dose Route Stop Time Status Admin Acetaminophen 650 MG .STK-MED ONE 05/24 1953 DC PO 05/24 1954 Acetaminophen 650 MG Q6P PRN 05/20 1630 AC 05/24 PO 1957 Acetaminophen 1,000 MG Q6P PRN 05/20 1630 AC IV Albuterol Sulfate 3 ML Q4P PRN 05/20 1715 AC INH Apixaban 5 MG BID 05/20 2200 AC 05/25 PO 0927 Atorvastatin Calcium 10 MG 1700 05/20 1715 AC 05/24 PO 1803 Cholecalciferol 1,000 IU 1700 05/21 1700 AC 05/24 PO 1804 Escitalopram Oxalate 10 MG QPM 05/23 2200 AC PO Furosemide 40 MG 7:30 AM, & 4:30 PM 05/21 0730 AC 05/25 IV 0610 Lidocaine 1 CIPRIANO DAILY 05/24 1200 AC 05/24 TOP 1804 Lidocaine 1 CIPRIANO DAILY 05/24 1116 CAN TOP Magnesium Oxide 400 MG BID 05/20 2200 AC 05/25 PO 0926 Metoprolol Tartrate 37.5 MG DAILY 05/21 1000 AC 05/25 PO 0943 Potassium Chloride 40 MEQ BID 05/24 2200 AC 05/25 PO 0927 Potassium Chloride 40 MEQ BID 05/23 1445 DC 05/23 PO 05/24 2300 1713 Potassium Chloride 20 MEQ DAILY 05/21 1000 DC 05/24 PO 1011 Tramadol HCl 25 MG Q6 PRN 05/20 171 AC 05/24 PO 2318 Vital Signs & I&O Last 24 Hrs of Vitals and I&O: Vital Signs Date Time Temp Pulse Resp B/P Pulse O2 O2 Flow FiO2 Ox Delivery Rate 05/25 0943 110 110/60 05/25 0626 97.7 95 20 130/70 95 Room Air 05/24 2159 98.2 109 20 128/60 97 04 1357 98.2 130 20 110/70 99 /04 1338 131 110/70 05/24 1010 90/55 Intake & Output 05/25 1600 05/25 0800 05/25 0000 Intake Total 150 300 Output Total 300 1101 Balance -150 -801 Intake, Oral 150 300 Number 0 Bowel Movements Output, Stool 1 Output, Urine 300 1100 Patient 252 lb Weight Impression/Plan Impression/Plan Impression/Plan: This is an 80-year-old lady with history of ongoing smoking, hypertension, hyperlipidemia, diastolic heart disease, previous aortic sclerosis, tricuspid valvular disease, morbid obesity with signs and symptoms suggestive of obstructive sleep apnea, chronic hypercarbic respiratory dysfunction with baseline high bicarbonate, S/P PACER now comes in with * Improving Significant pedal edema generalized anasarca with increase in weight highly suggestive of acute on chronic cor pulmonale with right heart failure with fluid overload * Significant aortic aneurysm and peripheral vascular disease * Sig hypokalemia with weakness improving * New onset anemia on anticoag rule out slow gi bleed * Atrial fib on anticoag * Prob sig romero/central apnea * Sig aortic aneurysm by CT abd echo on beta blockers to reduce intraAortic pressure and for rate control * ROMERO/OHV with chronic hypercarbia clinically (tsh normal) * Diastolic heart disease with no evidence of left ventricular failure * Morbid obesity * Fatty liver * Glucose intolerance * mild depression and anxiety * Significant chronic venostasis changes in the lower extremity, with wound in the foot on wound care at home, now with prob arterial insuff * Hypertension hyperlipidemia * Vitamin D deficiency REC IV lasix bid Agg Potassium replacement, 40 meq twice a day, check labs Please call vascular consult Dr. Cardenas to be seen today Stool for heme Start feso4 325 po qd in am Senna daily follow wound care rec Dc in am
--- NOTE | 2016-05-25 13:32 | Cons- Vascular Surgery ---
General Information and HPI Consulting Request Date of Consult: 05/25/16 Requested By: DEE GARCIA,LOLIS Hall History of Present Illness: 80-year-old lady with multiple medical issues including atrial fibrillation on ElIQUIS status post pacemaker, hypertension, hyperlipidemia, chronic hypokalemia and 6.3 cm ascending aortic aneurysm. She has a known history of bilateral chronic venous insufficiency, swelling, and ulcers.. She presented to the hospital with worsening bilateral lower extremity edema and weeping. She was a heavy smoker but has quit recently. She denies history of claudication or rest pain. Intravenous ultrasound did not show any evidence of DVT. An arterial ultrasound showed essentially low flow in the arterial system bilaterally. Allergies/Medications Allergies: Coded Allergies: Penicillins (PER PT WAS A KID 02/24/16) alcohol (ANY KIND OF ALCOHOL MAKES LOOPY PER PT 02/24/16) ibuprofen (MD SAID DO NOT TAKE PER PT 02/24/16) Home Med List: Albuterol Sulfate 2.5 MG/3 ML (0.083 %) VIAL.NEB 3 ML INH Q4P PRN WHEEZING Apixaban (Eliquis) 5 MG TABLET 1 TAB PO BID Atrial fibrillation Aspirin (Ecotrin*) 81 MG TABLET.DR 1 TAB PO DAILY HEART/BLOOD (Reported) Cholecalciferol (Vitamin D3) 1,000 UNIT TABLET 1 TAB PO 1700 SUPPLEMENT ( Reported) Cholecalciferol (Vitamin D3) 1,000 UNIT TABLET 1,000 IU PO 1700 LOW VIT D Furosemide 40 MG TABLET 1 TAB PO DAILY WATER PILL (Reported) Reason to Stop at ADM: change to IV Magnesium Oxide 400 MG TABLET 400 MG PO BID LOW MAGNESIUM Metoprolol Succinate 25 MG TAB 37.5 MG PO DAILY Heart Health Potassium Chloride 20 MEQ TAB.ER.PRT 1 TAB PO DAILY supplement (Reported) Potassium Chloride (Klor-Con M20) 20 MEQ TAB.ER.PRT 40 MEQ PO BID LOW POTASSIUM Simvastatin (Simvastatin*) 20 MG TABLET 1 TAB PO 1700 CHOLESTEROL (Reported) Past History Medical History Blood Transfusion Hx: No Neurological: NONE EENT: benign positional vertigo Cardiovascular: aortic aneurysm, AFIB, CHF, hypertension, hyperlipidemia, irregular heart beat Respiratory: NONE Gastrointestinal: NONE Hepatic: NONE Renal: NONE Musculoskeletal: fracture (right ankle), left knee tendonitis Psychiatric: NONE Endocrine: NONE Blood Disorders: NONE 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 Home Who Do You Live With? child Services at Home: None Primary Language: Armenian Smoking Status: Former Smoker ETOH Use: denies use Illicit Drug Use: denies illicit drug use Functional Ability Ambulation: walker Review of Systems Review of Systems: Patient denies headache, dizziness, cough, palpitation, diarrhea or constipation Exam & Diagnostic Data Vital Signs and I&O Vital Signs Date Time Temp Pulse Resp B/P Pulse O2 O2 Flow FiO2 Ox Delivery Rate 05/25 0943 110 110/60 05/25 0626 97.7 95 20 130/70 95 Room Air 05/24 2159 98.2 109 20 128/60 97 05/24 1357 98.2 130 20 110/70 99 05/24 1338 131 110/70 Intake & Output 05/25 1600 05/25 0805/25 0000 05/24 1600 05/24 0800 05/24 0000 Intake Total 148 438 1114 120 240 Output Total 300 1101 720 300 300 Balance -150 -801 740 -180 -60 Intake, IV 0 Intake, Oral 282 902 3567 120 240 Number 0 0 0 Bowel Movements Output, Stool 1 Output, Urine 300 1100 720 300 300 Patient 252 lb 260 lb Weight Physical Exam: Patient is alert and oriented 3 Lungs: Clear to auscultation bilaterally Abdomen: Soft, obese, nontender nondistended Extremities: Severe bilateral lower extremity edema with skin discoloration and ulcers. I'm unable to palpate pedal pulses. Assessment/Plan Assessment/Plan 80-year-old lady with multiple medical issues and risks factors for peripheral arterial disease presents with a known history of bilateral chronic venous insufficiency edema and ulcers. According to her, he has not sought medical help with her bilateral leg wounds or swelling in the past. The patient was seen by Dr. Lin from the wound center on this admission. Given findings of monophasic waveform in bilateral common femoral artery, as well as distal arteries I recommend CTA of abdomen and pelvis with bilateral lower extremity runoffs to better understand her overall arterial disease as this may be multilevel disease with severe inflow issue. Pending results of the CAT scan, she may need angiography in near future. Currently, she is being treated with compression Pravin wraps. I think she will need Unna boot on bilateral lower extremity. She can be followed in the [facility] after discharge. Thank you for asking me to be involved in the care of this patient. Consult Acknowledgment - Thank you for your consult request. Attending MD Review Statement Attending Statement Attending MD Statement: examined this patient, discuss w/resident/PA/DIRECTOR OF TEACHER EDUCATION
[2016-05-25 14:35] VITALS: BP 102/54
--- NOTE | 2016-05-25 19:54 | NUR ---
LATE ENTRY: PATIENT OFF FLOOR AT 1400 FOR CAT SCAN. PATIENT ARRIVED BACK TO FLOOR AT 1420 DUE TO REFUSING CAT SCAN BECAUSE PATIENT HAS ALLERGY TO SHELLFISH. PATIENT DOES NOT FEEL SAFE DOING THE CAT SCAN, ALTHOUGH SHE DID HAVE ONE DONE IN AUGUST OF 2016 WITH DYE. MD SINCLAIR NOTIFIED AND AWARE. PATIENT NON COMPLIANT WITH LEG ELEVATION ALTHOUGH PATIENT EDUCATED ON IMP OF ELEVATING LEGS.
[2016-05-25 21:54] VITALS: BP 119/71
[2016-05-26 06:55] VITALS: BP 144/84
--- NOTE | 2016-05-26 07:18 | PN- Housestaff ---
Subjective Follow-up For: Worsening bilateral lower extremity edema Atrial fibrillation Subjective: Patient was seen and examined this morning, vital signs are stable, no overnight events reported by the nurse or the patient. Patient denied any pain at the moment, denied any abdominal pain, chest pain. Patient refused CTA yesterday because she was afraid to get allergic reaction from the dye. Patient will be discharged today Review of Systems Constitutional: Reports: see HPI. Objective Last 24 Hrs of Vital Signs/I&O Vital Signs Date Time Temp Pulse Resp B/P Pulse O2 O2 Flow FiO2 Ox Delivery Rate 05/26 1000 98.1 114 18 144/84 05/26 0655 98.1 114 18 144/84 94 Room Air 05/26 0000 Room Air 05/25 2154 98.7 112 20 119/71 96 Intake & Output 05/26 1600 05/26 0800 05/26 0000 Intake Total 320 450 Output Total 220 1200 Balance 100 -750 Intake, IV 20 Intake, Oral 300 450 Output, Urine 220 1200 Patient 116.12 kg Weight Physical Exam General Appearance: Alert, Oriented X3, Cooperative, No Acute Distress Skin: No Rashes HEENT: Atraumatic, PERRLA, EOMI, Mucous Membr. moist/pink Neck: Supple, No JVD Cardiovascular: Regular Rate, Normal S1, Normal S2, No Murmurs Assessment/Plan Assessment: This is a 80 year old female with past medical history significant for atrial fibrillation status post pacemaker 2017 on eliquis, HFPEF, hypertension, hyperlipidemia, chronic hypokalemia, AAA 6.3 cm echo 2017, bilateral venous insufficiency with skin changes for a year, chronic hypercapnic respiratory failure, depression and anxiety, was recently discharged February 2016 after new diagnosis of atrial fibrillation and suspected lower extremity cellulitis was maintained off antibiotic. Patient presented to ED with chief complaint of worsening lower extremity edema and weeping. Venous Doppler ultrasound 05/20 Normal triplex scan without evidence of deep venous thrombosis involving the bilateral lower extremities. Right Lucio's cyst. There is also right calf edema. This raises the possibility of a partial rupture. Chest x-ray 05/20 FINDINGS: Right chest wall single-lead pacer is unchanged. Mild elevation of the right hemidiaphragm. No consolidation, edema, or effusion. No pneumothorax. The cardiac mediastinal silhouette is unchanged. No acute osseous abnormality. IMPRESSION: Elevated right hemidiaphragm. Clear lungs. Arterial Doppler lower extremity 05/23/16 Monophasic flow throughout suggestive of inflow disease. In addition, the right anterior tibial has no flow and on the left the posterior tibial and anterior tibial have no flow suggesting distal disease as well. If further definition is needed, CT angiography of the abdomen pelvis and bilateral lower extremities is recommended for further evaluation. Problem list #Worsening bilateral lower extremity edema with possible cellulitis #Electrolyte imbalance #Anemia #Atrial fibrillation #Hypertension and hyperlipidemia #Worsening bilateral lower extremity edema with possible cellulitis -Ultrasound negative for DVT -Arterial ultrasound revealed abnormal peripheral vasculature, no flow in right anterior tibial and left anterior and posterior tibial arteries -Vascular surgery consultation was obtained, thanks for recommendation, recommendation for CTA, patient refused CTA because of shell allergy -Wound care evaluation was obtained, recommendation for daily wound change and wrap, leg elevation -We'll switch Lasix to by mouth 40 twice a day -Pain management with acetaminophen (patient refused any narcotics) and topical Xylocaine jelly -Continue Lexapro 10 mg at bedtime -Watch off antibiotics--patient is afebrile and no leukocytosis-- -patient will be discharged today, recommendation to follow up with primary care physician Misael Van MD, wound care and vascular #Electrolyte imbalance -Potassium with 40 mEq oral twice daily -BMP daily #Anemia -Hemiglobin, hematocrit 8.9/28.9, MCV 71.9 microcytic anemia -Ferritin and TIBC normal -Hemoccult positive -Holding off aspirin -Start ferrous sulfate 325 by mouth daily in the morning #Atrial fibrillation -Continue metoprolol 37.5 daily -Continue Elequis 5 mg twice a day #Hypertension and hyperlipidemia -Continue atorvastatin 10 mg daily DVT prophylaxis Elequis for atrial fibrillation Code full Diet heart healthy Consultation wound care, vascular Problem List: 1. Hypokalemia 2. Lower extremity edema Pain Ratin Pain Location: Lower extremity Pain Goal: Pain 4 or less Pain Plan: Acetaminophen and topical Xylocaine jelly Tomorrow's Labs & Rationales: None
--- NOTE | 2016-05-26 08:57 | PN- Wound Care ---
Subjective Subjective: Patient feels well there is reduced lower extremity date drainage with Pravin wraps. Results of arterial ultrasound reviewed with evidence of peripheral vascular disease for which she will require a CTA Objective Vital Signs and I&Os Vital Signs Result Date Time Pulse Ox 94 05/26 654 B/P 144/84 05/26 0555 O2 Delivery Room Air 05/26 654 Temp 98.1 05/26 654 Pulse 114 05/26 0555 Resp 18 05/26 654 Intake & Output 05/26 0000 05/25 1600 05/25 0800 Intake Total 450 150 Output Total 1200 300 Balance -750 -150 Intake, Oral 450 150 Output, Urine 1200 300 Patient 252 lb 252 lb Weight Lower extremity edema appears somewhat reduced there is reduced drainage. Impression/Plan Impression/Plan Impression/Plan: 80-year-old with multiple reasons for chronic lower extremity edema including morbid obesity obstructive sleep apnea pulmonary hypertension sedentary status and failure to elevate her legs admitted with increasing edema. To date she's not been effectively diuresed. She reports pain to be limiting factor in elevating her legs as her wounds are posterior. Recommend use of Xylocaine jelly initially for topical analgesia followed by wound cleansing to remove slough. Then ulcerated areas can be covered with Adaptic AVD pads and Pravin wraps for edema reduction. Patient should have bilateral lower extremity arterial ultrasound. If this is unrevealing use of multilayer compression dressing if tolerated would be recommended. Await decision on further evaluation of complicating peripheral vascular disease. Patient should be encouraged to elevate her legs and sleep in bed. Continue Pravin wraps as tolerated
[2016-05-26] MEDS ORDERED: LASIX40 M1 PO (09:43)
[2016-05-26 10:00] VITALS: BP 144/84
--- NOTE | 2016-05-26 13:39 | PN- Pulmonary ---
Subjective HPI/Critical Care Issues: Patient feels well there is reduced lower extremity date drainage with Pravin wraps. Results of arterial ultrasound reviewed with evidence of peripheral vascular disease for which she will require a CTA Refused ct yesterday as she was allergic to shell fish Objective Current Medications: Current Medications Sig/Neeraj Start time Last Medication Dose Route Stop Time Status Admin Acetaminophen 650 MG .STK-MED ONE 05/25 2101 DC PO 05/25 210 Acetaminophen 650 MG Q6P PRN 05/20 1630 AC 05/25 PO 211 Acetaminophen 1,000 MG Q6P PRN 05/20 1630 AC IV Albuterol Sulfate 3 ML Q4P PRN 05/20 171 AC INH Apixaban 5 MG BID 05/20 220 AC 05/26 PO 1000 Atorvastatin Calcium 10 MG 1700 05/20 1715 AC 05/25 PO 1658 Cholecalciferol 1,000 IU 1700 05/21 1700 AC 05/25 PO 1658 Escitalopram Oxalate 10 MG QPM 05/23 2200 AC 05/25 PO 2112 Ferrous Sulfate 325 MG DAILY 05/25 1139 AC 05/26 PO 1000 Furosemide 40 MG 7:30 AM, & 4:30 PM 05/21 0730 AC 05/26 IV 0648 Lidocaine 1 CIPRIANO DAILY 05/24 1200 AC 05/26 TOP 1000 Magnesium Oxide 400 MG BID 05/20 220 AC 05/26 PO 1000 Metoprolol Tartrate 37.5 MG DAILY 05/21 1000 AC 05/26 PO 1000 Polyethylene Glycol 17 GM DAILY 05/25 1139 AC 05/26 PO 0959 Potassium Chloride 40 MEQ BID 05/24 2200 AC 05/26 PO 1000 Senna 187 MG AT BEDTIME 05/25 220 AC PO Tramadol HCl 25 MG Q6 PRN 05/20 171 AC 05/24 PO 2318 Vital Signs & I&O Last 24 Hrs of Vitals and I&O: Vital Signs Date Time Temp Pulse Resp B/P Pulse O2 O2 Flow FiO2 Ox Delivery Rate 05/26 1000 98.1 114 18 144/84 / 0655 98.1 114 18 144/84 94 Room Air / 0000 Room Air 05/25 2154 98.7 112 20 119/71 96 /05 1600 Room Air 05/25 1435 98.4 102 18 102/54 96 Intake & Output 05/26 1600 05/26 0800 04/06 0000 Intake Total 320 450 Output Total 220 1200 Balance 100 -750 Intake, IV 20 Intake, Oral 300 450 Output, Urine 220 1200 Patient 256 lb Weight Impression/Plan Impression/Plan Impression/Plan: This is an 80-year-old lady with history of ongoing smoking, hypertension, hyperlipidemia, diastolic heart disease, previous aortic sclerosis, tricuspid valvular disease, morbid obesity with signs and symptoms suggestive of obstructive sleep apnea, chronic hypercarbic respiratory dysfunction with baseline high bicarbonate, S/P PACER now comes in with * Improving Significant pedal edema generalized anasarca with increase in weight highly suggestive of acute on chronic cor pulmonale with right heart failure with fluid overload * Significant aortic aneurysm and peripheral vascular disease, pt wishes not to go through ct scan and wishes out pt management * resolved hypokalemia with weakness improving * New onset anemia on anticoag rule out slow gi bleed, so far hct stable * Atrial fib on anticoag * Prob sig romero/central apnea * Sig aortic aneurysm by CT abd echo on beta blockers to reduce intraAortic pressure and for rate control * ROMERO/OHV with chronic hypercarbia clinically (tsh normal) * Diastolic heart disease with no evidence of left ventricular failure * Morbid obesity * Fatty liver * Glucose intolerance * mild depression and anxiety * Significant chronic venostasis changes in the lower extremity, with wound in the foot on wound care at home, now with prob arterial insuff, wound care on follow up * Hypertension hyperlipidemia * Vitamin D deficiency REC Ok to dc Lasix bid Potassium 40 bid Out pt vascular eval Wrap foot daily Keep foot elevated Start feso4 325 po qd in am Senna daily follow wound care rec Dc PT to follow up with wound care, vascular and myself
--- NOTE | 2016-05-26 16:12 | Discharge Summary ---
Visit Information Visit Dates Admission Date: 05/20/16 Discharge Date: 05/26/16 Hospital Course Course Attending Physician: LOLIS PRICE MD Primary Care Physician: LOLIS PRICE MD Hospital Course: This is a 80 year old female with past medical history significant for atrial fibrillation status post pacemaker 2017 on eliquis, HFPEF, hypertension, hyperlipidemia, chronic hypokalemia, AAA 6.3 cm echo 2017, bilateral venous insufficiency with skin changes for a year, chronic hypercapnic respiratory failure, depression and anxiety, was recently discharged February 2016 after new diagnosis of atrial fibrillation and suspected lower extremity cellulitis was maintained off antibiotic. Patient presented to ED with chief complaint of worsening lower extremity edema and weeping. On admission Vital signs temperature 97.5, pulse 98, blood pressure 105/63, respiratory rate 20 with saturation 98% room air Labs WBC 10, H&H 9.2/29.8, sodium 134, potassium 3, chloride 87, bicarbonate 35, BUN 19/creatinine 0.7, lactic acid 2.8 proBNP 990 Imagin-Venous Doppler ultrasound 05/20 Normal triplex scan without evidence of deep venous thrombosis involving the bilateral lower extremities. Right Lucio's cyst. There is also right calf edema. This raises the possibility of a partial rupture. 2-Chest x-ray 05/20 FINDINGS: Right chest wall single-lead pacer is unchanged. Mild elevation of the right hemidiaphragm. No consolidation, edema, or effusion. No pneumothorax. The cardiac mediastinal silhouette is unchanged. No acute osseous abnormality. IMPRESSION: Elevated right hemidiaphragm. Clear lungs. 3-Arterial Doppler lower extremity 05/23/16 Monophasic flow throughout suggestive of inflow disease. In addition, the right anterior tibial has no flow and on the left the posterior tibial and anterior tibial have no flow suggesting distal disease as well. If further definition is needed, CT angiography of the abdomen pelvis and bilateral lower extremities is recommended for further evaluation. Patient was admitted to general medical floor for the following problems: Problem list #Worsening bilateral lower extremity edema with possible cellulitis #Electrolyte imbalance #Anemia #Atrial fibrillation #Hypertension and hyperlipidemia #Worsening bilateral lower extremity edema with possible cellulitis -Patient presented with history of worsening bilateral lower extremity with weeping wounds, no fever or leukocytosis (off antibiotic), venous ultrasound was obtained to rule out DVT, arterial ultrasound was obtained to rule out peripheral vascular disease, unfortunately there were signs of PVD with recommendation to do CTA with lower extremity runoff but the patient refused stating that she has shell allergy -Vascular surgery consultation was obtained with recommendation for CTA, patient was instructed to follow up with vascular surgery upon discharge -Wound care evaluation was obtained, recommendation for daily wound change and wrap, leg elevation -Patient received IV Lasix 40 mg twice a day, there was significant improvement of lower extremity edema with Lasix and daily wound putnam, patient was using the recliner the whole time and refused to elevate her legs -Pain management with acetaminophen (patient refused any narcotics) and topical Xylocaine jelly -We initially started Celebrex but didn't help alleviating her pain -Lexapro 10 mg at bedtime #Electrolyte imbalance -Potassium with 40 mEq oral twice daily -BMP daily #Anemia -Hemiglobin, hematocrit 8.9/28.9, MCV 71.9 microcytic anemia -Ferritin and TIBC normal -Hemoccult positive -Holding off aspirin -Ferrous sulfate 325 by mouth daily in the morning #Atrial fibrillation -Continue metoprolol 37.5 daily -Continue Elequis 5 mg twice a day #Hypertension and hyperlipidemia -Continue atorvastatin 10 mg daily DVT prophylaxis Elequis for atrial fibrillation Code full Diet heart healthy Consultation wound care, vascular Allergies: Coded Allergies: shellfish derived (Severe, ANAPHYLACTIC SHOCK 05/25/16) Penicillins (PER PT WAS A KID 02/24/16) alcohol (ANY KIND OF ALCOHOL MAKES LOOPY PER PT 02/24/16) ibuprofen (MD SAID DO NOT TAKE PER PT 02/24/16) Disposition Summary Disposition Principal Diagnosis: Worsening bilateral lower extremity edema with possible cellulitis Additional Diagnosis: Peripheral vascular disease Discharge Disposition: home health services Discharge Instructions General Discharge Information Code Status: Full Code Patient's Diet: Heart healthy Patient's Activity: As tolerated Follow-Up Instructions/Appts: 1. PLEASE ELEVATE YOUR LEGS. 2. Xylocaine jelly initially for topical analgesia followed by wound cleansing to remove slough. Then ulcerated areas can be covered with Adaptic AVD pads and Pravin wraps for edema reduction. 2. PLEASE FOLLOW UP WITH YOUR PCP IN 2 WEEKS. Medications at Discharge Discharge Medications: Stop taking the following medications: Furosemide (Furosemide) 40 MG TABLET ORAL DAILY Days = 30 Potassium Chloride (Potassium Chloride) 20 MEQ TAB.ER.PRT ORAL DAILY Qty = 60 Continue taking these medications: Aspirin (Ecotrin*) 81 MG TABLET.DR 1 Tablet ORAL DAILY Comments: NOT TAKEN IN HOSPITAL Cholecalciferol (Vitamin D3) 1,000 UNIT TABLET 1 Tablet ORAL 5 PM Comments: Last Taken:05/25/16 Time: 5PM Simvastatin (Simvastatin*) 20 MG TABLET 1 Tablet ORAL 5 PM Qty = 90 Comments: NOT GIVEN Metoprolol Succinate (Metoprolol Succinate) 25 MG TAB 37.5 Milligram ORAL DAILY Qty = 30 Comments: Last Taken:05/26/16 Time:10 AM Albuterol Sulfate (Albuterol Sulfate) 2.5 MG/3 ML (0.083 %) VIAL.NEB 3 Milliliters Inhale through mouth EVERY 4 HOURS NEEDED as needed for WHEEZING Days = 30 Comments: NOT GIVEN IN HOSPITAL Apixaban (Eliquis) 5 MG TABLET 1 Tablet ORAL TWICE DAILY Days = 28 Comments: Last Taken: 05/26/16 Time: 10 AM Start taking the following new medications: Potassium Chloride (Klor-Con M20) 20 MEQ TAB.ER.PRT 40 Millequivalent ORAL TWICE DAILY Days = 30 No Refills Comments: Last Taken:05/26/16 Time:10AM Magnesium Oxide (Magnesium Oxide) 400 MG TABLET 400 Milligram ORAL TWICE DAILY Days = 30 No Refills Comments: Last Taken:05/26/16 Time:10AM Furosemide (Lasix) 40 MG TABLET 1 Tablet ORAL TWICE DAILY Qty = 30 No Refills Comments: Last Taken:05/26/16 Time:7AM Copies To: PRIYANK GARCIA,MELLISSA Castro; DEE GARCIA,LOLIS Hall; GAY GARCIA,BERTIN
== END 2016-05-26 14:25 | disposition home health service (06) | DRG 300 ==
LOC: ENRESERVDT → ENRESERVTM → ERH 11:49 → ENPENDDIS 16:03 → 2NB 16:03 → ERHI 16:03 → 2NB 18:21
PROVIDERS: Internal Medicine; Physician Assistant; Student in an Organized Health Care Education/Training Program; ADMIT Internal Medicine Pulmonary Disease
DX: I87.2 Venous insufficiency (chronic) (peripheral) (principal); J96.12 Chronic respiratory failure with hypercapnia; E87.1 Hypo-osmolality and hyponatremia; I11.0 Hypertensive heart disease with heart failure; I50.32 Chronic diastolic (congestive) heart failure; I27.2 Other secondary pulmonary hypertension; Z68.42 Body mass index [BMI] 45.0-49.9, adult; L97.919 Non-pressure chronic ulcer of unspecified part of right lower leg with unspecified severity; L97.929 Non-pressure chronic ulcer of unspecified part of left lower leg with unspecified severity; E66.01 Morbid (severe) obesity due to excess calories; I48.91 Unspecified atrial fibrillation; Z95.0 Presence of cardiac pacemaker; E78.5 Hyperlipidemia, unspecified; I71.4 Abdominal aortic aneurysm, without rupture; F32.9 Major depressive disorder, single episode, unspecified; F41.9 Anxiety disorder, unspecified; E87.6 Hypokalemia; D50.9 Iron deficiency anemia, unspecified; G47.33 Obstructive sleep apnea (adult) (pediatric); E55.9 Vitamin D deficiency, unspecified; H81.10 Benign paroxysmal vertigo, unspecified ear; Z79.01 Long term (current) use of anticoagulants; Z87.891 Personal history of nicotine dependence
CPT/HCPCS: 2NBSP; 36415; 81001; 81003; 82436; 87040; 93005; 93010; 93925; 93970; 96374; J0131; J1940